=== PATIENT | male | born 1930 | race Caucasian/White ===

== ENCOUNTER 2017-03-09 06:38 | Inpatient (IN) ==
[2017-03-09] MEDS ORDERED: 0.9 % SODIUM CHLORIDE 1,000 ML IV ONE ×3 (07:08→15:58)
--- NOTE | 2017-03-09 07:29 | Emergency Department Note ---
General Adult HPI - General Chief complaint: Nausea/Vomiting/Diarrhea Stated complaint: Nausea, Vomiting, fever, chills, shaking. Time Seen by Provider: 03/09/17 07:22 Source: patient Mode of arrival: wheelchair Limitations: no limitations - History of Present Illness HPI Narrative: 86-year-old male states that he has been having some increased urinary frequency some slight dysuria during the night. His states he is running a temperature but she was unable to take the temperature. She did give Tylenol has been complaining of fever and chills urinary signs and symptoms. Blood pressure on arrival was 84 systolically and patient was given IV fluids and laboratory tests drawn. She denies cough no sputum production patient did have a pacemaker insertion 3 weeks ago. No pain or redness to that area. There is some slight nausea there is been no vomiting BUT DID HAVE DRY HEAVES. no abdominal pain. his states he had a syncopy episode while vomitting GI his appetite has been decreased there is been no diarrhea constipation problems no hematemesis no melena. Denies any CVA tenderness - Related Data Home Medications Medication Instructions Recorded Confirmed calcium carbonate 600 mg calcium 600 mg PO QDAY tab 12/16/14 03/09/17 (1,500 mg) tablet cholecalciferol (vitamin D3) 1,000 1,000 unit PO QDAY cap 12/16/14 03/09/17 unit capsule fluoxetine 40 mg capsule 80 mg PO QAM cap 12/16/14 03/09/17 multivitamin tablet 1 tab PO QDAY tab 12/16/14 03/09/17 pravastatin 10 mg tablet 10 mg PO QHS tab 12/16/14 03/09/17 trazodone 50 mg tablet 50 mg PO QHS tab 12/16/14 03/09/17 aspirin 325 mg tablet 325 mg PO QDAY 06/19/15 03/09/17 latanoprost 0.005 % eye drops 1 drp OPHTHALMIC QHS ml 01/25/16 03/09/17 testosterone cypionate 200 mg/mL 100 mg IM Q4W ml 11/29/16 03/09/17 intramuscular oil Donepezil [Aricept] 10 mg PO HS 12/03/16 03/09/17 sennosides 8.6 mg tablet 8.6 mg PO QDAY 01/28/17 03/09/17 Previous Rx's Medication Instructions Recorded clobetasol 0.05 % scalp solution 1 applic TOPICAL BID PRN #50 ml 08/15/15 levothyroxine 50 mcg tablet 50 mcg PO QDAY #90 tab 09/02/16 midodrine 5 mg tablet 5 mg PO TID #1 tab 11/29/16 omeprazole 20 mg capsule,delayed 20 mg PO QDAY #30 cap 12/10/16 release finasteride 5 mg tablet 5 mg PO QDAY #30 tab 12/11/16 Allergies Allergy/AdvReac Type Severity Reaction Status Date / Time Sulfa (Sulfonamide Allergy Intermediate Rash Verified 01/17/17 12:53 Antibiotics) [SULFA (SULFONAMIDE ANTIBIOTICS)] Review of Systems Constitutional: Reports: fever, chills Eyes: Denies: eye pain ENT ED: Denies: ear pain, throat pain Cardiovascular: Denies: chest pain, palpitations Respiratory: Denies: cough Gastrointestinal: Denies: abdominal pain, nausea Genitourinary: Reports: as per HPI, urgency, dysuria. Denies: hematuria, discharge, testicular pain Musculoskeletal: Denies: back pain Integumentary: Denies: rash Neurological: Denies: headache Psychiatric: Denies: anxiety Endocrine: Denies: fatigue Hematological/Lymphatic: Denies: easy bleeding Allergic/Immunologic: Denies: facial swelling Past Medical History - Past Medical History Medical history: Reports: other (Anemia, gastritis, renal vascule, dementia, memory loss, pancreatitis, stage 3 CKD, paroxysmal atrial fibrillation, psoriasis) Surgical history ED: Reports: pacemaker/AICD, other Family history: Reports: other (Cholecystectomy spinal surgery cataracts,) - Social History smoking status: Former smoker Alcohol use: Reports: Rarely Drug use: Reports: none Physical Exam - General Limitations: no limitations General appearance: alert - Head Head exam: atraumatic, normocephalic - Eye Eye exam: Present: normal appearance, PERRL - ENT ENT exam: normal exam, normal oropharynx, mucous membranes moist - Neck Neck exam: Present: normal inspection, full ROM. Absent: trachea midline - Chest Chest inspection: Present: normal inspection, symmetric chest wall rise. Absent : tenderness - Respiratory Respiratory exam: Present: normal lung sounds bilaterally. Absent: respiratory distress, wheezes, stridor - Cardiovascular Cardiovascular exam: Present: regular rate, normal rhythm. Absent: bradycardia , tachycardia - Abdominal Exam Abdominal exam: Present: soft. Absent: distention, tenderness, guarding, rebound - exam: Present: normal inspection. Absent: testicular tenderness - Extremities Exam Extremities exam: Present: normal inspection, full ROM. Absent: tenderness - Back Exam Back exam: Present: normal inspection, full ROM. Absent: tenderness - Neurological Exam Neurological exam: Present: alert, oriented X3, CN II-XII intact - Psychiatric Psychiatric exam: Present: normal affect, normal mood. Absent: depressed - Skin Skin exam: Present: warm, dry, intact Course Vital Signs Temperature 98.3 F 03/09/17 06:39 Pulse Rate 65 03/09/17 06:39 Respiratory Rate 18 03/09/17 06:39 Blood Pressure 87/47 03/09/17 06:39 Pulse Oximetry (%) 91 03/09/17 06:39 Temperature 98.3 F 03/09/17 06:39 Pulse Rate 59 L 03/09/17 08:31 Respiratory Rate 19 03/09/17 08:31 Blood Pressure 100/46 03/09/17 08:31 Pulse Oximetry (%) 94 03/09/17 08:31 Medical Decision Making - MDM Narrative Medical decision making narrative: chest xray show right lower llobe infiltrate, blood cultures drawn and started on rocephin and zithromax. lactic acid 2.0 and wbc 11,200 hypotensive intially, had syncopy episode. Dr Blanco consulted - Lab Data Result diagrams: 03/09/17 07:15 03/09/17 07:15 Lab Results 03/09/17 03/09/17 03/09/17 Range/Units 07:15 07:15 07:15 WBC 11.2 H (4.5-11.0) K/mcL RBC 4.51 (4.50-5.90) M/mcL Hgb 13.3 L (13.5-16.5) g/dL Hct 39.0 L (41.0-55.0) % MCV 86.4 (80.0-100.0) fL MCH 29.4 (26.0-34.0) pg MCHC 34.0 (31.0-36.0) g/dL RDW 14.2 (11.5-14.5) % Plt Count 219 (140-440) K/mcL MPV 8.5 (7.4-10.4) fL Gran % 91.9 H (38.0-78.0) % Lymph % (Auto) 4.6 L (15.5-49.0) % [place] % (Auto) 2.7 (1.0-12.0) % Eos % (Auto) 0.7 (0.0-7.0) % Baso % (Auto) 0.1 (0.0-2.0) % Gran # 10.3 H (1.8-8.0) K/mcL Lymph # (Auto) 0.5 L (1.5-4.8) K/mcL [place] # (Auto) 0.3 (0.1-0.9) K/mcL Eos # (Auto) 0.1 (0.0-0.7) K/mcL Baso # (Auto) 0 (0.0-0.3) K/mcL Total Counted 100 Seg Neutrophils % 84 H (38-78) % Band Neutrophils % 6 (0-10) % Lymphocytes % 9 L (15-49) % Monocytes % (Manual) 1 (1-12) % Platelet Estimate Normal (NORMAL) RBC Morphology Normal (NORMAL) VBG Lactic Acid 2.0 (0.5-2.2) mmol/L Sodium 139 (133-145) mmol/L Potassium 3.9 (3.3-5.1) mmol/L Chloride 99 (96-108) mmol/L Carbon Dioxide 26 (22-30) mmol/L Anion Gap 14.0 (8-16) BUN 20 (8-23) mg/dl Creatinine 1.4 H (0.7-1.2) mg/dl GFR Calculation 45 Glucose 128 H (70-105) mg/dL Calcium 9.3 (8.6-10.4) mg/dl Total Bilirubin 0.4 (0.0-1.0) mg/dL AST 16 (0-37) U/l ALT 17 (0-40) U/l Alkaline Phosphatase 65 (39-117) U/L Total Protein 7.1 (5.9-8.4) gm/dL Albumin 4.3 (3.2-5.2) gm/dL Globulin 2.8 (2.2-3.7) gm/dL Albumin/Globulin Ratio 1.5 (1.0-2.3) Disposition Pt seen by [facility] only: No Clinical Impression: Right lower lobe pneumonia Disposition: Xfer As Inpt ([facility]) Referrals: Raymond Ro MD [Primary Care Provider] -
--- NOTE | 2017-03-09 07:43 | XRay Report ---
INDICATION: Fever TECHNIQUE: AP upright portable chest x-ray COMPARISON: Previous examinations dated 02/07/2017, 02/29/2016 FINDINGS:No change in left transvenous pacemaker leads Patchy right lung infiltrates consistent with pneumonia. Left lung is negative. Heart size and vascularity are normal. Follow-up radiographs recommended. IMPRESSION: Right lung infiltrates consistent with pneumonia Interpreted and Authenticated by: Wali Cary 03/09/17
[2017-03-09] MEDS ORDERED: AZITHROMYCIN 500 MG in DEXTROSE 5% IN WATER 250 ML IV ONE (07:48)
[2017-03-09] MEDS ORDERED: cefTRIAXone 1 GM VIAL IM SCH (08:00)
[2017-03-09 08:16] LABS: Basophils # (Auto) 0 K/mcL (0.0-0.3); Basophils % (Auto) 0.1 % (0.0-2.0); Eosinophils # (Auto) 0.1 K/mcL (0.0-0.7); Eosinophils % (Auto) 0.7 % (0.0-7.0); Granulocytes % (Auto) 91.9 % (38.0-78.0); Lymphocytes # (Auto) 0.5 K/mcL (1.5-4.8); Lymphocytes % (Auto) 4.6 % (15.5-49.0); Mean Cell Volume 86.4 fL (80.0-100.0); Mean Corpuscular Hemoglobin 29.4 pg (26.0-34.0); Monocytes # (Auto) 0.3 K/mcL (0.1-0.9); Monocytes % (Auto) 2.7 % (1.0-12.0); Platelet Count 219 K/mcL (140-440); RBC 4.51 M/mcL (4.50-5.90); Red Cell Distribution Width 14.2 % (11.5-14.5)
[2017-03-09 08:30] LABS: ALT/SGPT 17 U/l (0-40); Albumin 4.3 gm/dL (3.2-5.2); Albumin/Globulin Ratio 1.5 (1.0-2.3); Alkaline Phosphatase 65 U/L (39-117); Blood Urea Nitrogen 20 mg/dl (8-23)
[2017-03-09] MEDS ORDERED: cefTRIAXone 1 GM in DEXTROSE 5% IN WATER 50 ML IV ONE (08:46)
[2017-03-09 08:52] LABS: Band Neutrophils % 6 % (0-10); Lymphocytes % 9 % (15-49); Monocytes % (Manual) 1 % (1-12); Platelet Estimate NORMAL (NORMAL); RBC Morphology NORMAL (NORMAL); Segmented Neutrophils % 84 % (38-78)
[2017-03-09] MEDS: 0.9 % SODIUM CHLORIDE 1,000 ML IV SCH ×5 (10:48→23:04)
[2017-03-09] MEDS ORDERED: ONDANSETRON 4 MG/2 ML VIAL IV PRN (11:43)
[2017-03-09] MEDS ORDERED: NALOXONE HCL 0.4 MG/ML VIAL IV PRN (11:43)
[2017-03-09] MEDS ORDERED: MAGNESIUM HYDROXIDE 30 ML ORAL.SUSP PO PRN (11:43)
[2017-03-09] MEDS ORDERED: oxyCODONE/APAP 5/325MG TABLET PO PRN (11:43)
[2017-03-09 12:17] LABS: Appearance,Urine CLEAR; Bacteria,Urine 0 /hpf (0); Bilirubin,Urine NEG (NEG); Color,Urine YELLOW; Glucose,Urine (UA) NEGATIVE (NEG); Leukocyte Esterase,Urine NEG /uL (NEG); Mucus,Urine FEW /hpf (0); Nitrate,Urine NEG (NEG); Protein,Urine NEG (NEG); Specific Gravity,Urine 1.014 (1.000-1.035); Urine Blood NEG mg/dL (<0.03); Urine RBC 0 /hpf (0-1); Urine Squamous Epithelial Cell < 1 /hpf (0-4); Urine WBC 1 /hpf (0-4); Urobilinogen,Urine NEG (NEG)
--- NOTE | 2017-03-09 12:48 | Internal Med History&Physical ---
Medical - H&P: HPI Patient information: Note initiated : 03/09/17 at 12:39 pm Service Date, if different from initiated Date: [] Patient: Gustavo Fuentes 86 y/o M admitted on 03/09/17 for Nausea, Vomiting, fever , chills, shaking.. Chief Complaint: [] History of present illness: Mr. Fuentes is a 86 year old Male with multiple medical issues, [place], presented to the ER today with complaints of not feeling well x 1 day. The patient notes he has had some increased frequency of urination x 1 day, he wokeup this AM trying to go the bathroom and his noticed him having shakes, he appeared sick and also had some nausea and vomiting, he vomited x 3-4 times with some brown stuff, no regulo blood. The patient apparenty passed out while vomiting. The patients noted this is the way he was sick in the past when he had his PNA and therefore got him to the hospital for further evaluation. The patient denies any burning or foul smelling urine, the patient denies any cough, chest pain or , palpitations The patient feels he passed out for a few minutes. However, there is no record of any bowel or bladder incontinence or any abnormal jerky movements. in the emergency room, the patient had borderline low blood pressure on presentation, he was afebrile, chest x-ray showed right lung pneumonia, blood work showed elevated white blood cell count at 11.2, hemoglobin of 13.3, platelets of 219. Patient had a sodium of 139, potassium of 3.9, creatinine of 1.4 which is at patient's baseline. The patient had a lactic acid of 2.0,and a negative urine analysis. Given that the patient had low blood pressure and a pneumonia. Patient was admitted to the hospital for further management. All systems: reviewed and no additional remarkable complaints except as stated ( as per HPI) Medical - H&P: [facility] Medical history: Medical History (Last Updated 03/09/17 @ 08:36 by Moises Plascencia MD) Hypogonadism in male (Chronic) Memory loss (Chronic) Chronic kidney disease, stage III (moderate) (Chronic) Pancreatitis (Chronic) Muscle spasm (Resolved) Paroxysmal atrial fibrillation (Chronic) Pancreatic mass (Chronic) Pancreatitis (Chronic) Orthostasis (Chronic) Constipation (Chronic) Enlarged prostate (Chronic) Scalp psoriasis (Chronic) Actinic keratosis (Chronic) Constipation (Chronic) Black stools (Chronic) Personal history of tobacco use (Resolved) Bilateral renal cysts (Chronic) Osteoporosis (Chronic) Osteoarthritis (Chronic) Macular degeneration (Chronic) Insomnia (Chronic) Hypothyroidism (acquired) (Chronic 08/17/14) Hyperlipidemia (Chronic) Glaucoma (Chronic) Depressive disorder (Chronic) Hypersomnia (Chronic) Chronic kidney disease, stage III (moderate) (Chronic 08/17/14) CAD (coronary artery disease) (Chronic) Anxiety disorder (Chronic) Surgical history: Past Surgical History (Last Updated 02/15/17 @ 21:21 by Raymond Ro MD) History of eye surgery (Resolved) History of ERCP (Resolved) History of colonoscopy (Resolved) History of cholecystectomy (Resolved) History of spinal surgery (Resolved) History of cataract surgery (Resolved) H/O heart artery stent (Resolved) Abnormal findings on esophagogastroduodenoscopy (EGD) (Chronic) History of pacemaker (Chronic 02/06/17) Pertinent family history: Family History (Last Reviewed 12/11/16 @ 09:26 by Viky Silvestre MD) Mother Cerebrovascular accident Father Myocardial Infarction Medical - H&P: Meds Home Medications Medication Instructions Recorded Confirmed Type calcium carbonate 600 mg calcium 600 mg PO QDAY tab 12/16/14 03/09/17 History (1,500 mg) tablet cholecalciferol (vitamin D3) 1,000 1,000 unit PO QDAY cap 12/16/14 03/09/17 History unit capsule fluoxetine 40 mg capsule 80 mg PO QAM cap 12/16/14 03/09/17 History multivitamin tablet 1 tab PO QDAY tab 12/16/14 03/09/17 History pravastatin 10 mg tablet 10 mg PO QHS tab 12/16/14 03/09/17 History trazodone 50 mg tablet 100 mg PO QHS tab 12/16/14 03/09/17 History aspirin 325 mg tablet 325 mg PO QDAY 06/19/15 03/09/17 History clobetasol 0.05 % scalp solution 1 applic TOPICAL BID PRN #50 ml 08/15/15 Rx latanoprost 0.005 % eye drops 1 drp OPHTHALMIC QHS ml 01/25/16 03/09/17 History levothyroxine 50 mcg tablet 50 mcg PO QDAY #90 tab 09/02/16 03/09/17 Rx omeprazole 20 mg capsule,delayed 20 mg PO QDAY #30 cap 12/10/16 03/09/17 Rx release finasteride 5 mg tablet 5 mg PO QDAY #30 tab 12/11/16 03/09/17 Rx sennosides 8.6 mg tablet 8.6 mg PO QDAY 01/28/17 03/09/17 History RX: Midodrine HCl 10 mg PO TID 03/09/17 03/09/17 History Allergies Allergy/AdvReac Type Severity Reaction Status Date / Time Sulfa (Sulfonamide Allergy Intermediate Rash Verified 01/17/17 12:53 Antibiotics) [SULFA (SULFONAMIDE ANTIBIOTICS)] Medical - H&P: Exam - Constitutional Vitals: Temp Pulse Resp BP Pulse Ox 100.1 F H 61 16 99/53 97 03/09/17 11:43 03/09/17 11:43 03/09/17 11:43 03/09/17 11:43 03/09/17 11:43 Exam: GENERAL: The patient is a well-developed, well-nourished in no apparent distress. Is alert and oriented x3. VITAL SIGNS: Reviewed and as noted elsewhere. HEENT: Head is normocephalic and atraumatic. Extraocular muscles are intact. Pupils are equal, round, and reactive to light. Nares appeared normal. Mouth appears any without lesions. Mucous membranes are dry. NECK: Normal to inspection, Supple, No lymphadenopathy or thyromegaly. LUNGS: Air entry equal on both sides, no wheezing, crackles or rhonchi noted. No accessory muscles of respiration HEART: Regular rate and rhythm normal, S1 and S2 heard, no Gallop, S3 or Rub Noted, No Gross murmur heard. ABDOMEN: Soft, nontender, and nondistended. Positive bowel sounds. No hepatosplenomegaly was noted. EXTREMITIES: No cyanosis, clubbing, rash, lesions or edema. NEUROLOGIC: Cranial nerves II through XII are grossly intact. Motor and Sensory System Grossly Intact PSYCHIATRIC: Normal affect, Normal Mood. Appropriate Behavior. SKIN: No ulceration or wounds noted, No jaundice, No rash noted. Medical - H&P: Reslt - Labs CBC & Chem 7: 03/09/17 07:15 03/09/17 07:15 Medical - H&P: A/P - Narrative A/P Narrative: A/P Community Acquired Pneumonia: IV rocephin and zithromax for now, monitor Syncope: Monitor on tele, recent pacemaker placement, get ekg, get trop levels, likely vasovagal given association with vomiting. Nausea and vomiting: Treat symptomatically Sepsis: Due to pna, ua is neg, IV fluids and treat u nderlying etiology CKD: Creat is 1.4, follows with nephrology, monitor Hypotension, chr (on midodrine 10mg TID) : patient seems to have chr low bp, and is on midodrine, resume same, will monitor for end organ perfusion issues. DM: Hold metformin, SSI insulin for now HLD: Continue statin therapy s/p Pacemaker (placed 3 weeks ago): Montior on tele DVT hep sq Diet cardiac Full code Medical - H&P: Qual - VTE Deep Vein Thrombosis/Pulmonary Embolism Present on Admission: No Social History - Social History household members: spouse housing: assisted living facility lives independently: Yes marital status: occupational status: retired - Tobacco smoking status: Former smoker - Alcohol alcohol intake frequency: holiday/special occasion only
[2017-03-09] MEDS: ACETAMINOPHEN 325 MG TABLET PO PRN (13:12)
[2017-03-09] MEDS: IPRATROPIUM/ALBUTEROL 3 ML AMPUL.NEB NEB SCH ×4 (13:40→22:50)
[2017-03-09] MEDS: MIDODRINE 5 MG TABLET PO SCH (15:46)
[2017-03-09] MEDS ORDERED: 0.9 % SODIUM CHLORIDE 500 ML IV ONE (19:02)
[2017-03-09] MEDS: traZODone HCL 50 MG TABLET PO SCH (20:43)
[2017-03-09] MEDS: SIMVASTATIN 10 MG TABLET PO SCH (20:43)
[2017-03-09] MEDS: HEPARIN 5,000 UNIT/ML VIAL SQ SCH (20:43)
[2017-03-09] MEDS: LATANOPROST OPHTH DROPS 2.5ML BOTTLE OU SCH (20:44)
[2017-03-09] MEDS ORDERED: FAMOTIDINE/PF 20 MG/2 ML VIAL IV SCH (21:00)
[2017-03-10] MEDS: IPRATROPIUM/ALBUTEROL 3 ML AMPUL.NEB NEB SCH ×6 (02:26→23:15)
[2017-03-10 06:56] LABS: Basophils # (Auto) 0 K/mcL (0.0-0.3); Basophils % (Auto) 0.1 % (0.0-2.0); Eosinophils # (Auto) 0.1 K/mcL (0.0-0.7); Eosinophils % (Auto) 0.8 % (0.0-7.0); Granulocytes % (Auto) 88.8 % (38.0-78.0); Lymphocytes # (Auto) 0.8 K/mcL (1.5-4.8); Lymphocytes % (Auto) 6.5 % (15.5-49.0); Mean Cell Volume 87.4 fL (80.0-100.0); Mean Corpuscular Hemoglobin 29.7 pg (26.0-34.0); Monocytes # (Auto) 0.5 K/mcL (0.1-0.9); Monocytes % (Auto) 3.8 % (1.0-12.0); Platelet Count 154 K/mcL (140-440); RBC 3.36 M/mcL (4.50-5.90); Red Cell Distribution Width 14.6 % (11.5-14.5)
[2017-03-10 07:11] LABS: ALT/SGPT 13 U/l (0-40); Albumin 3.5 gm/dL (3.2-5.2); Albumin/Globulin Ratio 1.5 (1.0-2.3); Alkaline Phosphatase 58 U/L (39-117); Bilirubin,Direct < 0.2 mg/dL (0.0-0.3); Blood Urea Nitrogen 17 mg/dl (8-23); Gamma Glutamyl Transpeptidase 12 U/L (8-61); Magnesium 1.9 mg/dL (1.6-2.5); Uric Acid 4.8 mg/dL (2.5-8.0)
[2017-03-10] MEDS: OMEPRAZOLE 20 MG CAPSULE PO SCH (07:41)
[2017-03-10] MEDS: LEVOTHYROXINE 50 MCG TABLET PO SCH (07:41)
[2017-03-10] MEDS: MULTIVIT,THER IRON,CA,FA & MIN 1 TABLET PO SCH (08:48)
[2017-03-10] MEDS: FINASTERIDE 5 MG TABLET PO SCH (08:48)
[2017-03-10] MEDS: ASPIRIN 325 MG ENTERIC COATED TABLET PO SCH (08:49)
[2017-03-10] MEDS: CALCIUM CARBONATE 500 MG TAB.CHEW CHEWED SCH (08:49)
[2017-03-10] MEDS: HEPARIN 5,000 UNIT/ML VIAL SQ SCH ×2 (08:49→20:36)
[2017-03-10] MEDS: SENNOSIDES 1 TABLET PO SCH (08:49)
[2017-03-10] MEDS: MIDODRINE 5 MG TABLET PO SCH ×3 (08:50→17:23)
[2017-03-10] MEDS: cefTRIAXone 1 GM in DEXTROSE 5% IN WATER 50 ML IV SCH (08:51)
[2017-03-10] MEDS: 0.9 % SODIUM CHLORIDE 1,000 ML IV SCH (09:06)
[2017-03-10] MEDS: AZITHROMYCIN 250 MG in DEXTROSE 5% IN WATER 250 ML IV SCH (10:30)
[2017-03-10] MEDS: ACETAMINOPHEN 325 MG TABLET PO PRN (12:01)
[2017-03-10] MEDS: risperiDONE 0.25 MG TABLET PO SCH ×2 (12:20→19:27)
[2017-03-10] MEDS ORDERED: LORazepam 2 MG/ML VIAL IV ONE (13:00)
[2017-03-10] MEDS ORDERED: HALOPERIDOL LACTATE 5 MG/ML VIAL IV ONE ×2 (13:15→14:37)
[2017-03-10] MEDS ORDERED: LORazepam 2 MG/ML VIAL ONE (13:19)
[2017-03-10] MEDS ORDERED: HALOPERIDOL LACTATE 5 MG/ML VIAL ONE (13:35)
[2017-03-10] MEDS: HALOPERIDOL LACTATE 5 MG/ML VIAL ONE ×2 (14:40→14:44)
[2017-03-10] MEDS ORDERED: LORazepam 2 MG/ML VIAL IV PRN (19:11)
--- NOTE | 2017-03-10 20:19 | Internal Med Progress Note ---
Medical - PN: Subj Patient information: Note initiated : 03/10/17 at 8:17 pm Service Date, if different from initiated Date: [] Patient: Gustavo Fuentes 86 y/o M admitted on 03/09/17 for Nausea, Vomiting, Fever , Chills, Shaking/Pneumonia. Chief Complaint: [] Interval history: Mr. Fuentes is a 86 year old Male with multiple medical issues, [place], presented to the ER today with complaints of not feeling well x 1 day. The patient notes he has had some increased frequency of urination x 1 day, he wokeup this AM trying to go the bathroom and his noticed him having shakes, he appeared sick and also had some nausea and vomiting, he vomited x 3-4 times with some brown stuff, no regulo blood. The patient apparenty passed out while vomiting. The patients noted this is the way he was sick in the past when he had his PNA and therefore got him to the hospital for further evaluation. The patient denies any burning or foul smelling urine, the patient denies any cough, chest pain or , palpitations The patient feels he passed out for a few minutes. However, there is no record of any bowel or bladder incontinence or any abnormal jerky movements. in the emergency room, the patient had borderline low blood pressure on presentation, he was afebrile, chest x-ray showed right lung pneumonia, blood work showed elevated white blood cell count at 11.2, hemoglobin of 13.3, platelets of 219. Patient had a sodium of 139, potassium of 3.9, creatinine of 1.4 which is at patient's baseline. The patient had a lactic acid of 2.0,and a negative urine analysis. Given that the patient had low blood pressure and a pneumonia. Patient was admitted to the hospital for further management. 03/10: pt seen examined magdalena well this AM but by afternoon was trying to leave the room and go outside the hospital, has h/o dementia, ativan and haldol given. to keep him in his room. Pt denies any acute complaints. Pertinent ROS: Denies headache, dizziness Denies chest pain, palpitations Denies cough or shortness of breath Denies abdominal pain, nausea or vomiting. - Constitutional Vitals: Vital Signs Temp Pulse Resp BP Pulse Ox 100.1 F H 80 18 109/54 97 03/10/17 16:00 03/10/17 19:36 03/10/17 19:36 03/10/17 16:00 03/10/17 19:36 Period Temp Pulse Resp BP Sys/Patel Pulse Ox Last 24 Hr 98.7 F-100.2 F 60-80 12-20 99-109/47-58 92-99 Intake and Output 03/10/17 03/10/17 03/10/17 05:59 13:59 21:59 Intake Total 1660 / 1660 2880 / 2880 Output Total 600 / 600 550 / 550 275 / 275 Balance 1060 / 1060 2330 / 2330 -275 / -275 Intake & Output: Intake & Output 03/10/17 03/10/17 03/10/17 05:59 13:59 21:59 Intake Total 1660 / 1660 2880 / 2880 Output Total 600 / 600 550 / 550 275 / 275 Balance 1060 / 1060 2330 / 2330 -275 / -275 Intake: IV 940 / 940 1300 / 1300 Sodium Chloride 0.9% 1, 940 / 940 1000 / 1000 000 ml @ 100 mls/hr IV . Q10H [facility] Rx#:[id number] Zithromax 250 mg In 250 / 250 Dextrose 5% in Water 250 ml @ 250 mls/hr IV DAILY@ 1000 [facility] Rx#:[id number] Rocephin 1 gm In Dextrose 50 / 50 5% in Water 50 ml @ 100 mls/hr IV DAILY [facility] Rx#: [id number] Oral 720 / 720 1580 / 1580 Output: Urine Catheter Amount 600 / 600 550 / 550 275 / 275 Other: Meal Breakfast Percent of Meal Consumed 50% Feeding Ability Independent # Bowel Movements 0 Exam: Constitutional; Afebrile, cooperative, alert, not in distress. Eyes- No icterus, , No periorbital swelling Ears- Ext ear normal, hearing normal to conversation. Neck- Midline trachea, supple Respiratory system: Air Entry equal on both sides, No crackles or wheezing, no rhonchi. CVS- Rate rhythm regular, S1,S2 heard, no gallop, no rub. Abdomen- Soft nontender abdomen, no organomegaly, no tenderness, no guarding or rigidity, [employer]- AOOx2, moving all extremities, no gross focal deficit noted. Medical - PN: Obj Da - Labs CBC & Chem 7: 03/10/17 04:06 03/10/17 04:06 Labs: Abnormal Lab Results 03/10/17 03/10/17 04:06 04:06 WBC 12.3 H RBC 3.36 L Hgb 10.0 L Hct 29.3 L RDW 14.6 H Gran % 88.8 H Lymph % (Auto) 6.5 L Gran # 10.9 H Lymph # (Auto) 0.8 L Calcium 8.1 L Phosphorus 2.6 L Total Protein 5.8 L Meds: Medications Acetaminophen (Tylenol) 650 mg PO Q6HP PRN PRN Reason: PAIN/FEVER > 101 Last Admin: 03/10/17 12:01 Dose: 650 mg Albuterol/Ipratropium (Duoneb) 3 ml NEB Q4HRT [facility] Last Admin: 03/10/17 19:34 Dose: 3 ml Aspirin (Ecotrin) 325 mg PO DAILY [facility] Last Admin: 03/10/17 08:49 Dose: 325 mg Calcium Carbonate/Glycine (Tums) 500 mg CHEWED DAILY [facility] Last Admin: 03/10/17 08:49 Dose: 500 mg Finasteride (Proscar) 5 mg PO QDAY [facility] Last Admin: 03/10/17 08:48 Dose: 5 mg Fluoxetine HCl (Prozac) 80 mg PO HS [facility] Heparin Sodium (Porcine) (Heparin) 5,000 unit SQ Q12 [facility] Last Admin: 03/10/17 08:49 Dose: 5,000 unit Azithromycin 250 mg/ Dextrose 250 mls @ 250 mls/hr IV DAILY@1000 [facility] Stop: 03/12/17 10:59 Last Infusion: 03/10/17 11:30 Dose: Infused Ceftriaxone Sodium 1 gm/ (Dextrose) 50 mls @ 100 mls/hr IV DAILY [facility] Stop: 03/16/17 09:29 Last Infusion: 03/10/17 09:25 Dose: Infused Iron Carb/Multivit/Office Mover/Folic Acid (Multivitamin W/Minerals) 1 tab PO DAILY [facility] Last Admin: 03/10/17 08:48 Dose: 1 tab Latanoprost (Xalatan Ophth Drops) 1 gtt OU QHS [facility] Last Admin: 03/09/17 20:44 Dose: Not Given Levothyroxine Sodium (Synthroid) 50 mcg PO ACB [facility] Last Admin: 03/10/17 07:41 Dose: 50 mcg Lorazepam (Ativan) 0 mg IV Q4HP PRN PRN Reason: ANXIETY/SEDATION Last Admin: 03/10/17 19:28 Dose: 1 mg Magnesium Hydroxide (Milk Of Magnesia) 30 ml PO DAILYP PRN PRN Reason: Constipation Midodrine (Midodrine Hcl) 10 mg PO TID@0800,1200,1700 [facility] Last Admin: 03/10/17 17:23 Dose: 10 mg Naloxone HCl (Narcan) 0.1 mg IV Q2MIN PRN PRN Reason: Opiate Reversal Omeprazole (Prilosec) 20 mg PO ACB [facility] Last Admin: 03/10/17 07:41 Dose: 20 mg Ondansetron HCl (Zofran) 4 mg IV Q4HP PRN PRN Reason: Nausea And Vomiting Oxycodone/Acetaminophen (Percocet 5-325 Mg) 1 tab PO Q4HP PRN PRN Reason: Pain Risperidone (Risperdal) 0.5 mg PO BID [facility] Last Admin: 03/10/17 19:27 Dose: 0.5 mg Senna (Senokot) 1 tab PO QDAY [facility] Last Admin: 03/10/17 08:49 Dose: 1 tab Simvastatin (Zocor) 5 mg PO HS [facility] Last Admin: 03/09/17 20:43 Dose: 5 mg Trazodone HCl (Desyrel) 100 mg PO QHS [facility] Last Admin: 03/09/17 20:43 Dose: 100 mg Medical - PN: A/P - Time Spent With Patient Total time spent is greater than 50% in coordination of care (as documented) at patient's floor/unit and/or counseling patient: - Narrative A/P Narrative: A/P Community Acquired Pneumonia: IV rocephin and zithromax for now, monitor clinically stable AMS/ due to dementia, iv haldol and ativa x 1, soft restraints to keep pt in room and prevent damage to self and remove IV access. Syncope: Monitor on tele, vasovagal by history Nausea and vomiting: Treat symptomatically, now resolved Sepsis: Due to pna, ua is neg, IV fluids and treat underlying etiology, resolved now. CKD: Creat is 1.2, follows with nephrology as outpatient , monitor Hypotension, chr (on midodrine 10mg TID) : patient seems to have chr low bp, and is on midodrine, resume same, will monitor for end organ perfusion issues. DM: Hold metformin, SSI insulin for now HLD: Continue statin therapy s/p Pacemaker (placed 3 weeks ago): Monitor on tele DVT hep sq Diet cardiac Full code Medical - PN: Qual - VTE Deep Vein Thrombosis/Pulmonary Embolism Present on Admission: No
[2017-03-10] MEDS: FLUoxetine HCL 20 MG CAPSULE PO SCH (20:35)
[2017-03-10] MEDS: traZODone HCL 50 MG TABLET PO SCH (20:36)
[2017-03-10] MEDS: SIMVASTATIN 10 MG TABLET PO SCH (20:36)
[2017-03-10] MEDS: LATANOPROST OPHTH DROPS 2.5ML BOTTLE OU SCH (22:54)
[2017-03-11] MEDS ORDERED: ACETAMINOPHEN 1,000 MG/100 ML BOTTLE IV ONE (02:48)
[2017-03-11] MEDS: IPRATROPIUM/ALBUTEROL 3 ML AMPUL.NEB NEB SCH ×6 (03:05→22:47)
[2017-03-11 04:24] LABS: Basophils # (Auto) 0 K/mcL (0.0-0.3); Basophils % (Auto) 0.1 % (0.0-2.0); Eosinophils # (Auto) 0 K/mcL (0.0-0.7); Eosinophils % (Auto) 0.2 % (0.0-7.0); Granulocytes % (Auto) 90.8 % (38.0-78.0); Lymphocytes # (Auto) 0.6 K/mcL (1.5-4.8); Mean Cell Volume 87.1 fL (80.0-100.0); Mean Corpuscular Hemoglobin 28.8 pg (26.0-34.0); Monocytes # (Auto) 0.5 K/mcL (0.1-0.9); Monocytes % (Auto) 3.9 % (1.0-12.0); Platelet Count 160 K/mcL (140-440); RBC 3.65 M/mcL (4.50-5.90); Red Cell Distribution Width 14.7 % (11.5-14.5)
[2017-03-11 04:35] LABS: ALT/SGPT 12 U/l (0-40); Albumin 3.3 gm/dL (3.2-5.2); Albumin/Globulin Ratio 1.2 (1.0-2.3); Alkaline Phosphatase 57 U/L (39-117); Bilirubin,Direct < 0.2 mg/dL (0.0-0.3); Blood Urea Nitrogen 15 mg/dl (8-23); Gamma Glutamyl Transpeptidase 13 U/L (8-61); Magnesium 1.7 mg/dL (1.6-2.5); Uric Acid 4.5 mg/dL (2.5-8.0)
[2017-03-11] MEDS ORDERED: DILTIAZEM 125 MG/25 ML VIAL IV ONE (04:49)
[2017-03-11] MEDS: DILTIAZEM 125 MG in 0.9 % SODIUM CHLORIDE 100 ML IV SCH ×4 (05:07→23:55)
[2017-03-11] MEDS: OMEPRAZOLE 20 MG CAPSULE PO SCH (08:15)
[2017-03-11] MEDS: MIDODRINE 5 MG TABLET PO SCH ×3 (08:15→18:16)
[2017-03-11] MEDS: LEVOTHYROXINE 50 MCG TABLET PO SCH (08:15)
--- NOTE | 2017-03-11 09:50 | XRay Report ---
INDICATION: Aspiration TECHNIQUE: AP portable chest x-ray COMPARISON: Previous chest x-rays dated 03/09/2017, 02/07/2017, 02/29/2016 FINDINGS:No change in left transvenous pacemaker leads. Extensive right-sided infiltrates are worse than on 03/09/2017 and used since 02/07/2017. Appearance is consistent with pneumonia. There are left-sided infiltrates which are predominantly at the left lung base. These are new. IMPRESSION: 1. Increasing bilateral pulmonary parenchymal infiltrates, right worse in left 2. Findings are significantly worse than on 03/09/2017 and a since 02/07/2017 Interpreted and Authenticated by: Wali Cary 03/11/17
[2017-03-11] MEDS: cefTRIAXone 1 GM in DEXTROSE 5% IN WATER 50 ML IV SCH (10:13)
[2017-03-11] MEDS: ASPIRIN 325 MG ENTERIC COATED TABLET PO SCH (10:14)
[2017-03-11] MEDS: CALCIUM CARBONATE 500 MG TAB.CHEW CHEWED SCH (10:14)
[2017-03-11] MEDS: HEPARIN 5,000 UNIT/ML VIAL SQ SCH ×2 (10:14→21:00)
[2017-03-11] MEDS: MULTIVIT,THER IRON,CA,FA & MIN 1 TABLET PO SCH (10:14)
[2017-03-11] MEDS: FINASTERIDE 5 MG TABLET PO SCH (10:22)
[2017-03-11] MEDS: risperiDONE 0.25 MG TABLET PO SCH ×2 (10:22→20:45)
[2017-03-11] MEDS: SENNOSIDES 1 TABLET PO SCH (10:22)
[2017-03-11] MEDS: AZITHROMYCIN 250 MG in DEXTROSE 5% IN WATER 250 ML IV SCH (10:47)
[2017-03-11] MEDS ORDERED: FUROSEMIDE 40 MG/4 ML VIAL IV ONE (11:29)
--- NOTE | 2017-03-11 11:34 | Internal Med Progress Note ---
Medical - PN: Subj Patient information: Note initiated : 03/11/17 at 11:32 am Service Date, if different from initiated Date: [] Patient: Gustavo Fuentes 86 y/o M admitted on 03/09/17 for Nausea, Vomiting, Fever , Chills, Shaking/Pneumonia. Chief Complaint: [] Interval history: Mr. Fuentes is a 86 year old Male with multiple medical issues, [place], presented to the ER today with complaints of not feeling well x 1 day. The patient notes he has had some increased frequency of urination x 1 day, he wokeup this AM trying to go the bathroom and his noticed him having shakes, he appeared sick and also had some nausea and vomiting, he vomited x 3-4 times with some brown stuff, no regulo blood. The patient apparenty passed out while vomiting. The patients noted this is the way he was sick in the past when he had his PNA and therefore got him to the hospital for further evaluation. The patient denies any burning or foul smelling urine, the patient denies any cough, chest pain or , palpitations The patient feels he passed out for a few minutes. However, there is no record of any bowel or bladder incontinence or any abnormal jerky movements. in the emergency room, the patient had borderline low blood pressure on presentation, he was afebrile, chest x-ray showed right lung pneumonia, blood work showed elevated white blood cell count at 11.2, hemoglobin of 13.3, platelets of 219. Patient had a sodium of 139, potassium of 3.9, creatinine of 1.4 which is at patient's baseline. The patient had a lactic acid of 2.0,and a negative urine analysis. Given that the patient had low blood pressure and a pneumonia. Patient was admitted to the hospital for further management. 03/10: pt seen examined magdalena well this AM but by afternoon was trying to leave the room and go outside the hospital, has h/o dementia, ativan and haldol given. to keep him in his room. Pt denies any acute complaints. 03/11- remarkable deterioration overnight. worsening respiratory status along with new onset A. fib with RVR started on diltiazem drip. Bilateral worsening infiltrates on chest imaging. Patient made nothing by mouth-actively aspirating. ST eval. Extend antibiotic coverage o include anaerobes in light of aspiration. Continue ICU care. High risk mortality. patient very confused nd delirious. at bedside. melony count at 12.1. - Constitutional Vitals: Vital Signs Temp Pulse Resp BP Pulse Ox 98.8 F 95 H 24 H 95/60 95 03/11/17 08:00 03/11/17 11:07 03/11/17 11:07 03/11/17 10:01 03/11/17 08:05 Period Temp Pulse Resp BP Sys/Patel Pulse Ox Last 24 Hr 98.1 F-101.8 F 67-115 16-24 93-148/47-124 90-97 Intake and Output 03/10/17 03/11/17 03/11/17 21:59 05:59 13:59 Intake Total 100 / 100 Output Total 1035 / 1035 975 / 975 Balance -1035 / -1035 -875 / -875 Weight 175 lb 9.6 oz 175 lb 9.6 oz Patient Weight 03/12/17 05:59 Weight 175 lb 9.6 oz Intake & Output: Intake & Output 03/10/17 03/11/17 03/11/17 21:59 05:59 13:59 Intake Total 100 / 100 Output Total 1035 / 1035 975 / 975 Balance -1035 / -1035 -875 / -875 Weight 175 lb 9.6 oz 175 lb 9.6 oz Intake: IV 100 / 100 Cardizem 125 mg In Sodium Chloride 0.9% 100 ml @ 5 MG/HR 5 mls/hr IV Q12H [facility] Rx#:[id number] Output: Urine Catheter Amount 1035 / 1035 975 / 975 Other: # Bowel Movements 0 General appearance: moderate distress (SOB) Exam: onfused and delirious labored breathing Short of breath on 4 L oxygen Mild pallor Medical - PN: Obj Da - Labs CBC & Chem 7: 03/11/17 03:12 03/11/17 03:12 Labs: Abnormal Lab Results 03/11/17 03/11/17 03/10/17 03:12 03:12 04:06 WBC 12.1 H RBC 3.65 L Hgb 10.5 L Hct 31.8 L RDW 14.7 H Gran % 90.8 H Lymph % (Auto) 5.0 L Gran # 11.0 H Lymph # (Auto) 0.6 L Carbon Dioxide 20 L Glucose 125 H Calcium 8.4 L 8.1 L Phosphorus 2.2 L 2.6 L Total Protein 5.8 L 03/10/17 04:06 WBC 12.3 H RBC 3.36 L Hgb 10.0 L Hct 29.3 L RDW 14.6 H Gran % 88.8 H Lymph % (Auto) 6.5 L Gran # 10.9 H Lymph # (Auto) 0.8 L Carbon Dioxide Glucose Calcium Phosphorus Total Protein Meds: Medications Acetaminophen (Tylenol) 650 mg PO Q6HP PRN PRN Reason: PAIN/FEVER > 101 Last Admin: 03/10/17 12:01 Dose: 650 mg Albuterol/Ipratropium (Duoneb) 3 ml NEB Q4HRT [facility] Last Admin: 03/11/17 11:05 Dose: 3 ml Aspirin (Ecotrin) 325 mg PO DAILY [facility] Last Admin: 03/11/17 10:14 Dose: 325 mg Calcium Carbonate/Glycine (Tums) 500 mg CHEWED DAILY [facility] Last Admin: 03/11/17 10:14 Dose: 500 mg Finasteride (Proscar) 5 mg PO QDAY [facility] Last Admin: 03/11/17 10:22 Dose: 5 mg Fluoxetine HCl (Prozac) 80 mg PO HS [facility] Last Admin: 03/10/17 20:35 Dose: 80 mg Furosemide (Lasix) 40 mg IV ONCE ONE Stop: 03/11/17 11:30 Furosemide (Lasix) 40 mg IV Q12 [facility] Heparin Sodium (Porcine) (Heparin) 5,000 unit SQ Q12 [facility] Last Admin: 03/11/17 10:14 Dose: 5,000 unit Azithromycin 250 mg/ Dextrose 250 mls @ 250 mls/hr IV DAILY@1000 [facility] Stop: 03/12/17 10:59 Last Admin: 03/11/17 10:47 Dose: 250 mls/hr Ceftriaxone Sodium 1 gm/ (Dextrose) 50 mls @ 100 mls/hr IV DAILY [facility] Stop: 03/16/17 09:29 Last Admin: 03/11/17 10:13 Dose: 100 mls/hr Diltiazem HCl 125 mg/ Sodium (Chloride) 125 mls @ 5 mls/hr IV Q12H [facility]; 5 MG/HR PRN Reason: Protocol Last Admin: 03/11/17 08:16 Dose: 5 mg/hr, 5 mls/hr Iron Carb/Multivit/Instrument Shop Supervisor/Folic Acid (Multivitamin W/Minerals) 1 tab PO DAILY [facility] Last Admin: 03/11/17 10:14 Dose: 1 tab Latanoprost (Xalatan Ophth Drops) 1 gtt OU QHS [facility] Last Admin: 03/10/17 22:54 Dose: Not Given Levothyroxine Sodium (Synthroid) 50 mcg PO ACB [facility] Last Admin: 03/11/17 08:15 Dose: 50 mcg Lorazepam (Ativan) 0 mg IV Q4HP PRN PRN Reason: ANXIETY/SEDATION Last Admin: 03/10/17 19:28 Dose: 1 mg Magnesium Hydroxide (Milk Of Magnesia) 30 ml PO DAILYP PRN PRN Reason: Constipation Midodrine (Midodrine Hcl) 10 mg PO TID@0800,1200,1700 [facility] Last Admin: 03/11/17 08:15 Dose: 10 mg Naloxone HCl (Narcan) 0.1 mg IV Q2MIN PRN PRN Reason: Opiate Reversal Omeprazole (Prilosec) 20 mg PO ACB [facility] Last Admin: 03/11/17 08:15 Dose: 20 mg Ondansetron HCl (Zofran) 4 mg IV Q4HP PRN PRN Reason: Nausea And Vomiting Oxycodone/Acetaminophen (Percocet 5-325 Mg) 1 tab PO Q4HP PRN PRN Reason: Pain Risperidone (Risperdal) 0.5 mg PO BID [facility] Last Admin: 03/11/17 10:22 Dose: 0.5 mg Senna (Senokot) 1 tab PO QDAY [facility] Last Admin: 03/11/17 10:22 Dose: 1 tab Simvastatin (Zocor) 5 mg PO HS [facility] Last Admin: 03/10/17 20:36 Dose: 5 mg Trazodone HCl (Desyrel) 100 mg PO QHS [facility] Last Admin: 03/10/17 20:36 Dose: 100 mg Medical - PN: A/P - Time Spent With Patient Total time spent is greater than 50% in coordination of care (as documented) at patient's floor/unit and/or counseling patient: Greater than 35 minutes (critical care time) - Narrative A/P Narrative: A/P * hypoxic respiratory failure secondary to worsening aspiration pneumonia- continue supplemental oxygen. extend antibiotic coverage and Zosyn to include anaerobes. intubate if further risk of airway compromise * atrial fibrillation with RVR on diltiazem drip * worsening aspiration pneumonia- NPO and ST eval. Continue anaerobic coverage * Acute decompensated heart failure secondary to above-on diuresis * Acute change in mental status secondary to combination of above. On antipsychotics. Continue frequent reorientation bright lights * Syncope: Monitor on tele, vasovagal by history * CKD: Creat is 1.2- 1.1 * Hypotension, chr (on midodrine 10mg TID) : * DM: Hold metformin, SSI insulin for now * HLD: Continue statin therapy * s/p Pacemaker (placed 3 weeks ago): Monitor on tele * DVT hep sq * Full code plan * ICU care * ABG and serial chest imaging * xtend antibiotic coverage * Intubate if needed * diltiazem drip for rate control * Initiate diuresis * patient critically ill with [place] score over 16 ignifying high risk mortality. Medical - PN: Qual - VTE Deep Vein Thrombosis/Pulmonary Embolism Present on Admission: No
[2017-03-11] MEDS: PIPERACILLIN SODIUM/TAZOBACTAM 3.375 GM in DEXTROSE 5% IN WATER 50 ML IV SCH ×3 (12:01→23:33)
[2017-03-11] MEDS ORDERED: guaiFENesin/DEXTROMETHORPHAN ORAL SOL PO PRN (15:08)
[2017-03-11] MEDS: ACETAMINOPHEN 325 MG TABLET PO PRN (16:44)
[2017-03-11] MEDS: traZODone HCL 50 MG TABLET PO SCH (20:44)
[2017-03-11] MEDS: FLUoxetine HCL 20 MG CAPSULE PO SCH (20:45)
[2017-03-11] MEDS: SIMVASTATIN 10 MG TABLET PO SCH (20:45)
[2017-03-11] MEDS: LATANOPROST OPHTH DROPS 2.5ML BOTTLE OU SCH (21:00)
[2017-03-11] MEDS: FUROSEMIDE 40 MG/4 ML VIAL IV SCH (21:00)
[2017-03-11] MEDS: 0.9 % SODIUM CHLORIDE 250 ML IV SCH (21:39)
[2017-03-12] MEDS ORDERED: ACETAMINOPHEN 1,000 MG/100 ML BOTTLE IV PRN (00:05)
--- NOTE | 2017-03-12 00:36 | Internal Med Progress Note ---
Medical - PN: Subj Patient information: Note initiated : 03/12/17 at 12:33 am Service Date, if different from initiated Date: [] Patient: Gustavo Fuentes 86 y/o M admitted on 03/09/17 for Nausea, Vomiting, Fever , Chills, Shaking/Pneumonia. Chief Complaint: [] Interval history: Mr. Fuentes is a 86 year old Male with multiple medical issues, [place], presented to the ER today with complaints of not feeling well x 1 day. The patient notes he has had some increased frequency of urination x 1 day, he wokeup this AM trying to go the bathroom and his noticed him having shakes, he appeared sick and also had some nausea and vomiting, he vomited x 3-4 times with some brown stuff, no regulo blood. The patient apparenty passed out while vomiting. The patients noted this is the way he was sick in the past when he had his PNA and therefore got him to the hospital for further evaluation. The patient denies any burning or foul smelling urine, the patient denies any cough, chest pain or , palpitations The patient feels he passed out for a few minutes. However, there is no record of any bowel or bladder incontinence or any abnormal jerky movements. in the emergency room, the patient had borderline low blood pressure on presentation, he was afebrile, chest x-ray showed right lung pneumonia, blood work showed elevated white blood cell count at 11.2, hemoglobin of 13.3, platelets of 219. Patient had a sodium of 139, potassium of 3.9, creatinine of 1.4 which is at patient's baseline. The patient had a lactic acid of 2.0,and a negative urine analysis. Given that the patient had low blood pressure and a pneumonia. Patient was admitted to the hospital for further management. 03/10: pt seen examined magdalena well this AM but by afternoon was trying to leave the room and go outside the hospital, has h/o dementia, ativan and haldol given. to keep him in his room. Pt denies any acute complaints. 03/11- remarkable deterioration overnight. worsening respiratory status along with new onset A. fib with RVR started on diltiazem drip. Bilateral worsening infiltrates on chest imaging. Patient made nothing by mouth-actively aspirating. ST eval. Extend antibiotic coverage o include anaerobes in light of aspiration. Continue ICU care. High risk mortality. patient very confused nd delirious. at bedside. melony count at 12.1. 03/12- Pt hypoxic and on 10 L oxymask. Confused. High risk airway compromise in light of mental status change and ongoing aspiration, increased work of breathing, RR at 36-40. ABG 7.53/27/60. Case discussed with patient's and son. Family would like to Initiate aggressive measures including mechanical ventilation. patient intubated and started on mechanical ventilation. Net 2000 cc negative fluid status on lasix. Start @ AC 14 TV 450 pEEP 8. Fent/propofol for sedation. ontinue antibiotic coverage febrile at 102F - Constitutional Vitals: Vital Signs Temp Pulse Resp BP Pulse Ox 98.2 F 103 H 34 H 96/59 89 L 03/12/17 00:00 03/12/17 00:00 03/12/17 00:00 03/12/17 00:00 03/12/17 00:00 Period Temp Pulse Resp BP Sys/Patel Pulse Ox Last 24 Hr 98.1 F-101.8 F 85-115 18-34 85-141/51-120 82-95 Intake and Output 03/11/17 03/11/17 03/12/17 13:59 21:59 05:59 Intake Total 75 / 75 140 / 140 26 / 26 Output Total 1600 / 1600 1725 / 1725 Balance 75 / 75 -1460 / -1460 -1699 / -1699 Weight 175 lb 9.6 oz 176 lb 14.4 oz Patient Weight 03/12/17 05:59 Weight 176 lb 14.4 oz Intake & Output: Intake & Output 03/11/17 03/11/17 03/12/17 13:59 21:59 05:59 Intake Total 75 / 75 140 / 140 26 / 26 Output Total 1600 / 1600 1725 / 1725 Balance 75 / 75 -1460 / -1460 -1699 / -1699 Weight 175 lb 9.6 oz 176 lb 14.4 oz Intake: IV 75 / 75 140 / 140 26 / 26 Cardizem 125 mg In Sodium 25 / 25 90 / 90 26 / 26 Chloride 0.9% 100 ml @ 5 MG/HR 5 mls/hr IV Q12H [facility] Rx#:[id number] Zosyn 3.375 gm In 50 / 50 50 / 50 Dextrose 5% in Water 50 ml @ 100 mls/hr IV Q6H [facility] Rx#:[id number] Output: Urine Catheter Amount 1600 / 1600 1725 / 1725 Other: # Bowel Movements 1 General appearance: moderate distress (respiratory) Exam: confused and delerious SOB AFIb with RVR Foleys draining clear urine Medical - PN: Obj Da - Labs CBC & Chem 7: 03/12/17 04:53 03/12/17 04:53 Labs: Abnormal Lab Results 03/11/17 03/11/17 03/10/17 03:12 03:12 04:06 WBC 12.1 H RBC 3.65 L Hgb 10.5 L Hct 31.8 L RDW 14.7 H Gran % 90.8 H Lymph % (Auto) 5.0 L Gran # 11.0 H Lymph # (Auto) 0.6 L Carbon Dioxide 20 L Glucose 125 H Calcium 8.4 L 8.1 L Phosphorus 2.2 L 2.6 L Total Protein 5.8 L 03/10/17 04:06 WBC 12.3 H RBC 3.36 L Hgb 10.0 L Hct 29.3 L RDW 14.6 H Gran % 88.8 H Lymph % (Auto) 6.5 L Gran # 10.9 H Lymph # (Auto) 0.8 L Carbon Dioxide Glucose Calcium Phosphorus Total Protein Meds: Medications Acetaminophen (Tylenol) 650 mg PO Q6HP PRN PRN Reason: PAIN/FEVER > 101 Last Admin: 03/11/17 16:44 Dose: 650 mg Albuterol/Ipratropium (Duoneb) 3 ml NEB Q4HRT [facility] Last Admin: 03/11/17 22:47 Dose: 3 ml Aspirin (Ecotrin) 325 mg PO DAILY [facility] Last Admin: 03/11/17 10:14 Dose: 325 mg Calcium Carbonate/Glycine (Tums) 500 mg CHEWED DAILY [facility] Last Admin: 03/11/17 10:14 Dose: 500 mg Finasteride (Proscar) 5 mg PO QDAY [facility] Last Admin: 03/11/17 10:22 Dose: 5 mg Fluoxetine HCl (Prozac) 80 mg PO HS [facility] Last Admin: 03/11/17 20:45 Dose: 80 mg Furosemide (Lasix) 40 mg IV Q12 [facility] Last Admin: 03/11/17 21:00 Dose: 40 mg Guaifenesin (Robitussin Dm) 5 ml PO Q4HP PRN PRN Reason: Cough Last Admin: 03/11/17 17:16 Dose: 5 ml Heparin Sodium (Porcine) (Heparin) 5,000 unit SQ Q12 [facility] Last Admin: 03/11/17 21:00 Dose: 5,000 unit Diltiazem HCl 125 mg/ Sodium (Chloride) 125 mls @ 5 mls/hr IV Q12H [facility]; 5 MG/HR PRN Reason: Protocol Last Admin: 03/11/17 23:55 Dose: 10 mg/hr, 10 mls/hr Piperacillin Sod/Tazobactam (Sod 3.375 gm/ Dextrose) 50 mls @ 100 mls/hr IV Q6H [facility] Last Admin: 03/11/17 23:33 Dose: 100 mls/hr Sodium Chloride (Sodium Chloride 0.9%) 250 mls @ 20 mls/hr IV .[id number] [facility] Last Admin: 03/11/17 21:39 Dose: 20 mls/hr Iron Carb/Multivit/Kinney/Folic Acid (Multivitamin W/Minerals) 1 tab PO DAILY [facility] Last Admin: 03/11/17 10:14 Dose: 1 tab Latanoprost (Xalatan Ophth Drops) 1 gtt OU QHS [facility] Last Admin: 03/11/17 21:00 Dose: Not Given Levothyroxine Sodium (Synthroid) 50 mcg PO ACB [facility] Last Admin: 03/11/17 08:15 Dose: 50 mcg Lorazepam (Ativan) 0 mg IV Q4HP PRN PRN Reason: ANXIETY/SEDATION Last Admin: 03/10/17 19:28 Dose: 1 mg Magnesium Hydroxide (Milk Of Magnesia) 30 ml PO DAILYP PRN PRN Reason: Constipation Midodrine (Midodrine Hcl) 10 mg PO TID@0800,1200,1700 [facility] Last Admin: 03/11/17 18:16 Dose: 10 mg Naloxone HCl (Narcan) 0.1 mg IV Q2MIN PRN PRN Reason: Opiate Reversal Omeprazole (Prilosec) 20 mg PO ACB [facility] Last Admin: 03/11/17 08:15 Dose: 20 mg Ondansetron HCl (Zofran) 4 mg IV Q4HP PRN PRN Reason: Nausea And Vomiting Oxycodone/Acetaminophen (Percocet 5-325 Mg) 1 tab PO Q4HP PRN PRN Reason: Pain Risperidone (Risperdal) 0.5 mg PO BID [facility] Last Admin: 03/11/17 20:45 Dose: 0.5 mg Senna (Senokot) 1 tab PO QDAY [facility] Last Admin: 03/11/17 10:22 Dose: 1 tab Simvastatin (Zocor) 5 mg PO HS [facility] Last Admin: 03/11/17 20:45 Dose: 5 mg Trazodone HCl (Desyrel) 100 mg PO QHS [facility] Last Admin: 03/11/17 20:44 Dose: 100 mg Medical - PN: A/P - Time Spent With Patient Total time spent is greater than 50% in coordination of care (as documented) at patient's floor/unit and/or counseling patient: Greater than 35 minutes (critical care time over 85 minutes) - Narrative A/P Narrative: A/P * Hypoxic respiratory failure secondary to worsening aspiration pneumonia- Initiate mechanical ventilation. ICU sedation on Propofol and fentnyl. * Septic shock- initiate Vasopressors. Continue management per guidelines * Atrial fibrillation with RVR - tart amiodarone load in light of hypotension * Worsening aspiration pneumonia-Continue anaerobic coverage * Acute decompensated heart failure secondary to above-On diuretics * Acute change in mental status secondary to combination of above. * CKD: Creat is 1.2- 1.1 * DM: Hold metformin, SSI insulin for now * HLD: Continue statin therapy * s/p Pacemaker (placed 3 weeks ago): Monitor on tele * DVT hep sq * Full code plan * ICU care * mechanical ventilation * ICU sedation * ABG and serial chest imaging * Antibiotic coverage * diltiazem drip for rate control * patient critically ill with [place] score over 20. Family aware of high mortality risk. Medical - PN: Qual - VTE Deep Vein Thrombosis/Pulmonary Embolism Present on Admission: No
[2017-03-12] MEDS ORDERED: PROPOFOL 1,000 MG in PREMIX 1 BAG IV SCH (00:45)
[2017-03-12] MEDS ORDERED: HEPARIN/NS 500 ML IV SCH ×2 (00:45→12:27)
[2017-03-12] MEDS ORDERED: PROPOFOL 100 ML IV SCH (00:45)
[2017-03-12] MEDS ORDERED: NOREPINEPHRINE BITARTRATE 16 MG in 0.9 % SODIUM CHLORIDE 234 ML IV SCH (01:00)
[2017-03-12] MEDS ORDERED: NOREPINEPHRINE BITARTRATE 4 MG/4 ML AMPUL IV ONE (01:06)
--- NOTE | 2017-03-12 01:15 | Procedure Note ---
Procedures - Central Line Placement Right IJ Consent obtained: verbal consent Time out performed: Yes Patient placed on monitor/pulse ox: Yes MD prep: mask, sterile gown, sterile gloves, cap Central line prep: 2% Chlorhexidine scrub Ultrasound used for placement: Yes Central line lumen inserted: quad, 16 cm Post procedure: sutured in place, good blood return, all ports aspirated, flushed, capped, sterile dressing applied Post procedure x-ray: tip of catheter in good position, no pneumothorax seen Patient tolerated procedure: well Complications: none
[2017-03-12] MEDS ORDERED: fentaNYL 100 MCG/2 ML VIAL IV ONE (01:19)
[2017-03-12] MEDS: fentaNYL 2,500 MCG in 0.9 % SODIUM CHLORIDE 200 ML IV SCH ×2 (02:15→09:25)
[2017-03-12] MEDS: IPRATROPIUM/ALBUTEROL 3 ML AMPUL.NEB NEB SCH ×6 (03:00→23:15)
--- NOTE | 2017-03-12 06:04 | XRay Report ---
CLINICAL INFORMATION: Abdominal pain. Esophagogastric tube placement TECHNIQUE: AP supine abdomen COMPARISON: Previous abdomen dated 12/03/2016. Previous CT scans dated 03/04/2017 09/16/2016 FINDINGS: Esophagogastric tube with its tip in the left upper quadrant consistent with gastric fundus . Large amount of fecal material throughout the colon consistent with constipation no evidence for mechanical small bowel obstruction. No pneumatosis. No biliary or portal venous gas. Examination was initially interpreted by [facility] IMPRESSION: Esophagogastric tube with its tip in the stomach Interpreted and Authenticated by: Wali Cary 03/12/17
[2017-03-12] MEDS: PIPERACILLIN SODIUM/TAZOBACTAM 3.375 GM in DEXTROSE 5% IN WATER 50 ML IV SCH ×3 (06:05→17:34)
--- NOTE | 2017-03-12 06:07 | XRay Report ---
INDICATION: Central line placement TECHNIQUE: AP portable supine chest x-ray COMPARISON: Chest x-rays dated 03/12/2017, 03/11/2017, 03/09/2017, 02/07/2017 FINDINGS:Endotracheal tube tip 2.5 cm above the cathy. Right-sided central venous catheter with its tip in the superior vena cava. No pneumothorax identified on this supine radiograph. Diffuse right lung infiltrates remain most consistent with pneumonia. Mild left basilar infiltrates may be improved. IMPRESSION: 1. Right central venous catheter with its tip in superior vena cava 2. Endotracheal tube tip in proper position 3. Diffuse right-sided infiltrates remain most consistent with pneumonia Interpreted and Authenticated by: Wali Cary 03/12/17
[2017-03-12] MEDS: 0.9 % SODIUM CHLORIDE 10 ML SYRINGE IV SCH ×6 (06:08→21:57)
--- NOTE | 2017-03-12 06:09 | XRay Report ---
INDICATION: Intubation TECHNIQUE: AP supine portable chest x-ray COMPARISON: Chest x-rays dated 03/11/2017 and 03/09/2017 FINDINGS:Endotracheal tube with its tip at the thoracic inlet. Tube is an anatomically appropriate position. Bilateral parenchymal infiltrates, right worse than left. These are unchanged. IMPRESSION: Endotracheal tube in good position as above Interpreted and Authenticated by: Wali Cary 03/12/17
[2017-03-12] MEDS ORDERED: 0.9 % SODIUM CHLORIDE 250 ML IV SCH ×4 (07:00→12:27)
[2017-03-12 07:32] LABS: Basophils # (Auto) 0 K/mcL (0.0-0.3); Basophils % (Auto) 0.1 % (0.0-2.0); Eosinophils # (Auto) 0.1 K/mcL (0.0-0.7); Eosinophils % (Auto) 0.4 % (0.0-7.0); Lymphocytes # (Auto) 0.6 K/mcL (1.5-4.8); Lymphocytes % (Auto) 3.7 % (15.5-49.0); Mean Cell Volume 87.3 fL (80.0-100.0); Mean Corpuscular HGB Conc 33.7 g/dL (31.0-36.0); Mean Corpuscular Hemoglobin 29.4 pg (26.0-34.0); Monocytes # (Auto) 0.8 K/mcL (0.1-0.9); Monocytes % (Auto) 4.8 % (1.0-12.0); Platelet Count 175 K/mcL (140-440); RBC 3.43 M/mcL (4.50-5.90); Red Cell Distribution Width 14.7 % (11.5-14.5)
[2017-03-12 08:04] LABS: ALT/SGPT 11 U/l (0-40); Albumin/Globulin Ratio 1.1 (1.0-2.3); Alkaline Phosphatase 75 U/L (39-117); Bilirubin,Direct 0.2 mg/dL (0.0-0.3); Blood Urea Nitrogen 18 mg/dl (8-23); Gamma Glutamyl Transpeptidase 14 U/L (8-61); Magnesium 1.8 mg/dL (1.6-2.5); Uric Acid 5.1 mg/dL (2.5-8.0)
[2017-03-12] MEDS ORDERED: CHLORHEXIDINE GLUCONATE 1 ML ORAL.SOL SWABMOUTH SCH (09:00)
[2017-03-12] MEDS: HEPARIN 5,000 UNIT/ML VIAL SQ SCH ×2 (09:15→21:58)
[2017-03-12] MEDS: FUROSEMIDE 40 MG/4 ML VIAL IV SCH ×2 (09:24→09:37)
[2017-03-12] MEDS ORDERED: FUROSEMIDE 20 MG/2 ML VIAL IV SCH (09:30)
[2017-03-12] MEDS: SENNOSIDES 1 TABLET PO SCH (10:06)
[2017-03-12] MEDS: ASPIRIN 325 MG ENTERIC COATED TABLET PO SCH (10:06)
[2017-03-12] MEDS: MULTIVIT,THER IRON,CA,FA & MIN 1 TABLET PO SCH (10:06)
[2017-03-12] MEDS: FINASTERIDE 5 MG TABLET PO SCH (10:06)
[2017-03-12] MEDS: CALCIUM CARBONATE 500 MG TAB.CHEW CHEWED SCH (10:06)
[2017-03-12] MEDS: risperiDONE 0.25 MG TABLET PO SCH ×2 (10:06→20:16)
[2017-03-12] MEDS: MIDODRINE 5 MG TABLET PO SCH ×3 (10:06→20:34)
[2017-03-12] MEDS: LEVOTHYROXINE 50 MCG TABLET PO SCH (10:07)
[2017-03-12] MEDS: OMEPRAZOLE 20 MG CAPSULE PO SCH (10:07)
[2017-03-12] MEDS ORDERED: oxyCODONE/APAP 5/325MG TABLET PO PRN (12:27)
[2017-03-12] MEDS ORDERED: guaiFENesin/DEXTROMETHORPHAN ORAL SOL PO PRN (12:27)
[2017-03-12] MEDS ORDERED: ONDANSETRON 4 MG/2 ML VIAL IV PRN (12:27)
[2017-03-12] MEDS ORDERED: NALOXONE HCL 0.4 MG/ML VIAL IV PRN (12:27)
[2017-03-12] MEDS: 0.9 % SODIUM CHLORIDE 250 ML IV SCH ×3 (12:57→20:09)
[2017-03-12] MEDS ORDERED: DIGOXIN 500 MCG/2 ML AMPUL IV ONE (14:41)
[2017-03-12] MEDS: ACETAMINOPHEN 1,000 MG/100 ML BOTTLE IV PRN (14:47)
[2017-03-12] MEDS: PROPOFOL 1,000 MG in PREMIX 1 BAG IV SCH (16:20)
[2017-03-12] MEDS: traZODone HCL 50 MG TABLET PO SCH (20:15)
[2017-03-12] MEDS: FLUoxetine HCL 20 MG CAPSULE PO SCH (20:16)
[2017-03-12] MEDS: SIMVASTATIN 10 MG TABLET PO SCH (20:19)
[2017-03-12] MEDS: LATANOPROST OPHTH DROPS 2.5ML BOTTLE OU SCH (20:21)
[2017-03-12] MEDS: CHLORHEXIDINE GLUCONATE 1 ML ORAL.SOL SWABMOUTH SCH (21:59)
[2017-03-13] MEDS: PIPERACILLIN SODIUM/TAZOBACTAM 3.375 GM in DEXTROSE 5% IN WATER 50 ML IV SCH ×5 (01:18→23:54)
[2017-03-13] MEDS ORDERED: ACETAMINOPHEN 1,000 MG/100 ML BOTTLE IV PRN (02:05)
[2017-03-13] MEDS: ACETAMINOPHEN 1,000 MG/100 ML BOTTLE IV PRN ×3 (02:36→13:41)
[2017-03-13] MEDS: 0.9 % SODIUM CHLORIDE 250 ML IV SCH ×5 (04:10→22:22)
[2017-03-13] MEDS: IPRATROPIUM/ALBUTEROL 3 ML AMPUL.NEB NEB SCH ×6 (04:12→22:55)
[2017-03-13 06:29] LABS: Basophils # (Auto) 0 K/mcL (0.0-0.3); Basophils % (Auto) 0.1 % (0.0-2.0); Eosinophils # (Auto) 0.2 K/mcL (0.0-0.7); Eosinophils % (Auto) 1.7 % (0.0-7.0); Granulocytes % (Auto) 84.1 % (38.0-78.0); Lymphocytes # (Auto) 0.9 K/mcL (1.5-4.8); Lymphocytes % (Auto) 7.9 % (15.5-49.0); Mean Cell Volume 87.2 fL (80.0-100.0); Mean Corpuscular HGB Conc 33.7 g/dL (31.0-36.0); Mean Corpuscular Hemoglobin 29.4 pg (26.0-34.0); Monocytes # (Auto) 0.7 K/mcL (0.1-0.9); Monocytes % (Auto) 6.2 % (1.0-12.0); Platelet Count 213 K/mcL (140-440); RBC 3.75 M/mcL (4.50-5.90)
[2017-03-13 06:48] LABS: ALT/SGPT 10 U/l (0-40); Albumin 3.1 gm/dL (3.2-5.2); Albumin/Globulin Ratio 1.1 (1.0-2.3); Alkaline Phosphatase 81 U/L (39-117); Bilirubin,Direct < 0.2 mg/dL (0.0-0.3); Blood Urea Nitrogen 20 mg/dl (8-23); Gamma Glutamyl Transpeptidase 15 U/L (8-61); Uric Acid 4.7 mg/dL (2.5-8.0)
[2017-03-13] MEDS: 0.9 % SODIUM CHLORIDE 10 ML SYRINGE IV SCH ×5 (07:26→21:54)
--- NOTE | 2017-03-13 07:31 | XRay Report ---
INDICATION: Respiratory failure TECHNIQUE: AP chest x-ray,portable semiupright COMPARISON: Multiple previous examinations including studies dated 03/12/2017, 03/09/2017, 02/07/2017 FINDINGS:No change in position of endotracheal tube, esophagogastric tube, right central venous catheter, left transvenous pacemaker leads. Bilateral parenchymal infiltrates are improved as compared with 03/12/2017. Mild residual right-sided infiltrates remain and continued follow-up recommended. There is cardiomegaly, essentially unchanged IMPRESSION: Improved infiltrates. Interpreted and Authenticated by: Wali Cary 03/13/17
[2017-03-13] MEDS ORDERED: ASPIRIN 325 MG ENTERIC COATED TABLET PO SCH (09:00)
[2017-03-13] MEDS ORDERED: FUROSEMIDE 20 MG/2 ML VIAL IV SCH (09:00)
[2017-03-13] MEDS: CHLORHEXIDINE GLUCONATE 1 ML ORAL.SOL SWABMOUTH SCH ×2 (09:21→20:53)
[2017-03-13] MEDS: FUROSEMIDE 20 MG/2 ML VIAL IV SCH (09:27)
[2017-03-13] MEDS: fentaNYL 2,500 MCG in 0.9 % SODIUM CHLORIDE 200 ML IV SCH (09:27)
[2017-03-13] MEDS: NOREPINEPHRINE BITARTRATE 16 MG in 0.9 % SODIUM CHLORIDE 234 ML IV SCH (09:27)
[2017-03-13] MEDS: HEPARIN 5,000 UNIT/ML VIAL SQ SCH ×2 (09:28→20:51)
[2017-03-13] MEDS: PANTOPRAZOLE 40 MG VIAL IV SCH ×2 (09:52→17:29)
[2017-03-13] MEDS: OMEPRAZOLE 20 MG CAPSULE PO SCH (10:30)
[2017-03-13] MEDS: MIDODRINE 5 MG TABLET PO SCH ×3 (10:30→17:16)
[2017-03-13] MEDS: LEVOTHYROXINE 50 MCG TABLET PO SCH (10:30)
[2017-03-13] MEDS: MAGNESIUM HYDROXIDE 30 ML ORAL.SUSP PO PRN (10:53)
[2017-03-13] MEDS: ASPIRIN 81 MG TAB.CHEW CHEWED SCH (10:54)
[2017-03-13] MEDS: LORazepam 2 MG/ML VIAL IV PRN (10:54)
--- NOTE | 2017-03-13 10:54 | Internal Med Progress Note ---
Medical - PN: Subj Patient information: Note initiated : 03/13/17 at 10:51 am Service Date, if different from initiated Date: [] Patient: Gustavo Fuentes 86 y/o M admitted on 03/09/17 for Nausea, Vomiting, Fever , Chills, Shaking/Pneumonia. Chief Complaint: [] Interval history: Mr. Fuentes is a 86 year old Male with multiple medical issues, living [place], presented to the ER today with complaints of not feeling well x 1 day. The patient notes he has had some increased frequency of urination x 1 day, he wokeup this AM trying to go the bathroom and his noticed him having shakes, he appeared sick and also had some nausea and vomiting, he vomited x 3-4 times with some brown stuff, no regulo blood. The patient apparenty passed out while vomiting. The patients noted this is the way he was sick in the past when he had his PNA and therefore got him to the hospital for further evaluation. The patient denies any burning or foul smelling urine, the patient denies any cough, chest pain or , palpitations The patient feels he passed out for a few minutes. However, there is no record of any bowel or bladder incontinence or any abnormal jerky movements. in the emergency room, the patient had borderline low blood pressure on presentation, he was afebrile, chest x-ray showed right lung pneumonia, blood work showed elevated white blood cell count at 11.2, hemoglobin of 13.3, platelets of 219. Patient had a sodium of 139, potassium of 3.9, creatinine of 1.4 which is at patient's baseline. The patient had a lactic acid of 2.0,and a negative urine analysis. Given that the patient had low blood pressure and a pneumonia. Patient was admitted to the hospital for further management. 03/10: pt seen examined magdalena well this AM but by afternoon was trying to leave the room and go outside the hospital, has h/o dementia, ativan and haldol given. to keep him in his room. Pt denies any acute complaints. 03/11- remarkable deterioration overnight. worsening respiratory status along with new onset A. fib with RVR started on diltiazem drip. Bilateral worsening infiltrates on chest imaging. Patient made nothing by mouth-actively aspirating. ST eval. Extend antibiotic coverage o include anaerobes in light of aspiration. Continue ICU care. High risk mortality. patient very confused nd delirious. at bedside. melony count at 12.1. 03/12- Pt hypoxic and on 10 L oxymask. Confused. High risk airway compromise in light of mental status change and ongoing aspiration, increased work of breathing, RR at 36-40. ABG 7.53/27/60. Case discussed with patient's and son. Family would like to Initiate aggressive measures including mechanical ventilation. patient intubated and started on mechanical ventilation. Net 2000 cc negative fluid status on lasix. Start @ AC 14 TV 450 pEEP 8. Fent/propofol for sedation. ontinue antibiotic coverage febrile at 102F 03/13-patient on mechanical ventilation. Light ICU sedation on fentanyl drip. White count down from 15.6-11.1. creatinine 1.1. Fluid status even. On 35% FiO2 PEEP 5, 450 tidal volume, ABG 7.45/35/88 on 35% FiO2. interval chest imaging improved infiltrates. trial fibrillation rate control status post digoxin 500 IV load. at bedside. on Levophed to keep map at goal. Discussed treatment plan. Possible extubation in 24 hours if clinically improved. Patient responding to verbal commands. continue bedside physical therapy - Constitutional Vitals: Vital Signs Temp Pulse Resp BP Pulse Ox 98.8 F 80 16 97/63 93 03/13/17 08:01 03/13/17 08:01 03/13/17 09:00 03/13/17 08:01 03/13/17 09:00 Period Temp Pulse Resp BP Sys/Patel Pulse Ox Last 24 Hr 98.5 F-101.9 F 74-137 7-27 88-171/58-134 93-100 Intake and Output 03/12/17 03/13/17 03/13/17 21:59 05:59 13:59 Intake Total 157 / 157 310 / 310 369 / 369 Output Total 535 / 535 320 / 320 125 / 125 Balance -378 / -378 -10 / -10 244 / 244 Weight 170 lb 8 oz Intake & Output: Intake & Output 03/12/17 03/13/17 03/13/17 21:59 05:59 13:59 Intake Total 157 / 157 310 / 310 369 / 369 Output Total 535 / 535 320 / 320 125 / 125 Balance -378 / -378 -10 / -10 244 / 244 Weight 170 lb 8 oz Intake: IV 157 / 157 310 / 310 369 / 369 Sodium Chloride 0.9% 250 160 / 160 319 / 319 ml @ 20 mls/hr IV . [id number] [facility] Rx#:[id number] Zosyn 3.375 gm In 50 / 50 50 / 50 50 / 50 Dextrose 5% in Water 50 ml @ 100 mls/hr IV Q6H [facility] Rx#:[id number] fentaNYL 2,500 MCG In 4 / 4 Sodium Chloride 0.9% 200 ml @ 25 MCG/HR 2.5 mls/hr IV Q24H [facility] Rx#: [id number] Output: Gastric Drainage 225 / 225 35 / 35 NG/OG 225 / 225 35 / 35 Urine Catheter Amount 310 / 310 285 / 285 125 / 125 Medical - PN: Obj Da - Labs CBC & Chem 7: 03/13/17 04:00 03/13/17 04:00 Labs: Abnormal Lab Results 03/13/17 03/13/17 03/12/17 04:00 04:00 04:53 WBC 11.1 H RBC 3.75 L Hgb 11.0 L Hct 32.7 L RDW 15.0 H Gran % 84.1 H Lymph % (Auto) 7.9 L Gran # 9.3 H Lymph # (Auto) 0.9 L Carbon Dioxide Creatinine 1.4 H Glucose 148 H Calcium 8.5 L 8.5 L Phosphorus Total Protein 5.7 L Albumin 3.1 L 3.0 L 03/12/17 03/11/17 03/11/17 04:53 03:12 03:12 WBC 15.6 H 12.1 H RBC 3.43 L 3.65 L Hgb 10.1 L 10.5 L Hct 29.9 L 31.8 L RDW 14.7 H 14.7 H Gran % 91.0 H 90.8 H Lymph % (Auto) 3.7 L 5.0 L Gran # 14.2 H 11.0 H Lymph # (Auto) 0.6 L 0.6 L Carbon Dioxide 20 L Creatinine Glucose 125 H Calcium 8.4 L Phosphorus 2.2 L Total Protein Albumin Meds: Medications Acetaminophen (Tylenol) 650 mg PO Q6HP PRN PRN Reason: PAIN/FEVER > 101 Albuterol/Ipratropium (Duoneb) 3 ml NEB Q4HRT [facility] Last Admin: 03/13/17 07:21 Dose: 3 ml Aspirin (Aspirin) 324 mg CHEWED DAILY [facility] Calcium Carbonate/Glycine (Tums) 500 mg CHEWED DAILY [facility] Chlorhexidine Gluconate (Peridex) 15 ml SWABMOUTH BID [facility] Last Admin: 03/13/17 09:21 Dose: 15 ml Finasteride (Proscar) 5 mg PO QDAY [facility] Fluoxetine HCl (Prozac) 80 mg PO HS [facility] Last Admin: 03/12/17 20:16 Dose: Not Given Furosemide (Lasix) 20 mg IV DAILY [facility] Last Admin: 03/13/17 09:27 Dose: 20 mg Guaifenesin (Robitussin Dm) 5 ml PO Q4HP PRN PRN Reason: Cough Heparin Sodium (Porcine) (Heparin) 5,000 unit SQ Q12 [facility] Last Admin: 03/13/17 09:28 Dose: 5,000 unit Fentanyl 2,500 mcg/ Sodium (Chloride) 250 mls @ 2.5 mls/hr IV Q24H [facility]; 25 MCG/ HR PRN Reason: Protocol Last Admin: 03/13/17 09:27 Dose: 20 mcg/hr, 2 mls/hr Heparin Sodium/Sodium Chloride (Heparin/Ns) 500 mls @ 0 mls/hr IV .Q0M [facility]; KVO PRN Reason: Protocol Norepinephrine Bitartrate 16 (mg/ Sodium Chloride) 250 mls @ 9.37 mls/hr IV Q24H [facility]; 10 MCG/MIN PRN Reason: Protocol Last Admin: 03/13/17 09:27 Dose: 6 mcg/min, 5.62 mls/hr Acetaminophen (Ofirmev) 1,000 mg in 100 mls @ 200 mls/hr IV Q6HP PRN PRN Reason: PAIN/FEVER > 101 Last Infusion: 03/13/17 03:15 Dose: Infused Piperacillin Sod/Tazobactam (Sod 3.375 gm/ Dextrose) 50 mls @ 100 mls/hr IV Q6H [facility] Last Infusion: 03/13/17 06:30 Dose: Infused Propofol 1,000 mg/ Premix 100 mls @ 2.4 mls/hr IV .Q24H [facility]; 5 MCG/KG/MIN PRN Reason: Protocol Last Admin: 03/12/17 16:20 Dose: Not Given Sodium Chloride (Sodium Chloride 0.9%) 250 mls @ 20 mls/hr IV .[id number] [facility] Last Admin: 03/13/17 09:28 Dose: 13 mls/hr Sodium Chloride (Sodium Chloride 0.9%) 250 mls @ 20 mls/hr IV .[id number] [facility] Last Admin: 03/13/17 09:29 Dose: 20 mls/hr Iron Carb/Multivit/Esmond/Folic Acid (Multivitamin W/Minerals) 1 tab PO DAILY [facility] Latanoprost (Xalatan Ophth Drops) 1 gtt OU QHS [facility] Last Admin: 03/12/17 20:21 Dose: Not Given Levothyroxine Sodium (Synthroid) 50 mcg PO ACB [facility] Lorazepam (Ativan) 0 mg IV Q4HP PRN PRN Reason: ANXIETY/SEDATION Magnesium Hydroxide (Milk Of Magnesia) 30 ml PO DAILYP PRN PRN Reason: Constipation Midodrine (Midodrine Hcl) 10 mg PO TID@0800,1200,1700 [facility] Last Admin: 03/12/17 17:22 Dose: Not Given Naloxone HCl (Narcan) 0.1 mg IV Q2MIN PRN PRN Reason: Opiate Reversal Omeprazole (Prilosec) 20 mg PO ACB [facility] Ondansetron HCl (Zofran) 4 mg IV Q4HP PRN PRN Reason: Nausea And Vomiting Oxycodone/Acetaminophen (Percocet 5-325 Mg) 1 tab PO Q4HP PRN PRN Reason: Pain Pantoprazole Sodium (Protonix) 40 mg IV BIDAC [facility] Last Admin: 03/13/17 09:52 Dose: 40 mg Risperidone (Risperdal) 0.5 mg PO BID [facility] Last Admin: 03/12/17 20:16 Dose: Not Given Senna (Senokot) 1 tab PO QDAY [facility] Simvastatin (Zocor) 5 mg PO HS [facility] Last Admin: 03/12/17 20:19 Dose: Not Given Sodium Chloride (Saline Flush) 10 ml IV Q8 [facility] Last Admin: 03/13/17 07:27 Dose: 10 ml Trazodone HCl (Desyrel) 100 mg PO QHS [facility] Last Admin: 03/12/17 20:15 Dose: Not Given Medical - PN: A/P - Time Spent With Patient Total time spent is greater than 50% in coordination of care (as documented) at patient's floor/unit and/or counseling patient: Greater than 35 minutes (critical care time) - Narrative A/P Narrative: A/P * Hypoxic respiratory failure secondary to worsening aspiration pneumonia- continue mechanical [facility] f[facility]. sedation holiday a.m. * Septic shock-continue Levophed to maintain map at goal. Good urine output reflecting dequate end organ perfusion. Continue management per guidelines * Atrial fibrillation with RVR -now rate controlled. Status post 500 g digoxin load. * Aspiration pneumonia- improving chest infiltrates on serial imaging. Continue antibiotic coverage * Acute decompensated heart failure secondary to above-Responded well to diuretics * Enteral nutrition-tart tube feeds * CKD: Creat is 1.2- 1.1 * DM: Held metformin, SSI insulin for now * HLD: oral meds on hold * s/p Pacemaker (placed 3 weeks ago): Monitored on tele * DVT hep sq * Full code plan * Continue ICU care * mechanical ventilation with sedation holiday in a.m. * Attempt extubation in a.m. if parameters favorable and off pressors * ABG and serial chest imaging * initiate enteral nutrition * Continue Antibiotic coverage * patient critically ill with [place] score between 16 and 20 over last 48 hours Medical - PN: Qual - VTE Deep Vein Thrombosis/Pulmonary Embolism Present on Admission: No
[2017-03-13] MEDS: CALCIUM CARBONATE 500 MG TAB.CHEW CHEWED SCH (10:55)
[2017-03-13] MEDS: MULTIVIT,THER IRON,CA,FA & MIN 1 TABLET PO SCH (10:56)
[2017-03-13] MEDS: PROPOFOL 1,000 MG in PREMIX 1 BAG IV SCH (12:05)
[2017-03-13] MEDS: risperiDONE 0.25 MG TABLET PO SCH ×2 (12:08→21:28)
[2017-03-13] MEDS: FINASTERIDE 5 MG TABLET PO SCH (12:22)
[2017-03-13] MEDS: SENNOSIDES 1 TABLET PO SCH (12:22)
[2017-03-13] MEDS: FLUCONAZOLE 200 MG/100 ML BAG IV SCH (18:19)
[2017-03-13] MEDS: traZODone HCL 50 MG TABLET PO SCH (20:40)
[2017-03-13] MEDS: FLUoxetine HCL 20 MG CAPSULE PO SCH (20:50)
[2017-03-13] MEDS: LATANOPROST OPHTH DROPS 2.5ML BOTTLE OU SCH (20:51)
[2017-03-13] MEDS ORDERED: CHLORHEXIDINE GLUCONATE 1 ML ORAL.SOL SWABMOUTH SCH (21:00)
[2017-03-13] MEDS: SIMVASTATIN 10 MG TABLET PO SCH (21:01)
[2017-03-14] MEDS: IPRATROPIUM/ALBUTEROL 3 ML AMPUL.NEB NEB SCH ×6 (03:03→23:44)
[2017-03-14] MEDS: 0.9 % SODIUM CHLORIDE 10 ML SYRINGE IV SCH ×3 (05:27→22:00)
[2017-03-14] MEDS: PIPERACILLIN SODIUM/TAZOBACTAM 3.375 GM in DEXTROSE 5% IN WATER 50 ML IV SCH ×3 (05:27→17:12)
[2017-03-14 05:30] LABS: Basophils # (Auto) 0 K/mcL (0.0-0.3); Basophils % (Auto) 0.2 % (0.0-2.0); Eosinophils # (Auto) 0.4 K/mcL (0.0-0.7); Eosinophils % (Auto) 5.4 % (0.0-7.0); Lymphocytes # (Auto) 0.9 K/mcL (1.5-4.8); Lymphocytes % (Auto) 11.2 % (15.5-49.0); Mean Cell Volume 86.7 fL (80.0-100.0); Mean Corpuscular HGB Conc 33.8 g/dL (31.0-36.0); Mean Corpuscular Hemoglobin 29.3 pg (26.0-34.0); Monocytes # (Auto) 0.6 K/mcL (0.1-0.9); Monocytes % (Auto) 7.2 % (1.0-12.0); Platelet Count 212 K/mcL (140-440); RBC 3.49 M/mcL (4.50-5.90)
[2017-03-14 06:00] LABS: ALT/SGPT 11 U/l (0-40); Albumin 2.7 gm/dL (3.2-5.2); Albumin/Globulin Ratio 0.9 (1.0-2.3); Alkaline Phosphatase 78 U/L (39-117); Bilirubin,Direct < 0.2 mg/dL (0.0-0.3); Blood Urea Nitrogen 27 mg/dl (8-23); Gamma Glutamyl Transpeptidase 22 U/L (8-61); Magnesium 2.1 mg/dL (1.6-2.5); Uric Acid 5.1 mg/dL (2.5-8.0)
--- NOTE | 2017-03-14 07:23 | XRay Report ---
INDICATION: Ventilator management. Pneumonia. TECHNIQUE: AP chest x-ray,portable semiupright COMPARISON: 03/13/2017, 03/12/2017, 03/11/2017 FINDINGS: No change in endotracheal tube, esophagogastric tube, right central venous catheter positions There are bilateral pulmonary parenchymal infiltrates, right worse than left. Right-sided infiltrates appear worse than on previous examination. Continued follow-up recommended. Persistent cardiomegaly. IMPRESSION: Increasing infiltrates, right worse than left Interpreted and Authenticated by: Wali Cary 03/14/17
[2017-03-14] MEDS: OMEPRAZOLE 20 MG CAPSULE PO SCH (07:46)
[2017-03-14] MEDS ORDERED: ALTEPLASE 2 MG VIAL IV ONE (08:39)
[2017-03-14] MEDS: FUROSEMIDE 20 MG/2 ML VIAL IV SCH (08:40)
[2017-03-14] MEDS: PANTOPRAZOLE 40 MG VIAL IV SCH ×2 (08:40→17:09)
[2017-03-14] MEDS: ASPIRIN 81 MG TAB.CHEW CHEWED SCH (08:41)
[2017-03-14] MEDS: MIDODRINE 5 MG TABLET PO SCH ×3 (08:41→17:10)
[2017-03-14] MEDS: LEVOTHYROXINE 50 MCG TABLET PO SCH (08:41)
[2017-03-14] MEDS: FLUCONAZOLE 200 MG/100 ML BAG IV SCH (08:42)
[2017-03-14] MEDS: MULTIVIT,THER IRON,CA,FA & MIN 1 TABLET PO SCH (08:43)
[2017-03-14] MEDS: FINASTERIDE 5 MG TABLET PO SCH (08:43)
[2017-03-14] MEDS: SENNOSIDES 1 TABLET PO SCH (08:43)
[2017-03-14] MEDS: CALCIUM CARBONATE 500 MG TAB.CHEW CHEWED SCH (08:43)
[2017-03-14] MEDS: CHLORHEXIDINE GLUCONATE 1 ML ORAL.SOL SWABMOUTH SCH (08:43)
[2017-03-14] MEDS: risperiDONE 0.25 MG TABLET PO SCH ×2 (08:43→21:12)
[2017-03-14] MEDS: NOREPINEPHRINE BITARTRATE 16 MG in 0.9 % SODIUM CHLORIDE 234 ML IV SCH (08:45)
[2017-03-14] MEDS: HEPARIN 5,000 UNIT/ML VIAL SQ SCH ×2 (08:47→21:12)
[2017-03-14] MEDS: ACETAMINOPHEN 1,000 MG/100 ML BOTTLE IV PRN ×2 (08:52→09:08)
--- NOTE | 2017-03-14 09:54 | Internal Med Progress Note ---
Medical - PN: Subj Patient information: Note initiated : 03/14/17 at 9:51 am Service Date, if different from initiated Date: [] Patient: Gustavo Fuentes 86 y/o M admitted on 03/09/17 for Nausea, Vomiting, Fever , Chills, Shaking/Pneumonia. Chief Complaint: [] Interval history: Mr. Fuentes is a 86 year old Male with multiple medical issues, living [place], presented to the ER today with complaints of not feeling well x 1 day. The patient notes he has had some increased frequency of urination x 1 day, he wokeup this AM trying to go the bathroom and his noticed him having shakes, he appeared sick and also had some nausea and vomiting, he vomited x 3-4 times with some brown stuff, no regulo blood. The patient apparenty passed out while vomiting. The patients noted this is the way he was sick in the past when he had his PNA and therefore got him to the hospital for further evaluation. The patient denies any burning or foul smelling urine, the patient denies any cough, chest pain or , palpitations The patient feels he passed out for a few minutes. However, there is no record of any bowel or bladder incontinence or any abnormal jerky movements. in the emergency room, the patient had borderline low blood pressure on presentation, he was afebrile, chest x-ray showed right lung pneumonia, blood work showed elevated white blood cell count at 11.2, hemoglobin of 13.3, platelets of 219. Patient had a sodium of 139, potassium of 3.9, creatinine of 1.4 which is at patient's baseline. The patient had a lactic acid of 2.0,and a negative urine analysis. Given that the patient had low blood pressure and a pneumonia. Patient was admitted to the hospital for further management. 03/10: pt seen examined magdalena well this AM but by afternoon was trying to leave the room and go outside the hospital, has h/o dementia, ativan and haldol given. to keep him in his room. Pt denies any acute complaints. 03/11- remarkable deterioration overnight. worsening respiratory status along with new onset A. fib with RVR started on diltiazem drip. Bilateral worsening infiltrates on chest imaging. Patient made nothing by mouth-actively aspirating. ST eval. Extend antibiotic coverage o include anaerobes in light of aspiration. Continue ICU care. High risk mortality. patient very confused nd delirious. at bedside. melony count at 12.1. 03/12- Pt hypoxic and on 10 L oxymask. Confused. High risk airway compromise in light of mental status change and ongoing aspiration, increased work of breathing, RR at 36-40. ABG 7.53/27/60. Case discussed with patient's and son. Family would like to Initiate aggressive measures including mechanical ventilation. patient intubated and started on mechanical ventilation. Net 2000 cc negative fluid status on lasix. Start @ AC 14 TV 450 pEEP 8. Fent/propofol for sedation. ontinue antibiotic coverage febrile at 102F 03/13-patient on mechanical ventilation. Light ICU sedation on fentanyl drip. White count down from 15.6-11.1. creatinine 1.1. Fluid status even. On 35% FiO2 PEEP 5, 450 tidal volume, ABG 7.45/35/88 on 35% FiO2. interval chest imaging improved infiltrates. trial fibrillation rate control status post digoxin 500 IV load. at bedside. on Levophed to keep map at goal. Discussed treatment plan. Possible extubation in 24 hours if clinically improved. Patient responding to verbal commands. continue bedside physical therapy 03/14-atient did well overnight. n sedation holiday since morning. Responsive andfollowing commands.. Stable hemodynamics. Offvasopressors. Foleys draining clear urine. No fever chills. On PEEP 55 with 35%. ABG 7.47/39/63. patient subsequently extubated to high flow oxygen. Tolerated well. OG/ube feeds discontinued. Keep nothing by mouth until 24 hours. complains of constipation. Attempt enemas today. no signs of respiratory distress post extubation. Patient with be monitoredin ICU 24 hours postextubation. melony count 8.2. creatinine 1.1. interval imaging shows right sided infiltrate worsening since previous day. Continue aggressive diuresis/antibiotic coverage. atient converted to sinus this morning - Constitutional Vitals: Vital Signs Temp Pulse Resp BP Pulse Ox 101 F H 71 21 120/60 95 03/14/17 09:08 03/14/17 07:41 03/14/17 07:41 03/14/17 07:00 03/14/17 08:30 Period Temp Pulse Resp BP Sys/Patel Pulse Ox Last 24 Hr 98.8 F-101.0 F 58-101 0-23 64-135/46-76 91-100 Intake and Output 03/13/17 03/14/17 03/14/17 21:59 05:59 13:59 Intake Total 820 / 820 446 / 446 164 / 164 Output Total 350 / 350 655 / 655 40 / 40 Balance 470 / 470 -209 / -209 124 / 124 Weight 170 lb 6.677 oz Intake & Output: Intake & Output 03/13/17 03/14/17 03/14/17 21:59 05:59 13:59 Intake Total 820 / 820 446 / 446 164 / 164 Output Total 350 / 350 655 / 655 40 / 40 Balance 470 / 470 -209 / -209 124 / 124 Weight 170 lb 6.677 oz Intake: IV 760 / 760 148 / 148 164 / 164 Sodium Chloride 0.9% 250 411 / 411 106 / 106 ml @ 20 mls/hr IV . [id number] [facility] Rx#:[id number] Levophed 16 mg In Sodium 61 / 61 31 / 31 Chloride 0.9% 234 ml @ 10 MCG/MIN 9.37 mls/hr IV Q24H [facility] Rx#:[id number] Zosyn 3.375 gm In 50 / 50 50 / 50 50 / 50 Dextrose 5% in Water 50 ml @ 100 mls/hr IV Q6H [facility] Rx#:[id number] Diprivan 1,000 mg In 42 / 42 4 / 4 Premix 1 Bag @ 5 MCG/KG/ MIN 2.4 mls/hr IV .Q24H [facility] Rx#:[id number] fentaNYL 2,500 MCG In 25 / 25 4 / 4 Sodium Chloride 0.9% 200 ml @ 25 MCG/HR 2.5 mls/hr IV Q24H [facility] Rx#: [id number] Tube Feeding 238 / 238 GI Tube Flush 60 / 60 60 / 60 Output: Urine Catheter Amount 350 / 350 655 / 655 40 / 40 General appearance: no acute distress Exam: on 10 L oxygen nonlabored breathing foleys draining clear urine responding to commands no agitation and anxiety Converted to sinus Medical - PN: Obj Da - Labs CBC & Chem 7: 03/14/17 03:48 03/14/17 03:48 Labs: Abnormal Lab Results 03/14/17 03/14/17 03/13/17 03:48 03:48 04:00 WBC RBC 3.49 L Hgb 10.3 L Hct 30.3 L RDW 15.0 H Gran % Lymph % (Auto) 11.2 L Gran # Lymph # (Auto) 0.9 L BUN 27 H Creatinine Glucose Calcium 8.5 L 8.5 L Total Protein 5.8 L Albumin 2.7 L 3.1 L Albumin/Globulin Ratio 0.9 L 03/13/17 03/12/17 03/12/17 04:00 04:53 04:53 WBC 11.1 H 15.6 H RBC 3.75 L 3.43 L Hgb 11.0 L 10.1 L Hct 32.7 L 29.9 L RDW 15.0 H 14.7 H Gran % 84.1 H 91.0 H Lymph % (Auto) 7.9 L 3.7 L Gran # 9.3 H 14.2 H Lymph # (Auto) 0.9 L 0.6 L BUN Creatinine 1.4 H Glucose 148 H Calcium 8.5 L Total Protein 5.7 L Albumin 3.0 L Albumin/Globulin Ratio Meds: Medications Acetaminophen (Tylenol) 650 mg PO Q6HP PRN PRN Reason: PAIN/FEVER > 101 Albuterol/Ipratropium (Duoneb) 3 ml NEB Q4HRT [facility] Last Admin: 03/14/17 07:39 Dose: 3 ml Aspirin (Aspirin) 324 mg CHEWED DAILY [facility] Last Admin: 03/14/17 08:41 Dose: Not Given Calcium Carbonate/Glycine (Tums) 500 mg CHEWED DAILY [facility] Last Admin: 03/14/17 08:43 Dose: Not Given Chlorhexidine Gluconate (Peridex) 15 ml SWABMOUTH BID [facility] Last Admin: 03/14/17 08:43 Dose: Not Given Finasteride (Proscar) 5 mg PO QDAY [facility] Last Admin: 03/14/17 08:43 Dose: Not Given Fluoxetine HCl (Prozac) 80 mg PO HS [facility] Last Admin: 03/13/17 20:50 Dose: 80 mg Furosemide (Lasix) 20 mg IV DAILY [facility] Last Admin: 03/14/17 08:40 Dose: 20 mg Guaifenesin (Robitussin Dm) 5 ml PO Q4HP PRN PRN Reason: Cough Heparin Sodium (Porcine) (Heparin) 5,000 unit SQ Q12 [facility] Last Admin: 03/14/17 08:47 Dose: 5,000 unit Fentanyl 2,500 mcg/ Sodium (Chloride) 250 mls @ 2.5 mls/hr IV Q24H [facility]; 25 MCG/ HR PRN Reason: Protocol Last Titration: 03/14/17 08:30 Dose: 0 mcg/hr, 0 mls/hr Heparin Sodium/Sodium Chloride (Heparin/Ns) 500 mls @ 0 mls/hr IV .Q0M [facility]; KVO PRN Reason: Protocol Norepinephrine Bitartrate 16 (mg/ Sodium Chloride) 250 mls @ 9.37 mls/hr IV Q24H [facility]; 10 MCG/MIN PRN Reason: Protocol Last Admin: 03/14/17 08:45 Dose: Not Given Acetaminophen (Ofirmev) 1,000 mg in 100 mls @ 200 mls/hr IV Q6HP PRN PRN Reason: PAIN/FEVER > 101 Last Admin: 03/14/17 09:08 Dose: 200 mls/hr Piperacillin Sod/Tazobactam (Sod 3.375 gm/ Dextrose) 50 mls @ 100 mls/hr IV Q6H [facility] Last Infusion: 03/14/17 06:00 Dose: Infused Propofol 1,000 mg/ Premix 100 mls @ 2.4 mls/hr IV .Q24H [facility]; 5 MCG/KG/MIN PRN Reason: Protocol Last Titration: 03/14/17 06:23 Dose: 0 mcg/kg/min, 0 mls/hr Sodium Chloride (Sodium Chloride 0.9%) 250 mls @ 20 mls/hr IV .[id number] [facility] Last Infusion: 03/14/17 06:00 Dose: 0 mls/hr Sodium Chloride (Sodium Chloride 0.9%) 250 mls @ 20 mls/hr IV .[id number] [facility] Last Admin: 03/13/17 22:22 Dose: 20 mls/hr Fluconazole (Diflucan) 200 mg in 100 mls @ 100 mls/hr IV Q24H [facility] Last Admin: 03/14/17 08:42 Dose: 100 mls/hr Iron Carb/Multivit/Twodot/Folic Acid (Multivitamin W/Minerals) 1 tab PO DAILY [facility] Last Admin: 03/14/17 08:43 Dose: Not Given Latanoprost (Xalatan Ophth Drops) 1 gtt OU QHS [facility] Last Admin: 03/13/17 20:51 Dose: 1 gtt Levothyroxine Sodium (Synthroid) 50 mcg PO ACB [facility] Last Admin: 03/14/17 08:41 Dose: Not Given Lorazepam (Ativan) 0 mg IV Q4HP PRN PRN Reason: ANXIETY/SEDATION Last Admin: 03/13/17 10:54 Dose: 1 mg Magnesium Hydroxide (Milk Of Magnesia) 30 ml PO DAILYP PRN PRN Reason: Constipation Last Admin: 03/13/17 10:53 Dose: 30 ml Midodrine (Midodrine Hcl) 10 mg PO TID@0800,1200,1700 [facility] Last Admin: 03/14/17 08:41 Dose: Not Given Naloxone HCl (Narcan) 0.1 mg IV Q2MIN PRN PRN Reason: Opiate Reversal Omeprazole (Prilosec) 20 mg PO ACB [facility] Last Admin: 03/14/17 07:46 Dose: Not Given Ondansetron HCl (Zofran) 4 mg IV Q4HP PRN PRN Reason: Nausea And Vomiting Oxycodone/Acetaminophen (Percocet 5-325 Mg) 1 tab PO Q4HP PRN PRN Reason: Pain Pantoprazole Sodium (Protonix) 40 mg IV BIDAC [facility] Last Admin: 03/14/17 08:40 Dose: 40 mg Risperidone (Risperdal) 0.5 mg PO BID [facility] Last Admin: 03/14/17 08:43 Dose: Not Given Senna (Senokot) 1 tab PO QDAY [facility] Last Admin: 03/14/17 08:43 Dose: Not Given Simvastatin (Zocor) 5 mg PO HS [facility] Last Admin: 03/13/17 21:01 Dose: 5 mg Sodium Chloride (Saline Flush) 10 ml IV Q8 [facility] Last Admin: 03/14/17 05:27 Dose: 10 ml Trazodone HCl (Desyrel) 100 mg PO QHS [facility] Last Admin: 03/13/17 20:40 Dose: Not Given Medical - PN: A/P - Time Spent With Patient Total time spent is greater than 50% in coordination of care (as documented) at patient's floor/unit and/or counseling patient: Greater than 35 minutes (ritical care time) - Narrative A/P Narrative: A/P * Hypoxic respiratory failure secondary to worsening aspiration pneumonia- managed on mechanical ventilation. Extubated 9/15 a.m. monitor in ICU for 12 hours * Septic shock-off Levophed. Clinically improved. White count of 10.5. Continue antibiotic coverage * Aspiration pneumonia-Continue antibiotic coverage. keep nothing by mouth for 24 hours followed by diet per ST recommendations. * Atrial fibrillation with RVR -converted to sinus this morning. 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
[2017-03-14] MEDS: fentaNYL 2,500 MCG in 0.9 % SODIUM CHLORIDE 200 ML IV SCH (11:18)
[2017-03-14] MEDS ORDERED: BISACODYL 10 MG SUPP.RECT PR ONE (11:34)
[2017-03-14] MEDS: PROPOFOL 1,000 MG in PREMIX 1 BAG IV SCH (12:33)
[2017-03-14] MEDS: 0.9 % SODIUM CHLORIDE 250 ML IV SCH ×2 (12:33)
[2017-03-14] MEDS ORDERED: NON FORMULARY MEDICATION 1 DOSE MISCELL OU PRN (15:00)
[2017-03-14] MEDS ORDERED: CLOBETASOL PROP OINT 0.05% TUBE 15GM TOPICAL SCH (15:00)
[2017-03-14] MEDS ORDERED: NOREPINEPHRINE BITARTRATE 16 MG in 0.9 % SODIUM CHLORIDE 234 ML IV PRN (16:30)
[2017-03-14] MEDS: POTASSIUM CHLORIDE 20 MEQ in 0.45 % SODIUM CHLORIDE 1,000 ML IV SCH (16:57)
[2017-03-14] MEDS ORDERED: VANCOMYCIN PER PHARMACY IV ONE (17:05)
[2017-03-14] MEDS: ACETAMINOPHEN 325 MG TABLET PO PRN (17:10)
[2017-03-14] MEDS: VANCOMYCIN 1,000 MG in 0.9 % SODIUM CHLORIDE 250 ML IV SCH (20:22)
[2017-03-14] MEDS ORDERED: VANCOMYCIN 500 MG VIAL ONE (20:57)
[2017-03-14] MEDS: traZODone HCL 50 MG TABLET PO SCH (21:11)
[2017-03-14] MEDS: LATANOPROST OPHTH DROPS 2.5ML BOTTLE OU SCH (21:12)
[2017-03-14] MEDS: FLUoxetine HCL 20 MG CAPSULE PO SCH (21:12)
[2017-03-14] MEDS: SIMVASTATIN 10 MG TABLET PO SCH (21:12)
[2017-03-14] MEDS: CLOBETASOL PROP 0.05% TOPICAL SCH (21:13)
[2017-03-14] MEDS: LORazepam 2 MG/ML VIAL IV PRN (23:27)
[2017-03-15] MEDS: 0.9 % SODIUM CHLORIDE 250 ML IV SCH ×4 (00:09→10:34)
[2017-03-15] MEDS: PIPERACILLIN SODIUM/TAZOBACTAM 3.375 GM in DEXTROSE 5% IN WATER 50 ML IV SCH ×5 (00:09→23:32)
[2017-03-15] MEDS: IPRATROPIUM/ALBUTEROL 3 ML AMPUL.NEB NEB SCH ×6 (02:26→23:06)
[2017-03-15] MEDS: 0.9 % SODIUM CHLORIDE 10 ML SYRINGE IV SCH ×3 (05:54→22:17)
[2017-03-15 06:15] LABS: Mean Cell Volume 86.8 fL (80.0-100.0); Mean Corpuscular Hemoglobin 29.5 pg (26.0-34.0); Platelet Count 199 K/mcL (140-440); RBC 3.24 M/mcL (4.50-5.90); Red Cell Distribution Width 14.7 % (11.5-14.5)
[2017-03-15 06:32] LABS: ALT/SGPT 12 U/l (0-40); Albumin 2.9 gm/dL (3.2-5.2); Albumin/Globulin Ratio 1.1 (1.0-2.3); Alkaline Phosphatase 90 U/L (39-117); Blood Urea Nitrogen 23 mg/dl (8-23)
[2017-03-15] MEDS: OMEPRAZOLE 20 MG CAPSULE PO SCH (07:29)
[2017-03-15] MEDS: fentaNYL 2,500 MCG in 0.9 % SODIUM CHLORIDE 200 ML IV SCH (07:30)
[2017-03-15] MEDS ORDERED: VANCOMYCIN PER PHARMACY IV SCH (07:30)
[2017-03-15] MEDS: CLOBETASOL PROP 0.05% TOPICAL SCH ×2 (07:43→20:50)
[2017-03-15] MEDS: FINASTERIDE 5 MG TABLET PO SCH (07:44)
[2017-03-15] MEDS: LEVOTHYROXINE 50 MCG TABLET PO SCH (07:44)
[2017-03-15] MEDS: SENNOSIDES 1 TABLET PO SCH (07:44)
[2017-03-15] MEDS: risperiDONE 0.25 MG TABLET PO SCH ×2 (07:44→20:27)
[2017-03-15] MEDS: MIDODRINE 5 MG TABLET PO SCH ×3 (07:45→17:25)
[2017-03-15] MEDS: ASPIRIN 81 MG TAB.CHEW CHEWED SCH (07:48)
[2017-03-15] MEDS: ACETAMINOPHEN 325 MG TABLET PO PRN (07:51)
[2017-03-15] MEDS: MULTIVIT,THER IRON,CA,FA & MIN 1 TABLET PO SCH (07:51)
[2017-03-15] MEDS: CALCIUM CARBONATE 500 MG TAB.CHEW CHEWED SCH (07:51)
[2017-03-15] MEDS: FUROSEMIDE 20 MG/2 ML VIAL IV SCH (07:52)
[2017-03-15] MEDS: PANTOPRAZOLE 40 MG VIAL IV SCH ×2 (07:53→17:26)
[2017-03-15] MEDS: HEPARIN 5,000 UNIT/ML VIAL SQ SCH ×2 (07:53→20:28)
[2017-03-15 07:55] LABS: Eosinophils % (Manual) 5 % (0-7); Lymphocytes % 10 % (15-49); Monocytes % (Manual) 7 % (1-12); Platelet Estimate NORMAL (NORMAL); RBC Morphology NORMAL (NORMAL); Segmented Neutrophils % 78 % (38-78)
[2017-03-15] MEDS: FLUCONAZOLE 200 MG/100 ML BAG IV SCH (08:20)
--- NOTE | 2017-03-15 09:01 | XRay Report ---
INDICATION: Vomiting, fever, chills. Pneumonia follow-up TECHNIQUE: AP chest x-ray,portable semiupright COMPARISON: 03/14/2017, 03/13/2017, 03/12/2017 FINDINGS:Interval removal of endotracheal tube. No change in right central venous catheter position. Bilateral pulmonary parenchymal infiltrates remain present. Continued follow-up recommended. IMPRESSION: 1. Status post extubation 2. Bilateral parenchymal infiltrates consistent with pneumonia Interpreted and Authenticated by: Wali Cary 03/15/17
[2017-03-15] MEDS ORDERED: ALTEPLASE 2 MG VIAL IV ONE (11:28)
--- NOTE | 2017-03-15 11:56 | Internal Med Progress Note ---
Medical - PN: Subj Patient information: Note initiated : 03/15/17 at 11:56 am Service Date, if different from initiated Date: [] Patient: Gustavo Fuentes a 86 y/o M admitted on 03/09/17 for Nausea, Vomiting, Fever , Chills, Shaking/Pneumonia. Chief Complaint: [] Interval history: March 09, 2017: History of present illness: Mr. Fuentes is a 86 year old Male with multiple medical issues, living in [place], presented to the ER today with complaints of not feeling well x 1 day. The patient notes he has had some increased frequency of urination x 1 day, he wokeup this AM trying to go the bathroom and his noticed him having shakes, he appeared sick and also had some nausea and vomiting, he vomited x 3-4 times with some brown stuff , no regulo blood. The patient apparenty passed out while vomiting. The patients noted this is the way he was sick in the past when he had his PNA and therefore got him to the hospital for further evaluation. The patient denies any burning or foul smelling urine, the patient denies any cough, chest pain or , palpitations The patient feels he passed out for a few minutes. However, there is no record of any bowel or bladder incontinence or any abnormal jerky movements. in the emergency room, the patient had borderline low blood pressure on presentation, he was afebrile, chest x-ray showed right lung pneumonia, blood work showed elevated white blood cell count at 11.2, hemoglobin of 13.3, platelets of 219. Patient had a sodium of 139, potassium of 3.9, creatinine of 1.4 which is at patient's baseline. The patient had a lactic acid of 2.0,and a negative urine analysis. Given that the patient had low blood pressure and a pneumonia. Patient was admitted to the hospital for further management. 03/10: pt seen examined diong well this AM but by afternoon was trying to leave the room and go outside the hospital, has h/o dementia, ativan and haldol given. to keep him in his room. Pt denies any acute complaints. 03/11- remarkable deterioration overnight. worsening respiratory status along with new onset A. fib with RVR started on diltiazem drip. Bilateral worsening infiltrates on chest imaging. Patient made nothing by mouth-actively aspirating. ST eval. Extend antibiotic coverage o include anaerobes in light of aspiration. Continue ICU care. High risk mortality. patient very confused nd delirious. at bedside. melony count at 12.1. 03/12- Pt hypoxic and on 10 L oxymask. Confused. High risk airway compromise in light of mental status change and ongoing aspiration, increased work of breathing, RR at 36-40. ABG 7.53/27/60. Case discussed with patient's and son. Family would like to Initiate aggressive measures including mechanical ventilation. patient intubated and started on mechanical ventilation. Net 2000 cc negative fluid status on lasix. Start @ AC 14 TV 450 pEEP 8. Fent/propofol for sedation. ontinue antibiotic coverage febrile at 102F 03/13-patient on mechanical ventilation. Light ICU sedation on fentanyl drip. White count down from 15.6-11.1. creatinine 1.1. Fluid status even. On 35% FiO2 PEEP 5, 450 tidal volume, ABG 7.45/35/88 on 35% FiO2. interval chest imaging improved infiltrates. trial fibrillation rate control status post digoxin 500 IV load. at bedside. on Levophed to keep map at goal. Discussed treatment plan. Possible extubation in 24 hours if clinically improved. Patient responding to verbal commands. continue bedside physical therapy 03/14-patient did well overnight. n sedation holiday since morning. Responsive andfollowing commands.. Stable hemodynamics. Offvasopressors. Foleys draining clear urine. No fever chills. On PEEP 55 with 35%. ABG 7.47/39/63. patient subsequently extubated to high flow oxygen. Tolerated well. OG/ube feeds discontinued. Keep nothing by mouth until 24 hours. complains of constipation. Attempt enemas today. no signs of respiratory distress post extubation. Patient with be monitoredin ICU 24 hours postextubation. melony count 8.2. creatinine 1.1. interval imaging shows right sided infiltrate worsening since previous day. Continue aggressive diuresis/antibiotic coverage. atient converted to sinus this morning March 15: -Respiratory failure due to aspiration pneumonia. This patient was extubated yesterday, and has been maintaining oxygenation on high flow O2 since then. He reports some ongoing shortness of breath today, better than yesterday, but his history appears unreliable. He is still quite groggy from Ativan he received during the night. -The patient does have underlying dementia, that was diagnosed recently. His notes he has been quite forgetful at home, and sometimes forgets people's names. Patient did become agitated last night, and kept insisting on "going upstairs to bed". He was given 1 mg of Ativan, and slept well after that, but remains fairly sleepy this morning. -Patient had a speech evaluation yesterday, which shows that he aspirates just about everything. The therapist said the only thing he was even moderately safe to swallow was pudding consistency solids, and no liquids at all. The patient denies fever chills, significant pain. He reports occasionally productive cough. He denies abdominal pain. Aviles catheter remains in place. His nurse notes he did have bowel movements after laxatives during the last couple of days. Urine does seem more cloudy today. - Constitutional Vitals: Vital Signs Temp Pulse Resp BP Pulse Ox 98.2 F 60 16 100/59 97 03/15/17 08:01 03/15/17 11:32 03/15/17 11:32 03/15/17 09:01 03/15/17 09:01 Period Temp Pulse Resp BP Sys/Patel Pulse Ox Last 24 Hr 98.2 F-102.2 F 60-88 13-22 76-119/42-63 79-98 Intake and Output 03/14/17 03/15/17 03/15/17 21:59 05:59 13:59 Intake Total 330 / 330 100 / 100 Output Total 520 / 520 425 / 425 174 / 174 Balance -190 / -190 -325 / -325 -174 / -174 Weight 169 lb Intake & Output: Intake & Output 03/14/17 03/15/17 03/15/17 21:59 05:59 13:59 Intake Total 330 / 330 100 / 100 Output Total 520 / 520 425 / 425 174 / 174 Balance -190 / -190 -325 / -325 -174 / -174 Weight 169 lb Intake: IV 300 / 300 100 / 100 Zosyn 3.375 gm In 50 / 50 100 / 100 Dextrose 5% in Water 50 ml @ 100 mls/hr IV Q6H [facility] Rx#:[id number] Vancomycin 1,000 mg In 250 / 250 Sodium Chloride 0.9% 250 ml @ 250 mls/hr IV Q24H [facility] Rx#:[id number] Oral 30 30 Output: Urine Catheter Amount 520 / 520 425 / 425 174 / 174 Other: # Bowel Movements 0 On exam, he is awake, but quite sleepy. His is in the room with him, and says he has been sleeping on and off this morning. She says they would be willing to pursue a feeding tube to avoid recurrent aspiration, if that would "make him better. She still wants him to be a full code, but says he would not want long-term life support. Neck is supple without obvious JVD. Cardiac exam shows regular rate and rhythm. Lung exam: He is not fully cooperative, but appears to have diffuse crackles and wheezes, with muffled breath sounds at the right base. Abdomen is soft and nontender. Lower extremities show trace edema, particularly where the teds hose are bunched up. Neurologic: Is grossly nonfocal, but he is quite forgetful. Medical - PN: Obj Da - Labs CBC & Chem 7: 03/16/17 04:00 03/16/17 04:00 Labs: Abnormal Lab Results 03/15/17 03/15/17 03/14/17 03:55 03:55 03:48 WBC RBC 3.24 L Hgb 9.6 L Hct 28.1 L RDW 14.7 H Gran % Lymph % (Auto) Gran # Lymph # (Auto) Lymphocytes % 10 L BUN 27 H Calcium 8.3 L 8.5 L Total Protein 5.6 L 5.8 L Albumin 2.9 L 2.7 L Albumin/Globulin Ratio 0.9 L 03/14/17 03/13/17 03/13/17 03:48 04:00 04:00 WBC 11.1 H RBC 3.49 L 3.75 L Hgb 10.3 L 11.0 L Hct 30.3 L 32.7 L RDW 15.0 H 15.0 H Gran % 84.1 H Lymph % (Auto) 11.2 L 7.9 L Gran # 9.3 H Lymph # (Auto) 0.9 L 0.9 L Lymphocytes % BUN Calcium 8.5 L Total Protein Albumin 3.1 L Albumin/Globulin Ratio March 15: Urinalysis shows pH of 5, negative leukocyte esterase, negative nitrites. Chest x-ray: Continued bilateral pulmonary parenchymal infiltrates, status post extubation. March 14: ABG: On vent at 35%, PEEP of 5: PH 7.47, PCO2 39, PO2 63, bicarb 28, O2 saturation 95% next March 13: Blood cultures: Negative so far March 12: Abdominal x-ray: Large amount of fecal material throughout the colon consistent with constipation, but no signs of bowel obstruction. Sputum culture: Shabnam albicans. March 11: Blood cultures negative so far Meds: Medications Acetaminophen (Tylenol) 650 mg PO Q6HP PRN PRN Reason: PAIN/FEVER > 101 Last Admin: 03/15/17 07:51 Dose: 650 mg Albuterol/Ipratropium (Duoneb) 3 ml NEB Q4HRT [facility] Last Admin: 03/15/17 11:32 Dose: 3 ml Aspirin (Aspirin) 324 mg CHEWED DAILY [facility] Last Admin: 03/15/17 07:48 Dose: 324 mg Calcium Carbonate/Glycine (Tums) 500 mg CHEWED DAILY [facility] Last Admin: 03/15/17 07:51 Dose: 500 mg Finasteride (Proscar) 5 mg PO QDAY [facility] Last Admin: 03/15/17 07:44 Dose: 5 mg Fluoxetine HCl (Prozac) 80 mg PO HS [facility] Last Admin: 03/14/17 21:12 Dose: 80 mg Furosemide (Lasix) 20 mg IV DAILY [facility] Last Admin: 03/15/17 07:52 Dose: 20 mg Guaifenesin (Robitussin Dm) 5 ml PO Q4HP PRN PRN Reason: Cough Last Admin: 03/15/17 07:43 Dose: 5 ml Heparin Sodium (Porcine) (Heparin) 5,000 unit SQ Q12 [facility] Last Admin: 03/15/17 07:53 Dose: 5,000 unit Fentanyl 2,500 mcg/ Sodium (Chloride) 250 mls @ 2.5 mls/hr IV Q24H [facility]; 25 MCG/ HR PRN Reason: Protocol Last Admin: 03/15/17 07:30 Dose: Not Given Heparin Sodium/Sodium Chloride (Heparin/Ns) 500 mls @ 0 mls/hr IV .Q0M [facility]; KVO PRN Reason: Protocol Acetaminophen (Ofirmev) 1,000 mg in 100 mls @ 200 mls/hr IV Q6HP PRN PRN Reason: PAIN/FEVER > 101 Last Infusion: 03/14/17 09:40 Dose: Infused Piperacillin Sod/Tazobactam (Sod 3.375 gm/ Dextrose) 50 mls @ 100 mls/hr IV Q6H [facility] Last Infusion: 03/15/17 05:55 Dose: Infused Propofol 1,000 mg/ Premix 100 mls @ 2.4 mls/hr IV .Q24H [facility]; 5 MCG/KG/MIN PRN Reason: Protocol Last Admin: 03/14/17 12:33 Dose: Not Given Sodium Chloride (Sodium Chloride 0.9%) 250 mls @ 20 mls/hr IV .[id number] [facility] Last Admin: 03/15/17 10:34 Dose: Not Given Sodium Chloride (Sodium Chloride 0.9%) 250 mls @ 20 mls/hr IV .[id number] [facility] Last Admin: 03/15/17 10:34 Dose: Not Given Fluconazole (Diflucan) 200 mg in 100 mls @ 100 mls/hr IV Q24H [facility] Last Admin: 03/15/17 08:20 Dose: 100 mls/hr Norepinephrine Bitartrate 16 (mg/ Sodium Chloride) 250 mls @ 9.37 mls/hr IV Q24HP PRN; Protocol; 10 MCG/MIN PRN Reason: Hypotension Potassium Chloride 20 meq/ (Sodium Chloride) 1,010 mls @ 50 mls/hr IV .[id number] [facility] Last Admin: 03/14/17 16:57 Dose: 50 mls/hr Vancomycin HCl 1,000 mg/ (Sodium Chloride) 250 mls @ 250 mls/hr IV Q24H [facility] Last Infusion: 03/14/17 21:25 Dose: Infused Iron Carb/Multivit/Isabela/Folic Acid (Multivitamin W/Minerals) 1 tab PO DAILY [facility] Last Admin: 03/15/17 07:51 Dose: 1 tab Latanoprost (Xalatan Ophth Drops) 1 gtt OU QHS [facility] Last Admin: 03/14/17 21:12 Dose: 1 gtt Levothyroxine Sodium (Synthroid) 50 mcg PO ACB [facility] Last Admin: 03/15/17 07:44 Dose: 50 mcg Lorazepam (Ativan) 0 mg IV Q4HP PRN PRN Reason: ANXIETY/SEDATION Last Admin: 03/14/17 23:27 Dose: 1 mg Magnesium Hydroxide (Milk Of Magnesia) 30 ml PO DAILYP PRN PRN Reason: Constipation Last Admin: 03/13/17 10:53 Dose: 30 ml Midodrine (Midodrine Hcl) 10 mg PO TID@0800,1200,1700 [facility] Last Admin: 03/15/17 07:45 Dose: 10 mg Naloxone HCl (Narcan) 0.1 mg IV Q2MIN PRN PRN Reason: Opiate Reversal Omeprazole (Prilosec) 20 mg PO ACB [facility] Last Admin: 03/15/17 07:29 Dose: Not Given Ondansetron HCl (Zofran) 4 mg IV Q4HP PRN PRN Reason: Nausea And Vomiting Oxycodone/Acetaminophen (Percocet 5-325 Mg) 1 tab PO Q4HP PRN PRN Reason: Pain Pantoprazole Sodium (Protonix) 40 mg IV BIDAC [facility] Last Admin: 03/15/17 07:53 Dose: 40 mg Clobetasol Prop 0.05 (% Topical Solution) 1 dose TOPICAL BID [facility] Last Admin: 03/15/17 07:43 Dose: 1 dose Systane Ultra 1 - 2 dose OU PRN PRN PRN Reason: Dry Eyes Risperidone (Risperdal) 0.5 mg PO BID [facility] Last Admin: 03/15/17 07:44 Dose: 0.5 mg Senna (Senokot) 1 tab PO QDAY [facility] Last Admin: 03/15/17 07:44 Dose: 1 tab Simvastatin (Zocor) 5 mg PO HS [facility] Last Admin: 03/14/17 21:12 Dose: 5 mg Sodium Chloride (Saline Flush) 10 ml IV Q8 [facility] Last Admin: 03/15/17 05:54 Dose: 10 ml Trazodone HCl (Desyrel) 100 mg PO QHS [facility] Last Admin: 03/14/17 21:11 Dose: 100 mg Vancomycin HCl (Vancomycin Per Pharmacy) 1 order IV UD [facility] Medical - PN: A/P - Time Spent With Patient Total time spent is greater than 50% in coordination of care (as documented) at patient's floor/unit and/or counseling patient: Greater than 35 minutes - Narrative A/P Narrative: A/P #1. Pulmonary. * -Hypoxic respiratory failure secondary to worsening aspiration pneumonia- managed on mechanical ventilation. Extubated 03/14 a.m. * The patient is maintaining oxygen saturation so far, but continues to sound quite congested, and has a productive cough. * Speech therapy evaluation suggest he continually aspirates. I have contacted Dr. León of surgery to see about pursuing a PEG tube, as the is agreeable to this. * -For now the patient is n.p.o., except for needed oral medications crushed in pudding. * IV fluids to maintain hydration for now. * #2. * Septic shock-off Levophed. Clinically improved. White count of 10.5. Continue antibiotic coverage. * #3. Cardiac. * -Atrial fibrillation with RVR -converted to sinus . 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 Patient now appears to be in sinus rhythm. * . * -Acute decompensated heart failure secondary to above-clinically resolved with diuresis. * #4. Renal. * CKD: Creat is 1.2- 1.1 * #5. Endocrine. * DM: * Held metformin, SSI insulin for now. Currently controlled. * #6. HLD: oral meds on hold. * #7.DVT-- hep sq * #8. CODE STATUS: Full code * I reviewed this again today with his , and she still says he would like everything done if he might survive, but would not want long-term life support. * Approximately 40 minutes was spent today, reviewing test results, interviewing and examining the patient, reviewing plan of care with his as well as staff, and writing orders. Medical - PN: Qual - VTE Deep Vein Thrombosis/Pulmonary Embolism Present on Admission: No
[2017-03-15] MEDS: PROPOFOL 1,000 MG in PREMIX 1 BAG IV SCH (12:14)
[2017-03-15 12:17] LABS: Appearance,Urine CLEAR; Bacteria,Urine 0 /hpf (0); Bilirubin,Urine NEG (NEG); Color,Urine STRAW; Glucose,Urine (UA) NEGATIVE (NEG); Leukocyte Esterase,Urine NEG /uL (NEG); Mucus,Urine FEW /hpf (0); Nitrate,Urine NEG (NEG); Protein,Urine NEG (NEG); Specific Gravity,Urine 1.004 (1.000-1.035); Urine Blood 0.2 mg/dL (<0.03); Urine Hyaline Cast 1 /lpf (0-2); Urine RBC 2 /hpf (0-1); Urine Squamous Epithelial Cell 0 /hpf (0-4); Urine WBC < 1 /hpf (0-4); Urobilinogen,Urine NEG (NEG)
[2017-03-15] MEDS: POTASSIUM CHLORIDE 20 MEQ in 0.45 % SODIUM CHLORIDE 1,000 ML IV SCH (13:50)
[2017-03-15] MEDS: VANCOMYCIN 1,000 MG in 0.9 % SODIUM CHLORIDE 250 ML IV SCH (15:07)
--- NOTE | 2017-03-15 16:30 | General Surgery Consult Note ---
History of Present Illness Patient information: Note initiated : 03/15/17 at 4:29 pm Service Date, if different from initiated Date: [] Patient: Gustavo Fuentes 86 y/o M admitted on 03/09/17 for Nausea, Vomiting, Fever , Chills, Shaking/Pneumonia. Chief Complaint: [] Reason for consult: other (Recurrent pulmonary aspiration) History of present illness: 86-year-old male who was admitted on 09 March 2017 for evaluation after having episodic nausea and vomiting with syncope at the local assisted-living facility. On evaluation in the emergency room he was noted to have right-sided pneumonia. He was admitted and treated. He had progressive deterioration and required assisted ventilation. He was taken off ventilation yesterday and is maintaining good oxygenation at this time. His pneumonia is clearing up. He had evaluation by speech therapy who feels that he is at risk for aspiration for thin liquids but can take in thick liquids. His has noticed that he has difficulty with water coffee and sodas at home. He is being seen for evaluation for possible PEG tube placement for hydration as well as for nutrition since she has had some weight loss. Evaluation of his record reveals that he has had gastric ulcer and he had an esophageal stricture that was dilated by Dr. Hidalgo a few months ago. He does not give any symptoms of dysphagia. Review of Systems - Constitutional fatigue, frequent falls, malaise, weight loss - EENT Nose, mouth and throat: abnormal hearing, dizziness - Cardiovascular syncope, no chest pain with activity, no dyspnea on exertion, no palpatations, no rapid heart rate - Respiratory cough, dyspnea on exertion, chest congestion - Gastrointestinal constipation, nausea, vomiting - Genitourinary urinary frequency, urinary hesitancy, urinary incontinence - Musculoskeletal abnormal gait, arthralgias - Integumentary no changing lesions, no new lesions, no pruritus, no rash - Neurological abnormal hearing, confusion, memory loss, tremor(s) - Psychiatric abnormal sleep pattern, change in appetite, memory loss - Endocrine fatigue, no excessive sweating, no heat intolerance, no palpitations - Hematologic/Lymphatic no easy bleeding, no easy bruising, no lymphadenopathy - Allergic/Immunologic no tongue swelling, no throat swelling, no uticaria, no wheezing, no lip swelling Past History Past medical history: Multiple cystic neoplasms of the pancreas, chronic, 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 Coronary artery disease status post stent 2 Chronic kidney disease 3 Depression and anxiety Chronic constipation BPH with prostatism Memory loss with dementia Past surgical history: Cholecystectomy Spinal surgery Past family history: Stroke Coronary artery disease Past social history: Lives in assisted living facility Occasional alcohol Denies tobacco use Medications and Allergies Home Medications Medication Instructions Recorded Confirmed Type calcium carbonate 600 mg calcium 600 mg PO QDAY tab 12/16/14 03/09/17 History (1,500 mg) tablet cholecalciferol (vitamin D3) 1,000 1,000 unit PO QDAY cap 12/16/14 03/09/17 History unit capsule fluoxetine 40 mg capsule 80 mg PO QAM cap 12/16/14 03/09/17 History multivitamin tablet 1 tab PO QDAY tab 12/16/14 03/09/17 History pravastatin 10 mg tablet 10 mg PO QHS tab 12/16/14 03/09/17 History trazodone 50 mg tablet 100 mg PO QHS tab 12/16/14 03/09/17 History aspirin 325 mg tablet 325 mg PO QDAY 06/19/15 03/09/17 History clobetasol 0.05 % scalp solution 1 applic TOPICAL BID PRN #50 ml 08/15/15 Rx latanoprost 0.005 % eye drops 1 drp OPHTHALMIC QHS ml 01/25/16 03/09/17 History levothyroxine 50 mcg tablet 50 mcg PO QDAY #90 tab 09/02/16 03/09/17 Rx omeprazole 20 mg capsule,delayed 20 mg PO QDAY #30 cap 12/10/16 03/09/17 Rx release finasteride 5 mg tablet 5 mg PO QDAY #30 tab 12/11/16 03/09/17 Rx sennosides 8.6 mg tablet 8.6 mg PO QDAY 01/28/17 03/09/17 History Midodrine HCl 10 mg PO TID 03/09/17 03/09/17 History Allergies Allergy/AdvReac Type Severity Reaction Status Date / Time Sulfa (Sulfonamide Allergy Intermediate Rash Verified 01/17/17 12:53 Antibiotics) [SULFA (SULFONAMIDE ANTIBIOTICS)] Exam Temp Pulse Resp BP Pulse Ox 98.3 F 77 18 90/57 96 03/15/17 12:00 03/15/17 15:32 03/15/17 15:32 03/15/17 13:01 03/15/17 12:01 - General physical appearance well developed, well nourished, no distress, cachectic, chronically ill - Eyes PERRL, normal ocular movement - ENT normal pinna, normal nares, normal mucosa, no congestion, decreased hearing, dentures - Head Head exam IM: Present: atraumatic, normocephalic - Neck no masses, no bruits, trachea midline, no lymphadectomy, no venous distension - Cardiovascular Cardiovascular exam IM: Present: irregular rhythm, +S1, +S2. Absent: JVD, systolic murmur - Respiratory normal expansion, normal respiratory effort, other (Good movement but with coarse tubular breath sounds bilaterally no wheezes) - Abdomen Abdomen: Present: soft (Mild distention but no mass noted), non tender, bowel sounds, distended Hernia: Present: none - Genitourinary Present: normal penis with no external lesions - Integumentary Present: no rash, no growths, no abnormal pigmentation - Neurologic Present: normal coordination, normal sensation, confused, memory loss - Musculoskeletal Present: normal gait, normal posture - Psychiatric Present: oriented to time, oriented to person, oriented to place, speech is normal Results - Labs 03/15/17 03:55 03/15/17 03:55 Abnormal lab results 03/15/17 03/15/17 03/15/17 Range/Units 03:55 03:55 11:25 RBC 3.24 L (4.50-5.90) M/mcL Hgb 9.6 L (13.5-16.5) g/dL Hct 28.1 L (41.0-55.0) % RDW 14.7 H (11.5-14.5) % Lymphocytes % 10 L (15-49) % Calcium 8.3 L (8.6-10.4) mg/dl Total Protein 5.6 L (5.9-8.4) gm/dL Albumin 2.9 L (3.2-5.2) gm/dL Urine Occult Blood 0.2 A (<0.03) mg/dL Urine RBC 2 H (0-1) /hpf Diabetes panel 03/15/17 Range/Units 03:55 Sodium 138 (133-145) mmol/L Potassium 3.4 (3.3-5.1) mmol/L Chloride 101 (96-108) mmol/L Carbon Dioxide 26 (22-30) mmol/L BUN 23 (8-23) mg/dl Creatinine 1.0 (0.7-1.2) mg/dl Glucose 88 (70-105) mg/dL Calcium 8.3 L (8.6-10.4) mg/dl AST 15 (0-37) U/l ALT 12 (0-40) U/l Alkaline Phosphatase 90 (39-117) U/L Total Protein 5.6 L (5.9-8.4) gm/dL Albumin 2.9 L (3.2-5.2) gm/dL Calcium panel 03/15/17 Range/Units 03:55 Calcium 8.3 L (8.6-10.4) mg/dl Albumin 2.9 L (3.2-5.2) gm/dL Pituitary panel 03/15/17 Range/Units 03:55 Sodium 138 (133-145) mmol/L Potassium 3.4 (3.3-5.1) mmol/L Chloride 101 (96-108) mmol/L Carbon Dioxide 26 (22-30) mmol/L BUN 23 (8-23) mg/dl Creatinine 1.0 (0.7-1.2) mg/dl Glucose 88 (70-105) mg/dL Calcium 8.3 L (8.6-10.4) mg/dl Adrenal panel 03/15/17 Range/Units 03:55 Sodium 138 (133-145) mmol/L Potassium 3.4 (3.3-5.1) mmol/L Chloride 101 (96-108) mmol/L Carbon Dioxide 26 (22-30) mmol/L BUN 23 (8-23) mg/dl Creatinine 1.0 (0.7-1.2) mg/dl Glucose 88 (70-105) mg/dL Calcium 8.3 L (8.6-10.4) mg/dl Total Bilirubin 0.5 (0.0-1.0) mg/dL AST 15 (0-37) U/l ALT 12 (0-40) U/l Alkaline Phosphatase 90 (39-117) U/L Total Protein 5.6 L (5.9-8.4) gm/dL Albumin 2.9 L (3.2-5.2) gm/dL All other labs normal. Assessment and Plan (1) Pulmonary aspiration of gastric contents Patient and his are counseled for endoscopy with PEG tube placement. This will be done Friday morning. 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 Elan العلي MD was his doctor.
[2017-03-15] MEDS: LORazepam 2 MG/ML VIAL IV PRN (17:25)
[2017-03-15] MEDS: FLUoxetine HCL 20 MG CAPSULE PO SCH (20:27)
[2017-03-15] MEDS: traZODone HCL 50 MG TABLET PO SCH (20:28)
[2017-03-15] MEDS: SIMVASTATIN 10 MG TABLET PO SCH (20:28)
[2017-03-15] MEDS: LATANOPROST OPHTH DROPS 2.5ML BOTTLE OU SCH (20:50)
[2017-03-15] MEDS: ACETAMINOPHEN 1,000 MG/100 ML BOTTLE IV PRN (23:48)
[2017-03-16] MEDS: 0.9 % SODIUM CHLORIDE 250 ML IV SCH ×4 (00:01→12:49)
[2017-03-16] MEDS: IPRATROPIUM/ALBUTEROL 3 ML AMPUL.NEB NEB SCH ×6 (02:14→23:02)
[2017-03-16 05:37] LABS: Basophils # (Auto) 0 K/mcL (0.0-0.3); Basophils % (Auto) 0.3 % (0.0-2.0); Eosinophils # (Auto) 0.4 K/mcL (0.0-0.7); Eosinophils % (Auto) 7.1 % (0.0-7.0); Granulocytes % (Auto) 73.1 % (38.0-78.0); Lymphocytes # (Auto) 0.7 K/mcL (1.5-4.8); Mean Cell Volume 86.1 fL (80.0-100.0); Mean Corpuscular HGB Conc 34.7 g/dL (31.0-36.0); Mean Corpuscular Hemoglobin 29.9 pg (26.0-34.0); Monocytes # (Auto) 0.5 K/mcL (0.1-0.9); Monocytes % (Auto) 7.5 % (1.0-12.0); Platelet Count 238 K/mcL (140-440); RBC 3.19 M/mcL (4.50-5.90); Red Cell Distribution Width 14.3 % (11.5-14.5)
[2017-03-16] MEDS: 0.9 % SODIUM CHLORIDE 10 ML SYRINGE IV SCH ×3 (05:43→21:23)
[2017-03-16] MEDS: PIPERACILLIN SODIUM/TAZOBACTAM 3.375 GM in DEXTROSE 5% IN WATER 50 ML IV SCH ×4 (05:43→23:52)
[2017-03-16 06:07] LABS: ALT/SGPT 13 U/l (0-40); Albumin 2.6 gm/dL (3.2-5.2); Albumin/Globulin Ratio 0.8 (1.0-2.3); Alkaline Phosphatase 84 U/L (39-117); Bilirubin,Direct < 0.2 mg/dL (0.0-0.3); Blood Urea Nitrogen 19 mg/dl (8-23); Gamma Glutamyl Transpeptidase 42 U/L (8-61); Uric Acid 4.7 mg/dL (2.5-8.0)
[2017-03-16] MEDS: OMEPRAZOLE 20 MG CAPSULE PO SCH (07:17)
[2017-03-16] MEDS: MIDODRINE 5 MG TABLET PO SCH ×3 (07:23→17:10)
[2017-03-16] MEDS: ACETAMINOPHEN 325 MG TABLET PO PRN (07:23)
[2017-03-16] MEDS: PANTOPRAZOLE 40 MG VIAL IV SCH ×2 (07:23→17:10)
[2017-03-16] MEDS: LEVOTHYROXINE 50 MCG TABLET PO SCH (07:23)
[2017-03-16] MEDS: FLUCONAZOLE 200 MG/100 ML BAG IV SCH (08:26)
--- NOTE | 2017-03-16 08:47 | XRay Report ---
INDICATION: Pneumonia TECHNIQUE: AP chest x-ray,portable upright COMPARISON: 03/15/2017, 03/14/2017, 03/13/2017, 03/12/2017 FINDINGS:No change in right central venous catheter position. Cardiomegaly is unchanged. No pulmonary edema. Pulmonary parenchymal infiltrates are improved. No new abnormalities. IMPRESSION: Improved chest x-ray with decreased pulmonary parenchymal infiltrates Interpreted and Authenticated by: Wali Cary 03/16/17
[2017-03-16] MEDS: SENNOSIDES 1 TABLET PO SCH (08:52)
[2017-03-16] MEDS: FINASTERIDE 5 MG TABLET PO SCH (08:52)
[2017-03-16] MEDS: FUROSEMIDE 20 MG/2 ML VIAL IV SCH (08:52)
[2017-03-16] MEDS: risperiDONE 0.25 MG TABLET PO SCH ×2 (08:52→21:20)
[2017-03-16] MEDS: CLOBETASOL PROP 0.05% TOPICAL SCH ×2 (08:52→21:21)
[2017-03-16] MEDS: CALCIUM CARBONATE 500 MG TAB.CHEW CHEWED SCH (08:53)
[2017-03-16] MEDS: ASPIRIN 81 MG TAB.CHEW CHEWED SCH (08:53)
[2017-03-16] MEDS: HEPARIN 5,000 UNIT/ML VIAL SQ SCH ×2 (08:53→21:19)
[2017-03-16] MEDS: MULTIVIT,THER IRON,CA,FA & MIN 1 TABLET PO SCH (08:53)
[2017-03-16] MEDS: VANCOMYCIN 1,000 MG in 0.9 % SODIUM CHLORIDE 250 ML IV SCH (09:16)
[2017-03-16] MEDS: MAGNESIUM HYDROXIDE 30 ML ORAL.SUSP PO PRN (09:16)
[2017-03-16] MEDS: POTASSIUM CHLORIDE 20 MEQ in 0.45 % SODIUM CHLORIDE 1,000 ML IV SCH (09:17)
--- NOTE | 2017-03-16 11:52 | Internal Med Progress Note ---
Medical - PN: Subj Patient information: Note initiated : 03/16/17 at 11:52 am Patient: Gustavo Fuentes 86 y/o M admitted on 03/09/17 for Nausea, Vomiting, Fever , Chills, Shaking/Pneumonia. Interval history: March 09, 2017: History of present illness: Mr. Fuentes is a 86 year old Male with multiple medical issues, living in [place], presented to the ER today with complaints of not feeling well x 1 day. The patient notes he has had some increased frequency of urination x 1 day, he wokeup this AM trying to go the bathroom and his noticed him having shakes, he appeared sick and also had some nausea and vomiting, he vomited x 3-4 times with some brown stuff , no regulo blood. The patient apparenty passed out while vomiting. The patients noted this is the way he was sick in the past when he had his PNA and therefore got him to the hospital for further evaluation. The patient denies any burning or foul smelling urine, the patient denies any cough, chest pain or , palpitations The patient feels he passed out for a few minutes. However, there is no record of any bowel or bladder incontinence or any abnormal jerky movements. in the emergency room, the patient had borderline low blood pressure on presentation, he was afebrile, chest x-ray showed right lung pneumonia, blood work showed elevated white blood cell count at 11.2, hemoglobin of 13.3, platelets of 219. Patient had a sodium of 139, potassium of 3.9, creatinine of 1.4 which is at patient's baseline. The patient had a lactic acid of 2.0,and a negative urine analysis. Given that the patient had low blood pressure and a pneumonia. Patient was admitted to the hospital for further management. 03/10: pt seen examined magdalena well this AM but by afternoon was trying to leave the room and go outside the hospital, has h/o dementia, ativan and haldol given. to keep him in his room. Pt denies any acute complaints. 03/11- remarkable deterioration overnight. worsening respiratory status along with new onset A. fib with RVR started on diltiazem drip. Bilateral worsening infiltrates on chest imaging. Patient made nothing by mouth-actively aspirating. ST eval. Extend antibiotic coverage o include anaerobes in light of aspiration. Continue ICU care. High risk mortality. patient very confused nd delirious. at bedside. melony count at 12.1. 03/12- Pt hypoxic and on 10 L oxymask. Confused. High risk airway compromise in light of mental status change and ongoing aspiration, increased work of breathing, RR at 36-40. ABG 7.53/27/60. Case discussed with patient's and son. Family would like to Initiate aggressive measures including mechanical ventilation. patient intubated and started on mechanical ventilation. Net 2000 cc negative fluid status on lasix. Start @ AC 14 TV 450 pEEP 8. Fent/propofol for sedation. ontinue antibiotic coverage febrile at 102F 03/13-patient on mechanical ventilation. Light ICU sedation on fentanyl drip. White count down from 15.6-11.1. creatinine 1.1. Fluid status even. On 35% FiO2 PEEP 5, 450 tidal volume, ABG 7.45/35/88 on 35% FiO2. interval chest imaging improved infiltrates. trial fibrillation rate control status post digoxin 500 IV load. at bedside. on Levophed to keep map at goal. Discussed treatment plan. Possible extubation in 24 hours if clinically improved. Patient responding to verbal commands. continue bedside physical therapy 03/14-patient did well overnight. n sedation holiday since morning. Responsive andfollowing commands.. Stable hemodynamics. Offvasopressors. Foleys draining clear urine. No fever chills. On PEEP 55 with 35%. ABG 7.47/39/63. patient subsequently extubated to high flow oxygen. Tolerated well. OG/ube feeds discontinued. Keep nothing by mouth until 24 hours. complains of constipation. Attempt enemas today. no signs of respiratory distress post extubation. Patient with be monitoredin ICU 24 hours postextubation. melony count 8.2. creatinine 1.1. interval imaging shows right sided infiltrate worsening since previous day. Continue aggressive diuresis/antibiotic coverage. atient converted to sinus this morning March 15: -Respiratory failure due to aspiration pneumonia. This patient was extubated yesterday, and has been maintaining oxygenation on high flow O2 since then. He reports some ongoing shortness of breath today, better than yesterday, but his history appears unreliable. He is still quite groggy from Ativan he received during the night. -The patient does have underlying dementia, that was diagnosed recently. His notes he has been quite forgetful at home, and sometimes forgets people's names. Patient did become agitated last night, and kept insisting on "going upstairs to bed". He was given 1 mg of Ativan, and slept well after that, but remains fairly sleepy this morning. -Patient had a speech evaluation yesterday, which shows that he aspirates just about everything. The therapist said the only thing he was even moderately safe to swallow was pudding consistency solids, and no liquids at all. The patient denies fever chills, significant pain. He reports occasionally productive cough. He denies abdominal pain. Aviles catheter remains in place. His nurse notes he did have bowel movements after laxatives during the last couple of days. Urine does seem more cloudy today. March 16: Overnight the patient did relatively well. He did not require any Ativan last night for agitation. Physical therapy was able to get him up to a chair today, with only moderate assist. The patient states he is feeling better today. He denies fever or chills, chest pain or shortness of breath or significant cough. He denies any pain. He denies any GI or problems. He continues to receive some medications crushed in applesauce or pudding, but otherwise remains n.p.o. regarding severe aspiration. There is a tentative plan for Dr. León to place a PEG tube tomorrow morning, but today, his tells me that she and her son have discussed this further, and think they do not want to pursue tube feedings. We reviewed that the patient will need to have some kind of nourishment if he is to continue recovering from his pneumonia , but she states that in view of his moderate dementia, she does not want to prolong his life. She did tell me yesterday that prior to admission he was living with her in assisted living, and that up until just recently he was also still driving, and interacting with people socially and had a good quality of life. He was distressed about being diagnosed with dementia recently. - Constitutional Vitals: Vital Signs Temp Pulse Resp BP Pulse Ox 98.4 F 70 16 131/63 95 03/16/17 08:00 03/16/17 11:28 03/16/17 11:28 03/16/17 10:00 03/16/17 10:30 Period Temp Pulse Resp BP Sys/Patel Pulse Ox Last 24 Hr 98.3 F-101.7 F 45-88 16-20 90-147/46-89 89-100 Intake and Output 03/15/17 03/16/17 03/16/17 21:59 05:59 13:59 Intake Total 300 / 300 180 / 180 1373 / 1373 Output Total 1600 / 1600 440 / 440 960 / 960 Balance -1300 / -1300 -260 / -260 413 / 413 Weight 169 lb 3.2 oz Intake & Output: Intake & Output 03/15/17 03/16/17 03/16/17 21:59 05:59 13:59 Intake Total 300 / 300 180 / 180 1373 / 1373 Output Total 1600 / 1600 440 / 440 960 / 960 Balance -1300 / -1300 -260 / -260 413 / 413 Weight 169 lb 3.2 oz Intake: IV 300 / 300 150 / 150 1373 / 1373 Zosyn 3.375 gm In 50 / 50 50 / 50 50 / 50 Dextrose 5% in Water 50 ml @ 100 mls/hr IV Q6H [facility] Rx#:[id number] Potassium Chloride 20 Meq 973 / 973 In Sodium Chloride 0.45% 1,000 ml @ 50 mls/hr IV .[id number] [facility] Rx#: [id number] Vancomycin 1,000 mg In 250 / 250 250 / 250 Sodium Chloride 0.9% 250 ml @ 250 mls/hr IV Q24H [facility] Rx#:[id number] Oral 30 / 30 Output: Urine Catheter Amount 1600 / 1600 440 / 440 960 / 960 Other: # Bowel Movements 0 The patient is awake and alert. When I entered the room, he asked me how I am feeling today. He seems in good spirits. Temperature is 99.1. Heart rate is controlled in the 60-80 range. O2 saturation ranges from 89-98% on 2 L nasal cannula. Neck is supple without obvious JVD or lymphadenopathy. Cardiac exam shows regular rate and rhythm. Lungs: Continue to show scattered bilateral rhonchi, without significant wheezing. Abdomen is soft and nontender. Extremities show no edema. Neurologic exam: The patient continues to appear forgetful, but motor exam is grossly nonfocal. He is alert and oriented, calm and cooperative. He answers questions appropriately. Medical - PN: Obj Da - Labs CBC & Chem 7: 03/16/17 04:00 03/16/17 04:00 Labs: Abnormal Lab Results 03/16/17 03/16/17 03/15/17 04:00 04:00 11:25 RBC 3.19 L Hgb 9.5 L Hct 27.5 L RDW Lymph % (Auto) 12.0 L Eos % (Auto) 7.1 H Lymph # (Auto) 0.7 L Lymphocytes % BUN Calcium 8.5 L Total Protein 5.7 L Albumin 2.6 L Albumin/Globulin Ratio 0.8 L Urine Occult Blood 0.2 A Urine RBC 2 H 03/15/17 03/15/17 03/14/17 03:55 03:55 03:48 RBC 3.24 L Hgb 9.6 L Hct 28.1 L RDW 14.7 H Lymph % (Auto) Eos % (Auto) Lymph # (Auto) Lymphocytes % 10 L BUN 27 H Calcium 8.3 L 8.5 L Total Protein 5.6 L 5.8 L Albumin 2.9 L 2.7 L Albumin/Globulin Ratio 0.9 L Urine Occult Blood Urine RBC 03/14/17 03:48 RBC 3.49 L Hgb 10.3 L Hct 30.3 L RDW 15.0 H Lymph % (Auto) 11.2 L Eos % (Auto) Lymph # (Auto) 0.9 L Lymphocytes % BUN Calcium Total Protein Albumin Albumin/Globulin Ratio Urine Occult Blood Urine RBC March 16: Chest x-ray: Parenchymal infiltrates are improving. No other changes. March 15: Urinalysis shows pH of 5, negative leukocyte esterase, negative nitrites. Chest x-ray: Continued bilateral pulmonary parenchymal infiltrates, status post extubation. March 14: ABG: On vent at 35%, PEEP of 5: PH 7.47, PCO2 39, PO2 63, bicarb 28, O2 saturation 95% next March 13: Blood cultures: Negative so far March 12: Abdominal x-ray: Large amount of fecal material throughout the colon consistent with constipation, but no signs of bowel obstruction. Sputum culture: Shabnam albicans. March 11: Blood cultures negative so far Meds: Medications Acetaminophen (Tylenol) 650 mg PO Q6HP PRN PRN Reason: PAIN/FEVER > 101 Last Admin: 03/16/17 07:23 Dose: 650 mg Albuterol/Ipratropium (Duoneb) 3 ml NEB Q4HRT [facility] Last Admin: 03/16/17 11:28 Dose: 3 ml Aspirin (Aspirin) 324 mg CHEWED DAILY [facility] Last Admin: 03/16/17 08:53 Dose: 324 mg Calcium Carbonate/Glycine (Tums) 500 mg CHEWED DAILY [facility] Last Admin: 03/16/17 08:53 Dose: 500 mg Finasteride (Proscar) 5 mg PO QDAY [facility] Last Admin: 03/16/17 08:52 Dose: 5 mg Fluoxetine HCl (Prozac) 80 mg PO HS [facility] Last Admin: 03/15/17 20:27 Dose: 80 mg Furosemide (Lasix) 20 mg IV DAILY [facility] Last Admin: 03/16/17 08:52 Dose: 20 mg Guaifenesin (Robitussin Dm) 5 ml PO Q4HP PRN PRN Reason: Cough Last Admin: 03/15/17 07:43 Dose: 5 ml Heparin Sodium (Porcine) (Heparin) 5,000 unit SQ Q12 [facility] Last Admin: 03/16/17 08:53 Dose: 5,000 unit Heparin Sodium/Sodium Chloride (Heparin/Ns) 500 mls @ 0 mls/hr IV .Q0M [facility]; KVO PRN Reason: Protocol Acetaminophen (Ofirmev) 1,000 mg in 100 mls @ 200 mls/hr IV Q6HP PRN PRN Reason: PAIN/FEVER > 101 Last Infusion: 03/16/17 00:19 Dose: Infused Piperacillin Sod/Tazobactam (Sod 3.375 gm/ Dextrose) 50 mls @ 100 mls/hr IV Q6H [facility] Last Infusion: 03/16/17 06:30 Dose: Infused Sodium Chloride (Sodium Chloride 0.9%) 250 mls @ 20 mls/hr IV .[id number] [facility] Last Admin: 03/16/17 10:36 Dose: Not Given Fluconazole (Diflucan) 200 mg in 100 mls @ 100 mls/hr IV Q24H [facility] Last Infusion: 03/16/17 09:30 Dose: Infused Norepinephrine Bitartrate 16 (mg/ Sodium Chloride) 250 mls @ 9.37 mls/hr IV Q24HP PRN; Protocol; 10 MCG/MIN PRN Reason: Hypotension Potassium Chloride 20 meq/ (Sodium Chloride) 1,010 mls @ 50 mls/hr IV .[id number] [facility] Last Admin: 03/16/17 09:17 Dose: 50 mls/hr Vancomycin HCl 1,000 mg/ (Sodium Chloride) 250 mls @ 250 mls/hr IV Q24H [facility] Last Infusion: 03/16/17 11:03 Dose: Infused Iron Carb/Multivit/Strip Stamp Straightener/Folic Acid (Multivitamin W/Minerals) 1 tab PO DAILY [facility] Last Admin: 03/16/17 08:53 Dose: 1 tab Latanoprost (Xalatan Ophth Drops) 1 gtt OU QHS [facility] Last Admin: 03/15/17 20:50 Dose: 1 gtt Levothyroxine Sodium (Synthroid) 50 mcg PO ACB [facility] Last Admin: 03/16/17 07:23 Dose: 50 mcg Lorazepam (Ativan) 0 mg IV Q4HP PRN PRN Reason: ANXIETY/SEDATION Last Admin: 03/15/17 17:25 Dose: 0.5 mg Magnesium Hydroxide (Milk Of Magnesia) 30 ml PO DAILYP PRN PRN Reason: Constipation Last Admin: 03/16/17 09:16 Dose: 30 ml Midodrine (Midodrine Hcl) 10 mg PO TID@0800,1200,1700 [facility] Last Admin: 03/16/17 07:23 Dose: 10 mg Naloxone HCl (Narcan) 0.1 mg IV Q2MIN PRN PRN Reason: Opiate Reversal Omeprazole (Prilosec) 20 mg PO ACB [facility] Last Admin: 03/16/17 07:17 Dose: Not Given Ondansetron HCl (Zofran) 4 mg IV Q4HP PRN PRN Reason: Nausea And Vomiting Oxycodone/Acetaminophen (Percocet 5-325 Mg) 1 tab PO Q4HP PRN PRN Reason: Pain Pantoprazole Sodium (Protonix) 40 mg IV BIDAC [facility] Last Admin: 03/16/17 07:23 Dose: 40 mg Clobetasol Prop 0.05 (% Topical Solution) 1 dose TOPICAL BID [facility] Last Admin: 03/16/17 08:52 Dose: 1 dose Systane Ultra 1 - 2 dose OU PRN PRN PRN Reason: Dry Eyes Risperidone (Risperdal) 0.5 mg PO BID [facility] Last Admin: 03/16/17 08:52 Dose: 0.5 mg Senna (Senokot) 1 tab PO QDAY [facility] Last Admin: 03/16/17 08:52 Dose: 1 tab Simvastatin (Zocor) 5 mg PO HS [facility] Last Admin: 03/15/17 20:28 Dose: 5 mg Sodium Chloride (Saline Flush) 10 ml IV Q8 [facility] Last Admin: 03/16/17 05:43 Dose: 10 ml Trazodone HCl (Desyrel) 100 mg PO QHS [facility] Last Admin: 03/15/17 20:28 Dose: 100 mg Vancomycin HCl (Vancomycin Per Pharmacy) 1 order IV UD [facility] Medical - PN: A/P - Time Spent With Patient Total time spent is greater than 50% in coordination of care (as documented) at patient's floor/unit and/or counseling patient: Greater than 35 minutes - Narrative A/P Narrative: A/P #1. Pulmonary. * -Hypoxic respiratory failure secondary to worsening aspiration pneumonia- managed on mechanical ventilation. Extubated 03/14 a.m. * The patient is maintaining oxygen saturation so far, but continues to sound quite congested, and has a productive cough. * * Today, the patient's lungs do sound clearer, and clinically he definitely looks stronger. We are keeping him n.p.o. other than medications, regarding high aspiration risk. We hope to have speech therapy reevaluate him tomorrow. * The tentative plan was to have a PEG tube placed tomorrow, to avoid recurrent aspiration pneumonia, which could be fatal in this somewhat frail patient. However, now his is having second thoughts. Apparently there son is planning on coming in this evening, and we can discuss further. * -Continue vancomycin and Zosyn, for aspiration pneumonia. * IV fluids to maintain hydration for now. * #2. * Septic shock * -off Levophed. Clinically improved. Leukocytosis has resolved. * #3. Cardiac. * -Atrial fibrillation with RVR -converted to sinus . 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 Patient now appears to be in sinus rhythm. * . * -Acute decompensated heart failure secondary to above-clinically resolved with diuresis. * #4. Renal. * CKD: Creat is 1.2- 1.1, stable. * #5. Endocrine. * DM: * Held metformin, SSI insulin for now. Currently controlled. * #6. HLD: oral meds on hold. * #7.DVT-- hep sq * #8. CODE STATUS: Full code. -Today, the patient's seems to be having second thoughts about the plan going forward. She is asked me to cancel the PEG tube placement. I reviewed with her the patient's quality of life prior to admission, which sounds like was reasonably good. He lived with her in assisted living. He was driving up until just a month or so ago. He was able to get around and interact on a normal basis socially. I explained to her that if we do not get him nutrition somehow, he will slowly become more and more malnourished, and be more at risk for recurrent infection. Also, if we allow him to eat knowing that he is aspirating, he will develop recurrent pneumonia. Today, she seems to be of the opinion that he would rather let nature take its course, rather than suffer long-term dementia decline. Case management has touch base with her as well. The patient's son will be in this evening, and we will discuss further. I do have concerns about withdrawing care at this time, as it seems like he did have a reasonable quality of life prior to this acute illness. * Approximately 40 minutes has been spent so far today, reviewing test results, interviewing and examining the patient, reviewing plan of care with his as well as staff, and writing orders. Medical - PN: Qual - VTE Deep Vein Thrombosis/Pulmonary Embolism Present on Admission: No
[2017-03-16] MEDS ORDERED: oxyCODONE/APAP 5/325MG TABLET PO PRN (12:34)
[2017-03-16] MEDS ORDERED: ONDANSETRON 4 MG/2 ML VIAL IV PRN (12:34)
[2017-03-16] MEDS ORDERED: LORazepam 2 MG/ML VIAL IV PRN (12:34)
[2017-03-16] MEDS ORDERED: ACETAMINOPHEN 1,000 MG/100 ML BOTTLE IV PRN (12:34)
[2017-03-16] MEDS ORDERED: VANCOMYCIN PER PHARMACY IV SCH (12:34)
[2017-03-16] MEDS ORDERED: guaiFENesin/DEXTROMETHORPHAN ORAL SOL PO PRN (12:34)
[2017-03-16] MEDS ORDERED: ACETAMINOPHEN 325 MG TABLET PO PRN (12:34)
[2017-03-16] MEDS ORDERED: MAGNESIUM HYDROXIDE 30 ML ORAL.SUSP PO PRN (12:34)
[2017-03-16] MEDS ORDERED: HEPARIN/NS 500 ML IV SCH (12:34)
[2017-03-16] MEDS ORDERED: NALOXONE HCL 0.4 MG/ML VIAL IV PRN (12:34)
[2017-03-16] MEDS: FLUoxetine HCL 20 MG CAPSULE PO SCH (21:20)
[2017-03-16] MEDS: traZODone HCL 50 MG TABLET PO SCH (21:20)
[2017-03-16] MEDS: SIMVASTATIN 10 MG TABLET PO SCH (21:21)
[2017-03-16] MEDS: LATANOPROST OPHTH DROPS 2.5ML BOTTLE OU SCH (21:22)
[2017-03-17] MEDS: IPRATROPIUM/ALBUTEROL 3 ML AMPUL.NEB NEB SCH ×4 (02:56→21:12)
[2017-03-17] MEDS: 0.9 % SODIUM CHLORIDE 250 ML IV SCH ×2 (03:32→13:12)
[2017-03-17] MEDS: PIPERACILLIN SODIUM/TAZOBACTAM 3.375 GM in DEXTROSE 5% IN WATER 50 ML IV SCH ×4 (05:33→23:53)
[2017-03-17] MEDS: POTASSIUM CHLORIDE 20 MEQ in 0.45 % SODIUM CHLORIDE 1,000 ML IV SCH (05:33)
[2017-03-17 06:07] LABS: Basophils # (Auto) 0 K/mcL (0.0-0.3); Basophils % (Auto) 0.4 % (0.0-2.0); Eosinophils # (Auto) 0.4 K/mcL (0.0-0.7); Eosinophils % (Auto) 7.2 % (0.0-7.0); Granulocytes % (Auto) 68.4 % (38.0-78.0); Lymphocytes % (Auto) 15.9 % (15.5-49.0); Mean Cell Volume 85.9 fL (80.0-100.0); Mean Corpuscular HGB Conc 34.4 g/dL (31.0-36.0); Mean Corpuscular Hemoglobin 29.6 pg (26.0-34.0); Monocytes # (Auto) 0.5 K/mcL (0.1-0.9); Monocytes % (Auto) 8.1 % (1.0-12.0); Platelet Count 270 K/mcL (140-440); Red Cell Distribution Width 14.6 % (11.5-14.5)
[2017-03-17 06:41] LABS: ALT/SGPT 14 U/l (0-40); Albumin 2.8 gm/dL (3.2-5.2); Albumin/Globulin Ratio 0.9 (1.0-2.3); Alkaline Phosphatase 98 U/L (39-117); Bilirubin,Direct < 0.2 mg/dL (0.0-0.3); Blood Urea Nitrogen 19 mg/dl (8-23); Gamma Glutamyl Transpeptidase 51 U/L (8-61); Uric Acid 4.6 mg/dL (2.5-8.0)
[2017-03-17] MEDS: PANTOPRAZOLE 40 MG VIAL IV SCH ×2 (07:00→17:24)
[2017-03-17] MEDS: 0.9 % SODIUM CHLORIDE 10 ML SYRINGE IV SCH ×3 (07:00→21:54)
[2017-03-17] MEDS: LEVOTHYROXINE 50 MCG TABLET PO SCH (07:59)
[2017-03-17] MEDS: MIDODRINE 5 MG TABLET PO SCH ×3 (08:00→17:24)
[2017-03-17] MEDS ORDERED: VANCOMYCIN 1,000 MG in 0.9 % SODIUM CHLORIDE 250 ML IV SCH (09:00)
[2017-03-17] MEDS: FUROSEMIDE 20 MG/2 ML VIAL IV SCH (09:30)
[2017-03-17] MEDS: ASPIRIN 81 MG TAB.CHEW CHEWED SCH (09:30)
[2017-03-17] MEDS: HEPARIN 5,000 UNIT/ML VIAL SQ SCH ×2 (09:30→20:21)
[2017-03-17] MEDS: CLOBETASOL PROP 0.05% TOPICAL SCH ×2 (09:31→20:22)
[2017-03-17] MEDS: MULTIVIT,THER IRON,CA,FA & MIN 1 TABLET PO SCH (09:31)
[2017-03-17] MEDS: FINASTERIDE 5 MG TABLET PO SCH (09:32)
[2017-03-17] MEDS: risperiDONE 0.25 MG TABLET PO SCH ×2 (09:32→20:21)
[2017-03-17] MEDS: SENNOSIDES 1 TABLET PO SCH (09:32)
[2017-03-17] MEDS: CALCIUM CARBONATE 500 MG TAB.CHEW CHEWED SCH (09:33)
--- NOTE | 2017-03-17 10:29 | Internal Med Progress Note ---
Medical - PN: Subj Patient information: Note initiated : 03/17/17 at 10:29 am Service Date, if different from initiated Date: [] Patient: Gustavo Fuentes a 86 y/o M admitted on 03/09/17 for Nausea, Vomiting, Fever , Chills, Shaking/Pneumonia. Chief Complaint: [] Interval history: March 09, 2017: History of present illness: Mr. Fuentes is a 86 year old Male with multiple medical issues, living in [place], presented to the ER today with complaints of not feeling well x 1 day. The patient notes he has had some increased frequency of urination x 1 day, he wokeup this AM trying to go the bathroom and his noticed him having shakes, he appeared sick and also had some nausea and vomiting, he vomited x 3-4 times with some brown stuff , no regulo blood. The patient apparenty passed out while vomiting. The patients noted this is the way he was sick in the past when he had his PNA and therefore got him to the hospital for further evaluation. The patient denies any burning or foul smelling urine, the patient denies any cough, chest pain or , palpitations The patient feels he passed out for a few minutes. However, there is no record of any bowel or bladder incontinence or any abnormal jerky movements. in the emergency room, the patient had borderline low blood pressure on presentation, he was afebrile, chest x-ray showed right lung pneumonia, blood work showed elevated white blood cell count at 11.2, hemoglobin of 13.3, platelets of 219. Patient had a sodium of 139, potassium of 3.9, creatinine of 1.4 which is at patient's baseline. The patient had a lactic acid of 2.0,and a negative urine analysis. Given that the patient had low blood pressure and a pneumonia. Patient was admitted to the hospital for further management. 03/10: pt seen examined diong well this AM but by afternoon was trying to leave the room and go outside the hospital, has h/o dementia, ativan and haldol given. to keep him in his room. Pt denies any acute complaints. 03/11- remarkable deterioration overnight. worsening respiratory status along with new onset A. fib with RVR started on diltiazem drip. Bilateral worsening infiltrates on chest imaging. Patient made nothing by mouth-actively aspirating. ST eval. Extend antibiotic coverage o include anaerobes in light of aspiration. Continue ICU care. High risk mortality. patient very confused nd delirious. at bedside. melony count at 12.1. 03/12- Pt hypoxic and on 10 L oxymask. Confused. High risk airway compromise in light of mental status change and ongoing aspiration, increased work of breathing, RR at 36-40. ABG 7.53/27/60. Case discussed with patient's and son. Family would like to Initiate aggressive measures including mechanical ventilation. patient intubated and started on mechanical ventilation. Net 2000 cc negative fluid status on lasix. Start @ AC 14 TV 450 pEEP 8. Fent/propofol for sedation. ontinue antibiotic coverage febrile at 102F 03/13-patient on mechanical ventilation. Light ICU sedation on fentanyl drip. White count down from 15.6-11.1. creatinine 1.1. Fluid status even. On 35% FiO2 PEEP 5, 450 tidal volume, ABG 7.45/35/88 on 35% FiO2. interval chest imaging improved infiltrates. trial fibrillation rate control status post digoxin 500 IV load. at bedside. on Levophed to keep map at goal. Discussed treatment plan. Possible extubation in 24 hours if clinically improved. Patient responding to verbal commands. continue bedside physical therapy 03/14-patient did well overnight. n sedation holiday since morning. Responsive andfollowing commands.. Stable hemodynamics. Offvasopressors. Foleys draining clear urine. No fever chills. On PEEP 55 with 35%. ABG 7.47/39/63. patient subsequently extubated to high flow oxygen. Tolerated well. OG/ube feeds discontinued. Keep nothing by mouth until 24 hours. complains of constipation. Attempt enemas today. no signs of respiratory distress post extubation. Patient with be monitoredin ICU 24 hours postextubation. melony count 8.2. creatinine 1.1. interval imaging shows right sided infiltrate worsening since previous day. Continue aggressive diuresis/antibiotic coverage. atient converted to sinus this morning March 15: -Respiratory failure due to aspiration pneumonia. This patient was extubated yesterday, and has been maintaining oxygenation on high flow O2 since then. He reports some ongoing shortness of breath today, better than yesterday, but his history appears unreliable. He is still quite groggy from Ativan he received during the night. -The patient does have underlying dementia, that was diagnosed recently. His notes he has been quite forgetful at home, and sometimes forgets people's names. Patient did become agitated last night, and kept insisting on "going upstairs to bed". He was given 1 mg of Ativan, and slept well after that, but remains fairly sleepy this morning. -Patient had a speech evaluation yesterday, which shows that he aspirates just about everything. The therapist said the only thing he was even moderately safe to swallow was pudding consistency solids, and no liquids at all. The patient denies fever chills, significant pain. He reports occasionally productive cough. He denies abdominal pain. Aviles catheter remains in place. His nurse notes he did have bowel movements after laxatives during the last couple of days. Urine does seem more cloudy today. March 16: Overnight the patient did relatively well. He did not require any Ativan last night for agitation. Physical therapy was able to get him up to a chair today, with only moderate assist. The patient states he is feeling better today. He denies fever or chills, chest pain or shortness of breath or significant cough. He denies any pain. He denies any GI or problems. He continues to receive some medications crushed in applesauce or pudding, but otherwise remains n.p.o. regarding severe aspiration. There is a tentative plan for Dr. León to place a PEG tube tomorrow morning, but today, his tells me that she and her son have discussed this further, and think they do not want to pursue tube feedings. We reviewed that the patient will need to have some kind of nourishment if he is to continue recovering from his pneumonia , but she states that in view of his moderate dementia, she does not want to prolong his life. She did tell me yesterday that prior to admission he was living with her in assisted living, and that up until just recently he was also still driving, and interacting with people socially and had a good quality of life. He was distressed about being diagnosed with dementia recently. March 17: Today, the patient says he is feeling pretty well. He continues to cough intermittently, especially after trying anything such as pudding by mouth. He reportedly did have a little more success when working with the speech therapist today. Today he and his are quite adamant that he does not want a feeding tube of any kind. His says he just does not want to be kept alive to experience the worst parts of dementia. Later this evening I met with the patient as well as his and his son, and they are all in agreement that he should not have a feeding tube. They think that if he gets pneumonia again, they will probably not treated. The patient states he just does not want to put his family through that. Otherwise he denies fever chills, sore throat or cough, chest pain or palpitations. He has mild dyspnea at times. He denies abdominal pain, nausea or vomiting, diarrhea or constipation. - Constitutional Vitals: Vital Signs Temp Pulse Resp BP Pulse Ox 99.2 F H 74 20 117/65 94 03/17/17 04:00 03/17/17 10:00 03/17/17 07:10 03/17/17 08:01 03/17/17 10:00 Period Temp Pulse Resp BP Sys/Patel Pulse Ox Last 24 Hr 98.9 F-99.8 F 65-85 15-20 114-135/56-77 88-95 Intake and Output 03/16/17 03/17/17 03/17/17 21:59 05:59 13:59 Intake Total 50 / 50 50 / 50 50 / 50 Output Total 1150 / 1150 200 / 200 Balance -1100 / -1100 -150 / -150 50 / 50 Weight 168 lb Intake & Output: Intake & Output 03/16/17 03/17/17 03/17/17 21:59 05:59 13:59 Intake Total 50 / 50 50 / 50 50 / 50 Output Total 1150 / 1150 200 / 200 Balance -1100 / -1100 -150 / -150 50 / 50 Weight 168 lb Intake: IV 50 / 50 50 / 50 50 / 50 Zosyn 3.375 gm In 50 / 50 50 / 50 50 / 50 Dextrose 5% in Water 50 ml @ 100 mls/hr IV Q6H [facility] Rx#:[id number] Output: Urine Catheter Amount 1150 / 1150 200 / 200 Other: Meal container of ice cream Percent of Meal Consumed 100% Feeding Ability Needs Supervision The patient is awake and alert. Neck is supple without obvious JVD or lymphadenopathy. Cardiac exam shows regular rate and rhythm. Lungs: Continue to show scattered bilateral rhonchi, without significant wheezing. Abdomen is soft and nontender. Extremities show no edema. Neurologic exam: The patient continues to appear forgetful, but motor exam is grossly nonfocal. He is alert and oriented, calm and cooperative. He answers questions appropriately. Medical - PN: Obj Da - Labs CBC & Chem 7: 03/17/17 04:01 03/17/17 04:00 Labs: Abnormal Lab Results 03/17/17 03/17/17 03/17/17 09:15 04:01 04:00 RBC 3.20 L Hgb 9.5 L Hct 27.5 L RDW 14.6 H Lymph % (Auto) Eos % (Auto) 7.2 H Lymph # (Auto) 1.0 L Lymphocytes % Calcium 8.5 L Total Protein 5.8 L Albumin 2.8 L Albumin/Globulin Ratio 0.9 L Urine Occult Blood Urine RBC Vancomycin Trough 8.0 H 03/16/17 03/16/17 03/15/17 04:00 04:00 11:25 RBC 3.19 L Hgb 9.5 L Hct 27.5 L RDW Lymph % (Auto) 12.0 L Eos % (Auto) 7.1 H Lymph # (Auto) 0.7 L Lymphocytes % Calcium 8.5 L Total Protein 5.7 L Albumin 2.6 L Albumin/Globulin Ratio 0.8 L Urine Occult Blood 0.2 A Urine RBC 2 H Vancomycin Trough 03/15/17 03/15/17 03:55 03:55 RBC 3.24 L Hgb 9.6 L Hct 28.1 L RDW 14.7 H Lymph % (Auto) Eos % (Auto) Lymph # (Auto) Lymphocytes % 10 L Calcium 8.3 L Total Protein 5.6 L Albumin 2.9 L Albumin/Globulin Ratio Urine Occult Blood Urine RBC Vancomycin Trough March 16: Chest x-ray: Parenchymal infiltrates are improving. No other changes. March 15: Urinalysis shows pH of 5, negative leukocyte esterase, negative nitrites. Chest x-ray: Continued bilateral pulmonary parenchymal infiltrates, status post extubation. March 14: ABG: On vent at 35%, PEEP of 5: PH 7.47, PCO2 39, PO2 63, bicarb 28, O2 saturation 95% next March 13: Blood cultures: Negative so far March 12: Abdominal x-ray: Large amount of fecal material throughout the colon consistent with constipation, but no signs of bowel obstruction. Sputum culture: Shabnam albicans. March 11: Blood cultures negative so far Meds: Medications Acetaminophen (Tylenol) 650 mg PO Q6HP PRN PRN Reason: PAIN/FEVER > 101 Albuterol/Ipratropium (Duoneb) 3 ml NEB Q4HRT [facility] Last Admin: 03/17/17 07:08 Dose: 3 ml Aspirin (Aspirin) 324 mg CHEWED DAILY [facility] Last Admin: 03/17/17 09:30 Dose: 324 mg Calcium Carbonate/Glycine (Tums) 500 mg CHEWED DAILY [facility] Last Admin: 03/17/17 09:33 Dose: 500 mg Finasteride (Proscar) 5 mg PO QDAY [facility] Last Admin: 03/17/17 09:32 Dose: 5 mg Fluoxetine HCl (Prozac) 80 mg PO HS [facility] Last Admin: 03/16/17 21:20 Dose: 80 mg Furosemide (Lasix) 20 mg IV DAILY [facility] Last Admin: 03/17/17 09:30 Dose: 20 mg Guaifenesin (Robitussin Dm) 5 ml PO Q4HP PRN PRN Reason: Cough Heparin Sodium (Porcine) (Heparin) 5,000 unit SQ Q12 [facility] Last Admin: 03/17/17 09:30 Dose: 5,000 unit Fluconazole (Diflucan) 200 mg in 100 mls @ 100 mls/hr IV Q24H [facility] Heparin Sodium/Sodium Chloride (Heparin/Ns) 500 mls @ 0 mls/hr IV .Q0M [facility]; KVO PRN Reason: Protocol Sodium Chloride (Sodium Chloride 0.9%) 250 mls @ 20 mls/hr IV .[id number] [facility] Last Admin: 03/17/17 03:32 Dose: Not Given Acetaminophen (Ofirmev) 1,000 mg in 100 mls @ 200 mls/hr IV Q6HP PRN PRN Reason: PAIN/FEVER > 101 Piperacillin Sod/Tazobactam (Sod 3.375 gm/ Dextrose) 50 mls @ 100 mls/hr IV Q6H [facility] Last Infusion: 03/17/17 06:32 Dose: Infused Potassium Chloride 20 meq/ (Sodium Chloride) 1,010 mls @ 50 mls/hr IV .[id number] [facility] Last Admin: 03/17/17 05:33 Dose: 50 mls/hr Vancomycin HCl 1,000 mg/ (Sodium Chloride) 250 mls @ 250 mls/hr IV Q24H [facility] Iron Carb/Multivit/Trust Manager/Folic Acid (Multivitamin W/Minerals) 1 tab PO DAILY [facility] Last Admin: 03/17/17 09:31 Dose: 1 tab Latanoprost (Xalatan Ophth Drops) 1 gtt OU QHS [facility] Last Admin: 03/16/17 21:22 Dose: 1 gtt Levothyroxine Sodium (Synthroid) 50 mcg PO ACB [facility] Last Admin: 03/17/17 07:59 Dose: 50 mcg Lorazepam (Ativan) 0 mg IV Q4HP PRN PRN Reason: ANXIETY/SEDATION Magnesium Hydroxide (Milk Of Magnesia) 30 ml PO DAILYP PRN PRN Reason: Constipation Midodrine (Midodrine Hcl) 10 mg PO TID@0800,1200,1700 [facility] Last Admin: 03/17/17 08:00 Dose: 10 mg Naloxone HCl (Narcan) 0.1 mg IV Q2MIN PRN PRN Reason: Opiate Reversal Ondansetron HCl (Zofran) 4 mg IV Q4HP PRN PRN Reason: Nausea And Vomiting Oxycodone/Acetaminophen (Percocet 5-325 Mg) 1 tab PO Q4HP PRN PRN Reason: Pain Pantoprazole Sodium (Protonix) 40 mg IV BIDAC [facility] Last Admin: 03/17/17 07:00 Dose: 40 mg Systane Ultra 1 - 2 dose OU PRN PRN PRN Reason: Dry Eyes Clobetasol Prop 0.05 (% Topical Solution) 1 dose TOPICAL BID [facility] Last Admin: 03/17/17 09:31 Dose: 1 dose Risperidone (Risperdal) 0.5 mg PO BID [facility] Last Admin: 03/17/17 09:32 Dose: 0.5 mg Senna (Senokot) 1 tab PO QDAY [facility] Last Admin: 03/17/17 09:32 Dose: 1 tab Simvastatin (Zocor) 5 mg PO HS [facility] Last Admin: 03/16/17 21:21 Dose: 5 mg Sodium Chloride (Saline Flush) 10 ml IV Q8 [facility] Last Admin: 03/17/17 07:00 Dose: 10 ml Trazodone HCl (Desyrel) 100 mg PO QHS [facility] Last Admin: 03/16/17 21:20 Dose: 100 mg Vancomycin HCl (Vancomycin Per Pharmacy) 1 order IV [facility] Medical - PN: A/P - Time Spent With Patient Total time spent is greater than 50% in coordination of care (as documented) at patient's floor/unit and/or counseling patient: Greater than 35 minutes - Narrative A/P Narrative: A/P #1. Pulmonary. * -Hypoxic respiratory failure secondary to worsening aspiration pneumonia- managed on mechanical ventilation. Extubated 03/14 a.m. * The patient is maintaining oxygen saturation so far, but continues to sound quite congested, and has a productive cough. * * Today, the patient's lungs do sound clearer, and clinically he definitely looks stronger. We are keeping him n.p.o. other than medications, regarding high aspiration risk. * Speech therapy seems to think if they continue to work with him he might be able to safely swallow more kinds of food. The patient and family have decided that he will not have a PEG tube or any type of feeding tube placed. * * IV fluids to maintain hydration for now. * #2. * Septic shock * -off Levophed. Clinically improved. Leukocytosis has resolved. * #3. Cardiac. * -Atrial fibrillation with RVR -converted to sinus . 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 Patient now appears to be in sinus rhythm. * . * -Acute decompensated heart failure secondary to above-clinically resolved with diuresis. * #4. Renal. * CKD: Creat is 1.2- 1.1, stable. * #5. Endocrine. * DM: * Held metformin, SSI insulin for now. Currently controlled. * #6. HLD: oral meds on hold. * #7.DVT-- hep sq * #8. CODE STATUS: Full code, but the patient and his family are now considering a limited code. They do not think they would want him to be intubated again.. * Approximately 40 minutes has been spent so far today, reviewing test results, interviewing and examining the patient, reviewing plan of care with his and son, as well as staff, and writing orders. Medical - PN: Qual - VTE Deep Vein Thrombosis/Pulmonary Embolism Present on Admission: No
[2017-03-17] MEDS: FLUCONAZOLE 200 MG/100 ML BAG IV SCH (10:41)
[2017-03-17] MEDS: VANCOMYCIN 1,000 MG in 0.9 % SODIUM CHLORIDE 250 ML IV SCH ×2 (11:29→20:23)
[2017-03-17] MEDS: FLUoxetine HCL 20 MG CAPSULE PO SCH (20:20)
[2017-03-17] MEDS: traZODone HCL 50 MG TABLET PO SCH (20:21)
[2017-03-17] MEDS: SIMVASTATIN 10 MG TABLET PO SCH (20:21)
[2017-03-17] MEDS: LATANOPROST OPHTH DROPS 2.5ML BOTTLE OU SCH (20:23)
[2017-03-18] MEDS: POTASSIUM CHLORIDE 20 MEQ in 0.45 % SODIUM CHLORIDE 1,000 ML IV SCH (02:30)
[2017-03-18] MEDS: 0.9 % SODIUM CHLORIDE 250 ML IV SCH ×2 (03:36→12:30)
[2017-03-18] MEDS: PIPERACILLIN SODIUM/TAZOBACTAM 3.375 GM in DEXTROSE 5% IN WATER 50 ML IV SCH ×3 (05:41→18:03)
[2017-03-18] MEDS: 0.9 % SODIUM CHLORIDE 10 ML SYRINGE IV SCH ×3 (05:43→22:22)
[2017-03-18 06:02] LABS: Basophils # (Auto) 0 K/mcL (0.0-0.3); Basophils % (Auto) 0.2 % (0.0-2.0); Eosinophils # (Auto) 0.6 K/mcL (0.0-0.7); Eosinophils % (Auto) 7.1 % (0.0-7.0); Granulocytes % (Auto) 74.4 % (38.0-78.0); Lymphocytes # (Auto) 0.9 K/mcL (1.5-4.8); Lymphocytes % (Auto) 11.2 % (15.5-49.0); Mean Cell Volume 86.7 fL (80.0-100.0); Mean Corpuscular HGB Conc 33.9 g/dL (31.0-36.0); Mean Corpuscular Hemoglobin 29.4 pg (26.0-34.0); Monocytes # (Auto) 0.6 K/mcL (0.1-0.9); Monocytes % (Auto) 7.1 % (1.0-12.0); Platelet Count 321 K/mcL (140-440); RBC 3.58 M/mcL (4.50-5.90); Red Cell Distribution Width 14.6 % (11.5-14.5)
[2017-03-18 07:10] LABS: ALT/SGPT 17 U/l (0-40); Albumin 3.1 gm/dL (3.2-5.2); Albumin/Globulin Ratio 0.9 (1.0-2.3); Alkaline Phosphatase 94 U/L (39-117); Bilirubin,Direct < 0.2 mg/dL (0.0-0.3); Blood Urea Nitrogen 15 mg/dl (8-23); Gamma Glutamyl Transpeptidase 55 U/L (8-61); Magnesium 2.1 mg/dL (1.6-2.5); Uric Acid 3.8 mg/dL (2.5-8.0)
[2017-03-18] MEDS: IPRATROPIUM/ALBUTEROL 3 ML AMPUL.NEB NEB SCH ×4 (09:35→23:48)
[2017-03-18] MEDS: PANTOPRAZOLE 40 MG VIAL IV SCH ×2 (09:36→17:52)
[2017-03-18] MEDS: LEVOTHYROXINE 50 MCG TABLET PO SCH (09:37)
[2017-03-18] MEDS: ASPIRIN 81 MG TAB.CHEW CHEWED SCH (09:37)
[2017-03-18] MEDS: SENNOSIDES 1 TABLET PO SCH (09:37)
[2017-03-18] MEDS: FINASTERIDE 5 MG TABLET PO SCH (09:37)
[2017-03-18] MEDS: risperiDONE 0.25 MG TABLET PO SCH (09:37)
[2017-03-18] MEDS: MULTIVIT,THER IRON,CA,FA & MIN 1 TABLET PO SCH (09:37)
[2017-03-18] MEDS: HEPARIN 5,000 UNIT/ML VIAL SQ SCH ×2 (09:38→22:20)
[2017-03-18] MEDS: MIDODRINE 5 MG TABLET PO SCH ×2 (09:38→18:03)
[2017-03-18] MEDS: CALCIUM CARBONATE 500 MG TAB.CHEW CHEWED SCH (09:38)
[2017-03-18] MEDS: FUROSEMIDE 20 MG/2 ML VIAL IV SCH (09:39)
[2017-03-18] MEDS: VANCOMYCIN 1,000 MG in 0.9 % SODIUM CHLORIDE 250 ML IV SCH ×2 (09:39→22:19)
[2017-03-18] MEDS: CLOBETASOL PROP 0.05% TOPICAL SCH ×2 (09:41→22:21)
[2017-03-18] MEDS: FLUCONAZOLE 200 MG/100 ML BAG IV SCH (11:19)
[2017-03-18] MEDS ORDERED: oxyCODONE/APAP 5/325MG TABLET PO PRN (12:13)
[2017-03-18] MEDS ORDERED: ONDANSETRON 4 MG/2 ML VIAL IV PRN (12:13)
[2017-03-18] MEDS ORDERED: VANCOMYCIN PER PHARMACY IV SCH (12:13)
[2017-03-18] MEDS ORDERED: ACETAMINOPHEN 325 MG TABLET PO PRN (12:13)
[2017-03-18] MEDS ORDERED: MAGNESIUM HYDROXIDE 30 ML ORAL.SUSP PO PRN (12:13)
[2017-03-18] MEDS ORDERED: NALOXONE HCL 0.4 MG/ML VIAL IV PRN (12:13)
[2017-03-18] MEDS ORDERED: guaiFENesin/DEXTROMETHORPHAN ORAL SOL PO PRN (12:13)
[2017-03-18] MEDS ORDERED: risperiDONE 0.25 MG TABLET PO PRN (12:13)
[2017-03-18] MEDS ORDERED: SYSTANE ULTRA OU PRN (12:13)
[2017-03-18] MEDS ORDERED: HEPARIN/NS 500 ML IV SCH (12:13)
--- NOTE | 2017-03-18 17:44 | Internal Med Progress Note ---
Medical - PN: Subj Patient information: Note initiated : 03/18/17 at 10:31 am Patient: Gustavo Fuentes 86 y/o M admitted on 03/09/17 for Nausea, Vomiting, Fever , Chills, Shaking/Pneumonia. Interval history: March 09, 2017: History of present illness: Mr. Fuentes is a 86 year old Male with multiple medical issues, living in [place], presented to the ER today with complaints of not feeling well x 1 day. The patient notes he has had some increased frequency of urination x 1 day, he wokeup this AM trying to go the bathroom and his noticed him having shakes, he appeared sick and also had some nausea and vomiting, he vomited x 3-4 times with some brown stuff , no regulo blood. The patient apparenty passed out while vomiting. The patients noted this is the way he was sick in the past when he had his PNA and therefore got him to the hospital for further evaluation. The patient denies any burning or foul smelling urine, the patient denies any cough, chest pain or , palpitations The patient feels he passed out for a few minutes. However, there is no record of any bowel or bladder incontinence or any abnormal jerky movements. in the emergency room, the patient had borderline low blood pressure on presentation, he was afebrile, chest x-ray showed right lung pneumonia, blood work showed elevated white blood cell count at 11.2, hemoglobin of 13.3, platelets of 219. Patient had a sodium of 139, potassium of 3.9, creatinine of 1.4 which is at patient's baseline. The patient had a lactic acid of 2.0,and a negative urine analysis. Given that the patient had low blood pressure and a pneumonia. Patient was admitted to the hospital for further management. 03/10: pt seen examined magdalena well this AM but by afternoon was trying to leave the room and go outside the hospital, has h/o dementia, ativan and haldol given. to keep him in his room. Pt denies any acute complaints. 03/11- remarkable deterioration overnight. worsening respiratory status along with new onset A. fib with RVR started on diltiazem drip. Bilateral worsening infiltrates on chest imaging. Patient made nothing by mouth-actively aspirating. ST eval. Extend antibiotic coverage o include anaerobes in light of aspiration. Continue ICU care. High risk mortality. patient very confused nd delirious. at bedside. melony count at 12.1. 03/12- Pt hypoxic and on 10 L oxymask. Confused. High risk airway compromise in light of mental status change and ongoing aspiration, increased work of breathing, RR at 36-40. ABG 7.53/27/60. Case discussed with patient's and son. Family would like to Initiate aggressive measures including mechanical ventilation. patient intubated and started on mechanical ventilation. Net 2000 cc negative fluid status on lasix. Start @ AC 14 TV 450 pEEP 8. Fent/propofol for sedation. ontinue antibiotic coverage febrile at 102F 03/13-patient on mechanical ventilation. Light ICU sedation on fentanyl drip. White count down from 15.6-11.1. creatinine 1.1. Fluid status even. On 35% FiO2 PEEP 5, 450 tidal volume, ABG 7.45/35/88 on 35% FiO2. interval chest imaging improved infiltrates. trial fibrillation rate control status post digoxin 500 IV load. at bedside. on Levophed to keep map at goal. Discussed treatment plan. Possible extubation in 24 hours if clinically improved. Patient responding to verbal commands. continue bedside physical therapy 03/14-patient did well overnight. n sedation holiday since morning. Responsive andfollowing commands.. Stable hemodynamics. Offvasopressors. Foleys draining clear urine. No fever chills. On PEEP 55 with 35%. ABG 7.47/39/63. patient subsequently extubated to high flow oxygen. Tolerated well. OG/ube feeds discontinued. Keep nothing by mouth until 24 hours. complains of constipation. Attempt enemas today. no signs of respiratory distress post extubation. Patient with be monitoredin ICU 24 hours postextubation. melony count 8.2. creatinine 1.1. interval imaging shows right sided infiltrate worsening since previous day. Continue aggressive diuresis/antibiotic coverage. atient converted to sinus this morning March 15: -Respiratory failure due to aspiration pneumonia. This patient was extubated yesterday, and has been maintaining oxygenation on high flow O2 since then. He reports some ongoing shortness of breath today, better than yesterday, but his history appears unreliable. He is still quite groggy from Ativan he received during the night. -The patient does have underlying dementia, that was diagnosed recently. His notes he has been quite forgetful at home, and sometimes forgets people's names. Patient did become agitated last night, and kept insisting on "going upstairs to bed". He was given 1 mg of Ativan, and slept well after that, but remains fairly sleepy this morning. -Patient had a speech evaluation yesterday, which shows that he aspirates just about everything. The therapist said the only thing he was even moderately safe to swallow was pudding consistency solids, and no liquids at all. The patient denies fever chills, significant pain. He reports occasionally productive cough. He denies abdominal pain. Aviles catheter remains in place. His nurse notes he did have bowel movements after laxatives during the last couple of days. Urine does seem more cloudy today. March 16: Overnight the patient did relatively well. He did not require any Ativan last night for agitation. Physical therapy was able to get him up to a chair today, with only moderate assist. The patient states he is feeling better today. He denies fever or chills, chest pain or shortness of breath or significant cough. He denies any pain. He denies any GI or problems. He continues to receive some medications crushed in applesauce or pudding, but otherwise remains n.p.o. regarding severe aspiration. There is a tentative plan for Dr. León to place a PEG tube tomorrow morning, but today, his tells me that she and her son have discussed this further, and think they do not want to pursue tube feedings. We reviewed that the patient will need to have some kind of nourishment if he is to continue recovering from his pneumonia , but she states that in view of his moderate dementia, she does not want to prolong his life. She did tell me yesterday that prior to admission he was living with her in assisted living, and that up until just recently he was also still driving, and interacting with people socially and had a good quality of life. He was distressed about being diagnosed with dementia recently. March 17: Today, the patient says he is feeling pretty well. He continues to cough intermittently, especially after trying anything such as pudding by mouth. He reportedly did have a little more success when working with the speech therapist today. Today he and his are quite adamant that he does not want a feeding tube of any kind. His says he just does not want to be kept alive to experience the worst parts of dementia. Later this evening I met with the patient as well as his and his son, and they are all in agreement that he should not have a feeding tube. They think that if he gets pneumonia again, they will probably not treated. The patient states he just does not want to put his family through that. Otherwise he denies fever chills, sore throat or cough, chest pain or palpitations. He has mild dyspnea at times. He denies abdominal pain, nausea or vomiting, diarrhea or constipation. March 18: Today, the patient states he is feeling relatively well. He continues to have a somewhat moist cough, but did work with speech therapy yesterday afternoon. She noted he did very well when swallowing with close cueing and his current diet. She seemed to think that he could start eating more foods on this particular diet plan, but we are contacting her for further clarification today. Otherwise, he is a little bit groggy this morning. He did receive a small dose of Ativan yesterday evening apparently, and his notes that he is always much sleepier after getting those. However she also notes that he always had to take a sleeping pill at home to get to sleep. I met with the patient, his and his son last night, and they again reiterated that he does not want a feeding tube. Otherwise, he denies fever chills, chest pain or shortness of breath, abdominal pain or nausea or vomiting. He thinks he has not had a bowel movement for several days. Nursing would like to consider removing his Aviles catheter. Midodrine also does not appear to be required to maintain his blood pressure. - Constitutional Vitals: Vital Signs Temp Pulse Resp BP Pulse Ox 99.4 F H 83 20 144/62 96 03/18/17 08:50 03/18/17 09:49 03/18/17 09:49 03/18/17 08:50 03/18/17 09:49 Period Temp Pulse Resp BP Sys/Patel Pulse Ox Last 24 Hr 98.3 F-99.7 F 59-83 16-22 121-151/62-70 91-99 Intake and Output 09/18/17 09/19/17 09/19/17 21:59 05:59 13:59 Intake Total 300 / 300 1090 / 1090 50 / 50 Output Total 1000 / 1000 1300 / 1300 Balance -700 / -700 -210 / -210 50 / 50 Weight 161 lb 11.2 oz Intake & Output: Intake & Output 03/17/17 03/18/17 03/18/17 21:59 05:59 13:59 Intake Total 300 / 300 1090 / 1090 50 / 50 Output Total 1000 / 1000 1300 / 1300 Balance -700 / -700 -210 / -210 50 / 50 Weight 161 lb 11.2 oz Intake: IV 300 / 300 1060 / 1060 50 / 50 Zosyn 3.375 gm In 50 / 50 50 / 50 50 / 50 Dextrose 5% in Water 50 ml @ 100 mls/hr IV Q6H [facility] Rx#:[id number] Potassium Chloride 20 Meq 1010 / 1010 In Sodium Chloride 0.45% 1,000 ml @ 50 mls/hr IV .[id number] [facility] Rx#: [id number] Vancomycin 1,000 mg In 250 / 250 Sodium Chloride 0.9% 250 ml @ 250 mls/hr IV Q12H [facility] Rx#:[id number] Oral 30 / 30 Output: Urine Catheter Amount 1000 / 1000 1300 / 1300 Other: # Bowel Movements 0 0 The patient is awake and alert. T-max is 99.7. Pressure 98/60. O2 saturation 96% on 2 L. Neck is supple without obvious JVD or lymphadenopathy. Cardiac exam shows regular rate and rhythm. Lungs: Continue to show scattered bilateral rhonchi, without significant wheezing. Abdomen is soft and nontender. Extremities show no edema. Neurologic exam: The patient continues to appear forgetful, but motor exam is grossly nonfocal. He is alert and oriented, calm and cooperative. He answers questions appropriately. Medical - PN: Obj Da - Labs CBC & Chem 7: 03/18/17 03:50 03/18/17 03:50 Labs: Abnormal Lab Results 03/18/17 03/18/17 03/17/17 03:50 03:50 09:15 RBC 3.58 L Hgb 10.5 L Hct 31.0 L RDW 14.6 H Lymph % (Auto) 11.2 L Eos % (Auto) 7.1 H Lymph # (Auto) 0.9 L Calcium Total Protein Albumin 3.1 L Albumin/Globulin Ratio 0.9 L Urine Occult Blood Urine RBC Vancomycin Trough 8.0 H 03/17/17 03/17/17 03/16/17 04:01 04:00 04:00 RBC 3.20 L Hgb 9.5 L Hct 27.5 L RDW 14.6 H Lymph % (Auto) Eos % (Auto) 7.2 H Lymph # (Auto) 1.0 L Calcium 8.5 L 8.5 L Total Protein 5.8 L 5.7 L Albumin 2.8 L 2.6 L Albumin/Globulin Ratio 0.9 L 0.8 L Urine Occult Blood Urine RBC Vancomycin Trough 03/16/17 03/15/17 04:00 11:25 RBC 3.19 L Hgb 9.5 L Hct 27.5 L RDW Lymph % (Auto) 12.0 L Eos % (Auto) 7.1 H Lymph # (Auto) 0.7 L Calcium Total Protein Albumin Albumin/Globulin Ratio Urine Occult Blood 0.2 A Urine RBC 2 H Vancomycin Trough March 16: Chest x-ray: Parenchymal infiltrates are improving. No other changes. March 15: Urinalysis shows pH of 5, negative leukocyte esterase, negative nitrites. Chest x-ray: Continued bilateral pulmonary parenchymal infiltrates, status post extubation. March 14: ABG: On vent at 35%, PEEP of 5: PH 7.47, PCO2 39, PO2 63, bicarb 28, O2 saturation 95% next March 13: Blood cultures: Negative so far March 12: Abdominal x-ray: Large amount of fecal material throughout the colon consistent with constipation, but no signs of bowel obstruction. Sputum culture: Shabnam albicans. March 11: Blood cultures negative so far Meds: Medications Acetaminophen (Tylenol) 650 mg PO Q6HP PRN PRN Reason: PAIN/FEVER > 101 Albuterol/Ipratropium (Duoneb) 3 ml NEB TID [facility] Last Admin: 03/18/17 09:35 Dose: 3 ml Aspirin (Aspirin) 324 mg CHEWED DAILY [facility] Last Admin: 03/18/17 09:37 Dose: 324 mg Calcium Carbonate/Glycine (Tums) 500 mg CHEWED DAILY [facility] Last Admin: 03/18/17 09:38 Dose: 500 mg Finasteride (Proscar) 5 mg PO QDAY [facility] Last Admin: 03/18/17 09:37 Dose: 5 mg Fluoxetine HCl (Prozac) 80 mg PO HS [facility] Last Admin: 03/17/17 20:20 Dose: 80 mg Furosemide (Lasix) 20 mg IV DAILY [facility] Last Admin: 03/18/17 09:39 Dose: 20 mg Guaifenesin (Robitussin Dm) 5 ml PO Q4HP PRN PRN Reason: Cough Heparin Sodium (Porcine) (Heparin) 5,000 unit SQ Q12 [facility] Last Admin: 03/18/17 09:38 Dose: 5,000 unit Fluconazole (Diflucan) 200 mg in 100 mls @ 100 mls/hr IV Q24H [facility] Last Infusion: 03/17/17 11:45 Dose: Infused Heparin Sodium/Sodium Chloride (Heparin/Ns) 500 mls @ 0 mls/hr IV .Q0M [facility]; KVO PRN Reason: Protocol Sodium Chloride (Sodium Chloride 0.9%) 250 mls @ 20 mls/hr IV .[id number] [facility] Last Admin: 03/18/17 03:36 Dose: Not Given Acetaminophen (Ofirmev) 1,000 mg in 100 mls @ 200 mls/hr IV Q6HP PRN PRN Reason: PAIN/FEVER > 101 Piperacillin Sod/Tazobactam (Sod 3.375 gm/ Dextrose) 50 mls @ 100 mls/hr IV Q6H [facility] Last Infusion: 03/18/17 06:59 Dose: Infused Potassium Chloride 20 meq/ (Sodium Chloride) 1,010 mls @ 50 mls/hr IV .[id number] [facility] Last Admin: 03/18/17 02:30 Dose: 50 mls/hr Vancomycin HCl 1,000 mg/ (Sodium Chloride) 250 mls @ 250 mls/hr IV Q12H [facility] Last Admin: 03/18/17 09:39 Dose: 250 mls/hr Iron Carb/Multivit/[place]/Folic Acid (Multivitamin W/Minerals) 1 tab PO DAILY [facility] Last Admin: 03/18/17 09:37 Dose: 1 tab Latanoprost (Xalatan Ophth Drops) 1 gtt OU QHS [facility] Last Admin: 03/17/17 20:23 Dose: 1 gtt Levothyroxine Sodium (Synthroid) 50 mcg PO ACB [facility] Last Admin: 03/18/17 09:37 Dose: 50 mcg Lorazepam (Ativan) 0 mg IV Q4HP PRN PRN Reason: ANXIETY/SEDATION Last Admin: 03/17/17 21:54 Dose: 0.5 mg Magnesium Hydroxide (Milk Of Magnesia) 30 ml PO DAILYP PRN PRN Reason: Constipation Midodrine (Midodrine Hcl) 10 mg PO TID@0800,1200,1700 [facility] Last Admin: 03/18/17 09:38 Dose: Not Given Naloxone HCl (Narcan) 0.1 mg IV Q2MIN PRN PRN Reason: Opiate Reversal Ondansetron HCl (Zofran) 4 mg IV Q4HP PRN PRN Reason: Nausea And Vomiting Oxycodone/Acetaminophen (Percocet 5-325 Mg) 1 tab PO Q4HP PRN PRN Reason: Pain Pantoprazole Sodium (Protonix) 40 mg IV BIDAC [facility] Last Admin: 03/18/17 09:36 Dose: 40 mg Systane Ultra 1 - 2 dose OU PRN PRN PRN Reason: Dry Eyes Clobetasol Prop 0.05 (% Topical Solution) 1 dose TOPICAL BID [facility] Last Admin: 03/18/17 09:41 Dose: 1 dose Risperidone (Risperdal) 0.5 mg PO BID [facility] Last Admin: 03/18/17 09:37 Dose: 0.5 mg Senna (Senokot) 1 tab PO QDAY [facility] Last Admin: 03/18/17 09:37 Dose: 1 tab Simvastatin (Zocor) 5 mg PO HS [facility] Last Admin: 03/17/17 20:21 Dose: 5 mg Sodium Chloride (Saline Flush) 10 ml IV Q8 [facility] Last Admin: 03/18/17 05:43 Dose: 10 ml Trazodone HCl (Desyrel) 100 mg PO QHS [facility] Last Admin: 03/17/17 20:21 Dose: 100 mg Vancomycin HCl (Vancomycin Per Pharmacy) 1 order IV UD [facility] Medical - PN: A/P - Time Spent With Patient Total time spent is greater than 50% in coordination of care (as documented) at patient's floor/unit and/or counseling patient: Greater than 35 minutes - Narrative A/P Narrative: A/P #1. Pulmonary. * -Hypoxic respiratory failure secondary to worsening aspiration pneumonia- managed on mechanical ventilation. Extubated 15 a.m. * The patient is maintaining oxygen saturation so far, but continues to sound quite congested, and has a productive cough. * * Today, the patient's lungs do sound clearer, and overall he is looking a bit stronger. However he is a bit groggy this morning, after receiving Ativan yesterday. I will plan to discontinue the Ativan, as its effects seem to linger on. Physical therapy will continue to work with him to see if they can get him any stronger. * Speech therapy seems to think if they continue to work with him he might be able to safely swallow more kinds of food. The patient and family have decided that he will not have a PEG tube or any type of feeding tube placed. We will touch base with speech therapy again today, to be sure we understand the dietary guidelines. Transfer patient to the floor today, as he no longer needs ICU care. Continue to work with him aggressively on swallow strategies that will help prevent aspiration, as apparently the only nutrition he will accept at this time is oral. * * IV fluids to maintain hydration for now, wean as tolerated.. #2. * Septic shock * -off Levophed. Clinically improved. Leukocytosis has resolved. #3. Cardiac. * -Atrial fibrillation with RVR -converted to sinus . 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 Patient now appears to be in sinus rhythm. * . * -Acute decompensated heart failure secondary to above-clinically resolved with diuresis. #4. Renal. * CKD: Creat is 1.2- 1.1, stable. #5. Endocrine. * DM: * Held metformin, SSI insulin for now. Currently controlled. #6. HLD: oral meds on hold. #7.DVT-- hep sq #8. CODE STATUS: Full code, but the patient and his family are now considering a limited code. They do not think they would want him to be intubated again. We did have a team conference meeting today with the patient's and his son and [id number]. We had an approximately 25 minute conversation about his swallowing difficulties, and all the various treatment options, as well as his diagnosis of dementia and current status of that and prognosis. His son would like to continue fairly aggressive treatment to give his father a chance at regaining most of his previous quality of life. The was a little more reluctant, but is willing to let us continue to work on swallowing strategies so that we could try to improve his nutrition. The network director will also recommend high-calorie supplements that could be thickened to a safe consistency, and physical therapy would like to continue working on strengthening him. There is a [facility] prior to possibly returning [facility]. * Approximately 45 minutes has been spent so far today, reviewing test results, interviewing and examining the patient, reviewing plan of care with his and son, as well as staff, and writing orders. Medical - PN: Qual - VTE Deep Vein Thrombosis/Pulmonary Embolism Present on Admission: No
[2017-03-18] MEDS: traZODone HCL 50 MG TABLET PO SCH (22:20)
[2017-03-18] MEDS: SIMVASTATIN 10 MG TABLET PO SCH (22:20)
[2017-03-18] MEDS: FLUoxetine HCL 20 MG CAPSULE PO SCH (22:21)
[2017-03-18] MEDS: LATANOPROST OPHTH DROPS 2.5ML BOTTLE OU SCH (22:21)
[2017-03-19] MEDS: POTASSIUM CHLORIDE 20 MEQ in 0.45 % SODIUM CHLORIDE 1,000 ML IV SCH ×2 (00:53→18:30)
[2017-03-19] MEDS: PIPERACILLIN SODIUM/TAZOBACTAM 3.375 GM in DEXTROSE 5% IN WATER 50 ML IV SCH ×4 (00:53→17:25)
[2017-03-19] MEDS: 0.9 % SODIUM CHLORIDE 250 ML IV SCH ×3 (05:37→15:39)
[2017-03-19] MEDS: 0.9 % SODIUM CHLORIDE 10 ML SYRINGE IV SCH ×3 (06:02→21:33)
[2017-03-19] MEDS: PANTOPRAZOLE 40 MG VIAL IV SCH ×2 (07:18→17:02)
[2017-03-19] MEDS: LEVOTHYROXINE 50 MCG TABLET PO SCH (07:18)
[2017-03-19] MEDS: IPRATROPIUM/ALBUTEROL 3 ML AMPUL.NEB NEB SCH ×3 (07:40→20:46)
--- NOTE | 2017-03-19 08:04 | XRay Report ---
CLINICAL INFORMATION: Follow pneumonia COMPARISON: 03/16/2017 FINDINGS: Moderate cardiomegaly is unchanged. Pacemaker and leads in stable, satisfactory position. Right IJ central line in stable satisfactory position. Mediastinum and pulmonary vessels are normal. Minimal patchy infiltrates in both mid lungs and right base continue to improve. No significant effusion IMPRESSION: Continued improvement in bilateral infiltrates - minimal patchy residual both mid lungs and right base Interpreted and Authenticated by: Wali Yusuf 03/19/17
[2017-03-19] MEDS: FUROSEMIDE 20 MG/2 ML VIAL IV SCH (08:44)
[2017-03-19] MEDS: HEPARIN 5,000 UNIT/ML VIAL SQ SCH ×2 (08:44→21:34)
[2017-03-19] MEDS: SENNOSIDES 1 TABLET PO SCH (08:45)
[2017-03-19] MEDS: MULTIVIT,THER IRON,CA,FA & MIN 1 TABLET PO SCH (08:45)
[2017-03-19] MEDS: ASPIRIN 81 MG TAB.CHEW CHEWED SCH (08:46)
[2017-03-19] MEDS: CLOBETASOL PROP 0.05% TOPICAL SCH ×2 (08:46→21:34)
[2017-03-19] MEDS: FINASTERIDE 5 MG TABLET PO SCH (08:46)
[2017-03-19] MEDS: CALCIUM CARBONATE 500 MG TAB.CHEW CHEWED SCH (08:46)
[2017-03-19] MEDS: VANCOMYCIN 1,000 MG in 0.9 % SODIUM CHLORIDE 250 ML IV SCH ×2 (09:05→21:34)
[2017-03-19] MEDS: FLUCONAZOLE 200 MG/100 ML BAG IV SCH (10:33)
--- NOTE | 2017-03-19 18:27 | Internal Med Progress Note ---
Medical - PN: Subj Patient information: Note initiated : 03/19/17 at 6:25 pm Service Date, if different from initiated Date: [] Patient: Gustavo Fuentes a 86 y/o M admitted on 03/09/17 for Nausea, Vomiting, Fever , Chills, Shaking/Pneumonia. Chief Complaint: [] Interval history: March 09, 2017: History of present illness: Mr. Fuentes is a 86 year old Male with multiple medical issues, living in [place], presented to the ER today with complaints of not feeling well x 1 day. The patient notes he has had some increased frequency of urination x 1 day, he wokeup this AM trying to go the bathroom and his noticed him having shakes, he appeared sick and also had some nausea and vomiting, he vomited x 3-4 times with some brown stuff , no regulo blood. The patient apparenty passed out while vomiting. The patients noted this is the way he was sick in the past when he had his PNA and therefore got him to the hospital for further evaluation. The patient denies any burning or foul smelling urine, the patient denies any cough, chest pain or , palpitations The patient feels he passed out for a few minutes. However, there is no record of any bowel or bladder incontinence or any abnormal jerky movements. in the emergency room, the patient had borderline low blood pressure on presentation, he was afebrile, chest x-ray showed right lung pneumonia, blood work showed elevated white blood cell count at 11.2, hemoglobin of 13.3, platelets of 219. Patient had a sodium of 139, potassium of 3.9, creatinine of 1.4 which is at patient's baseline. The patient had a lactic acid of 2.0,and a negative urine analysis. Given that the patient had low blood pressure and a pneumonia. Patient was admitted to the hospital for further management. 03/10: pt seen examined diong well this AM but by afternoon was trying to leave the room and go outside the hospital, has h/o dementia, ativan and haldol given. to keep him in his room. Pt denies any acute complaints. 03/11- remarkable deterioration overnight. worsening respiratory status along with new onset A. fib with RVR started on diltiazem drip. Bilateral worsening infiltrates on chest imaging. Patient made nothing by mouth-actively aspirating. ST eval. Extend antibiotic coverage o include anaerobes in light of aspiration. Continue ICU care. High risk mortality. patient very confused nd delirious. at bedside. melony count at 12.1. 03/12- Pt hypoxic and on 10 L oxymask. Confused. High risk airway compromise in light of mental status change and ongoing aspiration, increased work of breathing, RR at 36-40. ABG 7.53/27/60. Case discussed with patient's and son. Family would like to Initiate aggressive measures including mechanical ventilation. patient intubated and started on mechanical ventilation. Net 2000 cc negative fluid status on lasix. Start @ AC 14 TV 450 pEEP 8. Fent/propofol for sedation. ontinue antibiotic coverage febrile at 102F 03/13-patient on mechanical ventilation. Light ICU sedation on fentanyl drip. White count down from 15.6-11.1. creatinine 1.1. Fluid status even. On 35% FiO2 PEEP 5, 450 tidal volume, ABG 7.45/35/88 on 35% FiO2. interval chest imaging improved infiltrates. trial fibrillation rate control status post digoxin 500 IV load. at bedside. on Levophed to keep map at goal. Discussed treatment plan. Possible extubation in 24 hours if clinically improved. Patient responding to verbal commands. continue bedside physical therapy 03/14-patient did well overnight. n sedation holiday since morning. Responsive andfollowing commands.. Stable hemodynamics. Offvasopressors. Foleys draining clear urine. No fever chills. On PEEP 55 with 35%. ABG 7.47/39/63. patient subsequently extubated to high flow oxygen. Tolerated well. OG/ube feeds discontinued. Keep nothing by mouth until 24 hours. complains of constipation. Attempt enemas today. no signs of respiratory distress post extubation. Patient with be monitoredin ICU 24 hours postextubation. melony count 8.2. creatinine 1.1. interval imaging shows right sided infiltrate worsening since previous day. Continue aggressive diuresis/antibiotic coverage. atient converted to sinus this morning March 15: -Respiratory failure due to aspiration pneumonia. This patient was extubated yesterday, and has been maintaining oxygenation on high flow O2 since then. He reports some ongoing shortness of breath today, better than yesterday, but his history appears unreliable. He is still quite groggy from Ativan he received during the night. -The patient does have underlying dementia, that was diagnosed recently. His notes he has been quite forgetful at home, and sometimes forgets people's names. Patient did become agitated last night, and kept insisting on "going upstairs to bed". He was given 1 mg of Ativan, and slept well after that, but remains fairly sleepy this morning. -Patient had a speech evaluation yesterday, which shows that he aspirates just about everything. The therapist said the only thing he was even moderately safe to swallow was pudding consistency solids, and no liquids at all. The patient denies fever chills, significant pain. He reports occasionally productive cough. He denies abdominal pain. Aviles catheter remains in place. His nurse notes he did have bowel movements after laxatives during the last couple of days. Urine does seem more cloudy today. March 16: Overnight the patient did relatively well. He did not require any Ativan last night for agitation. Physical therapy was able to get him up to a chair today, with only moderate assist. The patient states he is feeling better today. He denies fever or chills, chest pain or shortness of breath or significant cough. He denies any pain. He denies any GI or problems. He continues to receive some medications crushed in applesauce or pudding, but otherwise remains n.p.o. regarding severe aspiration. There is a tentative plan for Dr. León to place a PEG tube tomorrow morning, but today, his tells me that she and her son have discussed this further, and think they do not want to pursue tube feedings. We reviewed that the patient will need to have some kind of nourishment if he is to continue recovering from his pneumonia , but she states that in view of his moderate dementia, she does not want to prolong his life. She did tell me yesterday that prior to admission he was living with her in assisted living, and that up until just recently he was also still driving, and interacting with people socially and had a good quality of life. He was distressed about being diagnosed with dementia recently. March 17: Today, the patient says he is feeling pretty well. He continues to cough intermittently, especially after trying anything such as pudding by mouth. He reportedly did have a little more success when working with the speech therapist today. Today he and his are quite adamant that he does not want a feeding tube of any kind. His says he just does not want to be kept alive to experience the worst parts of dementia. Later this evening I met with the patient as well as his and his son, and they are all in agreement that he should not have a feeding tube. They think that if he gets pneumonia again, they will probably not treated. The patient states he just does not want to put his family through that. Otherwise he denies fever chills, sore throat or cough, chest pain or palpitations. He has mild dyspnea at times. He denies abdominal pain, nausea or vomiting, diarrhea or constipation. March 18: Today, the patient states he is feeling relatively well. He continues to have a somewhat moist cough, but did work with speech therapy yesterday afternoon. She noted he did very well when swallowing with close cueing and his current diet. She seemed to think that he could start eating more foods on this particular diet plan, but we are contacting her for further clarification today. Otherwise, he is a little bit groggy this morning. He did receive a small dose of Ativan yesterday evening apparently, and his notes that he is always much sleepier after getting those. However she also notes that he always had to take a sleeping pill at home to get to sleep. I met with the patient, his and his son last night, and they again reiterated that he does not want a feeding tube. Otherwise, he denies fever chills, chest pain or shortness of breath, abdominal pain or nausea or vomiting. He thinks he has not had a bowel movement for several days. Nursing would like to consider removing his Aviles catheter. Midodrine also does not appear to be required to maintain his blood pressure. March 19: Last night, the patient decided to try to climb out of bed on his own, thinking he could make it to the bathroom without help. He was wearing teds hose, and his feet slipped out from under him and he slid down the side of the bed. He says he did not really hurt himself. This morning, he is more alert than yesterday, and is quite willing to work with both speech therapy and physical therapy. He seems very optimistic today. Otherwise, he denies fever or chills, chest pain or palpitations. He continues to have occasional cough. He denies abdominal pain nausea or vomiting or diarrhea. - Constitutional Vitals: Vital Signs Temp Pulse Resp BP Pulse Ox 97.4 F 70 20 120/68 94 03/19/17 16:00 03/19/17 15:06 03/19/17 16:00 03/19/17 16:00 03/19/17 16:00 Period Temp Pulse Resp BP Sys/Patel Pulse Ox Last 24 Hr 97.4 F-98.8 F 69-87 14-20 106-148/63-77 87-96 Intake and Output 03/19/17 03/19/17 03/19/17 05:59 13:59 21:59 Intake Total 300 / 300 100 / 100 480 / 480 Output Total 450 / 450 Balance -150 / -150 100 / 100 480 / 480 Intake & Output: Intake & Output 03/19/17 03/19/17 03/19/17 05:59 13:59 21:59 Intake Total 300 / 300 100 / 100 480 / 480 Output Total 450 / 450 Balance -150 / -150 100 / 100 480 / 480 Intake: IV 300 / 300 100 / 100 Zosyn 3.375 gm In 50 / 50 100 / 100 Dextrose 5% in Water 50 ml @ 100 mls/hr IV Q6H [facility] Rx#:[id number] Vancomycin 1,000 mg In 250 / 250 Sodium Chloride 0.9% 250 ml @ 250 mls/hr IV Q12H [facility] Rx#:[id number] Oral 0 / 0 480 / 480 Output: Urine Catheter Amount 450 / 450 Other: Percent of Meal Consumed Applesauce Feeding Ability Total Assistance The patient is awake and alert. Neck is supple without obvious JVD or lymphadenopathy. Cardiac exam shows regular rate and rhythm. Lungs: Continue to show scattered bilateral crackles, without wheezes or rhonchi. Abdomen is soft and nontender. Extremities show no edema. Neurologic exam: The patient continues to appear forgetful, but motor exam is grossly nonfocal. He is alert and oriented, calm and cooperative. He answers questions appropriately. Medical - PN: Obj Da - Labs CBC & Chem 7: 03/18/17 03:50 03/18/17 03:50 Labs: Abnormal Lab Results 03/18/17 03/18/17 03/17/17 03:50 03:50 09:15 RBC 3.58 L Hgb 10.5 L Hct 31.0 L RDW 14.6 H Lymph % (Auto) 11.2 L Eos % (Auto) 7.1 H Lymph # (Auto) 0.9 L Calcium Total Protein Albumin 3.1 L Albumin/Globulin Ratio 0.9 L Vancomycin Trough 8.0 H 03/17/17 03/17/17 04:01 04:00 RBC 3.20 L Hgb 9.5 L Hct 27.5 L RDW 14.6 H Lymph % (Auto) Eos % (Auto) 7.2 H Lymph # (Auto) 1.0 L Calcium 8.5 L Total Protein 5.8 L Albumin 2.8 L Albumin/Globulin Ratio 0.9 L Vancomycin Trough March 19: Chest x-ray shows continued improvement in bilateral infiltrates with minimal patchy residual in both mid lungs and right base. March 16: Chest x-ray: Parenchymal infiltrates are improving. No other changes. March 15: Urinalysis shows pH of 5, negative leukocyte esterase, negative nitrites. Chest x-ray: Continued bilateral pulmonary parenchymal infiltrates, status post extubation. March 14: ABG: On vent at 35%, PEEP of 5: PH 7.47, PCO2 39, PO2 63, bicarb 28, O2 saturation 95% next March 13: Blood cultures: Negative so far March 12: Abdominal x-ray: Large amount of fecal material throughout the colon consistent with constipation, but no signs of bowel obstruction. Sputum culture: Shabnam albicans. March 11: Blood cultures negative so far Meds: Medications Acetaminophen (Tylenol) 650 mg PO Q6HP PRN PRN Reason: PAIN/FEVER > 101 Albuterol/Ipratropium (Duoneb) 3 ml NEB TID [facility] Last Admin: 03/19/17 15:04 Dose: 3 ml Aspirin (Aspirin) 324 mg CHEWED DAILY [facility] Last Admin: 03/19/17 08:46 Dose: 324 mg Calcium Carbonate/Glycine (Tums) 500 mg CHEWED DAILY [facility] Last Admin: 03/19/17 08:46 Dose: 500 mg Finasteride (Proscar) 5 mg PO QDAY [facility] Last Admin: 03/19/17 08:46 Dose: 5 mg Fluoxetine HCl (Prozac) 80 mg PO HS [facility] Last Admin: 03/18/17 22:21 Dose: 80 mg Furosemide (Lasix) 20 mg IV DAILY [facility] Last Admin: 03/19/17 08:44 Dose: 20 mg Guaifenesin (Robitussin Dm) 5 ml PO Q4HP PRN PRN Reason: Cough Heparin Sodium (Porcine) (Heparin) 5,000 unit SQ Q12 [facility] Last Admin: 03/19/17 08:44 Dose: 5,000 unit Fluconazole (Diflucan) 200 mg in 100 mls @ 100 mls/hr IV Q24H [facility] Last Admin: 03/19/17 10:33 Dose: 100 mls/hr Heparin Sodium/Sodium Chloride (Heparin/Ns) 500 mls @ 0 mls/hr IV .Q0M [facility]; KVO PRN Reason: Protocol Sodium Chloride (Sodium Chloride 0.9%) 250 mls @ 20 mls/hr IV .[id number] [facility] Last Admin: 03/19/17 15:39 Dose: Not Given Piperacillin Sod/Tazobactam (Sod 3.375 gm/ Dextrose) 50 mls @ 100 mls/hr IV Q6H [facility] Last Admin: 03/19/17 17:25 Dose: 100 mls/hr Potassium Chloride 20 meq/ (Sodium Chloride) 1,010 mls @ 50 mls/hr IV .[id number] [facility] Last Admin: 03/19/17 00:53 Dose: Not Given Vancomycin HCl 1,000 mg/ (Sodium Chloride) 250 mls @ 250 mls/hr IV Q12H [facility] Last Admin: 03/19/17 09:05 Dose: 250 mls/hr Iron Carb/Multivit/Funds Development Director/Folic Acid (Multivitamin W/Minerals) 1 tab PO DAILY [facility] Last Admin: 03/19/17 08:45 Dose: 1 tab Latanoprost (Xalatan Ophth Drops) 1 gtt OU QHS [facility] Last Admin: 03/18/17 22:21 Dose: 1 gtt Levothyroxine Sodium (Synthroid) 50 mcg PO ACB [facility] Last Admin: 03/19/17 07:18 Dose: 50 mcg Magnesium Hydroxide (Milk Of Magnesia) 30 ml PO DAILYP PRN PRN Reason: Constipation Last Admin: 03/19/17 17:01 Dose: 30 ml Naloxone HCl (Narcan) 0.1 mg IV Q2MIN PRN PRN Reason: Opiate Reversal Ondansetron HCl (Zofran) 4 mg IV Q4HP PRN PRN Reason: Nausea And Vomiting Oxycodone/Acetaminophen (Percocet 5-325 Mg) 1 tab PO Q4HP PRN PRN Reason: Pain Pantoprazole Sodium (Protonix) 40 mg IV BIDAC [facility] Last Admin: 03/19/17 17:02 Dose: 40 mg Systane Ultra Ophth (Drops) 1 - 2 dose OU PRN PRN PRN Reason: Dry Eyes Clobetasol Prop 0.05 (% Topical Solution) 1 dose TOPICAL BID [facility] Last Admin: 03/19/17 08:46 Dose: 1 dose Risperidone (Risperdal) 0.5 mg PO BID PRN PRN Reason: Agitation Senna (Senokot) 1 tab PO QDAY [facility] Last Admin: 03/19/17 08:45 Dose: 1 tab Simvastatin (Zocor) 5 mg PO HS [facility] Last Admin: 03/18/17 22:20 Dose: 5 mg Sodium Chloride (Saline Flush) 10 ml IV Q8 [facility] Last Admin: 03/19/17 14:30 Dose: 10 ml Trazodone HCl (Desyrel) 100 mg PO QHS [facility] Last Admin: 03/18/17 22:20 Dose: 100 mg Vancomycin HCl (Vancomycin Per Pharmacy) 1 order IV UD [facility] Medical - PN: A/P - Time Spent With Patient Total time spent is greater than 50% in coordination of care (as documented) at patient's floor/unit and/or counseling patient: 25 - 35 minutes - Narrative A/P Narrative: A/P #1. Pulmonary. * -Hypoxic respiratory failure secondary to worsening aspiration pneumonia- managed on mechanical ventilation. Extubated 15 a.m. * He continues to improve on a daily basis. * Today, the patient's lungs do sound clearer, and overall he is looking a bit stronger. I do think he is quite a bit more alert since the Ativan was discontinued. * * Speech therapy seems to think if they continue to work with him he might be able to safely swallow more kinds of food. The patient and family have decided that he will not have a PEG tube or any type of feeding tube placed. * * IV fluids to maintain hydration for now, wean as tolerated.. #2. * Septic shock * Resolved. #3. Cardiac. * -Atrial fibrillation with RVR -converted to sinus . 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 Patient now appears to be in sinus rhythm. * . * -Acute decompensated heart failure secondary to above-clinically resolved with diuresis. #4. Renal. * CKD: Creat is 1.2- 1.1, stable. #5. Endocrine. * DM: * Held metformin, SSI insulin for now. Currently controlled. #6. HLD: oral meds on hold. #7.DVT-- hep sq #8. CODE STATUS: Full code, but the patient and his family are now considering a limited code. They do not think they would want him to be intubated again. We did have a team conference meeting on March 18 with the patient's and his son and [id number]. We had an approximately 25 minute conversation about his swallowing difficulties, and all the various treatment options, as well as his diagnosis of dementia and current status of that and prognosis. His son would like to continue fairly aggressive treatment to give his father a chance at regaining most of his previous quality of life. The was a little more reluctant, but is willing to let us continue to work on swallowing strategies so that we could try to improve his nutrition. The intranet specialist will also recommend high-calorie supplements that could be thickened to a safe consistency, and physical therapy would like to continue working on strengthening him. There is a [facility] prior to possibly returning [facility]. * Approximately 25 minutes has been spent so far today, reviewing test results, interviewing and examining the patient, reviewing plan of care with his , as well as staff, and writing orders. Medical - PN: Qual - VTE Deep Vein Thrombosis/Pulmonary Embolism Present on Admission: No
[2017-03-19] MEDS: SIMVASTATIN 10 MG TABLET PO SCH (21:33)
[2017-03-19] MEDS: LATANOPROST OPHTH DROPS 2.5ML BOTTLE OU SCH (21:33)
[2017-03-19] MEDS: FLUoxetine HCL 20 MG CAPSULE PO SCH (21:34)
[2017-03-19] MEDS: traZODone HCL 50 MG TABLET PO SCH (21:34)
[2017-03-20] MEDS: PIPERACILLIN SODIUM/TAZOBACTAM 3.375 GM in DEXTROSE 5% IN WATER 50 ML IV SCH ×4 (00:10→17:37)
[2017-03-20] MEDS: 0.9 % SODIUM CHLORIDE 250 ML IV SCH (04:17)
[2017-03-20] MEDS: 0.9 % SODIUM CHLORIDE 10 ML SYRINGE IV SCH ×3 (05:09→21:51)
[2017-03-20] MEDS: VANCOMYCIN 1,000 MG in 0.9 % SODIUM CHLORIDE 250 ML IV SCH ×2 (09:00→21:46)
[2017-03-20] MEDS: IPRATROPIUM/ALBUTEROL 3 ML AMPUL.NEB NEB SCH (09:39)
[2017-03-20] MEDS ORDERED: FLUCONAZOLE 200 MG/100 ML BAG IV SCH (10:00)
[2017-03-20] MEDS: POTASSIUM CHLORIDE 20 MEQ in 0.45 % SODIUM CHLORIDE 1,000 ML IV SCH ×2 (10:01→12:43)
[2017-03-20] MEDS: MULTIVIT,THER IRON,CA,FA & MIN 1 TABLET PO SCH (10:06)
[2017-03-20] MEDS: LACTOBACILLUS 1 CAPSULE PO SCH ×2 (10:06→21:53)
[2017-03-20] MEDS: FINASTERIDE 5 MG TABLET PO SCH (10:07)
[2017-03-20] MEDS: ASPIRIN 81 MG TAB.CHEW CHEWED SCH (10:07)
[2017-03-20] MEDS: CALCIUM CARBONATE 500 MG TAB.CHEW CHEWED SCH (10:07)
[2017-03-20] MEDS: LEVOTHYROXINE 50 MCG TABLET PO SCH (10:07)
[2017-03-20] MEDS: PANTOPRAZOLE 40 MG VIAL IV SCH ×2 (10:21→17:37)
[2017-03-20] MEDS: SENNOSIDES 1 TABLET PO SCH (10:22)
[2017-03-20] MEDS: FUROSEMIDE 20 MG/2 ML VIAL IV SCH (10:22)
[2017-03-20] MEDS: HEPARIN 5,000 UNIT/ML VIAL SQ SCH ×2 (10:22→21:52)
[2017-03-20] MEDS: CLOBETASOL PROP 0.05% TOPICAL SCH ×2 (10:38→21:54)
[2017-03-20] MEDS: FLUCONAZOLE 200 MG/100 ML BAG IV SCH (10:39)
[2017-03-20] MEDS ORDERED: IPRATROPIUM/ALBUTEROL 3 ML AMPUL.NEB NEB PRN (10:57)
--- NOTE | 2017-03-20 11:50 | Internal Med Progress Note ---
Medical - PN: Subj Patient information: Note initiated : 03/20/17 at 11:47 am Service Date, if different from initiated Date: [] Patient: Gustavo Fuentes a 86 y/o M admitted on 03/09/17 for Nausea, Vomiting, Fever , Chills, Shaking/Pneumonia. Chief Complaint: [] Interval history: March 09, 2017: History of present illness: Mr. Fuentes is a 86 year old Male with multiple medical issues, living in [place], presented to the ER today with complaints of not feeling well x 1 day. The patient notes he has had some increased frequency of urination x 1 day, he wokeup this AM trying to go the bathroom and his noticed him having shakes, he appeared sick and also had some nausea and vomiting, he vomited x 3-4 times with some brown stuff , no regulo blood. The patient apparenty passed out while vomiting. The patients noted this is the way he was sick in the past when he had his PNA and therefore got him to the hospital for further evaluation. The patient denies any burning or foul smelling urine, the patient denies any cough, chest pain or , palpitations The patient feels he passed out for a few minutes. However, there is no record of any bowel or bladder incontinence or any abnormal jerky movements. in the emergency room, the patient had borderline low blood pressure on presentation, he was afebrile, chest x-ray showed right lung pneumonia, blood work showed elevated white blood cell count at 11.2, hemoglobin of 13.3, platelets of 219. Patient had a sodium of 139, potassium of 3.9, creatinine of 1.4 which is at patient's baseline. The patient had a lactic acid of 2.0,and a negative urine analysis. Given that the patient had low blood pressure and a pneumonia. Patient was admitted to the hospital for further management. 03/10: pt seen examined diong well this AM but by afternoon was trying to leave the room and go outside the hospital, has h/o dementia, ativan and haldol given. to keep him in his room. Pt denies any acute complaints. 03/11- remarkable deterioration overnight. worsening respiratory status along with new onset A. fib with RVR started on diltiazem drip. Bilateral worsening infiltrates on chest imaging. Patient made nothing by mouth-actively aspirating. ST eval. Extend antibiotic coverage o include anaerobes in light of aspiration. Continue ICU care. High risk mortality. patient very confused nd delirious. at bedside. melony count at 12.1. 03/12- Pt hypoxic and on 10 L oxymask. Confused. High risk airway compromise in light of mental status change and ongoing aspiration, increased work of breathing, RR at 36-40. ABG 7.53/27/60. Case discussed with patient's and son. Family would like to Initiate aggressive measures including mechanical ventilation. patient intubated and started on mechanical ventilation. Net 2000 cc negative fluid status on lasix. Start @ AC 14 TV 450 pEEP 8. Fent/propofol for sedation. ontinue antibiotic coverage febrile at 102F 03/13-patient on mechanical ventilation. Light ICU sedation on fentanyl drip. White count down from 15.6-11.1. creatinine 1.1. Fluid status even. On 35% FiO2 PEEP 5, 450 tidal volume, ABG 7.45/35/88 on 35% FiO2. interval chest imaging improved infiltrates. trial fibrillation rate control status post digoxin 500 IV load. at bedside. on Levophed to keep map at goal. Discussed treatment plan. Possible extubation in 24 hours if clinically improved. Patient responding to verbal commands. continue bedside physical therapy 03/14-patient did well overnight. n sedation holiday since morning. Responsive andfollowing commands.. Stable hemodynamics. Offvasopressors. Foleys draining clear urine. No fever chills. On PEEP 55 with 35%. ABG 7.47/39/63. patient subsequently extubated to high flow oxygen. Tolerated well. OG/ube feeds discontinued. Keep nothing by mouth until 24 hours. complains of constipation. Attempt enemas today. no signs of respiratory distress post extubation. Patient with be monitoredin ICU 24 hours postextubation. melony count 8.2. creatinine 1.1. interval imaging shows right sided infiltrate worsening since previous day. Continue aggressive diuresis/antibiotic coverage. atient converted to sinus this morning March 15: -Respiratory failure due to aspiration pneumonia. This patient was extubated yesterday, and has been maintaining oxygenation on high flow O2 since then. He reports some ongoing shortness of breath today, better than yesterday, but his history appears unreliable. He is still quite groggy from Ativan he received during the night. -The patient does have underlying dementia, that was diagnosed recently. His notes he has been quite forgetful at home, and sometimes forgets people's names. Patient did become agitated last night, and kept insisting on "going upstairs to bed". He was given 1 mg of Ativan, and slept well after that, but remains fairly sleepy this morning. -Patient had a speech evaluation yesterday, which shows that he aspirates just about everything. The therapist said the only thing he was even moderately safe to swallow was pudding consistency solids, and no liquids at all. The patient denies fever chills, significant pain. He reports occasionally productive cough. He denies abdominal pain. Aviles catheter remains in place. His nurse notes he did have bowel movements after laxatives during the last couple of days. Urine does seem more cloudy today. March 16: Overnight the patient did relatively well. He did not require any Ativan last night for agitation. Physical therapy was able to get him up to a chair today, with only moderate assist. The patient states he is feeling better today. He denies fever or chills, chest pain or shortness of breath or significant cough. He denies any pain. He denies any GI or problems. He continues to receive some medications crushed in applesauce or pudding, but otherwise remains n.p.o. regarding severe aspiration. There is a tentative plan for Dr. León to place a PEG tube tomorrow morning, but today, his tells me that she and her son have discussed this further, and think they do not want to pursue tube feedings. We reviewed that the patient will need to have some kind of nourishment if he is to continue recovering from his pneumonia , but she states that in view of his moderate dementia, she does not want to prolong his life. She did tell me yesterday that prior to admission he was living with her in assisted living, and that up until just recently he was also still driving, and interacting with people socially and had a good quality of life. He was distressed about being diagnosed with dementia recently. March 17: Today, the patient says he is feeling pretty well. He continues to cough intermittently, especially after trying anything such as pudding by mouth. He reportedly did have a little more success when working with the speech therapist today. Today he and his are quite adamant that he does not want a feeding tube of any kind. His says he just does not want to be kept alive to experience the worst parts of dementia. Later this evening I met with the patient as well as his and his son, and they are all in agreement that he should not have a feeding tube. They think that if he gets pneumonia again, they will probably not treated. The patient states he just does not want to put his family through that. Otherwise he denies fever chills, sore throat or cough, chest pain or palpitations. He has mild dyspnea at times. He denies abdominal pain, nausea or vomiting, diarrhea or constipation. March 18: Today, the patient states he is feeling relatively well. He continues to have a somewhat moist cough, but did work with speech therapy yesterday afternoon. She noted he did very well when swallowing with close cueing and his current diet. She seemed to think that he could start eating more foods on this particular diet plan, but we are contacting her for further clarification today. Otherwise, he is a little bit groggy this morning. He did receive a small dose of Ativan yesterday evening apparently, and his notes that he is always much sleepier after getting those. However she also notes that he always had to take a sleeping pill at home to get to sleep. I met with the patient, his and his son last night, and they again reiterated that he does not want a feeding tube. Otherwise, he denies fever chills, chest pain or shortness of breath, abdominal pain or nausea or vomiting. He thinks he has not had a bowel movement for several days. Nursing would like to consider removing his Aviles catheter. Midodrine also does not appear to be required to maintain his blood pressure. March 19: Last night, the patient decided to try to climb out of bed on his own, thinking he could make it to the bathroom without help. He was wearing teds hose, and his feet slipped out from under him and he slid down the side of the bed. He says he did not really hurt himself. This morning, he is more alert than yesterday, and is quite willing to work with both speech therapy and physical therapy. He seems very optimistic today. Otherwise, he denies fever or chills, chest pain or palpitations. He continues to have occasional cough. He denies abdominal pain nausea or vomiting or diarrhea. March 20: Bertin seen examined, seems better this AM, but does not feel as good as yesterday, mental status seems to be better though and is able to verbalize his needs. The patient still is on a dysphagia 2 diet with thickned fluids. He is still not able to meet his nutritional goals. The patient otherwise denies any acute complaints. Pertinent ROS: Denies headache, dizziness Denies chest pain, palpitations Denies cough or shortness of breath Denies abdominal pain, nausea or vomiting. - Constitutional Vitals: Vital Signs Temp Pulse Resp BP Pulse Ox 97.2 F 70 20 145/70 92 03/20/17 08:00 03/20/17 04:00 03/20/17 08:00 03/20/17 08:00 03/20/17 08:00 Period Temp Pulse Resp BP Sys/Patel Pulse Ox Last 24 Hr 97.2 F-98.4 F 66-75 14-20 108-145/54-76 90-94 Intake and Output 03/19/17 03/20/17 03/20/17 21:59 05:59 13:59 Intake Total 780 / 780 300 / 300 825 / 825 Output Total 505 / 505 Balance 780 / 780 -205 / -205 825 / 825 Weight 160 lb Intake & Output: Intake & Output 03/19/17 03/20/17 03/20/17 21:59 05:59 13:59 Intake Total 780 / 780 300 / 300 825 / 825 Output Total 505 / 505 Balance 780 / 780 -205 / -205 825 / 825 Weight 160 lb Intake: IV 300 / 300 300 / 300 825 / 825 Sodium Chloride 0.9% 250 250 / 250 ml @ 20 mls/hr IV . [id number] [facility] Rx#:[id number] Zosyn 3.375 gm In 50 / 50 50 / 50 50 / 50 Dextrose 5% in Water 50 ml @ 100 mls/hr IV Q6H [facility] Rx#:[id number] Potassium Chloride 20 Meq 775 / 775 In Sodium Chloride 0.45% 1,000 ml @ 50 mls/hr IV .[id number] [facility] Rx#: [id number] Vancomycin 1,000 mg In 250 / 250 Sodium Chloride 0.9% 250 ml @ 250 mls/hr IV Q12H [facility] Rx#:[id number] Oral 480 / 480 0 / 0 Output: Urine Catheter Amount 50 / 50 Void Amount 455 / 455 Uretheral (Aviles) 455 / 455 Other: Meal Dinner Percent of Meal Consumed 2oz aplesa Feeding Ability Needs Supervision # Bowel Movements 1 Exam: Constitutional; Afebrile, cooperative, alert, not in distress. Eyes- No icterus, , No periorbital swelling Ears- Ext ear normal, hearing normal to conversation. Neck- Midline trachea, supple Respiratory system: Air Entry equal on both sides, No crackles or wheezing, no rhonchi. CVS- Rate rhythm regular, S1,S2 heard, no gallop, no rub. Abdomen- Soft nontender abdomen, no organomegaly, no tenderness, no guarding or rigidity, SURVEYOR MINE- AOOx1, moving all extremities, no gross focal deficit noted. Medical - PN: Obj Da - Labs CBC & Chem 7: 03/18/17 03:50 03/18/17 03:50 Labs: Abnormal Lab Results 03/18/17 03/18/17 03:50 03:50 RBC 3.58 L Hgb 10.5 L Hct 31.0 L RDW 14.6 H Lymph % (Auto) 11.2 L Eos % (Auto) 7.1 H Lymph # (Auto) 0.9 L Albumin 3.1 L Albumin/Globulin Ratio 0.9 L Meds: Medications Acetaminophen (Tylenol) 650 mg PO Q6HP PRN PRN Reason: PAIN/FEVER > 101 Last Admin: 03/20/17 10:23 Dose: 650 mg Albuterol/Ipratropium (Duoneb) 3 ml NEB Q4HRT PRN PRN Reason: Shortness Of Breath Or Wheezing Aspirin (Aspirin) 324 mg CHEWED DAILY [facility] Last Admin: 03/20/17 10:07 Dose: 324 mg Calcium Carbonate/Glycine (Tums) 500 mg CHEWED DAILY [facility] Last Admin: 03/20/17 10:07 Dose: 500 mg Finasteride (Proscar) 5 mg PO QDAY [facility] Last Admin: 03/20/17 10:07 Dose: 5 mg Fluoxetine HCl (Prozac) 80 mg PO HS [facility] Last Admin: 03/19/17 21:34 Dose: 80 mg Furosemide (Lasix) 20 mg IV DAILY [facility] Last Admin: 03/20/17 10:22 Dose: 20 mg Guaifenesin (Robitussin Dm) 5 ml PO Q4HP PRN PRN Reason: Cough Heparin Sodium (Porcine) (Heparin) 5,000 unit SQ Q12 [facility] Last Admin: 03/20/17 10:22 Dose: 5,000 unit Heparin Sodium/Sodium Chloride (Heparin/Ns) 500 mls @ 0 mls/hr IV .Q0M [facility]; KVO PRN Reason: Protocol Piperacillin Sod/Tazobactam (Sod 3.375 gm/ Dextrose) 50 mls @ 100 mls/hr IV Q6H [facility] Last Infusion: 03/20/17 06:30 Dose: Infused Potassium Chloride 20 meq/ (Sodium Chloride) 1,010 mls @ 50 mls/hr IV .[id number] [facility] Last Admin: 03/20/17 10:01 Dose: 50 mls/hr Vancomycin HCl 1,000 mg/ (Sodium Chloride) 250 mls @ 250 mls/hr IV Q12H [facility] Last Admin: 03/20/17 09:00 Dose: 250 mls/hr Fluconazole (Diflucan) 200 mg in 100 mls @ 100 mls/hr IV Q24H [facility] Last Admin: 03/20/17 10:38 Dose: 100 mls/hr Iron Carb/Multivit/Ground [employer] Linesman/Folic Acid (Multivitamin W/Minerals) 1 tab PO DAILY [facility] Last Admin: 03/20/17 10:06 Dose: 1 tab Lactobacillus Rhamnosus (Culturelle) 1 cap PO BID [facility] Last Admin: 03/20/17 10:06 Dose: 1 cap Latanoprost (Xalatan Ophth Drops) 1 gtt OU QHS [facility] Last Admin: 03/19/17 21:33 Dose: 1 gtt Levothyroxine Sodium (Synthroid) 50 mcg PO ACB [facility] Last Admin: 03/20/17 10:07 Dose: 50 mcg Magnesium Hydroxide (Milk Of Magnesia) 30 ml PO DAILYP PRN PRN Reason: Constipation Last Admin: 03/19/17 17:01 Dose: 30 ml Naloxone HCl (Narcan) 0.1 mg IV Q2MIN PRN PRN Reason: Opiate Reversal Ondansetron HCl (Zofran) 4 mg IV Q4HP PRN PRN Reason: Nausea And Vomiting Oxycodone/Acetaminophen (Percocet 5-325 Mg) 1 tab PO Q4HP PRN PRN Reason: Pain Pantoprazole Sodium (Protonix) 40 mg IV BIDAC [facility] Last Admin: 03/20/17 10:21 Dose: 40 mg Systane Ultra Ophth (Drops) 1 - 2 dose OU PRN PRN PRN Reason: Dry Eyes Clobetasol Prop 0.05 (% Topical Solution) 1 dose TOPICAL BID [facility] Last Admin: 03/20/17 10:38 Dose: 1 dose Risperidone (Risperdal) 0.5 mg PO BID PRN PRN Reason: Agitation Last Admin: 03/20/17 10:07 Dose: 0.5 mg Senna (Senokot) 1 tab PO QDAY [facility] Last Admin: 03/20/17 10:22 Dose: 1 tab Simvastatin (Zocor) 5 mg PO HS [facility] Last Admin: 03/19/17 21:33 Dose: 5 mg Sodium Chloride (Saline Flush) 10 ml IV Q8 [facility] Last Admin: 03/20/17 05:09 Dose: 10 ml Tamsulosin HCl (Flomax) 0.4 mg PO [facility] Trazodone HCl (Desyrel) 100 mg PO QHS [facility] Last Admin: 03/19/17 21:34 Dose: 100 mg Vancomycin HCl (Vancomycin Per Pharmacy) 1 order IV UD [facility] Medical - PN: A/P - Time Spent With Patient Total time spent is greater than 50% in coordination of care (as documented) at patient's floor/unit and/or counseling patient: - Narrative A/P Narrative: A/P #1. Pulmonary. * -Hypoxic respiratory failure secondary aspiration pneumonia- s/p mechanical ventilation.s/p intubation and Extubated 15 a.m. * He continues to improve on a daily basis. * Today, the patient's lungs do sound clearer, and overall he is looking a bit stronger, no wheezing.. * Speech therapy seems to think if they continue to work with him he might be able to safely swallow more kinds of food. He is on level 2 diet today The patient and family have decided that he will not have a PEG tube or any type of feeding tube placed. * * IV fluids to maintain hydration for now, wean as tolerated * D/c Diflucan vickie in sputum is usually a contaminant, pt is s/p 5-7 days of treatment anyways * Still on Vanco and Zosyn, (blood cx and sputum cx is neg for bacterial growth ) #2. * Septic shock * Resolved. * * #3. Cardiac. * -Atrial fibrillation with RVR -converted to sinus . * * -Status post pacemaker recently. Patient now appears to be in sinus rhythm. * . * -Acute decompensated heart failure secondary to above-clinically resolved with diuresis. #4. Renal. * CKD: Creat is 1.2- 1.1, stable. at baseline #5. Endocrine. * DM: * Held metformin, SSI insulin for now. fasting glucose Currently at goal #6. HLD: oral meds on hold. #7.DVT-- hep sq #8. CODE STATUS: Full code, but the patient and his family are now considering a limited code. They do not think they would want him to be intubated again. Plan for d/c to [place] SNF once medically stable Medical - PN: Qual - VTE Deep Vein Thrombosis/Pulmonary Embolism Present on Admission: No
[2017-03-20] MEDS ORDERED: DEXTROSE 31 GM ORAL.SUSP PO PRN (11:53)
[2017-03-20] MEDS ORDERED: DEXTROSE 50% 50 ML VIAL IV PRN (11:53)
[2017-03-20] MEDS: INSULIN LISPRO 1 UNIT/0.01 ML UNIT SQ SCH ×2 (17:37→21:55)
[2017-03-20] MEDS: TAMSULOSIN 0.4 MG CAPSULE PO SCH (21:53)
[2017-03-20] MEDS: FLUoxetine HCL 20 MG CAPSULE PO SCH (21:53)
[2017-03-20] MEDS: SIMVASTATIN 10 MG TABLET PO SCH (21:53)
[2017-03-20] MEDS: LATANOPROST OPHTH DROPS 2.5ML BOTTLE OU SCH (21:55)
[2017-03-20] MEDS: traZODone HCL 50 MG TABLET PO SCH (22:02)
[2017-03-21] MEDS: PIPERACILLIN SODIUM/TAZOBACTAM 3.375 GM in DEXTROSE 5% IN WATER 50 ML IV SCH ×5 (00:22→23:44)
[2017-03-21] MEDS: 0.9 % SODIUM CHLORIDE 10 ML SYRINGE IV SCH ×3 (06:30→21:28)
[2017-03-21] MEDS: INSULIN LISPRO 1 UNIT/0.01 ML UNIT SQ SCH (06:43)
[2017-03-21] MEDS: PANTOPRAZOLE 40 MG VIAL IV SCH ×2 (08:16→17:30)
[2017-03-21] MEDS: HEPARIN 5,000 UNIT/ML VIAL SQ SCH ×2 (08:17→21:05)
[2017-03-21] MEDS: FUROSEMIDE 20 MG/2 ML VIAL IV SCH (08:17)
[2017-03-21] MEDS: LEVOTHYROXINE 50 MCG TABLET PO SCH (08:22)
[2017-03-21] MEDS: ASPIRIN 81 MG TAB.CHEW CHEWED SCH (08:22)
[2017-03-21] MEDS: CLOBETASOL PROP 0.05% TOPICAL SCH ×2 (08:23→21:06)
[2017-03-21] MEDS: LACTOBACILLUS 1 CAPSULE PO SCH ×2 (08:23→21:06)
[2017-03-21] MEDS: MULTIVIT,THER IRON,CA,FA & MIN 1 TABLET PO SCH (08:23)
[2017-03-21] MEDS: CALCIUM CARBONATE 500 MG TAB.CHEW CHEWED SCH (08:24)
[2017-03-21] MEDS: SENNOSIDES 1 TABLET PO SCH (08:24)
[2017-03-21] MEDS: FINASTERIDE 5 MG TABLET PO SCH (08:24)
[2017-03-21 08:42] LABS: Basophils # (Auto) 0 K/mcL (0.0-0.3); Basophils % (Auto) 0.2 % (0.0-2.0); Eosinophils # (Auto) 0.5 K/mcL (0.0-0.7); Eosinophils % (Auto) 6.8 % (0.0-7.0); Lymphocytes % (Auto) 13.3 % (15.5-49.0); Mean Corpuscular HGB Conc 33.7 g/dL (31.0-36.0); Monocytes # (Auto) 0.7 K/mcL (0.1-0.9); Monocytes % (Auto) 9.7 % (1.0-12.0); Platelet Count 350 K/mcL (140-440); RBC 3.53 M/mcL (4.50-5.90); Red Cell Distribution Width 14.3 % (11.5-14.5)
[2017-03-21 09:07] LABS: ALT/SGPT 17 U/l (0-40); Albumin 2.9 gm/dL (3.2-5.2); Albumin/Globulin Ratio 0.9 (1.0-2.3); Alkaline Phosphatase 69 U/L (39-117); Bilirubin,Direct < 0.2 mg/dL (0.0-0.3); Blood Urea Nitrogen 17 mg/dl (8-23); Gamma Glutamyl Transpeptidase 42 U/L (8-61); Magnesium 2.3 mg/dL (1.6-2.5); Uric Acid 3.8 mg/dL (2.5-8.0)
[2017-03-21] MEDS: VANCOMYCIN 1,000 MG in 0.9 % SODIUM CHLORIDE 250 ML IV SCH (11:46)
--- NOTE | 2017-03-21 11:47 | Internal Med Progress Note ---
Medical - PN: Subj Patient information: Note initiated : 03/21/17 at 11:47 am Patient: Gustavo Fuentes 86 y/o M admitted on 03/09/17 for Nausea, Vomiting, Fever , Chills, Shaking/Pneumonia. Interval history: March 09, 2017: History of present illness: Mr. Fuentes is a 86 year old Male with multiple medical issues, living in [place], presented to the ER today with complaints of not feeling well x 1 day. The patient notes he has had some increased frequency of urination x 1 day, he wokeup this AM trying to go the bathroom and his noticed him having shakes, he appeared sick and also had some nausea and vomiting, he vomited x 3-4 times with some brown stuff , no regulo blood. The patient apparenty passed out while vomiting. The patients noted this is the way he was sick in the past when he had his PNA and therefore got him to the hospital for further evaluation. The patient denies any burning or foul smelling urine, the patient denies any cough, chest pain or , palpitations The patient feels he passed out for a few minutes. However, there is no record of any bowel or bladder incontinence or any abnormal jerky movements. in the emergency room, the patient had borderline low blood pressure on presentation, he was afebrile, chest x-ray showed right lung pneumonia, blood work showed elevated white blood cell count at 11.2, hemoglobin of 13.3, platelets of 219. Patient had a sodium of 139, potassium of 3.9, creatinine of 1.4 which is at patient's baseline. The patient had a lactic acid of 2.0,and a negative urine analysis. Given that the patient had low blood pressure and a pneumonia. Patient was admitted to the hospital for further management. 03/10: pt seen examined magdalena well this AM but by afternoon was trying to leave the room and go outside the hospital, has h/o dementia, ativan and haldol given. to keep him in his room. Pt denies any acute complaints. 03/11- remarkable deterioration overnight. worsening respiratory status along with new onset A. fib with RVR started on diltiazem drip. Bilateral worsening infiltrates on chest imaging. Patient made nothing by mouth-actively aspirating. ST eval. Extend antibiotic coverage o include anaerobes in light of aspiration. Continue ICU care. High risk mortality. patient very confused nd delirious. at bedside. melony count at 12.1. 03/12- Pt hypoxic and on 10 L oxymask. Confused. High risk airway compromise in light of mental status change and ongoing aspiration, increased work of breathing, RR at 36-40. ABG 7.53/27/60. Case discussed with patient's and son. Family would like to Initiate aggressive measures including mechanical ventilation. patient intubated and started on mechanical ventilation. Net 2000 cc negative fluid status on lasix. Start @ AC 14 TV 450 pEEP 8. Fent/propofol for sedation. ontinue antibiotic coverage febrile at 102F 03/13-patient on mechanical ventilation. Light ICU sedation on fentanyl drip. White count down from 15.6-11.1. creatinine 1.1. Fluid status even. On 35% FiO2 PEEP 5, 450 tidal volume, ABG 7.45/35/88 on 35% FiO2. interval chest imaging improved infiltrates. trial fibrillation rate control status post digoxin 500 IV load. at bedside. on Levophed to keep map at goal. Discussed treatment plan. Possible extubation in 24 hours if clinically improved. Patient responding to verbal commands. continue bedside physical therapy 03/14-patient did well overnight. n sedation holiday since morning. Responsive andfollowing commands.. Stable hemodynamics. Offvasopressors. Foleys draining clear urine. No fever chills. On PEEP 55 with 35%. ABG 7.47/39/63. patient subsequently extubated to high flow oxygen. Tolerated well. OG/ube feeds discontinued. Keep nothing by mouth until 24 hours. complains of constipation. Attempt enemas today. no signs of respiratory distress post extubation. Patient with be monitoredin ICU 24 hours postextubation. melony count 8.2. creatinine 1.1. interval imaging shows right sided infiltrate worsening since previous day. Continue aggressive diuresis/antibiotic coverage. atient converted to sinus this morning March 15: -Respiratory failure due to aspiration pneumonia. This patient was extubated yesterday, and has been maintaining oxygenation on high flow O2 since then. He reports some ongoing shortness of breath today, better than yesterday, but his history appears unreliable. He is still quite groggy from Ativan he received during the night. -The patient does have underlying dementia, that was diagnosed recently. His notes he has been quite forgetful at home, and sometimes forgets people's names. Patient did become agitated last night, and kept insisting on "going upstairs to bed". He was given 1 mg of Ativan, and slept well after that, but remains fairly sleepy this morning. -Patient had a speech evaluation yesterday, which shows that he aspirates just about everything. The therapist said the only thing he was even moderately safe to swallow was pudding consistency solids, and no liquids at all. The patient denies fever chills, significant pain. He reports occasionally productive cough. He denies abdominal pain. Aviles catheter remains in place. His nurse notes he did have bowel movements after laxatives during the last couple of days. Urine does seem more cloudy today. March 16: Overnight the patient did relatively well. He did not require any Ativan last night for agitation. Physical therapy was able to get him up to a chair today, with only moderate assist. The patient states he is feeling better today. He denies fever or chills, chest pain or shortness of breath or significant cough. He denies any pain. He denies any GI or problems. He continues to receive some medications crushed in applesauce or pudding, but otherwise remains n.p.o. regarding severe aspiration. There is a tentative plan for Dr. Lenó to place a PEG tube tomorrow morning, but today, his tells me that she and her son have discussed this further, and think they do not want to pursue tube feedings. We reviewed that the patient will need to have some kind of nourishment if he is to continue recovering from his pneumonia , but she states that in view of his moderate dementia, she does not want to prolong his life. She did tell me yesterday that prior to admission he was living with her in assisted living, and that up until just recently he was also still driving, and interacting with people socially and had a good quality of life. He was distressed about being diagnosed with dementia recently. March 17: Today, the patient says he is feeling pretty well. He continues to cough intermittently, especially after trying anything such as pudding by mouth. He reportedly did have a little more success when working with the speech therapist today. Today he and his are quite adamant that he does not want a feeding tube of any kind. His says he just does not want to be kept alive to experience the worst parts of dementia. Later this evening I met with the patient as well as his and his son, and they are all in agreement that he should not have a feeding tube. They think that if he gets pneumonia again, they will probably not treated. The patient states he just does not want to put his family through that. Otherwise he denies fever chills, sore throat or cough, chest pain or palpitations. He has mild dyspnea at times. He denies abdominal pain, nausea or vomiting, diarrhea or constipation. March 18: Today, the patient states he is feeling relatively well. He continues to have a somewhat moist cough, but did work with speech therapy yesterday afternoon. She noted he did very well when swallowing with close cueing and his current diet. She seemed to think that he could start eating more foods on this particular diet plan, but we are contacting her for further clarification today. Otherwise, he is a little bit groggy this morning. He did receive a small dose of Ativan yesterday evening apparently, and his notes that he is always much sleepier after getting those. However she also notes that he always had to take a sleeping pill at home to get to sleep. I met with the patient, his and his son last night, and they again reiterated that he does not want a feeding tube. Otherwise, he denies fever chills, chest pain or shortness of breath, abdominal pain or nausea or vomiting. He thinks he has not had a bowel movement for several days. Nursing would like to consider removing his Aviles catheter. Midodrine also does not appear to be required to maintain his blood pressure. March 19: Last night, the patient decided to try to climb out of bed on his own, thinking he could make it to the bathroom without help. He was wearing teds hose, and his feet slipped out from under him and he slid down the side of the bed. He says he did not really hurt himself. This morning, he is more alert than yesterday, and is quite willing to work with both speech therapy and physical therapy. He seems very optimistic today. Otherwise, he denies fever or chills, chest pain or palpitations. He continues to have occasional cough. He denies abdominal pain nausea or vomiting or diarrhea. March 20: Bertin seen examined, seems better this AM, but does not feel as good as yesterday, mental status seems to be better though and is able to verbalize his needs. The patient still is on a dysphagia 2 diet with thickned fluids. He is still not able to meet his nutritional goals. The patient otherwise denies any acute complaints. March 21: Today, the patient appears to be doing quite well. He is doing a good job swallowing, following speech therapies guidelines. Physical therapy says he has been more mobile, and has been up walking with a walker. His is quite pleased with his progress. His nurses report that he is complaining of a sore tongue, and are wondering about oral nystatin. Otherwise the patient denies subjective fever or chills, sore throat or cough, chest pain or palpitations, shortness of breath, abdominal pain, nausea or vomiting, diarrhea or constipation. He did have his Aviles catheter replaced because of recurrent urinary retention. He has been started on Flomax, and we will do a voiding trial again tomorrow. Dr. Blanco told and I feel that he should probably stay on IV antibiotics at least until tomorrow. At that point we may want to discontinue antibiotics and discontinue his central line, and follow him clinically. - Constitutional Vitals: Vital Signs Temp Pulse Resp BP Pulse Ox 98.1 F 60 18 116/56 93 03/21/17 07:58 03/21/17 04:00 03/21/17 07:58 03/21/17 07:58 03/21/17 07:58 Period Temp Pulse Resp BP Sys/Patel Pulse Ox Last 24 Hr 97.7 F-98.4 F 60-65 14-18 116-129/56-72 90-100 Intake and Output 03/20/17 03/21/17 03/21/17 21:59 05:59 13:59 Intake Total 290 / 290 50 / 50 50 / 50 Output Total 1350 / 1350 1000 / 1000 Balance -1060 / -1060 -950 / -950 50 / 50 Weight 164 lb 8 oz Intake & Output: Intake & Output 03/20/17 03/21/17 03/21/17 21:59 05:59 13:59 Intake Total 290 / 290 50 / 50 50 / 50 Output Total 1350 / 1350 1000 / 1000 Balance -1060 / -1060 -950 / -950 50 / 50 Weight 164 lb 8 oz Intake: IV 50 / 50 50 / 50 50 / 50 Zosyn 3.375 gm In 50 / 50 50 / 50 50 / 50 Dextrose 5% in Water 50 ml @ 100 mls/hr IV Q6H [facility] Rx#:[id number] Oral 240 / 240 Output: Urine Catheter Amount 1350 / 1350 1000 / 1000 Other: Meal Nourishment/Supplement Percent of Meal Consumed 50% Feeding Ability Assist with Tray Set Up The patient is awake and alert, sitting up in a chair. Later today I saw him standing in front of his chair, without assistance. Vital signs have been stable today. O2 saturation is 96% on room air. Neck is supple without obvious JVD. Cardiac exam shows regular rate and rhythm. Lungs show scattered crackles in the lower posterior baird, but otherwise are essentially clear. No wheezing or rhonchi are noted. Abdomen: Is soft and nontender. Extremities show no significant edema. Neurologic exam: The patient continues to be a bit forgetful, but is otherwise pleasant and cooperative. Her exam is grossly nonfocal. Medical - PN: Obj Da - Labs CBC & Chem 7: 03/21/17 08:10 03/21/17 08:10 Labs: Abnormal Lab Results 03/21/17 03/21/17 03/21/17 08:10 08:10 08:10 RBC 3.53 L Hgb 10.2 L Hct 30.3 L MPV 7.3 L Lymph % (Auto) 13.3 L Lymph # (Auto) 1.0 L Creatinine 1.4 H Albumin 2.9 L Albumin/Globulin Ratio 0.9 L Vancomycin Trough 26.0 H* March 21: Chemistry panel: Creatinine bumped to 1.4 today. Albumin remains low at 2.9. March 19: Chest x-ray shows continued improvement in bilateral infiltrates with minimal patchy residual in both mid lungs and right base. March 16: Chest x-ray: Parenchymal infiltrates are improving. No other changes. March 15: Urinalysis shows pH of 5, negative leukocyte esterase, negative nitrites. Chest x-ray: Continued bilateral pulmonary parenchymal infiltrates, status post extubation. March 14: ABG: On vent at 35%, PEEP of 5: PH 7.47, PCO2 39, PO2 63, bicarb 28, O2 saturation 95% next March 13: Blood cultures: Negative so far March 12: Abdominal x-ray: Large amount of fecal material throughout the colon consistent with constipation, but no signs of bowel obstruction. Sputum culture: Shabnam albicans. March 11: Blood cultures negative so far Meds: Medications Acetaminophen (Tylenol) 650 mg PO Q6HP PRN PRN Reason: PAIN/FEVER > 101 Last Admin: 03/20/17 10:23 Dose: 650 mg Albuterol/Ipratropium (Duoneb) 3 ml NEB Q4HRT PRN PRN Reason: Shortness Of Breath Or Wheezing Aspirin (Aspirin) 324 mg CHEWED DAILY [facility] Last Admin: 03/21/17 08:22 Dose: 324 mg Calcium Carbonate/Glycine (Tums) 500 mg CHEWED DAILY [facility] Last Admin: 03/21/17 08:24 Dose: 500 mg Dextrose (Dextrose 50%) 0 ml IV UD PRN PRN Reason: Hypoglycemia Finasteride (Proscar) 5 mg PO QDAY [facility] Last Admin: 03/21/17 08:24 Dose: 5 mg Fluoxetine HCl (Prozac) 80 mg PO HS [facility] Last Admin: 03/20/17 21:53 Dose: 80 mg Furosemide (Lasix) 20 mg IV DAILY [facility] Last Admin: 03/21/17 08:17 Dose: 20 mg Glucose (Insta-Glucose) 15 gm PO PRN PRN PRN Reason: Hypoglycemia Guaifenesin (Robitussin Dm) 5 ml PO Q4HP PRN PRN Reason: Cough Last Admin: 03/20/17 22:11 Dose: 5 ml Heparin Sodium (Porcine) (Heparin) 5,000 unit SQ Q12 [facility] Last Admin: 03/21/17 08:17 Dose: 5,000 unit Heparin Sodium/Sodium Chloride (Heparin/Ns) 500 mls @ 0 mls/hr IV .Q0M [facility]; KVO PRN Reason: Protocol Piperacillin Sod/Tazobactam (Sod 3.375 gm/ Dextrose) 50 mls @ 100 mls/hr IV Q6H [facility] Last Infusion: 03/21/17 06:29 Dose: Infused Potassium Chloride 20 meq/ (Sodium Chloride) 1,010 mls @ 50 mls/hr IV .[id number] [facility] Last Admin: 03/20/17 12:43 Dose: Not Given Iron Carb/Multivit/[place]/Folic Acid (Multivitamin W/Minerals) 1 tab PO DAILY [facility] Last Admin: 03/21/17 08:23 Dose: 1 tab Lactobacillus Rhamnosus (Culturelle) 1 cap PO BID [facility] Last Admin: 03/21/17 08:23 Dose: 1 cap Latanoprost (Xalatan Ophth Drops) 1 gtt OU QHS [facility] Last Admin: 03/20/17 21:55 Dose: 1 gtt Levothyroxine Sodium (Synthroid) 50 mcg PO ACB [facility] Last Admin: 03/21/17 08:22 Dose: 50 mcg Magnesium Hydroxide (Milk Of Magnesia) 30 ml PO DAILYP PRN PRN Reason: Constipation Last Admin: 03/19/17 17:01 Dose: 30 ml Naloxone HCl (Narcan) 0.1 mg IV Q2MIN PRN PRN Reason: Opiate Reversal Ondansetron HCl (Zofran) 4 mg IV Q4HP PRN PRN Reason: Nausea And Vomiting Oxycodone/Acetaminophen (Percocet 5-325 Mg) 1 tab PO Q4HP PRN PRN Reason: Pain Pantoprazole Sodium (Protonix) 40 mg IV BIDAC [facility] Last Admin: 03/21/17 08:16 Dose: 40 mg Systane Ultra Ophth (Drops) 1 - 2 dose OU PRN PRN PRN Reason: Dry Eyes Clobetasol Prop 0.05 (% Topical Solution) 1 dose TOPICAL BID [facility] Last Admin: 03/21/17 08:23 Dose: 1 dose Risperidone (Risperdal) 0.5 mg PO BID PRN PRN Reason: Agitation Last Admin: 03/20/17 10:07 Dose: 0.5 mg Senna (Senokot) 1 tab PO QDAY [facility] Last Admin: 03/21/17 08:24 Dose: 1 tab Simvastatin (Zocor) 5 mg PO [facility] Last Admin: 03/20/17 21:53 Dose: 5 mg Sodium Chloride (Saline Flush) 10 ml IV Q8 [facility] Last Admin: 03/21/17 06:30 Dose: Not Given Tamsulosin HCl (Flomax) 0.4 mg PO HS [facility] Last Admin: 03/20/17 21:53 Dose: 0.4 mg Trazodone HCl (Desyrel) 100 mg PO QHS [facility] Last Admin: 03/20/17 22:02 Dose: 100 mg Vancomycin HCl (Vancomycin Per Pharmacy) 1 order IV UD [facility] Medical - PN: A/P - Time Spent With Patient Total time spent is greater than 50% in coordination of care (as documented) at patient's floor/unit and/or counseling patient: 25 - 35 minutes - Narrative A/P Narrative: A/P #1. Pulmonary/infectious disease.. * -Hypoxic respiratory failure secondary aspiration pneumonia- s/p mechanical ventilation.s/p intubation and Extubated 03/14 a.m. * He continues to improve on a daily basis. * * Today, the patient's lungs do sound clearer, and overall he is looking a bit stronger, no wheezing.. * Speech therapy worked with him today, and he needs to stay on his current level 2 dysphagia diet with honey thick liquids. * The patient and family have decided that he will not have a PEG tube or any type of feeding tube placed. * * IV fluids to maintain hydration for now, wean as tolerated * * -Diflucan was discontinued yesterday, for the Shabnam growing in his sputum. However today, the patient is complaining of a severely sore tongue, and may still have a bit of thrush, related to ongoing IV antibiotic treatment. We will give him a trial of oral nystatin. * * Still on Vanco and Zosyn, (blood cx and sputum cx is neg for bacterial growth ) . Plan on discontinuing IV antibiotics and a central line tomorrow, and then follow him clinically. #2. * Septic shock * Resolved. * * #3. Cardiac. * -Atrial fibrillation with RVR -converted to sinus . * * -Status post pacemaker recently. Patient now appears to be in sinus rhythm. * . * -Acute decompensated heart failure secondary to above-clinically resolved with diuresis. #4. Renal. * CKD: Creatinine bumped a bit today, for uncertain reasons. * Continue low rate IV fluids. Recheck in the morning. #5. Endocrine. * DM: * The patient's is quite insistent that he has never had diabetes. We have stopped Accu-Cheks. * #6. HLD: oral meds on hold. #7.DVT-- hep sq #8. CODE STATUS: Full code, but the patient and his family are now considering a limited code. They do not think they would want him to be intubated again. #9. GI. Speech therapy worked with the patient again today, and he does tolerate level 2 textures and honey thick liquids, but did not tolerate a trial of nectar thick liquids. He is to continue on his current diet. #10. Disposition: Physical therapy and occupational therapies both note the patient has continued poor strength and is at high risk for falls. He is progressing, and should continue with rehab. Plan for d/c to [place] SNF once medically stable Medical - PN: Qual - VTE Deep Vein Thrombosis/Pulmonary Embolism Present on Admission: No
[2017-03-21] MEDS: LATANOPROST OPHTH DROPS 2.5ML BOTTLE OU SCH (21:06)
[2017-03-21] MEDS: NYSTATIN 500,000 UNITS/5 ML ORAL.SUSP SSW SCH (21:06)
[2017-03-21] MEDS: FLUoxetine HCL 20 MG CAPSULE PO SCH (21:07)
[2017-03-21] MEDS: traZODone HCL 50 MG TABLET PO SCH (21:07)
[2017-03-21] MEDS: SIMVASTATIN 10 MG TABLET PO SCH (21:07)
[2017-03-21] MEDS: TAMSULOSIN 0.4 MG CAPSULE PO SCH (21:08)
[2017-03-22] MEDS: PIPERACILLIN SODIUM/TAZOBACTAM 3.375 GM in DEXTROSE 5% IN WATER 50 ML IV SCH ×2 (05:15→11:50)
[2017-03-22] MEDS: 0.9 % SODIUM CHLORIDE 10 ML SYRINGE IV SCH ×4 (05:17→21:25)
[2017-03-22 07:07] LABS: ALT/SGPT 15 U/l (0-40); Albumin 3.2 gm/dL (3.2-5.2); Alkaline Phosphatase 65 U/L (39-117); Bilirubin,Direct < 0.2 mg/dL (0.0-0.3); Blood Urea Nitrogen 22 mg/dl (8-23); Gamma Glutamyl Transpeptidase 38 U/L (8-61); Magnesium 2.2 mg/dL (1.6-2.5); Uric Acid 3.7 mg/dL (2.5-8.0)
[2017-03-22] MEDS: PANTOPRAZOLE 40 MG VIAL IV SCH (07:24)
[2017-03-22] MEDS: LEVOTHYROXINE 50 MCG TABLET PO SCH (07:24)
[2017-03-22] MEDS: POTASSIUM CHLORIDE 20 MEQ in 0.45 % SODIUM CHLORIDE 1,000 ML IV SCH ×2 (08:02→10:09)
[2017-03-22] MEDS: ASPIRIN 81 MG TAB.CHEW CHEWED SCH (09:00)
[2017-03-22] MEDS: CALCIUM CARBONATE 500 MG TAB.CHEW CHEWED SCH (09:20)
[2017-03-22] MEDS: NYSTATIN 500,000 UNITS/5 ML ORAL.SUSP SSW SCH ×3 (09:21→21:23)
[2017-03-22] MEDS: HEPARIN 5,000 UNIT/ML VIAL SQ SCH ×2 (09:21→21:24)
[2017-03-22] MEDS: FUROSEMIDE 20 MG/2 ML VIAL IV SCH (09:21)
[2017-03-22] MEDS: LACTOBACILLUS 1 CAPSULE PO SCH ×2 (09:22→21:24)
[2017-03-22] MEDS: SENNOSIDES 1 TABLET PO SCH (09:22)
[2017-03-22] MEDS: FINASTERIDE 5 MG TABLET PO SCH (09:22)
[2017-03-22] MEDS: MULTIVIT,THER IRON,CA,FA & MIN 1 TABLET PO SCH (09:22)
[2017-03-22] MEDS: CLOBETASOL PROP 0.05% TOPICAL SCH ×2 (09:23→21:24)
[2017-03-22] MEDS ORDERED: VANCOMYCIN 500 MG in 0.9 % SODIUM CHLORIDE 100 ML IV ONE (10:00)
--- NOTE | 2017-03-22 13:23 | Internal Med Progress Note ---
Medical - PN: Subj Patient information: Note initiated : 03/22/17 at 1:22 pm Patient: Gustavo Fuentes 86 y/o M admitted on 03/09/17 for Nausea, Vomiting, Fever , Chills, Shaking/Pneumonia. Interval history: March 09, 2017: History of present illness: Mr. Fuentes is a 86 year old Male with multiple medical issues, living in [place], presented to the ER today with complaints of not feeling well x 1 day. The patient notes he has had some increased frequency of urination x 1 day, he wokeup this AM trying to go the bathroom and his noticed him having shakes, he appeared sick and also had some nausea and vomiting, he vomited x 3-4 times with some brown stuff , no regulo blood. The patient apparenty passed out while vomiting. The patients noted this is the way he was sick in the past when he had his PNA and therefore got him to the hospital for further evaluation. The patient denies any burning or foul smelling urine, the patient denies any cough, chest pain or , palpitations The patient feels he passed out for a few minutes. However, there is no record of any bowel or bladder incontinence or any abnormal jerky movements. in the emergency room, the patient had borderline low blood pressure on presentation, he was afebrile, chest x-ray showed right lung pneumonia, blood work showed elevated white blood cell count at 11.2, hemoglobin of 13.3, platelets of 219. Patient had a sodium of 139, potassium of 3.9, creatinine of 1.4 which is at patient's baseline. The patient had a lactic acid of 2.0,and a negative urine analysis. Given that the patient had low blood pressure and a pneumonia. Patient was admitted to the hospital for further management. 03/10: pt seen examined magdalena well this AM but by afternoon was trying to leave the room and go outside the hospital, has h/o dementia, ativan and haldol given. to keep him in his room. Pt denies any acute complaints. 03/11- remarkable deterioration overnight. worsening respiratory status along with new onset A. fib with RVR started on diltiazem drip. Bilateral worsening infiltrates on chest imaging. Patient made nothing by mouth-actively aspirating. ST eval. Extend antibiotic coverage o include anaerobes in light of aspiration. Continue ICU care. High risk mortality. patient very confused nd delirious. at bedside. melony count at 12.1. 03/12- Pt hypoxic and on 10 L oxymask. Confused. High risk airway compromise in light of mental status change and ongoing aspiration, increased work of breathing, RR at 36-40. ABG 7.53/27/60. Case discussed with patient's and son. Family would like to Initiate aggressive measures including mechanical ventilation. patient intubated and started on mechanical ventilation. Net 2000 cc negative fluid status on lasix. Start @ AC 14 TV 450 pEEP 8. Fent/propofol for sedation. ontinue antibiotic coverage febrile at 102F 03/13-patient on mechanical ventilation. Light ICU sedation on fentanyl drip. White count down from 15.6-11.1. creatinine 1.1. Fluid status even. On 35% FiO2 PEEP 5, 450 tidal volume, ABG 7.45/35/88 on 35% FiO2. interval chest imaging improved infiltrates. trial fibrillation rate control status post digoxin 500 IV load. at bedside. on Levophed to keep map at goal. Discussed treatment plan. Possible extubation in 24 hours if clinically improved. Patient responding to verbal commands. continue bedside physical therapy 03/14-patient did well overnight. n sedation holiday since morning. Responsive andfollowing commands.. Stable hemodynamics. Offvasopressors. Foleys draining clear urine. No fever chills. On PEEP 55 with 35%. ABG 7.47/39/63. patient subsequently extubated to high flow oxygen. Tolerated well. OG/ube feeds discontinued. Keep nothing by mouth until 24 hours. complains of constipation. Attempt enemas today. no signs of respiratory distress post extubation. Patient with be monitoredin ICU 24 hours postextubation. melony count 8.2. creatinine 1.1. interval imaging shows right sided infiltrate worsening since previous day. Continue aggressive diuresis/antibiotic coverage. atient converted to sinus this morning March 15: -Respiratory failure due to aspiration pneumonia. This patient was extubated yesterday, and has been maintaining oxygenation on high flow O2 since then. He reports some ongoing shortness of breath today, better than yesterday, but his history appears unreliable. He is still quite groggy from Ativan he received during the night. -The patient does have underlying dementia, that was diagnosed recently. His notes he has been quite forgetful at home, and sometimes forgets people's names. Patient did become agitated last night, and kept insisting on "going upstairs to bed". He was given 1 mg of Ativan, and slept well after that, but remains fairly sleepy this morning. -Patient had a speech evaluation yesterday, which shows that he aspirates just about everything. The therapist said the only thing he was even moderately safe to swallow was pudding consistency solids, and no liquids at all. The patient denies fever chills, significant pain. He reports occasionally productive cough. He denies abdominal pain. Aviles catheter remains in place. His nurse notes he did have bowel movements after laxatives during the last couple of days. Urine does seem more cloudy today. March 16: Overnight the patient did relatively well. He did not require any Ativan last night for agitation. Physical therapy was able to get him up to a chair today, with only moderate assist. The patient states he is feeling better today. He denies fever or chills, chest pain or shortness of breath or significant cough. He denies any pain. He denies any GI or problems. He continues to receive some medications crushed in applesauce or pudding, but otherwise remains n.p.o. regarding severe aspiration. There is a tentative plan for Dr. León to place a PEG tube tomorrow morning, but today, his tells me that she and her son have discussed this further, and think they do not want to pursue tube feedings. We reviewed that the patient will need to have some kind of nourishment if he is to continue recovering from his pneumonia , but she states that in view of his moderate dementia, she does not want to prolong his life. She did tell me yesterday that prior to admission he was living with her in assisted living, and that up until just recently he was also still driving, and interacting with people socially and had a good quality of life. He was distressed about being diagnosed with dementia recently. March 17: Today, the patient says he is feeling pretty well. He continues to cough intermittently, especially after trying anything such as pudding by mouth. He reportedly did have a little more success when working with the speech therapist today. Today he and his are quite adamant that he does not want a feeding tube of any kind. His says he just does not want to be kept alive to experience the worst parts of dementia. Later this evening I met with the patient as well as his and his son, and they are all in agreement that he should not have a feeding tube. They think that if he gets pneumonia again, they will probably not treated. The patient states he just does not want to put his family through that. Otherwise he denies fever chills, sore throat or cough, chest pain or palpitations. He has mild dyspnea at times. He denies abdominal pain, nausea or vomiting, diarrhea or constipation. March 18: Today, the patient states he is feeling relatively well. He continues to have a somewhat moist cough, but did work with speech therapy yesterday afternoon. She noted he did very well when swallowing with close cueing and his current diet. She seemed to think that he could start eating more foods on this particular diet plan, but we are contacting her for further clarification today. Otherwise, he is a little bit groggy this morning. He did receive a small dose of Ativan yesterday evening apparently, and his notes that he is always much sleepier after getting those. However she also notes that he always had to take a sleeping pill at home to get to sleep. I met with the patient, his and his son last night, and they again reiterated that he does not want a feeding tube. Otherwise, he denies fever chills, chest pain or shortness of breath, abdominal pain or nausea or vomiting. He thinks he has not had a bowel movement for several days. Nursing would like to consider removing his Aviles catheter. Midodrine also does not appear to be required to maintain his blood pressure. March 19: Last night, the patient decided to try to climb out of bed on his own, thinking he could make it to the bathroom without help. He was wearing teds hose, and his feet slipped out from under him and he slid down the side of the bed. He says he did not really hurt himself. This morning, he is more alert than yesterday, and is quite willing to work with both speech therapy and physical therapy. He seems very optimistic today. Otherwise, he denies fever or chills, chest pain or palpitations. He continues to have occasional cough. He denies abdominal pain nausea or vomiting or diarrhea. March 20: Bertin seen examined, seems better this AM, but does not feel as good as yesterday, mental status seems to be better though and is able to verbalize his needs. The patient still is on a dysphagia 2 diet with thickned fluids. He is still not able to meet his nutritional goals. The patient otherwise denies any acute complaints. March 21: Today, the patient appears to be doing quite well. He is doing a good job swallowing, following speech therapies guidelines. Physical therapy says he has been more mobile, and has been up walking with a walker. His is quite pleased with his progress. His nurses report that he is complaining of a sore tongue, and are wondering about oral nystatin. Otherwise the patient denies subjective fever or chills, sore throat or cough, chest pain or palpitations, shortness of breath, abdominal pain, nausea or vomiting, diarrhea or constipation. He did have his Aviles catheter replaced because of recurrent urinary retention. He has been started on Flomax, and we will do a voiding trial again tomorrow. Dr. Blanco told and I feel that he should probably stay on IV antibiotics at least until tomorrow. At that point we may want to discontinue antibiotics and discontinue his central line, and follow him clinically. March 22: Today, the patient really has no complaints. He has been up walking some with his walker. He continues to do a good job with swallowing technique, avoiding aspiration. He has family here visiting from [place] I believe He denies fever chills, chest pain or shortness of breath, GI or symptoms. - Constitutional Vitals: Vital Signs Temp Pulse Resp BP Pulse Ox 97.9 F 64 18 120/65 93 03/22/17 11:33 03/22/17 04:00 03/22/17 11:33 03/22/17 11:33 03/22/17 11:33 Period Temp Pulse Resp BP Sys/Patel Pulse Ox Last 24 Hr 97.1 F-98.9 F 64-69 14-18 108-138/65-81 90-96 Intake and Output 03/21/17 03/22/17 03/22/17 21:59 05:59 13:59 Intake Total 50 / 50 100 / 100 Output Total 950 / 950 950 / 950 775 / 775 Balance -900 / -900 -850 / -850 -775 / -775 Weight 170 lb Intake & Output: Intake & Output 03/21/17 03/22/17 03/22/17 21:59 05:59 13:59 Intake Total 50 / 50 100 / 100 Output Total 950 / 950 950 / 950 775 / 775 Balance -900 / -900 -850 / -850 -775 / -775 Weight 170 lb Intake: IV 50 / 50 100 / 100 Zosyn 3.375 gm In 50 / 50 100 / 100 Dextrose 5% in Water 50 ml @ 100 mls/hr IV Q6H [facility] Rx#:[id number] Output: Urine Catheter Amount 950 / 950 950 / 950 775 / 775 Other: Meal Lunch Percent of Meal Consumed 50% Feeding Ability Independent # Bowel Movements 1 The patient is awake and alert, lying in bed, visiting with family.. Vital signs have been stable today. O2 saturation is 96% on room air. Neck is supple without obvious JVD. Cardiac exam shows regular rate and rhythm. Lungs are essentially clear. No wheezing or rhonchi are noted. Abdomen: Is soft and nontender. Extremities show no significant edema. Neurologic exam: The patient continues to be a bit forgetful, but is otherwise pleasant and cooperative. Her exam is grossly nonfocal. Medical - PN: Obj Da - Labs CBC & Chem 7: 03/21/17 08:10 03/22/17 04:00 Labs: Abnormal Lab Results 03/22/17 03/22/17 03/21/17 04:19 04:00 08:10 RBC Hgb Hct MPV Lymph % (Auto) Lymph # (Auto) Creatinine 1.3 H 1.4 H Albumin 2.9 L Albumin/Globulin Ratio 0.9 L Triglycerides 151 H Vancomycin Trough Random Vancomycin 19.0 H 03/21/17 03/21/17 08:10 08:10 RBC 3.53 L Hgb 10.2 L Hct 30.3 L MPV 7.3 L Lymph % (Auto) 13.3 L Lymph # (Auto) 1.0 L Creatinine Albumin Albumin/Globulin Ratio Triglycerides Vancomycin Trough 26.0 H* Random Vancomycin March 21: Chemistry panel: Creatinine bumped to 1.4 today. Albumin remains low at 2.9. March 19: Chest x-ray shows continued improvement in bilateral infiltrates with minimal patchy residual in both mid lungs and right base. March 16: Chest x-ray: Parenchymal infiltrates are improving. No other changes. March 15: Urinalysis shows pH of 5, negative leukocyte esterase, negative nitrites. Chest x-ray: Continued bilateral pulmonary parenchymal infiltrates, status post extubation. March 14: ABG: On vent at 35%, PEEP of 5: PH 7.47, PCO2 39, PO2 63, bicarb 28, O2 saturation 95% next March 13: Blood cultures: Negative so far March 12: Abdominal x-ray: Large amount of fecal material throughout the colon consistent with constipation, but no signs of bowel obstruction. Sputum culture: Shabnam albicans. March 11: Blood cultures negative so far Meds: Medications Acetaminophen (Tylenol) 650 mg PO Q6HP PRN PRN Reason: PAIN/FEVER > 101 Last Admin: 03/20/17 10:23 Dose: 650 mg Albuterol/Ipratropium (Duoneb) 3 ml NEB Q4HRT PRN PRN Reason: Shortness Of Breath Or Wheezing Aspirin (Aspirin) 324 mg CHEWED DAILY [facility] Last Admin: 03/22/17 09:00 Dose: 324 mg Calcium Carbonate/Glycine (Tums) 500 mg CHEWED DAILY [facility] Last Admin: 03/22/17 09:20 Dose: 500 mg Dextrose (Dextrose 50%) 0 ml IV UD PRN PRN Reason: Hypoglycemia Finasteride (Proscar) 5 mg PO QDAY [facility] Last Admin: 03/22/17 09:22 Dose: 5 mg Fluoxetine HCl (Prozac) 80 mg PO HS [facility] Last Admin: 03/21/17 21:07 Dose: 80 mg Furosemide (Lasix) 20 mg IV DAILY [facility] Last Admin: 03/22/17 09:21 Dose: 20 mg Glucose (Insta-Glucose) 15 gm PO PRN PRN PRN Reason: Hypoglycemia Guaifenesin (Robitussin Dm) 5 ml PO Q4HP PRN PRN Reason: Cough Last Admin: 03/20/17 22:11 Dose: 5 ml Heparin Sodium (Porcine) (Heparin) 5,000 unit SQ Q12 [facility] Last Admin: 03/22/17 09:21 Dose: 5,000 unit Heparin Sodium/Sodium Chloride (Heparin/Ns) 500 mls @ 0 mls/hr IV .Q0M KIRILL; KVO PRN Reason: Protocol Piperacillin Sod/Tazobactam (Sod 3.375 gm/ Dextrose) 50 mls @ 100 mls/hr IV Q6H [facility] Last Admin: 03/22/17 11:50 Dose: 100 mls/hr Potassium Chloride 20 meq/ (Sodium Chloride) 1,010 mls @ 50 mls/hr IV .[id number] [facility] Last Admin: 03/22/17 10:09 Dose: Not Given Iron Carb/Multivit/Briscoe/Folic Acid (Multivitamin W/Minerals) 1 tab PO DAILY [facility] Last Admin: 03/22/17 09:22 Dose: 1 tab Lactobacillus Rhamnosus (Culturelle) 1 cap PO BID [facility] Last Admin: 03/22/17 09:22 Dose: 1 cap Latanoprost (Xalatan Ophth Drops) 1 gtt OU QHS [facility] Last Admin: 03/21/17 21:06 Dose: 1 gtt Levothyroxine Sodium (Synthroid) 50 mcg PO ACB [facility] Last Admin: 03/22/17 07:24 Dose: 50 mcg Magnesium Hydroxide (Milk Of Magnesia) 30 ml PO DAILYP PRN PRN Reason: Constipation Last Admin: 03/19/17 17:01 Dose: 30 ml Naloxone HCl (Narcan) 0.1 mg IV Q2MIN PRN PRN Reason: Opiate Reversal Nystatin (Nystatin) 500,000 units SSW TID [facility] Last Admin: 03/22/17 09:21 Dose: 500,000 units Ondansetron HCl (Zofran) 4 mg IV Q4HP PRN PRN Reason: Nausea And Vomiting Oxycodone/Acetaminophen (Percocet 5-325 Mg) 1 tab PO Q4HP PRN PRN Reason: Pain Pantoprazole Sodium (Protonix) 40 mg IV BIDAC [facility] Last Admin: 03/22/17 07:24 Dose: 40 mg Systane Ultra Ophth (Drops) 1 - 2 dose OU PRN PRN PRN Reason: Dry Eyes Clobetasol Prop 0.05 (% Topical Solution) 1 dose TOPICAL BID [facility] Last Admin: 03/22/17 09:23 Dose: 1 dose Risperidone (Risperdal) 0.5 mg PO BID PRN PRN Reason: Agitation Last Admin: 03/20/17 10:07 Dose: 0.5 mg Senna (Senokot) 1 tab PO QDAY [facility] Last Admin: 03/22/17 09:22 Dose: 1 tab Simvastatin (Zocor) 5 mg PO HS [facility] Last Admin: 03/21/17 21:07 Dose: 5 mg Sodium Chloride (Saline Flush) 10 ml IV Q8 [facility] Last Admin: 03/22/17 05:22 Dose: 10 ml Tamsulosin HCl (Flomax) 0.4 mg PO HS [facility] Last Admin: 03/21/17 21:08 Dose: 0.4 mg Trazodone HCl (Desyrel) 100 mg PO QHS [facility] Last Admin: 03/21/17 21:07 Dose: 100 mg Vancomycin HCl (Vancomycin Per Pharmacy) 1 order IV UD [facility] Medical - PN: A/P - Time Spent With Patient Total time spent is greater than 50% in coordination of care (as documented) at patient's floor/unit and/or counseling patient: 15 - 24 minutes - Narrative A/P Narrative: A/P #1. Pulmonary/infectious disease.. * -Hypoxic respiratory failure secondary aspiration pneumonia- s/p mechanical ventilation.s/p intubation and Extubated 03/14 a.m. * He continues to improve on a daily basis. * * Speech therapy worked with him , and he needs to stay on his current level 2 dysphagia diet with honey thick liquids. * The patient and family have decided that he will not have a PEG tube or any type of feeding tube placed. * * IV fluids to maintain hydration for now, wean as tolerated * * -Diflucan was discontinued , for the Shabnam growing in his sputum. However today, the patient is complaining of a severely sore tongue, and may still have a bit of thrush, related to ongoing IV antibiotic treatment. He was started on oral nystatin. He seems to think his mouth is less sore today. * * Still on Vanco and Zosyn, (blood cx and sputum cx is neg for bacterial growth ) . Today we will discontinue IV antibiotics and a central line ,and then follow him clinically. #2. * Septic shock * Resolved. * * #3. Cardiac. * -Atrial fibrillation with RVR -converted to sinus . * * -Status post pacemaker recently. Patient now appears to be in sinus rhythm. * . * -Acute decompensated heart failure secondary to above-clinically resolved with diuresis. #4. Renal. * CKD: Creatinine bumped a bit today, for uncertain reasons. * IV fluids are discontinued today.. Creatinine is a bit improved today. Continue to encourage increased oral intake of fluids. * #5. Endocrine. * DM: * The patient's is quite insistent that he has never had diabetes. We have stopped Accu-Cheks. * #6. HLD: oral meds on hold. #7.DVT-- hep sq #8. CODE STATUS: Full code, but the patient and his family are now considering a limited code. They do not think they would want him to be intubated again. #9. GI. Speech therapy worked with the patient again and he does tolerate level 2 textures and honey thick liquids, but did not tolerate a trial of nectar thick liquids. He is to continue on his current diet. #10. Disposition: Physical therapy and occupational therapies both note the patient has continued poor strength and is at high risk for falls. He is progressing, and should continue with rehab. Plan for d/c to [place] once medically stable Medical - PN: Qual - VTE Deep Vein Thrombosis/Pulmonary Embolism Present on Admission: No
[2017-03-22] MEDS: SIMVASTATIN 10 MG TABLET PO SCH (21:23)
[2017-03-22] MEDS: traZODone HCL 50 MG TABLET PO SCH (21:23)
[2017-03-22] MEDS: TAMSULOSIN 0.4 MG CAPSULE PO SCH (21:24)
[2017-03-22] MEDS: FLUoxetine HCL 20 MG CAPSULE PO SCH (21:24)
[2017-03-22] MEDS: LATANOPROST OPHTH DROPS 2.5ML BOTTLE OU SCH (21:25)
[2017-03-23] MEDS: 0.9 % SODIUM CHLORIDE 10 ML SYRINGE IV SCH ×2 (06:58→13:14)
[2017-03-23] MEDS: OMEPRAZOLE 20 MG CAPSULE PO SCH (07:18)
[2017-03-23] MEDS: LEVOTHYROXINE 50 MCG TABLET PO SCH (07:18)
[2017-03-23] MEDS: HEPARIN 5,000 UNIT/ML VIAL SQ SCH ×2 (10:47→21:35)
[2017-03-23] MEDS: SENNOSIDES 1 TABLET PO SCH (10:47)
[2017-03-23] MEDS: MULTIVIT,THER IRON,CA,FA & MIN 1 TABLET PO SCH (10:47)
[2017-03-23] MEDS: LACTOBACILLUS 1 CAPSULE PO SCH ×2 (10:47→21:34)
[2017-03-23] MEDS: CALCIUM CARBONATE 500 MG TAB.CHEW CHEWED SCH (10:47)
[2017-03-23] MEDS: ASPIRIN 81 MG TAB.CHEW CHEWED SCH (10:47)
[2017-03-23] MEDS: NYSTATIN 500,000 UNITS/5 ML ORAL.SUSP SSW SCH ×3 (10:47→21:35)
[2017-03-23] MEDS: FINASTERIDE 5 MG TABLET PO SCH (10:48)
[2017-03-23] MEDS: CLOBETASOL PROP 0.05% TOPICAL SCH ×2 (10:48→21:36)
--- NOTE | 2017-03-23 11:56 | Internal Med Progress Note ---
Medical - PN: Subj Patient information: Note initiated : 03/23/17 at 11:56 am Patient: Gustavo Fuentes 86 y/o M admitted on 03/09/17 for Nausea, Vomiting, Fever , Chills, Shaking/Pneumonia. Interval history: March 09, 2017: History of present illness: Mr. Fuentes is a 86 year old Male with multiple medical issues, living in [place], presented to the ER today with complaints of not feeling well x 1 day. The patient notes he has had some increased frequency of urination x 1 day, he wokeup this AM trying to go the bathroom and his noticed him having shakes, he appeared sick and also had some nausea and vomiting, he vomited x 3-4 times with some brown stuff , no regulo blood. The patient apparenty passed out while vomiting. The patients noted this is the way he was sick in the past when he had his PNA and therefore got him to the hospital for further evaluation. The patient denies any burning or foul smelling urine, the patient denies any cough, chest pain or , palpitations The patient feels he passed out for a few minutes. However, there is no record of any bowel or bladder incontinence or any abnormal jerky movements. in the emergency room, the patient had borderline low blood pressure on presentation, he was afebrile, chest x-ray showed right lung pneumonia, blood work showed elevated white blood cell count at 11.2, hemoglobin of 13.3, platelets of 219. Patient had a sodium of 139, potassium of 3.9, creatinine of 1.4 which is at patient's baseline. The patient had a lactic acid of 2.0,and a negative urine analysis. Given that the patient had low blood pressure and a pneumonia. Patient was admitted to the hospital for further management. 03/10: pt seen examined magdalena well this AM but by afternoon was trying to leave the room and go outside the hospital, has h/o dementia, ativan and haldol given. to keep him in his room. Pt denies any acute complaints. 03/11- remarkable deterioration overnight. worsening respiratory status along with new onset A. fib with RVR started on diltiazem drip. Bilateral worsening infiltrates on chest imaging. Patient made nothing by mouth-actively aspirating. ST eval. Extend antibiotic coverage o include anaerobes in light of aspiration. Continue ICU care. High risk mortality. patient very confused nd delirious. at bedside. melony count at 12.1. 03/12- Pt hypoxic and on 10 L oxymask. Confused. High risk airway compromise in light of mental status change and ongoing aspiration, increased work of breathing, RR at 36-40. ABG 7.53/27/60. Case discussed with patient's and son. Family would like to Initiate aggressive measures including mechanical ventilation. patient intubated and started on mechanical ventilation. Net 2000 cc negative fluid status on lasix. Start @ AC 14 TV 450 pEEP 8. Fent/propofol for sedation. ontinue antibiotic coverage febrile at 102F 03/13-patient on mechanical ventilation. Light ICU sedation on fentanyl drip. White count down from 15.6-11.1. creatinine 1.1. Fluid status even. On 35% FiO2 PEEP 5, 450 tidal volume, ABG 7.45/35/88 on 35% FiO2. interval chest imaging improved infiltrates. trial fibrillation rate control status post digoxin 500 IV load. at bedside. on Levophed to keep map at goal. Discussed treatment plan. Possible extubation in 24 hours if clinically improved. Patient responding to verbal commands. continue bedside physical therapy 03/14-patient did well overnight. n sedation holiday since morning. Responsive andfollowing commands.. Stable hemodynamics. Offvasopressors. Foleys draining clear urine. No fever chills. On PEEP 55 with 35%. ABG 7.47/39/63. patient subsequently extubated to high flow oxygen. Tolerated well. OG/ube feeds discontinued. Keep nothing by mouth until 24 hours. complains of constipation. Attempt enemas today. no signs of respiratory distress post extubation. Patient with be monitoredin ICU 24 hours postextubation. melony count 8.2. creatinine 1.1. interval imaging shows right sided infiltrate worsening since previous day. Continue aggressive diuresis/antibiotic coverage. atient converted to sinus this morning March 15: -Respiratory failure due to aspiration pneumonia. This patient was extubated yesterday, and has been maintaining oxygenation on high flow O2 since then. He reports some ongoing shortness of breath today, better than yesterday, but his history appears unreliable. He is still quite groggy from Ativan he received during the night. -The patient does have underlying dementia, that was diagnosed recently. His notes he has been quite forgetful at home, and sometimes forgets people's names. Patient did become agitated last night, and kept insisting on "going upstairs to bed". He was given 1 mg of Ativan, and slept well after that, but remains fairly sleepy this morning. -Patient had a speech evaluation yesterday, which shows that he aspirates just about everything. The therapist said the only thing he was even moderately safe to swallow was pudding consistency solids, and no liquids at all. The patient denies fever chills, significant pain. He reports occasionally productive cough. He denies abdominal pain. Aviles catheter remains in place. His nurse notes he did have bowel movements after laxatives during the last couple of days. Urine does seem more cloudy today. March 16: Overnight the patient did relatively well. He did not require any Ativan last night for agitation. Physical therapy was able to get him up to a chair today, with only moderate assist. The patient states he is feeling better today. He denies fever or chills, chest pain or shortness of breath or significant cough. He denies any pain. He denies any GI or problems. He continues to receive some medications crushed in applesauce or pudding, but otherwise remains n.p.o. regarding severe aspiration. There is a tentative plan for Dr. León to place a PEG tube tomorrow morning, but today, his tells me that she and her son have discussed this further, and think they do not want to pursue tube feedings. We reviewed that the patient will need to have some kind of nourishment if he is to continue recovering from his pneumonia , but she states that in view of his moderate dementia, she does not want to prolong his life. She did tell me yesterday that prior to admission he was living with her in assisted living, and that up until just recently he was also still driving, and interacting with people socially and had a good quality of life. He was distressed about being diagnosed with dementia recently. March 17: Today, the patient says he is feeling pretty well. He continues to cough intermittently, especially after trying anything such as pudding by mouth. He reportedly did have a little more success when working with the speech therapist today. Today he and his are quite adamant that he does not want a feeding tube of any kind. His says he just does not want to be kept alive to experience the worst parts of dementia. Later this evening I met with the patient as well as his and his son, and they are all in agreement that he should not have a feeding tube. They think that if he gets pneumonia again, they will probably not treated. The patient states he just does not want to put his family through that. Otherwise he denies fever chills, sore throat or cough, chest pain or palpitations. He has mild dyspnea at times. He denies abdominal pain, nausea or vomiting, diarrhea or constipation. March 18: Today, the patient states he is feeling relatively well. He continues to have a somewhat moist cough, but did work with speech therapy yesterday afternoon. She noted he did very well when swallowing with close cueing and his current diet. She seemed to think that he could start eating more foods on this particular diet plan, but we are contacting her for further clarification today. Otherwise, he is a little bit groggy this morning. He did receive a small dose of Ativan yesterday evening apparently, and his notes that he is always much sleepier after getting those. However she also notes that he always had to take a sleeping pill at home to get to sleep. I met with the patient, his and his son last night, and they again reiterated that he does not want a feeding tube. Otherwise, he denies fever chills, chest pain or shortness of breath, abdominal pain or nausea or vomiting. He thinks he has not had a bowel movement for several days. Nursing would like to consider removing his Aviles catheter. Midodrine also does not appear to be required to maintain his blood pressure. March 19: Last night, the patient decided to try to climb out of bed on his own, thinking he could make it to the bathroom without help. He was wearing teds hose, and his feet slipped out from under him and he slid down the side of the bed. He says he did not really hurt himself. This morning, he is more alert than yesterday, and is quite willing to work with both speech therapy and physical therapy. He seems very optimistic today. Otherwise, he denies fever or chills, chest pain or palpitations. He continues to have occasional cough. He denies abdominal pain nausea or vomiting or diarrhea. March 20: Bertin seen examined, seems better this AM, but does not feel as good as yesterday, mental status seems to be better though and is able to verbalize his needs. The patient still is on a dysphagia 2 diet with thickned fluids. He is still not able to meet his nutritional goals. The patient otherwise denies any acute complaints. March 21: Today, the patient appears to be doing quite well. He is doing a good job swallowing, following speech therapies guidelines. Physical therapy says he has been more mobile, and has been up walking with a walker. His is quite pleased with his progress. His nurses report that he is complaining of a sore tongue, and are wondering about oral nystatin. Otherwise the patient denies subjective fever or chills, sore throat or cough, chest pain or palpitations, shortness of breath, abdominal pain, nausea or vomiting, diarrhea or constipation. He did have his Aviles catheter replaced because of recurrent urinary retention. He has been started on Flomax, and we will do a voiding trial again tomorrow. Dr. Blanco told and I feel that he should probably stay on IV antibiotics at least until tomorrow. At that point we may want to discontinue antibiotics and discontinue his central line, and follow him clinically. March 22: Today, the patient really has no complaints. He has been up walking some with his walker. He continues to do a good job with swallowing technique, avoiding aspiration. He has family here visiting from [place] I believe He denies fever chills, chest pain or shortness of breath, GI or symptoms. March 23: Today, patient reports he is feeling well. When I enter his room, he is surrounded by family members. They are talking and laughing. The patient says he still feels a bit unsteady on his feet when he walks, but otherwise feels he is doing well. He denies recent fever or chills, significant cough, shortness of breath, chest pain or palpitations, abdominal pain, nausea or vomiting, diarrhea or constipation or dysuria. -Post void residuals showed one near 0, and the other at 240 mL. A follow-up is pending - Constitutional Vitals: Vital Signs Temp Pulse Resp BP Pulse Ox 97.5 F 65 16 116/57 93 03/23/17 11:45 03/23/17 03:45 03/23/17 11:45 03/23/17 11:45 03/23/17 11:45 Period Temp Pulse Resp BP Sys/Patel Pulse Ox Last 24 Hr 97.4 F-98.5 F 60-65 12-16 113-133/57-73 91-94 Intake and Output 03/22/17 03/23/17 03/23/17 21:59 05:59 13:59 Intake Total 240 / 240 Output Total 500 / 500 675 / 675 Balance -500 / -500 -675 / -675 240 / 240 Weight 160 lb 8 oz Intake & Output: Intake & Output 03/22/17 03/23/17 03/23/17 21:59 05:59 13:59 Intake Total 240 / 240 Output Total 500 / 500 675 / 675 Balance -500 / -500 -675 / -675 240 / 240 Weight 160 lb 8 oz Intake: Oral 240 / 240 Output: Urine Catheter Amount 500 / 500 Void Amount 675 / 675 Other: Meal applesauce Breakfast Percent of Meal Consumed 100% 100% Feeding Ability Total Assistance # Voids 1 The patient is awake and alert, lying in bed, visiting with family.. Vital signs have been stable today. O2 saturation is 93 % on room air. Neck is supple without obvious JVD. Cardiac exam shows regular rate and rhythm. Lungs are essentially clear. No wheezing or rhonchi are noted. Abdomen: Is soft and nontender. Extremities show no significant edema. Neurologic exam: The patient continues to be a bit forgetful, but is otherwise pleasant and cooperative. His exam is grossly nonfocal. Medical - PN: Obj Da - Labs CBC & Chem 7: 03/21/17 08:10 03/22/17 04:00 Labs: Abnormal Lab Results 03/23/17 03/22/17 03/22/17 08:03 04:19 04:00 RBC Hgb Hct MPV Lymph % (Auto) Lymph # (Auto) Creatinine 1.3 H Albumin Albumin/Globulin Ratio Triglycerides 151 H Vancomycin Trough 14.0 H Random Vancomycin 19.0 H 03/21/17 03/21/17 03/21/17 08:10 08:10 08:10 RBC 3.53 L Hgb 10.2 L Hct 30.3 L MPV 7.3 L Lymph % (Auto) 13.3 L Lymph # (Auto) 1.0 L Creatinine 1.4 H Albumin 2.9 L Albumin/Globulin Ratio 0.9 L Triglycerides Vancomycin Trough 26.0 H* Random Vancomycin March 21: Chemistry panel: Creatinine bumped to 1.4 today. Albumin remains low at 2.9. March 19: Chest x-ray shows continued improvement in bilateral infiltrates with minimal patchy residual in both mid lungs and right base. March 16: Chest x-ray: Parenchymal infiltrates are improving. No other changes. March 15: Urinalysis shows pH of 5, negative leukocyte esterase, negative nitrites. Chest x-ray: Continued bilateral pulmonary parenchymal infiltrates, status post extubation. March 14: ABG: On vent at 35%, PEEP of 5: PH 7.47, PCO2 39, PO2 63, bicarb 28, O2 saturation 95% next March 13: Blood cultures: Negative so far March 12: Abdominal x-ray: Large amount of fecal material throughout the colon consistent with constipation, but no signs of bowel obstruction. Sputum culture: Shabnam albicans. March 11: Blood cultures negative so far Meds: Medications Acetaminophen (Tylenol) 650 mg PO Q6HP PRN PRN Reason: PAIN/FEVER > 101 Last Admin: 03/20/17 10:23 Dose: 650 mg Albuterol/Ipratropium (Duoneb) 3 ml NEB Q4HRT PRN PRN Reason: Shortness Of Breath Or Wheezing Aspirin (Aspirin) 324 mg CHEWED DAILY [facility] Last Admin: 03/23/17 10:47 Dose: 324 mg Calcium Carbonate/Glycine (Tums) 500 mg CHEWED DAILY [facility] Last Admin: 03/23/17 10:47 Dose: 500 mg Dextrose (Dextrose 50%) 0 ml IV UD PRN PRN Reason: Hypoglycemia Finasteride (Proscar) 5 mg PO QDAY [facility] Last Admin: 03/23/17 10:48 Dose: 5 mg Fluoxetine HCl (Prozac) 80 mg PO HS [facility] Last Admin: 03/22/17 21:24 Dose: 80 mg Glucose (Insta-Glucose) 15 gm PO PRN PRN PRN Reason: Hypoglycemia Guaifenesin (Robitussin Dm) 5 ml PO Q4HP PRN PRN Reason: Cough Last Admin: 03/20/17 22:11 Dose: 5 ml Heparin Sodium (Porcine) (Heparin) 5,000 unit SQ Q12 [facility] Last Admin: 03/23/17 10:47 Dose: 5,000 unit Heparin Sodium/Sodium Chloride (Heparin/Ns) 500 mls @ 0 mls/hr IV .Q0M KIRILL; KVO PRN Reason: Protocol Iron Carb/Multivit/[place]/Folic Acid (Multivitamin W/Minerals) 1 tab PO DAILY [facility] Last Admin: 03/23/17 10:47 Dose: 1 tab Lactobacillus Rhamnosus (Culturelle) 1 cap PO BID [facility] Last Admin: 03/23/17 10:47 Dose: 1 cap Latanoprost (Xalatan Ophth Drops) 1 gtt OU QHS [facility] Last Admin: 03/22/17 21:25 Dose: 1 gtt Levothyroxine Sodium (Synthroid) 50 mcg PO ACB [facility] Last Admin: 03/23/17 07:18 Dose: 50 mcg Magnesium Hydroxide (Milk Of Magnesia) 30 ml PO DAILYP PRN PRN Reason: Constipation Last Admin: 03/19/17 17:01 Dose: 30 ml Naloxone HCl (Narcan) 0.1 mg IV Q2MIN PRN PRN Reason: Opiate Reversal Nystatin (Nystatin) 500,000 units SSW TID [facility] Last Admin: 03/23/17 10:47 Dose: 500,000 units Omeprazole (Prilosec) 20 mg PO ACB [facility] Last Admin: 03/23/17 07:18 Dose: 20 mg Ondansetron HCl (Zofran) 4 mg IV Q4HP PRN PRN Reason: Nausea And Vomiting Oxycodone/Acetaminophen (Percocet 5-325 Mg) 1 tab PO Q4HP PRN PRN Reason: Pain Systane Ultra Ophth (Drops) 1 - 2 dose OU PRN PRN PRN Reason: Dry Eyes Clobetasol Prop 0.05 (% Topical Solution) 1 dose TOPICAL BID [facility] Last Admin: 03/23/17 10:48 Dose: 1 dose Risperidone (Risperdal) 0.5 mg PO BID PRN PRN Reason: Agitation Last Admin: 03/20/17 10:07 Dose: 0.5 mg Senna (Senokot) 1 tab PO QDAY [facility] Last Admin: 03/23/17 10:47 Dose: 1 tab Simvastatin (Zocor) 5 mg PO HS [facility] Last Admin: 03/22/17 21:23 Dose: 5 mg Sodium Chloride (Saline Flush) 10 ml IV Q8 [facility] Last Admin: 03/23/17 06:58 Dose: Not Given Tamsulosin HCl (Flomax) 0.4 mg PO HS [facility] Last Admin: 03/22/17 21:24 Dose: 0.4 mg Trazodone HCl (Desyrel) 100 mg PO QHS [facility] Last Admin: 03/22/17 21:23 Dose: 100 mg Medical - PN: A/P - Time Spent With Patient Total time spent is greater than 50% in coordination of care (as documented) at patient's floor/unit and/or counseling patient: 15 - 24 minutes - Narrative A/P Narrative: A/P #1. Pulmonary/infectious disease.. * -Hypoxic respiratory failure secondary aspiration pneumonia- s/p mechanical ventilation.s/p intubation and Extubated 03/14 a.m. * He continues to improve on a daily basis. * * Speech therapy worked with him , and he needs to stay on his current level 2 dysphagia diet with honey thick liquids. * The patient and family have decided that he will not have a PEG tube or any type of feeding tube placed. * * IV fluids to maintain hydration for now, wean as tolerated * * -Diflucan was discontinued , for the Shabnam growing in his sputum. However, the patient was complaining of a severely sore tongue, and may still have a bit of thrush, related to ongoing IV antibiotic treatment. * He was started on oral nystatin. He seems to think his mouth is less sore now. * * IV antibiotics and central line were discontinued yesterday. #2. * Septic shock * Resolved. * * #3. Cardiac. * -Atrial fibrillation with RVR -converted to sinus . * * -Status post pacemaker recently. Patient now appears to be in sinus rhythm. * . * -Acute decompensated heart failure secondary to above-clinically resolved with diuresis. #4. Renal. * CKD: Creatinine bumped a bit . * IV fluids were discontinued yesterday.. Recheck labs in the morning. * #5. Endocrine. * DM: * The patient's is quite insistent that he has never had diabetes. We have stopped Accu-Cheks. * #6. HLD: oral meds on hold. #7.DVT-- hep sq #8. CODE STATUS: Full code, but the patient and his family are now considering a limited code. They do not think they would want him to be intubated again. #9. GI. Speech therapy worked with the patient again and he does tolerate level 2 textures and honey thick liquids, but did not tolerate a trial of nectar thick liquids. He is to continue on his current diet. #10. Disposition: Physical therapy and occupational therapies both note the patient has continued poor strength and is at high risk for falls. He is progressing, and should continue with rehab. Plan for d/c to [place] SNF once medically stable, probably tomorrow. Medical - PN: Qual - VTE Deep Vein Thrombosis/Pulmonary Embolism Present on Admission: No
[2017-03-23] MEDS: TAMSULOSIN 0.4 MG CAPSULE PO SCH (21:34)
[2017-03-23] MEDS: traZODone HCL 50 MG TABLET PO SCH (21:35)
[2017-03-23] MEDS: FLUoxetine HCL 20 MG CAPSULE PO SCH (21:35)
[2017-03-23] MEDS: SIMVASTATIN 10 MG TABLET PO SCH (21:36)
[2017-03-23] MEDS: LATANOPROST OPHTH DROPS 2.5ML BOTTLE OU SCH (21:36)
[2017-03-24 07:06] LABS: Basophils # (Auto) 0.1 K/mcL (0.0-0.3); Basophils % (Auto) 0.8 % (0.0-2.0); Eosinophils # (Auto) 0.3 K/mcL (0.0-0.7); Eosinophils % (Auto) 4.6 % (0.0-7.0); Granulocytes % (Auto) 63.1 % (38.0-78.0); Lymphocytes # (Auto) 1.5 K/mcL (1.5-4.8); Lymphocytes % (Auto) 20.2 % (15.5-49.0); Mean Cell Volume 86.1 fL (80.0-100.0); Mean Corpuscular HGB Conc 33.9 g/dL (31.0-36.0); Mean Corpuscular Hemoglobin 29.2 pg (26.0-34.0); Monocytes # (Auto) 0.8 K/mcL (0.1-0.9); Monocytes % (Auto) 11.3 % (1.0-12.0); Platelet Count 447 K/mcL (140-440); RBC 3.51 M/mcL (4.50-5.90); Red Cell Distribution Width 14.4 % (11.5-14.5)
[2017-03-24] MEDS: OMEPRAZOLE 20 MG CAPSULE PO SCH (07:23)
[2017-03-24] MEDS: LEVOTHYROXINE 50 MCG TABLET PO SCH (07:23)
[2017-03-24 07:29] LABS: ALT/SGPT 16 U/l (0-40); Albumin 3.1 gm/dL (3.2-5.2); Albumin/Globulin Ratio 0.9 (1.0-2.3); Alkaline Phosphatase 64 U/L (39-117); Bilirubin,Direct < 0.2 mg/dL (0.0-0.3); Blood Urea Nitrogen 28 mg/dl (8-23); Gamma Glutamyl Transpeptidase 37 U/L (8-61); Magnesium 2.3 mg/dL (1.6-2.5); Uric Acid 4.8 mg/dL (2.5-8.0)
[2017-03-24] MEDS: HEPARIN 5,000 UNIT/ML VIAL SQ SCH (09:21)
[2017-03-24] MEDS: ASPIRIN 81 MG TAB.CHEW CHEWED SCH (09:21)
[2017-03-24] MEDS: CALCIUM CARBONATE 500 MG TAB.CHEW CHEWED SCH (09:22)
[2017-03-24] MEDS: SENNOSIDES 1 TABLET PO SCH (09:22)
[2017-03-24] MEDS: MULTIVIT,THER IRON,CA,FA & MIN 1 TABLET PO SCH (09:22)
[2017-03-24] MEDS: LACTOBACILLUS 1 CAPSULE PO SCH (09:22)
[2017-03-24] MEDS: CLOBETASOL PROP 0.05% TOPICAL SCH (09:22)
[2017-03-24] MEDS: NYSTATIN 500,000 UNITS/5 ML ORAL.SUSP SSW SCH (09:22)
[2017-03-24] MEDS: FINASTERIDE 5 MG TABLET PO SCH (09:23)
--- NOTE | 2017-03-24 10:29 | Discharge Summary ---
Medical - DS: Prov Patient information: Note initiated : 03/24/17 at 10:23 am Service Date, if different from initiated Date: [] Patient: Gustavo Fuentes 86 y/o M admitted on 03/09/17 for Nausea, Vomiting, Fever , Chills, Shaking/Pneumonia. Chief Complaint: [] Date of admission: 03/09/17 11:40 Discharge date: 03/24/17 Primary care physician: Raymond Ro Admitting clinician: Thomas Blanco Consults: 03/15/17 14:30 Consult to Physician [CONS] Routine Comment: Consulting Provider: Tamar León Reason For Exam: Physician to Consult Discharging clinician: Thomas Blanco Medical - DS: Meds - Discharge Medications Prescriptions: oxyCODONE/APAP [Percocet 5-325 mg] 1 tab PO Q4HP PRN #20 tablet PRN Reason: Pain Active and Home Medications: Home Medications calcium carbonate 600 mg calcium (1,500 mg) tablet 600 mg PO QDAY tab 12/16/14 [History Confirmed 03/09/17 Last Taken 01/16/17] cholecalciferol (vitamin D3) 1,000 unit capsule 1,000 unit PO QDAY cap [History Confirmed 03/09/17 Last Taken 01/16/17] fluoxetine 40 mg capsule 80 mg PO QAM cap 12/16/14 [History Confirmed 03/09/17 Last Taken 01/16/17] multivitamin tablet 1 tab PO QDAY tab 12/16/14 [History Confirmed 03/09/17 Last Taken 01/16/17] pravastatin 10 mg tablet 10 mg PO QHS tab 12/16/14 [History Confirmed 03/09/17 Last Taken 01/16/17] trazodone 50 mg tablet 100 mg PO QHS tab 12/16/14 [History Confirmed 03/09/17 Last Taken 01/16/17] clobetasol 0.05 % scalp solution 1 applic TOPICAL BID PRN #50 ml 08/15/15 [Rx Confirmed 03/09/17 Last Taken 03/08/16] latanoprost 0.005 % eye drops 1 drp OPHTHALMIC QHS ml 01/25/16 [History Confirmed 03/09/17 Last Taken 01/16/17] levothyroxine 50 mcg tablet 50 mcg PO QDAY #90 tab 09/02/16 [Rx Confirmed Last Taken 01/17/17 06:00] omeprazole 20 mg capsule,delayed release 20 mg PO QDAY #30 cap 12/10/16 [Rx Confirmed 03/09/17 Last Taken 01/17/17 06:00] finasteride 5 mg tablet 5 mg PO QDAY #30 tab 12/11/16 [Rx Confirmed 03/09/17 Last Taken 01/16/17] sennosides 8.6 mg tablet 8.6 mg PO QDAY 01/28/17 [History Confirmed 03/09/17 Last Taken Unknown] Acetaminophen [Tylenol] 650 mg PO Q6HP PRN tablet 03/23/17 [Rx Last Taken Unknown] Aspirin 324 mg CHEWED DAILY 03/23/17 [Rx Last Taken Unknown] Dextrose [Insta-Glucose] 15 gm PO PRN PRN 03/23/17 [Rx Last Taken Unknown] Heparin 5,000 unit SQ Q12 vial 03/23/17 [Rx Last Taken Unknown] Ipratropium/Albuterol [Duoneb] 3 ml NEB Q4HRT PRN 03/23/17 [Rx Last Taken Unknown] Lactobacillus [Culturelle] 1 cap PO BID capsule 03/23/17 [Rx Last Taken Unknown ] Magnesium Hydroxide [Milk of Magnesia] 30 ml PO DAILYP PRN 03/23/17 [Rx Last Taken Unknown] Naloxone HCl [Narcan] 0.1 mg IV Q2MIN PRN vial 03/23/17 [Rx Last Taken Unknown] Nystatin 500,000 units SSW TID 03/23/17 [Rx Last Taken Unknown] Omeprazole [Prilosec] 20 mg PO ACB capsule 03/23/17 [Rx Last Taken Unknown] Ondansetron [Zofran] 4 mg IV Q4HP PRN vial 03/23/17 [Rx Last Taken Unknown] Tamsulosin [Flomax] 0.4 mg PO HS capsule 03/23/17 [Rx Last Taken Unknown] guaiFENesin/DEXTROMETHORPHAN [Robitussin Dm] 5 ml PO Q4HP PRN ml 03/23/17 [Rx Last Taken Unknown] oxyCODONE/APAP [Percocet 5-325 mg] 1 tab PO Q4HP PRN #20 tablet 03/23/17 [Rx Last Taken Unknown] risperiDONE [Risperdal] 0.5 mg PO BID PRN tablet 03/23/17 [Rx Last Taken Unknown] Medical - DS: Hosp Hospital course: Mr. Fuentes is a 86 year old Male with multiple medical issues, living [place], presented to the ER with complaints of not feeling well x 1 day. The patient notes he has had some increased frequency of urination x 1 day, he woke up this AM trying to go the bathroom and his noticed him having shakes, he appeared sick and also had some nausea and vomiting, he vomited x 3-4 times with some brown stuff, no regulo blood. The patient apparently passed out while vomiting. The patients noted this is the way he was sick in the past when he had his PNA and therefore got him to the hospital for further evaluation. The patient denies any burning or foul smelling urine, the patient denies any cough, chest pain or , palpitations The patient feels he passed out for a few minutes. However, there is no record of any bowel or bladder incontinence or any abnormal jerky movements. in the emergency room, the patient had borderline low blood pressure on presentation, he was afebrile, chest x-ray showed right lung pneumonia, blood work showed elevated white blood cell count at 11.2, hemoglobin of 13.3, platelets of 219. Patient had a sodium of 139, potassium of 3.9, creatinine of 1.4 which is at patient's baseline. The patient had a lactic acid of 2.0,and a negative urine analysis. Given that the patient had low blood pressure and a pneumonia. Patient was admitted to the hospital for further management. Pneumonia / Acute respiratory Failure: The patients in the hospital was treated for Pneumonia with broad spectrum antibiotics, total of 10 days, his cultures were negative, his sputum cx was positive for vickie but he also had oral thrush, he was none the less given 7 days of Diflucan. The patient had respiratory status worsened after admission as he needing Mechanical Ventilation and pressor support. His condition improved with supportive management and he was extubated on 03/14/2016 and has show good improvement in his respiratory status since then and at the time of discharge is off oxygen. The patient did have afib with RVR during the hospital stay, but this reverted back to sinus rhythm once his infection subsided. Dysphagia: The patient w as noted to be high risk for aspiration, and its thought that he did have aspiration pneumonia. He was seen by ST therapy and was advised to continue with Dysphagia diet, with honey thickened liquids. He needs to continue to work with ST and needs constant feeding cues. . Feeding tube was considered during family discussions, and it was decided not to go ahead with same in light of his dementia. The patient has some good and some bad days, but overall there has been good progress in his condition. The patient at the time of discharge is ambulatory, tolerating po diet and in good spirits. He will be discharged to [facility] for rehab along with ST therapy. Discharge diagnosis: Pneuimonia, Acute respiratory failure - Time Spent with Patient Total time spent providing and/or coordinating discharge services: Greater than 30 minutes Medical - DS: Exam - Constitutional Vitals: Vital Signs Temp Pulse Pulse Resp BP BP Pulse Ox 03/24/17 09:58 96.9 F L 62 18 115/63 91 03/24/17 07:38 65 92 03/24/17 06:29 96.4 F L 18 120/68 91 03/24/17 03:45 98.1 F 63 12 130/66 93 03/23/17 23:29 97.3 F 80 16 113/66 93 03/23/17 19:29 98.5 F 60 16 123/61 91 03/23/17 16:00 98.1 F 18 118/70 93 03/23/17 11:45 97.5 F 16 116/57 93 Intake and Output 03/23/17 03/24/17 03/24/17 21:59 05:59 13:59 Intake Total 360 / 360 0 / 0 100 / 100 Output Total 325 / 325 475 / 475 250 / 250 Balance 35 / 35 -475 / -475 -150 / -150 Intake: Oral 360 / 360 0 / 0 100 / 100 Output: Void Amount 325 / 325 475 / 475 250 / 250 Other: Meal Dinner Percent of Meal Consumed 75% # Voids 1 1 # Bowel Movements 1 1 Weight 161 lb 8 oz Additional comments: Constitutional; Afebrile, cooperative, alert, not in distress. Eyes- No icterus, , No periorbital swelling Ears- Ext ear normal, hearing normal to conversation. Neck- Midline trachea, supple Respiratory system: Air Entry equal on both sides, No crackles or wheezing, no rhonchi. CVS- Rate rhythm regular, S1,S2 heard, no gallop, no rub. Abdomen- Soft nontender abdomen, no organomegaly, no tenderness, no guarding or rigidity, [employer]ER- AOOx2, moving all extremities, no gross focal deficit noted. Medical - DS: Data Procedures and tests throughout hospitalization: cxr IMPRESSION: 1. Increasing bilateral pulmonary parenchymal infiltrates, right worse in left 2. Findings are significantly worse than on 03/09/2017 and a since 02/07/2017 Labs on day of discharge: Labs from last 24 hours 03/24/17 03/24/17 03:41 03:41 WBC 7.4 RBC 3.51 L Hgb 10.2 L Hct 30.2 L MCV 86.1 MCH 29.2 MCHC 33.9 RDW 14.4 Plt Count 447 H MPV 7.8 Gran % 63.1 Lymph % (Auto) 20.2 [place] % (Auto) 11.3 Eos % (Auto) 4.6 Baso % (Auto) 0.8 Gran # 4.7 Lymph # (Auto) 1.5 [place] # (Auto) 0.8 Eos # (Auto) 0.3 Baso # (Auto) 0.1 Sodium 139 Potassium 4.2 Chloride 101 Carbon Dioxide 27 Anion Gap 11.0 BUN 28 H Creatinine 1.3 H GFR Calculation 49 Glucose 89 Uric Acid 4.8 Calcium 8.9 Phosphorus 3.3 Magnesium 2.3 Total Bilirubin 0.3 Direct Bilirubin < 0.2 GGT 37 AST 16 ALT 16 Alkaline Phosphatase 64 Lactate Dehydrogenase 231 Total Protein 6.6 Albumin 3.1 L Globulin 3.5 Albumin/Globulin Ratio 0.9 L Triglycerides 121 Medical - DS: A/P - Patient/Caregiver Discharge Instructions Activity: as per physical therapy Diet: Cardiac Additional Instructions: 1. Dysphagia. Diet: Dysphagia mechanical altered diet, level 2. Honey thick liquids. Ensure and lives 8 fluid ounces daily, 4 cans daily.. No mixed consistencies. Foods should be well drained. Continue to practice the safe swallow technique taught by speech therapy. Hold your breath during swallowing. Drink liquids after eating. Cough after each swallow. Follow up with PCP in 1-2 weeks after discharge Go to the ER if fever, chest pain, shortness of breath or any other concerning symptom. Prescriptions: oxyCODONE/APAP [Percocet 5-325 mg] 1 tab PO Q4HP PRN #20 tablet PRN Reason: Pain Other Amb Orders: Aspiration Precautions Location: Determined By Patient Fall Risk Location: Determined By Patient OT Discharge Order Location: Determined By Patient Physical Therapy at Discharge - General Location: Determined By Patient ST Discharge Order Location: Determined By Patient XR chest 2V Time Frame: 2 Days, Location: Determined By Patient Basic Metabolic Panel Time Frame: 2 Days, Location: Determined By Patient Complete Blood Count Time Frame: 2 Days, Location: Determined By Patient - Follow up Plan Follow up with: Raymond Ro MD [Primary Care Provider] - Disposition: Xfer SNF Prognosis: Fair Rehab Potential: Fair I certify that the patient requires SNF services: Yes Overall status at discharge: patient is progressing back to baseline Medical - DS: Qual - VTE Deep Vein Thrombosis/Pulmonary Embolism Present on Admission: No
== END 2017-03-24 11:26 | DRG 871 ==
LOC: ED 06:38 → ICU 11:40 → MEDSUR 03-18 12:25
PROVIDERS: ADMIT Internal Medicine; ATTEND Internal Medicine

== ENCOUNTER 2017-06-26 23:21 | Inpatient (IN) ==
[2017-06-26] MEDS ORDERED: ONDANSETRON 4 MG/2 ML VIAL IV ONE (23:26)
--- NOTE | 2017-06-26 23:44 | Emergency Department Note ---
Abdominal Pain HPI - General Chief Complaint: Abdominal Pain Stated Complaint: Abdominal pain Time Seen by Provider: 06/26/17 23:41 Source: patient, family, EMS Mode of arrival: EMS Limitations: no limitations - History of Present Illness HPI Narrative: This 86-year-old gentleman comes to the emergency room after having an onset of abdominal pain and nausea with vomiting multiple times beginning around 10 PM. He arrives around 11:30 PM. He had some retching after clearing his food. He vomited 2-3 times he says but his counts 8-10 times. His pain is all over the abdomen is crampy in the coming and going in nature. He took a donepezil medication for dementia last evening. This was a retrial after he had had a previous trial of this medication which caused him to be nauseated. - Related Data Home Medications Medication Instructions Recorded Confirmed calcium carbonate 600 mg calcium 600 mg PO QDAY tab 12/16/14 06/27/17 (1,500 mg) tablet cholecalciferol (vitamin D3) 1,000 1,000 unit PO QDAY cap 12/16/14 06/27/17 unit capsule fluoxetine 40 mg capsule 80 mg PO QAM cap 12/16/14 06/27/17 multivitamin tablet 1 tab PO QDAY tab 12/16/14 06/27/17 pravastatin 10 mg tablet 10 mg PO QHS tab 12/16/14 06/27/17 trazodone 50 mg tablet 100 mg PO QHS tab 12/16/14 06/27/17 latanoprost 0.005 % eye drops 1 drp OPHTHALMIC QHS ml 01/25/16 06/27/17 aspirin 325 mg tablet 325 mg PO QDAY 04/24/17 06/27/17 midodrine 5 mg tablet 5 mg PO TID 04/24/17 06/27/17 Previous Rx's Medication Instructions Recorded clobetasol 0.05 % scalp solution 1 applic TOPICAL BID PRN #50 ml 08/15/15 levothyroxine 50 mcg tablet 50 mcg PO QDAY #90 tab 09/02/16 finasteride 5 mg tablet 5 mg PO QDAY #30 tab 12/11/16 Omeprazole [Prilosec] 20 mg PO ACB cap 03/23/17 Allergies Allergy/AdvReac Type Severity Reaction Status Date / Time Sulfa (Sulfonamide Allergy Intermediate Rash Verified 06/24/17 09:17 Antibiotics) [SULFA (SULFONAMIDE ANTIBIOTICS)] Review of Systems Review of Systems: General: No fevers no chills but he has had sweats during the time of vomiting. ENT he has had some chronic runny nose. CV: He denies chest pain. Pulmonary: He has had some cough but no shortness of breath or wheezing. He has coughed up some phlegm. His cough is not normal for him and wheezing is not normal for him. GI: See above. He denies constipation or diarrhea or hematochezia. MSK: He denies back pain Neuro: He denies headaches but he has some weakness now. Psych: He denies anxiety but admits to some chronic treatment for depression with fluoxetine. Endocrine: Some fatigue now. Abdominal Pain PMH - Past Medical History Medical history: Reports: atrial fibrillation (paroxysmal), renal disease ( stage 3), other (Anemia, gastritis, renal vascule, dementia, pancreatitis, psoriasis). Denies: cancer, COPD, CVA, hypertension, myocardial infarction Reports: other (pancreatic neoplasm - stable over years.) Surgical history ED: Reports: cholecystectomy Psychiatric history: Reports: depression. Denies: anxiety Family history: Reports: other (mother CVA Father [place]) - Social History Smoking status: Former smoker Alcohol use: Reports: Rarely Drug use: Reports: none Physical Exam Limitations: no limitations General appearance: alert, in distress (intermittently with holding his stomach and wincing with) Head: atraumatic ( spasm-like pain.), normocephalic Eye: Present: EOMI ENT: mucous membranes moist Neck: Present: trachea midline. Absent: lymphadenopathy, thyromegaly Respiratory: Present: normal lung sounds bilaterally, wheezes (Rare occasional expiratory wheeze.). Absent: respiratory distress, stridor, accessory muscle use, prolonged expiratory phase Cardiovascular: Present: regular rate, normal rhythm. Absent: systolic murmur, diastolic murmur Abdominal: Present: soft, tenderness. Absent: distention, guarding, rebound, rigidity, organomegaly, mass Abdominal tenderness: Present: diffuse, moderate Extremities: Absent: pedal edema, pretibial edema, calf tenderness Back: Absent: CVA tenderness (R), CVA tenderness (L) Neurological: Present: alert, oriented X3 Psychiatric: Present: normal affect, normal mood Skin: Present: warm, dry Course Vital Signs Temperature 96.5 F L 06/26/17 23:22 Pulse Rate 60 06/26/17 23:22 Respiratory Rate 20 06/26/17 23:22 Blood Pressure 157/103 06/26/17 23:22 Pulse Oximetry (%) 97 06/26/17 23:22 Temperature 96.5 F L 06/26/17 23:22 Pulse Rate 66 06/27/17 03:16 Respiratory Rate 20 06/26/17 23:22 Blood Pressure 159/84 06/27/17 03:16 Pulse Oximetry (%) 85 L 06/27/17 03:16 Abdominal Pain - MDM Narrative Medical decision making narrative: 11:45 PM Sudden onset rather significant/severe nausea, vomiting and abdominal crampy pain. Suspect small bowel obstruction. Films, then CT --> large bowel obstruction but no mass. Possible volvulus but less likely. Time spent in last 2 hours discussed aspects and assisting with surgeon, hospitalist, etc. Obviously needs to stay in patient. Bed availability made possible. Dr. Rangel's will be consulting surgeon (here reviewing chart); Dr. King will be hospitalist (here reviewed chart). - Lab Data Lab results reviewed: Yes I reviewed the patient's lab results. Result diagrams: 06/26/17 23:50 06/26/17 23:50 Lab Results 06/26/17 06/26/17 06/26/17 Range/Units 23:50 23:50 23:50 WBC 15.3 H (4.5-11.0) K/mcL RBC 4.71 (4.50-5.90) M/mcL Hgb 13.7 (13.5-16.5) g/dL Hct 40.8 L (41.0-55.0) % MCV 86.6 (80.0-100.0) fL MCH 29.1 (26.0-34.0) pg MCHC 33.6 (31.0-36.0) g/dL RDW 13.3 (11.5-14.5) % Plt Count 275 (140-440) K/mcL MPV 8.1 (7.4-10.4) fL Gran % 82.8 H (38.0-78.0) % Lymph % (Auto) 10.2 L (15.5-49.0) % [place] % (Auto) 4.0 (1.0-12.0) % Eos % (Auto) 2.4 (0.0-7.0) % Baso % (Auto) 0.6 (0.0-2.0) % Gran # 12.6 H (1.8-8.0) K/mcL Lymph # (Auto) 1.6 (1.5-4.8) K/mcL [place] # (Auto) 0.6 (0.1-0.9) K/mcL Eos # (Auto) 0.4 (0.0-0.7) K/mcL Baso # (Auto) 0.1 (0.0-0.3) K/mcL VBG Lactic Acid 2.1 (0.5-2.2) mmol/L Sodium 135 (133-145) mmol/L Potassium 3.9 (3.3-5.1) mmol/L Chloride 94 L (96-108) mmol/L Carbon Dioxide 25 (22-30) mmol/L Anion Gap 16.0 (8-16) BUN 21 (8-23) mg/dl Creatinine 1.4 H (0.7-1.2) mg/dl GFR Calculation 45 Glucose 209 H (70-105) mg/dL Calcium 9.5 (8.6-10.4) mg/dl Total Bilirubin 0.4 (0.0-1.0) mg/dL AST 17 (0-37) U/l ALT 17 (0-40) U/l Alkaline Phosphatase 62 (39-117) U/L C-Reactive Protein < 0.3 (0.0-0.8) mg/dl Total Protein 7.6 (5.9-8.4) gm/dL Albumin 4.9 (3.2-5.2) gm/dL Globulin 2.7 (2.2-3.7) gm/dL Albumin/Globulin Ratio 1.8 (1.0-2.3) Lipase 88 H (7-60) U/L - Radiology Data Radiology results reviewed: Yes I reviewed the patient's radiology results. Disposition Pt seen by ASSURANCE SENIOR MANAGER INSURANCE/PA only: No Disposition: Home, Self-Care Condition: Fair Referrals: Raymond Ro MD [Primary Care Provider] -
[2017-06-26] MEDS: HYDROmorphone 2 MG/ML SYRINGE IV PRN (23:54)
[2017-06-27 00:38] LABS: Basophils # (Auto) 0.1 K/mcL (0.0-0.3); Basophils % (Auto) 0.6 % (0.0-2.0); Eosinophils # (Auto) 0.4 K/mcL (0.0-0.7); Eosinophils % (Auto) 2.4 % (0.0-7.0); Granulocytes % (Auto) 82.8 % (38.0-78.0); Lymphocytes # (Auto) 1.6 K/mcL (1.5-4.8); Lymphocytes % (Auto) 10.2 % (15.5-49.0); Mean Cell Volume 86.6 fL (80.0-100.0); Mean Corpuscular HGB Conc 33.6 g/dL (31.0-36.0); Mean Corpuscular Hemoglobin 29.1 pg (26.0-34.0); Monocytes # (Auto) 0.6 K/mcL (0.1-0.9); Platelet Count 275 K/mcL (140-440); RBC 4.71 M/mcL (4.50-5.90); Red Cell Distribution Width 13.3 % (11.5-14.5)
[2017-06-27 00:51] LABS: ALT/SGPT 17 U/l (0-40); Albumin 4.9 gm/dL (3.2-5.2); Albumin/Globulin Ratio 1.8 (1.0-2.3); Alkaline Phosphatase 62 U/L (39-117); Blood Urea Nitrogen 21 mg/dl (8-23); C-Reactive Protein < 0.3 mg/dl (0.0-0.8); Lipase 88 U/L (7-60)
[2017-06-27] MEDS: HYDROmorphone 2 MG/ML SYRINGE IV PRN (01:02)
--- NOTE | 2017-06-27 04:13 | Internal Med History&Physical ---
Medical - H&P: HPI Patient information: Note initiated : 06/27/17 at 4:11 am Service Date, if different from initiated Date: [] Patient: Gustavo Fuentes a 86 y/o M admitted on for Abdominal pain. Chief Complaint: Abdominal Pain History of present illness: Mr. 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 History is obtained in speaking with the family, the patient who is somewhat somnolent and gives limited history, as well as Dr. Whitney and Dr. Lopez. Patient onset of abdominal pain about 10 PM last evening. He had emesis 6. Initially tannish emesis to a yellowish color, no bilious emesis, no hematemesis. He continued to have abdominal pain, he is brought to the ED for further evaluation. Patient is able to give limited history, denies any fevers or chills. Last bowel movement appears to have been morning, the morning prior to the onset of his symptoms. No recent change in bowel habits. Patient's states he's had recent colonoscopy. 2 recent EGDs with findings of gastric ulcer are noted in the chart record, no recent colonoscopy reports are available. Apparently he had precancerous polyps removed at his last colonoscopy. Evaluation the ED with plain film showed air-fluid levels. Subsequent noncontrast CT showed evidence of large bowel obstruction with no definitive transition point. Large bowel from cecum to splenic flexure was dilated up to 10 cm. There were also changes in small bowel mesentery concerning for possible volvulus. Dr. Whitney from surgery was consulted and, after evaluation and discussion of the CT findings with the overnight radiologist, is felt this less likely represented a volvulus in addition to the large bowel obstruction. Initial laboratory evaluation shows a white count of 15,000, lactate at the upper limits of normal at 2.1. Repeat labs show persistent leukocytosis, lactate a reduced to 1.8. After single dose of 1 mg of hydromorphone, the patient longer had any abdominal pain in the ED, and his abdomen was soft on exam. Medicine was consult to to admit to medically manage the patient during his treatment for large bowel obstruction. Treatment options were discussed with the patient, his as well as his son. If surgery were to be required, they would consent to such a procedure. 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) Chronic kidney disease, stage III (moderate) (Chronic) Hypothyroidism (acquired) (Chronic 08/17/14) Hyperlipidemia (Chronic) Macular degeneration (Chronic) Glaucoma (Chronic) Recurrent vomiting (Acute) PVD (peripheral vascular disease) (Chronic) History of Sepsis Paroxysmal atrial fibrillation (Chronic) Pancreatic mass (Chronic), stable on imaging Pancreatitis, resolved Bradycardia (Chronic) Syncope (Acute) Orthostasis (Chronic) Constipation (Chronic) Enlarged prostate (Chronic) Scalp psoriasis (Chronic) Actinic keratosis (Chronic) Bilateral renal cysts (Chronic) Osteoporosis (Chronic) Osteoarthritis (Chronic) Depressive disorder (Chronic) Anxiety disorder (Chronic) Surgical history: History of eye surgery (Resolved) History of ERCP (Resolved) History of colonoscopy (Resolved) History of cholecystectomy (Resolved) History of spinal surgery (Resolved) History of cataract surgery (Resolved) H/O heart artery stent (Resolved), 2008 Abnormal findings on esophagogastroduodenoscopy (EGD) (Chronic) History of pacemaker (Chronic 02/06/17) Pertinent family history: Patient's mother had cerebrovascular accident, his father had a myocardial infarction. Social history: Non smoker, no alcohol use. Medical - H&P: Meds Home Medications Medication Instructions Recorded Confirmed Type calcium carbonate 600 mg calcium 600 mg PO QDAY tab 12/16/14 06/27/17 History (1,500 mg) tablet cholecalciferol (vitamin D3) 1,000 1,000 unit PO QDAY cap 12/16/14 06/27/17 History unit capsule fluoxetine 40 mg capsule 80 mg PO QAM cap 12/16/14 06/27/17 History multivitamin tablet 1 tab PO QDAY tab 12/16/14 06/27/17 History pravastatin 10 mg tablet 10 mg PO QHS tab 12/16/14 06/27/17 History trazodone 50 mg tablet 100 mg PO QHS tab 12/16/14 06/27/17 History clobetasol 0.05 % scalp solution 1 applic TOPICAL BID PRN #50 ml 08/15/15 Rx latanoprost 0.005 % eye drops 1 drp OPHTHALMIC QHS ml 01/25/16 06/27/17 History levothyroxine 50 mcg tablet 50 mcg PO QDAY #90 tab 09/02/16 06/27/17 Rx finasteride 5 mg tablet 5 mg PO QDAY #30 tab 12/11/16 06/27/17 Rx Omeprazole [Prilosec] 20 mg PO ACB cap 03/23/17 06/27/17 Rx aspirin 325 mg tablet 325 mg PO QDAY 04/24/17 06/27/17 History midodrine 5 mg tablet 5 mg PO TID 04/24/17 06/27/17 History Allergies Allergy/AdvReac Type Severity Reaction Status Date / Time Sulfa (Sulfonamide Allergy Intermediate Rash Verified 06/24/17 09:17 Antibiotics) [SULFA (SULFONAMIDE ANTIBIOTICS)] Medical - H&P: Exam - Constitutional Vitals: Temp Pulse Resp BP Pulse Ox 96.5 F L 66 20 159/84 85 L 06/26/17 23:22 06/27/17 03:16 06/26/17 23:22 06/27/17 03:16 06/27/17 03:16 General appearance: average body habitus, cooperative, mild distress - Head Head exam: Present: atraumatic, normal inspection - Eye Eye exam: Present: normal appearance, PERRL. Absent: conjunctival injection, scleral icterus - ENT ENT exam: Present: mucous membranes dry, normal oropharynx - Neck Neck exam: Present: full ROM. Absent: lymphadenopathy, meningismus, thyromegaly - Respiratory Respiratory exam: Present: CTAB. Absent: accessory muscle use, rales, rhonchi, wheezes - Cardiovascular Cardiovascular exam: Present: normal rate and rhythm. Absent: gallop, rubs, systolic murmur - Expanded Cardiovascular Exam Peripheral pulses: 2+: carotid (L), carotid (R) - GI/Abdominal GI/Abdominal exam: Present: soft, distended (mild), hypoactive bowel sounds, tenderness (very mild with deep palpation (s/p Dilaudid)). Absent: rigid - Rectal Rectal exam: Present: deferred (per surgery) - Extremities Exam Extremities exam: Present: full ROM. Absent: calf tenderness, joint swelling, pedal edema - Skin Skin exam: Present: normal color, warm. Absent: diaphoretic, petechiae Medical - H&P: Reslt - Labs CBC & Chem 7: 06/27/17 04:10 06/27/17 04:10 Labs: Short CBC 06/26/17 Range/Units 23:50 WBC 15.3 H (4.5-11.0) K/mcL Hgb 13.7 (13.5-16.5) g/dL Hct 40.8 L (41.0-55.0) % Plt Count 275 (140-440) K/mcL BMP 06/26/17 23:50 Sodium 135 Potassium 3.9 Chloride 94 L Carbon Dioxide 25 BUN 21 Creatinine 1.4 H Glucose 209 H Calcium 9.5 Liver Function 06/26/17 Range/Units 23:50 Total Bilirubin 0.4 (0.0-1.0) mg/dL AST 17 (0-37) U/l ALT 17 (0-40) U/l Alkaline Phosphatase 62 (39-117) U/L Albumin 4.9 (3.2-5.2) gm/dL Repeat lactate 1.8 - EKG Data -: EKG Reviewed by Myself (A-paced at 62, no ST changes) - Impressions CXR-Clear, pacer in place Abd XR-Air fluid levels Abd CT-dilated large bowel from cecum to splenic flexure. No definitive volvulus; surgery discussed w/ radiology at time of evaluation. Images reviewed. Medical - H&P: A/P (1) Large bowel obstruction Current visit: Yes Status: Acute (2) Mild cognitive impairment with memory loss Current visit: Yes Status: Chronic (3) Bradycardia Current visit: Yes Status: Chronic (4) Enlarged prostate Current visit: Yes Status: Chronic (5) Hypothyroidism (acquired) Current visit: Yes Status: Chronic (6) Chronic kidney disease, stage III (moderate) Current visit: Yes Status: Chronic (7) CAD (coronary artery disease) Problem details: stents by Dr. العلي Current visit: Yes Status: Chronic - Narrative A/P Narrative: 86-year-old male with multiple chronic medical problems, presenting with acute onset of nausea vomiting abdominal pain. Found to have evidence of large bowel obstruction and question of possible internal hernia or volvulus. Large bowel obstruction. The time of our evaluation, patient appears comfortable, this is approximately 3-4 hours after dose of Dilaudid. After evaluation and discussion of radiology findings with overnight radiologist, preliminarily will treat expectantly with fluids, bowel rest, nasogastric decompression and serial evaluation. Lactate was high normal, decreased 1.8 on recheck. Plan: 1. Inpatient admission, surgical consultation (already seen) 2. Bowel rest 3. Serial exams, trend labs 4. May need GI evaluation for endoscopic evaluation 5. Hold pain medications for now, to allow examination without analgesia. Chronic kidney disease. Creatinine stable 1.4. Plan: Renal dose medications. Coronary artery disease. Quiescent. Most recent cardiac evaluation at [facility] for rhythm issues. No real evidence of anginal symptoms. Plan: This point no further risk stratification prior to any possible intervention. BPH with lower urinary tract symptoms. On finasteride as an outpatient. Plan: Aviles catheter for careful monitoring of intake and output. Mild cognitive impairment with memory issues. Per family, this is worsened after his bout of pneumonia in February. Currently stable. However at risk for delirium and acute hospitalization. Plan: Supportive care, minimize benzodiazepines. 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 Patient has a mixed paste and 80 beats on monitoring. Plan: Telemetry. Hypotension with orthostatic symptoms. On admitted green as an outpatient. Maintaining adequate blood pressure without intervention currently. Plan: Hold midodrine. Hypothyroid. On oral replacement. Plan: Change to IV replacement at 50% of the oral dose. Prophylaxis: IV famotidine, subcutaneous heparin. CODE STATUS: Discussed with the patient as well as his and son. His CODE STATUS is DO NOT RESUSCITATE.
[2017-06-27] MEDS ORDERED: LACTATED RINGERS 1,000 ML IV ONE (04:16)
[2017-06-27 04:51] LABS: Basophils # (Auto) 0 K/mcL (0.0-0.3); Basophils % (Auto) 0 % (0.0-2.0); Eosinophils # (Auto) 0.1 K/mcL (0.0-0.7); Eosinophils % (Auto) 0.6 % (0.0-7.0); Granulocytes % (Auto) 90.8 % (38.0-78.0); Lymphocytes # (Auto) 0.7 K/mcL (1.5-4.8); Lymphocytes % (Auto) 4.4 % (15.5-49.0); Mean Cell Volume 88.4 fL (80.0-100.0); Mean Corpuscular HGB Conc 33.3 g/dL (31.0-36.0); Mean Corpuscular Hemoglobin 29.4 pg (26.0-34.0); Monocytes # (Auto) 0.7 K/mcL (0.1-0.9); Monocytes % (Auto) 4.2 % (1.0-12.0); Platelet Count 252 K/mcL (140-440); RBC 4.51 M/mcL (4.50-5.90); Red Cell Distribution Width 13.8 % (11.5-14.5)
[2017-06-27] MEDS ORDERED: POLYVINYL ALCOHOL OPHTH DROPS 15ML BOTTLE OU PRN ×2 (05:09→17:18)
[2017-06-27] MEDS ORDERED: ONDANSETRON 4 MG/2 ML VIAL IV PRN ×3 (05:09→17:18)
[2017-06-27 05:10] LABS: ALT/SGPT 15 U/l (0-40); Albumin 4.6 gm/dL (3.2-5.2); Albumin/Globulin Ratio 1.7 (1.0-2.3); Alkaline Phosphatase 58 U/L (39-117); Blood Urea Nitrogen 24 mg/dl (8-23)
[2017-06-27 05:33] LABS: Appearance,Urine CLEAR; Bacteria,Urine 0 /hpf (0); Bilirubin,Urine NEG (NEG); Color,Urine AMBER; Glucose,Urine (UA) NEGATIVE (NEG); Leukocyte Esterase,Urine NEG /uL (NEG); Mucus,Urine MOD /hpf (0); Nitrate,Urine NEG (NEG); Protein,Urine NEG (NEG); Specific Gravity,Urine 1.021 (1.000-1.035); Urine Blood NEG mg/dL (<0.03); Urine Hyaline Cast 29 /lpf (0-2); Urine RBC 3 /hpf (0-1); Urine Squamous Epithelial Cell < 1 /hpf (0-4); Urine WBC < 1 /hpf (0-4)
[2017-06-27] MEDS: LACTATED RINGERS 1,000 ML IV SCH ×3 (05:59→18:08)
--- NOTE | 2017-06-27 07:19 | Consultation ---
DATE OF CONSULTATION: 06/27/2017 CHIEF COMPLAINT: The patient is seen in consultation at the request of __ for large bowel obstruction. HISTORY OF PRESENT ILLNESS: Mr. Fuentes is an 86-year-old man who presented to the Emergency Department this evening because of abdominal pain. History is taken from the patient's , as the patient is not a good historian due to baseline dementia. The patient only was reporting that he had pain this evening and came to the Emergency Department; though, at the time of evaluation, he reports no pain. History given by the patient's was that around 10:00 last evening he reported pain in his abdomen and had a few episodes of vomiting of small amounts of brown oconnor colored clear liquid that then turned clear yellow. She reports no emesis of green bilious output. The patient reported that his stomach was hurting. She thought this might have been related to a new medication that he had recently been started on, but after an hour, when his pain did not resolve, they presented to the Emergency Department for further evaluation. In the Emergency Department, the patient did receive some pain medication which helped his pain resolve and currently he is reporting no pain. Last bowel movement was the morning prior to admission to the ER. Denies any prior episodes of pain, nausea or vomiting. The patient's reports that he had a colonoscopy within the past year, although I do not have reports of this available and cannot find it on the system. He did have an EGD earlier this year here at [facility]. PAST MEDICAL HISTORY: Coronary artery disease with stenting of 2 vessels in 2008. He is not on any chronic anticoagulation therapy. He had a pacemaker placed in October for bradycardia and hypotension. Hyperlipidemia, hypothyroidism, history of constipation, history of chronic kidney disease, glaucoma, cholecystectomy, recent episode of pneumonia requiring ventilatory support earlier this year. ALLERGIES: SULFA. MEDICATIONS: Aspirin. Levothyroxine. Finasteride. Clobetasol scalp solution. Latanoprost eye drops. Multivitamin. Fluoxetine. Vitamin D3. Calcium carbonate. Midodrine. Omeprazole. FAMILY HISTORY: Past medical record shows family history significant for coronary artery disease in his father with CHF and mother with a cerebrovascular accident. SOCIAL HISTORY: The patient is a past smoker. He quit in the 1950s. No history of heavy alcohol use. The patient lives with his at the local assisted living at [place]. REVIEW OF SYSTEMS: Review of systems was attempted to be obtained, but the patient states that his knows what has happened to him. When specifically asked if he is having any abdominal pain, he reports no. PHYSICAL EXAMINATION: VITAL SIGNS: Temperature 96.5, pulse 57 to 67, respirations 20, blood pressure 124/71, O2 saturations 95 to 97 percent on room air. GENERAL APPEARANCE: Mr. Fuentes is an 86-year-old man sitting in a stretcher. An NG tube has just been placed with scant yellow bile output. He does not appear distressed. He appears tired, which may be an effect of not sleeping throughout the evening. The patient is alert and conversant though he admits to needing his to tell most of what is happening. The patient does not appear distressed. HEENT: Head is normocephalic. Sclerae are white. Mucous membranes moist. CHEST: Breath sounds are clear bilaterally. No rales or wheezes heard. CARDIOVASCULAR: Regular rhythm and rate. ABDOMEN: Nondistended and soft on palpation. Palpation in all 4 quadrants reveals no tenderness even with deep palpation. When asked to point to where his abdomen hurts, the patient states that he is not hurting right now and presses on his abdomen to check and again repeats he is not hurting. No hernias palpated. No masses palpated. RECTAL: Visual inspection of the anal region reveals no lesions or excoriation. Digital rectal exam was performed revealing no masses within the distal rectum, but stool present. No gross blood noted, but stool appears weakly guaiac positive. EXTREMITIES: No edema. Distal pulses palpable. LABORATORIES AND STUDIES: CBC on admission shows an elevated white blood cell count of 15.3, hemoglobin is 13.7, hematocrit 40.8, platelets 275. There is a left shift of 82 percent granulocytes. Venous lactic acid is normal at 2.1, serum chemistry shows sodium of 135, potassium 3.9, chloride 94, CO2 25, BUN 21, creatinine 1.4, glucose 209, calcium 9.5, total bilirubin 0.4, AST 17, ALT 17, alkaline phosphatase 62. C-reactive protein is normal at less than 0.3, albumin is 4.9, globulin 2.7. Lipase is mildly elevated at 88. CT scan of the abdomen and pelvis was performed while in the emergency department. I have reviewed the images of this scan as well as the report. I have also spoken with the radiologist directly who read this scan. Impression from the radiologist reading was moderate to severe abnormal distention of a contiguous segment of colon extending from the cecum to the splenic flexure. The colon distal to this point is relatively decompressed. Pattern suggests obstruction in the region of the splenic flexure; however, no obvious masses seen. There is a spiral configuration of mesenteric branch vessels in the right abdomen raises possibility of torsion. Although tortuous, the sigmoid colon and the cecum appear normally positioned making the possibility of volvulus less likely. Increased dilatation of the distal esophagus with increased size of a small hiatal hernia. New distal paraesophageal lymphadenopathy. No obvious obstructing lesion noted; however, nonemergent endoscopic visualization should be considered to exclude mass in this region. I spoke with the radiologist directly regarding findings on CT scan specifically addressing his note of a spiral configuration of mesenteric branch vessels. He states that he has low suspicion for volvulus due to normal location of the sigmoid colon and, although the cecum appears distended, there is no proximal small bowel distention which would be expected in a cecal volvulus. Additionally, the distention of the colon is noted to be up to the splenic flexure which would also not be an expected finding if this were related to volvulus. He did recommend follow up imaging with contrast if this could be done to allow better delineation of the anatomy. ASSESSMENT AND PLAN: Abdominal pain with CT findings suggestive of a large bowel obstruction at the splenic flexure. On examination, the patient appears to have had resolution of his pain. He has no distention and, despite repeated examination during this ER workup, he has had no further complaints of pain. Recommend continued NG tube decompression and bowel rest with repeat labs as it will now have been at least 4 hours since his admit labs were drawn to be sure that there is no sign of worsening of his condition, although clinically he appears well. If there is obstruction of the colon, it seems that this is partial given that the patient has otherwise been passing stool and does have stool in the rectal vault despite relative decompression of the distal bowel. It may be possible to consider limited colonoscopy if a full bowel prep cannot be done in an attempt to evaluate the large bowel to the area of at least where there appears to be obstruction. 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 We discussed the possibility of needing to proceed to surgery for treatment depending on findings and the patient's progression. They are in agreement with this. The patient, however, is otherwise a DNR status. Dr. King from the hospitalist service has been consulted and he will admit the patient to his service with surgery consultation. RC:james Job ID: [id number] Doc ID: [id number] Airam Whitney MD
[2017-06-27] MEDS ORDERED: LEVOTHYROXINE 100 MCG VIAL IV SCH (07:30)
--- NOTE | 2017-06-27 07:52 | General Surgery Progress Note ---
Surgical - Auxillary Note - Subjective Patient Information: Note initiated : 06/27/17 at 7:49 am Service Date, if different from initiated Date: [] Patient: Gustavo Fuentes 86 y/o M admitted on 06/27/17 for Abdominal pain. Chief Complaint: [] Patient sleeping in bed. Nursing reports sleeping since getting to his room. No complaints. Patient easily awakened at this visit. Denies abdominal pain. NGT with scant yellow clear bile in tube. Abdomen remains flat and non tender to palpation in all quadrants. Patient repositioned himself in bed easily after trying to get up and no guarding of movements. A/P: Abdominal pain and findings on imaging suggestive of large bowel obstruction. Continue bowel rest and NGT decompression. Consider GI consult for possible endoscopy if even only for distal part if can do prep.
--- NOTE | 2017-06-27 08:23 | XRay Report ---
HISTORY: Reason for Exam:abdominal pain - severe, diffuse FINDINGS: The lungs are clear. The heart size is normal. There is a dual-chamber pacemaker with the power pack in the left pectoral region. No congestive heart failure or pleural effusion are present. The patient had prior cervical fusion at C6-7 using a metal plate. Tiny granuloma is seen laterally at the right lung base. There is a moderate size calcified lymph node in the mediastinum overlying the origin of the right mainstem bronchus. No free intra-abdominal air is present. There are old healed fractures anterolaterally in the left fifth and sixth rib. IMPRESSION: Old granulomatous disease and no acute abnormality Interpreted and Authenticated by: Azeem Mix 06/27/17
--- NOTE | 2017-06-27 08:56 | Cat Scan Report ---
ORIGINAL REPORT CLINICAL INFORMATION: Reason for Exam:vomiting, abnormal xray (AF levels) COMPARISON: None. TECHNIQUE: The abdomen was imaged without oral or IV contrast, scanning from the diaphragm to the symphysis pubis. Sagittal and coronal reformats were created. FINDINGS: Evaluation without oral or IV contrast is limited. There is a calcified granuloma laterally in the right lung base. A moderate size hiatus hernia is present. A pacemaker is located in the right side of the heart. No pleural effusion is present. The liver is normal in size. There is air within the left lobe intrahepatic bile ducts. This is probably related to the prior cholecystectomy and bile duct surgery. There is lobulation the liver capsule adjacent to the diaphragm. This appears to be a developmental variant and is less likely due to cirrhosis. The spleen is normal in size and homogeneous. The milo hepatis is obscured by edema in this region which extends into the epigastrium and omentum. In the head neck and proximal body of the pancreas there are ill-defined low-attenuation cystic-like lesions which measure up to 2 cm. The mid body and tail are relatively atrophic. There are no calcifications in the pancreas there is no inflammation surrounding the pancreas. The adrenals are normal. There are couple cysts in the kidneys. The largest is located posteriorly in the left kidney measures 3.5 cm. There is no kidney stone or hydronephrosis. Stomach is mostly decompressed. There are multiple fluid-filled loops of small bowel. There is fecalization of the ileum. The mid colon is abnormally dilated and contains air-fluid levels. It Measures up to 10 cm in greatest dimension. There is a very elongated sigmoid colon which extends up to the epigastrium. There appears to be a large internal hernia resulting in a large bowel obstruction. There is swirling of the mesenteric vessels slightly superiorly and to the right side of the umbilicus. There appears to be a transition point in the colon just above the level of the umbilicus. The descending colon is decompressed. There is edema in the mesentery throughout the mid and upper abdomen. No ascites is seen in the pelvis. The rectum is distended with large amount of fecal material. No free intraperitoneal air is present. There is no evidence of an abscess. IMPRESSION: Large bowel obstruction in the mid abdomen. This is probably an internal hernia is less likely a volvulus ADDENDUM #1 Cystic lesions in the head and neck of the pancreas which may be due to chronic pancreatitis or cystic neoplasm. Interpreted and Authenticated by: Azeem Mix 06/27/17
--- NOTE | 2017-06-27 08:58 | XRay Report ---
History: Abdominal pain and distention The colon is abnormally dilated in the mid and upper abdomen, measuring up to 13.3 cm. The descending colon is decompressed. There is a large amount stool in the distal colon. A few air-fluid levels are present and small intestine. There is no free intra-abdominal air. Impression: Large bowel obstruction in the general location of the mid colon. Interpreted and Authenticated by: Azeem Mix 06/27/17
--- NOTE | 2017-06-27 08:59 | XRay Report ---
HISTORY: Reason for Exam:NG tube verification. FINDINGS: Nasogastric tube has been inserted into the antrum of the stomach. The stomach is decompressed. There are still multiple loops of dilated colon in the mid abdomen and left upper quadrant which contain air-fluid levels. Small bowel contains a few air-fluid levels but is nondilated. There are clips in the gallbladder fossa. The dilatation large intestine has not changed from the preceding exam. IMPRESSION: Persistent large bowel obstruction Interpreted and Authenticated by: Azeem Mix 06/27/17
[2017-06-27] MEDS ORDERED: FAMOTIDINE/PF 20 MG/2 ML VIAL IV SCH (09:00)
[2017-06-27] MEDS ORDERED: HEPARIN 5,000 UNIT/ML VIAL SQ SCH (09:00)
[2017-06-27] MEDS ORDERED: PIPERACILLIN SODIUM/TAZOBACTAM 3.375 GM in DEXTROSE 5% IN WATER 50 ML IV ONE (11:15)
--- NOTE | 2017-06-27 11:20 | General Surgery Progress Note ---
Surgical - Auxillary Note - Subjective Patient Information: Note initiated : 06/27/17 at 11:15 am Service Date, if different from initiated Date: [] Patient: Gustavo Fuentes 86 y/o M admitted on 06/27/17 for Abdominal pain. Chief Complaint: Patient woke up after sleeping reporting abdominal pain. On exam abdomen is soft but reports tenderness on both sides of abdomen and in upper abdomen. CT scan re-reviewed with our day time radiologist who is here in house. Findings not classic for volvulus but has concern for possible this or internal hernia. Discussed findings with patient and patient's son (by phone) Given concern for volvulus or internal hernia recommend exploratory laparotomy with possible bowel resection, possible ostomy creation. Risks of surgery reviewed.
[2017-06-27] MEDS ORDERED: DEXAMETHASONE 10 MG/ML VIAL IV ONE (12:05)
[2017-06-27] MEDS ORDERED: ONDANSETRON 4 MG/2 ML VIAL IV ONE (12:05)
[2017-06-27] MEDS ORDERED: NEOSTIGMINE 1 MG/ML VIAL IV ONE (12:05)
[2017-06-27] MEDS ORDERED: GLYCOPYRROLATE 0.2 MG/ML VIAL IV ONE (12:05)
[2017-06-27] MEDS ORDERED: fentaNYL 100 MCG/2 ML VIAL IV ONE (12:05)
[2017-06-27] MEDS ORDERED: KETAMINE 100 MG/ML ML IV ONE (12:05)
[2017-06-27] MEDS ORDERED: ROCURONIUM 10 MG/ML ML IV ONE (12:05)
[2017-06-27] MEDS ORDERED: LIDOCAINE HCL/PF 100 MG/5 ML SYRINGE IV ONE (12:05)
[2017-06-27] MEDS ORDERED: HETASTARCH 6% 500 ML BAG IV ONE (12:05)
[2017-06-27] MEDS ORDERED: EPINEPHrine 1 MG/ML AMPUL IV ONE (12:05)
[2017-06-27] MEDS ORDERED: PHENYLEPHRINE 10 MG/ML VIAL IV ONE (12:05)
[2017-06-27] MEDS ORDERED: HYDROmorphone 2 MG/ML SYRINGE IV ONE (12:05)
[2017-06-27] MEDS ORDERED: PROPOFOL 200 MG/20 ML VIAL IV ONE (12:05)
[2017-06-27] MEDS ORDERED: SUCCINYLCHOLINE 20 MG/ML ML IV ONE (12:05)
[2017-06-27] MEDS ORDERED: MIDAZOLAM 2 MG/2 ML VIAL IV ONE (12:05)
--- NOTE | 2017-06-27 14:03 | Procedure Note ---
Procedures - Central Line Placement Right IJ Consent obtained: written consent Time out performed: Yes Patient placed on monitor/pulse ox: Yes prep: mask, sterile gown, sterile gloves, cap Central line prep: 2% Chlorhexidine scrub, large sterile drapes applied, proper hand hygiene Central line lumen inserted: quad Post procedure: sutured in place, good blood return, all ports aspirated, flushed, capped, sterile dressing applied Post procedure x-ray: other (Right IJ placed in OR after induction of anesthesia. No complications noted. Post-op chest XRAY ordered.) Patient tolerated procedure: well Complications: none
[2017-06-27] MEDS ORDERED: MEPERIDINE 25 MG/ML SYRINGE IV PRN (14:58)
[2017-06-27] MEDS ORDERED: fentaNYL 100 MCG/2 ML VIAL IV PRN (14:58)
[2017-06-27] MEDS ORDERED: NALOXONE HCL 0.4 MG/ML VIAL IV PRN (14:58)
[2017-06-27] MEDS ORDERED: LACTATED RINGERS 250 ML IV PRN (14:58)
[2017-06-27] MEDS ORDERED: ACETAMINOPHEN 1,000 MG/100 ML BOTTLE IV ONE (14:58)
[2017-06-27] MEDS ORDERED: IPRATROPIUM/ALBUTEROL 3 ML AMPUL.NEB NEB PRN (14:58)
[2017-06-27] MEDS ORDERED: PROMETHAZINE 25 MG/ML VIAL IV PRN (14:58)
[2017-06-27] MEDS ORDERED: 0.9 % SODIUM CHLORIDE 10 ML SYRINGE IV PRN (15:00)
[2017-06-27] MEDS ORDERED: BUPIVACAINE 0.25% 50 ML VIAL IJ ONE (15:00)
[2017-06-27] MEDS ORDERED: LACTATED RINGERS 1,000 ML IV SCH (15:00)
--- NOTE | 2017-06-27 15:56 | XRay Report ---
HISTORY: Reason for Exam:Central Line Placement FINDINGS: A right internal jugular catheter is been inserted. The tip is in the region of the superior vena cava at the level of the azygos arch. No pneumothorax is present and there is no widening of the mediastinum. A band of discoid atelectasis is developed above the right diaphragm and there is a subtle hazy infiltrate developing in the left lower lobe, above the diaphragm. The heart appears larger on today's exam than on 06/26/17. The pulmonary vessels are normal caliber. There is nasogastric tube positioned with the tip in the cardia of the stomach. Pacemaker remains well-positioned. IMPRESSION: No complication following insertion of an internal jugular catheter Mild bibasilar infiltrates which may be a combination of atelectasis and pneumonia Increasing heart size Interpreted and Authenticated by: Azeem Mix 06/27/17
[2017-06-27] MEDS: FLUMAZENIL 0.1 MG/ML ML IV PRN ×2 (15:59→16:05)
--- NOTE | 2017-06-27 16:04 | Brief Operative Note ---
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 Surgeon: Airam Whitney Estimated blood loss (cc): 75 Specimens Removed/Pathology: other (cecum and attached appendix) Condition: stable Disposition: PACU
[2017-06-27] MEDS: PIPERACILLIN SODIUM/TAZOBACTAM 3.375 GM in DEXTROSE 5% IN WATER 50 ML IV SCH (19:23)
[2017-06-27] MEDS ORDERED: LATANOPROST OPHTH DROPS 2.5ML BOTTLE OU SCH (21:00)
[2017-06-27] MEDS ORDERED: 0.9 % SODIUM CHLORIDE 10 ML SYRINGE IV SCH (21:00)
[2017-06-27] MEDS: ACETAMINOPHEN 650 MG/65 ML BOTTLE IV PRN (21:30)
[2017-06-27] MEDS: HEPARIN 5,000 UNIT/ML VIAL SQ SCH (22:44)
[2017-06-27] MEDS: FAMOTIDINE/PF 20 MG/2 ML VIAL IV SCH (22:44)
[2017-06-27] MEDS: LATANOPROST OPHTH DROPS 2.5ML BOTTLE OU SCH (22:45)
[2017-06-28] MEDS: LACTATED RINGERS 1,000 ML IV SCH ×3 (00:49→10:23)
[2017-06-28] MEDS: PIPERACILLIN SODIUM/TAZOBACTAM 3.375 GM in DEXTROSE 5% IN WATER 50 ML IV SCH ×4 (02:54→21:55)
[2017-06-28] MEDS: ACETAMINOPHEN 650 MG/65 ML BOTTLE IV PRN ×3 (04:41→21:35)
[2017-06-28 05:34] LABS: Mean Corpuscular HGB Conc 33.6 g/dL (31.0-36.0); Mean Corpuscular Hemoglobin 29.6 pg (26.0-34.0); Platelet Count 184 K/mcL (140-440); RBC 3.56 M/mcL (4.50-5.90); Red Cell Distribution Width 13.7 % (11.5-14.5)
[2017-06-28 05:38] LABS: ALT/SGPT 12 U/l (0-40); Albumin 3.1 gm/dL (3.2-5.2); Albumin/Globulin Ratio 1.5 (1.0-2.3); Alkaline Phosphatase 33 U/L (39-117); Bilirubin,Direct < 0.2 mg/dL (0.0-0.3); Blood Urea Nitrogen 25 mg/dl (8-23); Gamma Glutamyl Transpeptidase 12 U/L (8-61); Magnesium 1.6 mg/dL (1.6-2.5); Uric Acid 4.6 mg/dL (2.5-8.0)
[2017-06-28 06:12] LABS: Band Neutrophils % 17 % (0-10); Eosinophils % (Manual) 1 % (0-7); Lymphocytes % 9 % (15-49); Monocytes % (Manual) 9 % (1-12); Platelet Estimate NORMAL (NORMAL); RBC Morphology NORMAL (NORMAL); Segmented Neutrophils % 58 % (38-78)
--- NOTE | 2017-06-28 07:17 | General Surgery Progress Note ---
Surgical - Auxillary Note - Subjective Patient Information: Note initiated : 06/28/17 at 7:11 am Service Date, if different from initiated Date: [] Patient: Gustavo Fuentes 86 y/o M admitted on 06/27/17 for Abdominal pain. Chief Complaint: [] Patient was sitting up in chair this morning. Very talkative. Alert and interactive. Confused about which hospital he is in but easily redirected. Knows that he had an operation Reports lower abdominal pain. Says his current pain is different than when he came into the hospital Vital Signs Temp Pulse Resp BP Pulse Ox 100 F H 70 18 114/96 94 06/28/17 04:00 06/28/17 05:05 06/28/17 06:11 06/28/17 06:11 06/28/17 05:05 Period Temp Pulse Resp BP Sys/Patel Pulse Ox Last 24 Hr 98.1 F-100 F 59-87 8-30 98-162/45-96 92-100 Intake and Output 06/27/17 06/28/17 06/28/17 21:59 05:59 13:59 Intake Total 2600 / 2600 925 / 925 Output Total 650 / 650 302 / 302 30 / 30 Balance 1950 / 1950 623 / 623 -30 / -30 Weight 162 lb 11.2 oz PE: No distress. Chest: clear bilaterally CV: regular rate and rhythm. ABD: flat, soft, incisional tenderness. Serosanguineous drainage from lower part of incision. No palpable hernia along this area. bowel tones hypoactive. EXT: no edema. CBC and Chem 7 06/28/17 03:45 06/28/17 03:45 A/P: s/p Cecal resection and adhesiolyis with relief of internal hernia clinically stable post op. Febrile. continue to work on deep breathing. PT consult for stregthening and mobility.
[2017-06-28] MEDS: LEVOTHYROXINE 100 MCG VIAL IV SCH (08:15)
[2017-06-28] MEDS: HEPARIN 5,000 UNIT/ML VIAL SQ SCH ×2 (09:57→21:20)
[2017-06-28] MEDS: FAMOTIDINE/PF 20 MG/2 ML VIAL IV SCH ×2 (10:07→21:20)
[2017-06-28 11:15] LABS: Basophils # (Auto) 0 K/mcL (0.0-0.3); Basophils % (Auto) 0.3 % (0.0-2.0); Eosinophils # (Auto) 0 K/mcL (0.0-0.7); Eosinophils % (Auto) 0 % (0.0-7.0); Granulocytes % (Auto) 82.2 % (38.0-78.0); Lymphocytes % (Auto) 11.4 % (15.5-49.0); Mean Corpuscular HGB Conc 34.2 g/dL (31.0-36.0); Mean Corpuscular Hemoglobin 29.8 pg (26.0-34.0); Monocytes # (Auto) 0.5 K/mcL (0.1-0.9); Monocytes % (Auto) 6.1 % (1.0-12.0); Platelet Count 171 K/mcL (140-440); RBC 3.36 M/mcL (4.50-5.90); Red Cell Distribution Width 13.8 % (11.5-14.5)
--- NOTE | 2017-06-28 11:37 | General Surgery Progress Note ---
Surgical - Auxillary Note - Subjective Patient Information: Note initiated : 06/28/17 at 11:30 am Service Date, if different from initiated Date: [] Patient: Gustavo Fuentes 86 y/o M admitted on 06/27/17 for Abdominal pain. Chief Complaint: Patient still with drainage from inferior aspect of wound. On exam drainage is more sanguineous than earlier this morning. Denies any increased abdominal pain. repeat CBC done shows Hgb stable. Wound opened at bedside in area of where blood was coming from. Done under sterile technique. 4 roly removed and clot seen within subcutaneous space. Bleeding from skin edge on right side noted from a small artery. This was controlled by placement of a figure 8 skin suture full thickness to include this area after instilling lidocaine 1% to the area. Wound watched after stitch placement and bleeding appeared to stop. Remainder of the wound closed with simple nylon sutures. Patient tolerated procedure well.
[2017-06-28] MEDS: DEXTROSE 5%-1/2NS W/10MEQ KCL 1,000 ML IV SCH ×2 (13:06→23:44)
[2017-06-28] MEDS ORDERED: LORazepam 2 MG/ML VIAL ONE (13:32)
[2017-06-28] MEDS: 0.9 % SODIUM CHLORIDE 10 ML SYRINGE IV SCH ×2 (13:36→21:21)
[2017-06-28] MEDS: LORazepam 2 MG/ML VIAL IV PRN ×3 (16:30→22:34)
--- NOTE | 2017-06-28 16:31 | Internal Med Progress Note ---
Medical - PN: Subj Patient information: Note initiated : 06/28/17 at 4:27 pm Service Date, if different from initiated Date: [] Patient: Gustavo Fuentes 86 y/o M admitted on 06/27/17 for Abdominal pain. Chief Complaint: f/u volvulus Interval history: June 27 Patient onset of abdominal pain about 10 PM last evening. He had emesis 6. Initially tannish emesis to a yellowish color, no bilious emesis, no hematemesis. He continued to have abdominal pain, he is brought to the ED for further evaluation. Patient is able to give limited history, denies any fevers or chills. Last bowel movement appears to have been morning, the morning prior to the onset of his symptoms. No recent change in bowel habits. After senior geologist admission, pain medication given at 1 AM in the ED wore off , patient was complaining of abdominal pain, more on the left side. Dr. Whitney re-reviewed CT scan of the abdomen with Dr. Mix in radiology, who is concerned this did indeed represent a volvulus or an internal hernia. Repeat lactate was normal, repeat CBC revealed persistent leukocytosis. Given the above, Dr. 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 Right hemicolectomy was performed. June 28 This morning the patient's awake, alert, thinks he is in a different hospital but is easily redirectable. Had some oozing of serosanguineous fluid from the inferior aspects of the surgical wound, a small bleeder was ligated by Dr. Whitney. Subsequently the patient became more agitated, pulled out his nasogastric tube, is more difficult to redirect. He has responded to low dose lorazepam. He was having some abdominal pain this morning, seems to be more associated with the surgical wound, different than pain at presentation yesterday. - Constitutional Vitals: Vital Signs Temp Pulse Resp BP Pulse Ox 99 F 70 20 110/58 96 06/28/17 14:34 06/28/17 05:05 06/28/17 14:34 06/28/17 11:44 06/28/17 14:34 Period Temp Pulse Resp BP Sys/Patel Pulse Ox Last 24 Hr 98.1 F-100 F 62-87 05-29 98-150/51-96 92-100 Intake and Output 06/28/17 06/28/17 06/28/17 05:59 13:59 21:59 Intake Total 925 / 925 1115 / 1115 Output Total 302 / 302 440 / 440 100 / 100 Balance 623 / 623 675 / 675 -100 / -100 Intake & Output: Intake & Output 06/28/17 06/28/17 06/28/17 05:59 13:59 21:59 Intake Total 925 / 925 1115 / 1115 Output Total 302 / 302 440 / 440 100 / 100 Balance 623 / 623 675 / 675 -100 / -100 Intake: IV 925 / 925 1115 / 1115 Lactated Ringers 1,000 ml @ 100 745 / 745 1000 / 1000 mls/hr IV .Q10H [facility] Rx#: [id number] Zosyn 3.375 gm In Dextrose 5% 50 / 50 50 / 50 in Water 50 ml @ 100 mls/hr IV Q8H [facility] Rx#:[id number] Output: Urine Catheter Amount 302 / 302 440 / 440 100 / 100 Exam: General: Elderly male in bed in no acute distress Chest: Clear, mildly diminished at bases Cardiovascular: Regular, no edema Abdomen: Flat, soft, some drainage from inferior area of surgical wound, dressings in place. Otherwise intact. Neuro: Alert, oriented to self, disoriented to place though easily reoriented initially. Knows he had had surgery. Medical - PN: Obj Da - Labs CBC & Chem 7: 06/28/17 10:51 06/28/17 03:45 Labs: Abnormal Lab Results 06/28/17 06/28/17 06/28/17 10:51 10:51 03:45 WBC RBC 3.36 L Hgb 10.0 L Hct 29.2 L Gran % 82.2 H Lymph % (Auto) 11.4 L Gran # Lymph # (Auto) 1.0 L Band Neutrophils % Lymphocytes % Reactive Lymphocytes PT 17.9 H INR 1.4 H Chloride BUN 25 H Creatinine Glucose 129 H Calcium 8.2 L Alkaline Phosphatase 33 L Total Protein 5.2 L Albumin 3.1 L Globulin 2.1 L Lipase Urine Ketones Urine Urobilinogen Urine RBC Hyaline Casts 06/28/17 06/27/17 06/27/17 03:45 04:50 04:10 WBC RBC 3.56 L Hgb 10.5 L Hct 31.4 L Gran % Lymph % (Auto) Gran # Lymph # (Auto) Band Neutrophils % 17 H Lymphocytes % 9 L Reactive Lymphocytes 6 H PT INR Chloride BUN 24 H Creatinine 1.4 H Glucose 170 H Calcium Alkaline Phosphatase Total Protein Albumin Globulin Lipase Urine Ketones 5/tr A Urine Urobilinogen 2.0 A Urine RBC 3 H Hyaline Casts 29 H 06/27/17 06/26/17 06/26/17 04:10 23:50 23:50 WBC 15.6 H 15.3 H RBC Hgb 13.3 L Hct 39.8 L 40.8 L Gran % 90.8 H 82.8 H Lymph % (Auto) 4.4 L 10.2 L Gran # 14.2 H 12.6 H Lymph # (Auto) 0.7 L Band Neutrophils % Lymphocytes % Reactive Lymphocytes PT INR Chloride 94 L BUN Creatinine 1.4 H Glucose 209 H Calcium Alkaline Phosphatase Total Protein Albumin Globulin Lipase 88 H Urine Ketones Urine Urobilinogen Urine RBC Hyaline Casts Meds: Medications Artificial Tears (Artificial Tears Ophth Drops) 1 gtt OU Q1HP PRN PRN Reason: Dry Eye(s) Famotidine (Pepcid) [address] [facility] Last Admin: 06/28/17 10:07 Dose: 20 mg Heparin Sodium (Porcine) (Heparin) 5,[address] [facility] Last Admin: 06/28/17 09:57 Dose: Not Given Piperacillin Sod/Tazobactam (Sod 3.375 gm/ Dextrose) 50 mls @ 100 mls/hr IV Q8H [facility] Last Admin: 06/28/17 15:23 Dose: 100 mls/hr Acetaminophen (Ofirmev) 650 mg in 65 mls @ 130 mls/hr IV Q6HP PRN PRN Reason: PAIN/FEVER > 101 Last Infusion: 06/28/17 13:36 Dose: Infused Potassium Chloride/Dextrose/Sod Cl (Dextrose 5%-1/2ns W/10meq Kcl) 1,000 mls @ 100 mls/hr IV .Q10H [facility] Last Admin: 06/28/17 13:06 Dose: 100 mls/hr Latanoprost (Xalatan Ophth Drops) 1 gtt OU QHS [facility] Last Admin: 06/27/17 22:45 Dose: 1 gtt Levothyroxine Sodium (Synthroid) [address] [facility] Last Admin: 06/28/17 08:15 Dose: 25 mcg Lorazepam (Ativan) 0.5 mg IV Q2HP PRN PRN Reason: Agitation Morphine Sulfate (Morphine) 0 mg IV Q4HP PRN PRN Reason: PAIN LEVEL > 5 Last Admin: 06/28/17 15:24 Dose: 0.5 mg Ondansetron HCl (Zofran) 4 mg IV Q4HP PRN PRN Reason: Nausea And Vomiting Sodium Chloride (Saline Flush) [address] 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 Status: Acute Current Visit: Yes (2) Mild cognitive impairment with memory loss Status: Chronic Current Visit: Yes (3) Bradycardia Status: Chronic Current Visit: Yes (4) Enlarged prostate Status: Chronic Current Visit: Yes (5) Hypothyroidism (acquired) Status: Chronic Current Visit: Yes (6) Chronic kidney disease, stage III (moderate) Status: Chronic Current Visit: Yes (7) CAD (coronary artery disease) Problem details: stents by Dr. العلي Status: Chronic Current Visit: Yes - Narrative A/P Narrative: 86-year-old male with multiple chronic medical problems, presenting with acute onset of nausea vomiting abdominal pain. Found to have large bowel obstruction due to internal hernia and syncopal volvulus. Large bowel obstruction/internal hernia/cecal volvulus. Postop day #1 status post exploratory laparotomy and right hemicolectomy. Plan: Continue NPO, bowel rest, pain control, supportive care. Low-grade fever. No apparent source. White count is normal. Lungs are clear. Urinalysis yesterday was negative. Culture of ascitic fluid obtained intraoperatively is without growth. Plan: Continue to monitor, culture if spikes and begin antibiotic coverage. Chronic kidney disease. Creatinine improved to 1.1 on Sat. Plan: Renal dose medications. Coronary artery disease. Quiescent. Most recent cardiac evaluation at been for rhythm issues. No real evidence of anginal symptoms. Plan: Monitor. BPH with lower urinary tract symptoms. On finasteride as an outpatient. Plan: Aviles catheter for careful monitoring of intake and output. Mild cognitive impairment with memory issues. At risk for delirium and acute hospitalization. Becoming more agitated Sat afternoon, harder to redirect. Plan: Supportive care, low dose lorazepan (has responded will in the past) but overall try to minimize benzodiazepines. 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 Patient has a mixed paced and qagan tayagungin beats on monitoring. Plan: Telemetry. Hypotension with orthostatic symptoms. On midodrine as an outpatient. Maintaining adequate blood pressure without intervention currently. Plan: Hold midodrine. Hypothyroid. On oral replacement. Plan: Change to IV replacement at 50% of the oral dose. Prophylaxis: IV famotidine, subcutaneous heparin. Medical - PN: Qual - VTE Deep Vein Thrombosis/Pulmonary Embolism Present on Admission: Yes
[2017-06-28] MEDS: LATANOPROST OPHTH DROPS 2.5ML BOTTLE OU SCH (21:20)
[2017-06-29] MEDS: PIPERACILLIN SODIUM/TAZOBACTAM 3.375 GM in DEXTROSE 5% IN WATER 50 ML IV SCH (05:25)
[2017-06-29] MEDS: ACETAMINOPHEN 650 MG/65 ML BOTTLE IV PRN ×2 (05:26→14:51)
[2017-06-29 06:09] LABS: Mean Cell Volume 88.6 fL (80.0-100.0); Mean Corpuscular HGB Conc 33.5 g/dL (31.0-36.0); Mean Corpuscular Hemoglobin 29.7 pg (26.0-34.0); Platelet Count 152 K/mcL (140-440); RBC 3.37 M/mcL (4.50-5.90); Red Cell Distribution Width 14.3 % (11.5-14.5)
[2017-06-29 06:37] LABS: ALT/SGPT 11 U/l (0-40); Albumin/Globulin Ratio 1.3 (1.0-2.3); Alkaline Phosphatase 52 U/L (39-117); Bilirubin,Direct < 0.2 mg/dL (0.0-0.3); Blood Urea Nitrogen 21 mg/dl (8-23); Gamma Glutamyl Transpeptidase 11 U/L (8-61); Magnesium 1.7 mg/dL (1.6-2.5); Uric Acid 3.6 mg/dL (2.5-8.0)
[2017-06-29 06:45] LABS: Band Neutrophils % 6 % (0-10); Eosinophils % (Manual) 1 % (0-7); Lymphocytes % 13 % (15-49); Monocytes % (Manual) 1 % (1-12); Platelet Estimate NORMAL (NORMAL); RBC Morphology NORMAL (NORMAL); Segmented Neutrophils % 79 % (38-78)
[2017-06-29] MEDS ORDERED: METOPROLOL TARTRATE 5 MG/5 ML VIAL IV ONE ×2 (07:48→08:03)
--- NOTE | 2017-06-29 08:05 | General Surgery Progress Note ---
Surgical - Auxillary Note - Subjective Patient Information: Note initiated : 06/29/17 at 7:58 am Service Date, if different from initiated Date: [] Patient: Gustavo Fuentes 86 y/o M admitted on 06/27/17 for Abdominal pain. Chief Complaint: [] Patient restless with some agitation throughout yesterday and evening. Nursing reports this is how he was at prior hospitalizations. Started on Ativan intermittently prn which has helped. He pulled out his NGT yesterday. Remains febrile. This morning awakens to verbal stimuli. Denies pain. Says he is sleepy. CV rhythm sinus with normal rate overnight but just changed to afib with rapid rate. Vital Signs Temp Pulse Resp BP Pulse Ox 100.5 F H 73 20 127/63 94 06/29/17 07:00 06/29/17 07:00 06/29/17 07:00 06/29/17 07:00 06/29/17 07:00 Period Temp Pulse Resp BP Sys/Patel Pulse Ox Last 24 Hr 98 F-102.9 F 61-89 12-33 108-139/53-87 88-98 Intake and Output 06/28/17 06/29/17 06/29/17 21:59 05:59 13:59 Intake Total 50 / 50 1115 / 1115 Output Total 1425 / 1425 920 / 920 220 / 220 Balance -1375 / -1375 195 / 195 -220 / -220 Weight 163 lb 8 oz PE: Chest: some expiratory ronchi. No rales. Diminished at bases. CV: irregularly irregular rhythm, tachy ABD: soft, non tender. Dressing clean and dry. EXT: warm, no edema CBC and Chem 7 06/29/17 04:00 06/29/17 04:00 A/P s/p laparotomy with Cecal resection for volvulus and internal hernia. Febrile post op: On Zosyn. WBCs normal. CXR and blood cultures ordered. Will change to carbapenem for broader coverage New onset Afib with rapid rate: EKG and troponin level ordered. Patient is about 1900 fluid positive since admission. Will give low dose lasix. Mg and phosphorous levels low. Will replace. Spoke with pharmacist and hospital only has Kphos for replacement; no NaPhos available.
[2017-06-29] MEDS ORDERED: MAGNESIUM SULFATE 2 GM/50 ML BAG IV ONE (08:14)
[2017-06-29] MEDS ORDERED: FUROSEMIDE 20 MG/2 ML VIAL IV ONE (08:20)
[2017-06-29] MEDS: 0.9 % SODIUM CHLORIDE 10 ML SYRINGE IV SCH ×2 (08:36→22:23)
[2017-06-29] MEDS: LEVOTHYROXINE 100 MCG VIAL IV SCH (08:52)
[2017-06-29] MEDS: HEPARIN 5,000 UNIT/ML VIAL SQ SCH ×2 (08:52→21:26)
[2017-06-29] MEDS: FAMOTIDINE/PF 20 MG/2 ML VIAL IV SCH ×2 (08:53→21:26)
[2017-06-29] MEDS: 0.9 % SODIUM CHLORIDE 10 ML SYRINGE IV PRN ×3 (08:53→14:12)
[2017-06-29] MEDS ORDERED: POTASSIUM PHOSPHATE IV ONE (09:00)
[2017-06-29] MEDS ORDERED: SODIUM PHOSPHATE 15 MMOL in 0.9 % SODIUM CHLORIDE 250 ML IV SCH (09:00)
[2017-06-29] MEDS ORDERED: SODIUM CHLORIDE 0.9% IV ONE (09:00)
[2017-06-29] MEDS: ERTAPENEM 1 GM in 0.9 % SODIUM CHLORIDE 50 ML IV SCH (09:10)
[2017-06-29] MEDS ORDERED: VANCOMYCIN PER PHARMACY IV SCH (09:58)
--- NOTE | 2017-06-29 10:12 | XRay Report ---
HISTORY: Reason for Exam:fever abdominal pain following recent bowel surgery Small amount of free intra-abdominal air is present beneath the right diaphragm due to the recent colon resection. No pleural effusion or pneumothorax are present. There is a subtle alveolar infiltrate in the left lower lobe and left hilum and extending behind the heart border. This is become more apparent since 06/27/17. The discoid atelectasis seen above the right diaphragm the prior exam has improved. The upper lung baird are clear. The heart is borderline enlarged but magnified by portable technique. Right internal jugular catheter is well-positioned and the nasogastric tube has been removed. Pacemaker remains well-positioned. IMPRESSION: Mild pneumonia or atelectasis evolving in the left lower lobe Normal amount of free intraperitoneal air following recent bowel surgery Interpreted and Authenticated by: Azeem Mix 06/29/17
[2017-06-29] MEDS: VANCOMYCIN 1,000 MG in 0.9 % SODIUM CHLORIDE 250 ML IV SCH (10:32)
[2017-06-29] MEDS ORDERED: DILTIAZEM 125 MG in DEXTROSE 5% IN WATER 100 ML IV SCH (13:15)
[2017-06-29] MEDS ORDERED: DILTIAZEM 25 MG/5 ML VIAL IV SCH (14:00)
[2017-06-29] MEDS ORDERED: CLOBETASOL PROP 0.05% TOPICAL PRN (14:41)
--- NOTE | 2017-06-29 15:14 | General Surgery Progress Note ---
Surgical - Auxillary Note - Subjective Patient Information: Note initiated : 06/29/17 at 3:09 pm Service Date, if different from initiated Date: [] Patient: Gustavo Fuentes 86 y/o M admitted on 06/27/17 for Abdominal pain. Chief Complaint: [] Patient remains febrile. Sleeping most of the day. Windows open in room to cool patient. Awakens to verbal stimuli. When asked how he is doing her reports he is cold and pulls sheets up over him. When asked if he is hurting he says no. Still in afib with rates in 90s-100s and occasional into 120 Occasionally coughing up some phlegm. UO has been good even prior to lasix dose earlier. Abdomen: soft and incision clean dry and intact. no drainage. Patient not wincing or reporting pain to palpation. A/P Persistent fever Lactic acid normal. CT of chest abdomen and pelvis done and results reviewed with radiologist shows LLL infiltrate and some RML also. No free fluid in abdomen and small amount of residual free air in abdomen which is expected post op. On broad spectrum IV Abx.
[2017-06-29] MEDS ORDERED: IOPAMIDOL 100 ML BOTTLE IJ ONE (15:41)
[2017-06-29] MEDS ORDERED: OLANZapine 10 MG VIAL IM SCH (19:30)
[2017-06-29] MEDS ORDERED: OLANZapine 10 MG VIAL IM ONE (19:43)
[2017-06-29] MEDS ORDERED: DEXTROSE 5%-LR 1,000 ML IV SCH (20:00)
--- NOTE | 2017-06-29 20:09 | Cat Scan Report ---
History: Rising fever following recent colon surgery Findings: The patient was imaged following intravenous but no oral contrast scanning from the thoracic inlet to the symphysis pubis. Five minute delayed images of the upper abdomen were acquired in sagittal and coronal reformats were created. Chest: There are bilateral alveolar infiltrates. The greatest consolidation is in the left lower lobe. There is mild to moderate involvement anteriorly in left upper lobe and superior segment of lingula. There is also mild involvement in the posterior basal segment of the right lower lobe. Small bilateral layering pleural effusions are present. The heart is mildly enlarged. Central pulmonary arteries are normal without evidence of pulmonary emboli. There is a pacemaker and right side of the heart. Abdomen and pelvis The liver and spleen are normal in size and homogeneous. The gallbladder is absent. There are stable cysts in the head and neck of the pancreas. The adrenals are normal. There are cysts in both kidneys which are also stable finding. There are small amount of free intraperitoneal air is present following the recent surgery. Is also some air in the subcutaneous tissues at the incision site. No ascites or abscess are present within the abdomen or pelvis. There are several fluid-filled loops of nondilated large and small intestine. Several air-fluid levels are present in the small intestine. There is a moderate amount stool in the descending colon. The cecum has been resected. There is a row of anastomotic sutures in the mid descending colon. The bowel obstruction seen on the preoperative CT scan has been surgically corrected. Urinary bladder is decompressed by Aviles catheter. Impression: Pulmonary infiltrates with the greatest involvement in the left lower lobe. This may be a combination of pneumonia and atelectasis. Resolved bowel obstruction with residual mild postoperative ileus No evidence of an abscess or abnormal fluid collection within the abdomen or pelvis Dr. Whitney was called with the results Interpreted and Authenticated by: Azeem Mix 06/29/17
[2017-06-29] MEDS ORDERED: CLOBETASOL PROP OINT 0.05% TUBE 15GM TOPICAL PRN (21:00)
[2017-06-29] MEDS ORDERED: OLANZapine 10 MG VIAL IM PRN (21:22)
[2017-06-29] MEDS: LATANOPROST OPHTH DROPS 2.5ML BOTTLE OU SCH (22:23)
--- NOTE | 2017-06-29 23:10 | Internal Med Progress Note ---
Medical - PN: Subj Patient information: Note initiated : 06/29/17 at 11:10 pm Service Date, if different from initiated Date: [] Patient: Gustavo Fuentes 86 y/o M admitted on 06/27/17 for Abdominal pain. Chief Complaint: f/u volvulus Interval history: June 27 Patient onset of abdominal pain about 10 PM last evening. He had emesis 6. Initially tannish emesis to a yellowish color, no bilious emesis, no hematemesis. He continued to have abdominal pain, he is brought to the ED for further evaluation. Patient is able to give limited history, denies any fevers or chills. Last bowel movement appears to have been morning, the morning prior to the onset of his symptoms. No recent change in bowel habits. 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 Dr. Whitney re-reviewed CT scan of the abdomen with Dr. Mix in radiology, who is concerned this did indeed represent a volvulus or an internal hernia. Repeat lactate was normal, repeat CBC revealed persistent leukocytosis. Given the above, Dr. 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 Right hemicolectomy was performed. June 28 This morning the patient's awake, alert, thinks he is in a different hospital but is easily redirectable. Had some oozing of serosanguineous fluid from the inferior aspects of the surgical wound, a small bleeder was ligated by Dr. Whitney. Subsequently the patient became more agitated, pulled out his nasogastric tube, is more difficult to redirect. He has responded to low dose lorazepam. He was having some abdominal pain this morning, seems to be more associated with the surgical wound, different than pain at presentation yesterday. June 29 Low-grade fever continued, worsened, had temperature to 102 overnight the to the . Intermittent confusion and agitation. Also went into atrial fibrillation overnight between the and , spontaneously cardioverted afternoon of the . Repeat CT scan obtained, showing generally expected postop findings, but pulmonary infiltrates. Antibiotics changed from Zosyn to vancomycin and ertapenem. - Constitutional Vitals: Vital Signs Temp Pulse Resp BP Pulse Ox 99.4 F H 80 22 105/60 94 12/31/17 20:01 06/29/17 19:19 06/29/17 22:27 06/29/17 22:01 06/29/17 19:19 Period Temp Pulse Resp BP Sys/Patel Pulse Ox Last 24 Hr 99.3 F-101.1 F 61-105 14-28 101-144/48-96 89-97 Intake and Output 06/29/17 06/29/17 06/30/17 13:59 21:59 05:59 Intake Total 1567 / 1567 65 / 65 Output Total 1999 630 / 630 140 / 140 Balance -433 / -433 -565 / -565 -140 / -140 Weight 163 lb 8 oz 158 lb Patient Weight 06/30/17 05:59 Weight 158 lb Intake & Output: Intake & Output 06/29/17 06/29/17 06/30/17 13:59 21:59 05:59 Intake Total 1567 / 1567 65 / 65 Output Total 1999 630 / 630 140 / 140 Balance -433 / -433 -565 / -565 -140 / -140 Weight 163 lb 8 oz 158 lb Intake: IV 1567 / 1567 65 / 65 INVanz 1 GM In Sodium Chloride 50 / 50 0.9% 50 ml @ 100 mls/hr IV DAILY [facility] Rx#:[id number] Zosyn 3.375 gm In Dextrose 5% 50 / 50 in Water 50 ml @ 100 mls/hr IV Q8H [facility] Rx#:[id number] Vancomycin 1,000 mg In Sodium 250 / 250 Chloride 0.9% 250 ml @ 250 mls/ hr IV DAILY [facility] Rx#:[id number] Output: Urine Catheter Amount 1999 630 / 630 140 / 140 Exam: General: Laying in bed, awake, disoriented Chest: Few basal crackles, improved with repeated respirations. No wheezes or rhonchi. Respirations are unlabored. Cardiovascular: Irregularly irregular, no murmur, rate controlled Abdomen: Soft when patient relaxed, rare bowel sounds Neuro: Moves all extremities, agitated at times, difficult to reorient. Oriented to self. Medical - PN: Obj Da - Labs CBC & Chem 7: 06/29/17 04:00 06/29/17 04:00 Labs: Abnormal Lab Results 06/29/17 06/29/17 06/28/17 04:00 04:00 10:51 WBC RBC 3.37 L Hgb 10.0 L Hct 29.9 L Gran % Lymph % (Auto) Gran # Lymph # (Auto) Seg Neutrophils % 79 H Band Neutrophils % Lymphocytes % 13 L Reactive Lymphocytes PT 17.9 H INR 1.4 H Chloride BUN Creatinine Glucose Calcium 8.1 L Phosphorus 2.4 L Alkaline Phosphatase Total Protein 5.4 L Albumin 3.0 L Globulin Lipase Urine Ketones Urine Urobilinogen Urine RBC Hyaline Casts 06/28/17 06/28/17 06/28/17 10:51 03:45 03:45 WBC RBC 3.36 L 3.56 L Hgb 10.0 L 10.5 L Hct 29.2 L 31.4 L Gran % 82.2 H Lymph % (Auto) 11.4 L Gran # Lymph # (Auto) 1.0 L Seg Neutrophils % Band Neutrophils % 17 H Lymphocytes % 9 L Reactive Lymphocytes 6 H PT INR Chloride BUN 25 H Creatinine Glucose 129 H Calcium 8.2 L Phosphorus Alkaline Phosphatase 33 L Total Protein 5.2 L Albumin 3.1 L Globulin 2.1 L Lipase Urine Ketones Urine Urobilinogen Urine RBC Hyaline Casts 06/27/17 06/27/17 06/27/17 04:50 04:10 04:10 WBC 15.6 H RBC Hgb 13.3 L Hct 39.8 L Gran % 90.8 H Lymph % (Auto) 4.4 L Gran # 14.2 H Lymph # (Auto) 0.7 L Seg Neutrophils % Band Neutrophils % Lymphocytes % Reactive Lymphocytes PT INR Chloride BUN 24 H Creatinine 1.4 H Glucose 170 H Calcium Phosphorus Alkaline Phosphatase Total Protein Albumin Globulin Lipase Urine Ketones 5/tr A Urine Urobilinogen 2.0 A Urine RBC 3 H Hyaline Casts 29 H 06/26/17 06/26/17 23:50 23:50 WBC 15.3 H RBC Hgb Hct 40.8 L Gran % 82.8 H Lymph % (Auto) 10.2 L Gran # 12.6 H Lymph # (Auto) Seg Neutrophils % Band Neutrophils % Lymphocytes % Reactive Lymphocytes PT INR Chloride 94 L BUN Creatinine 1.4 H Glucose 209 H Calcium Phosphorus Alkaline Phosphatase Total Protein Albumin Globulin Lipase 88 H Urine Ketones Urine Urobilinogen Urine RBC Hyaline Casts Microbiology 06/27/17 12:54 Peritoneal Fluid Gram Stain - Final 06/27/17 12:54 Peritoneal Fluid Gram Stain - Final 06/27/17 12:54 Peritoneal Fluid Anaerobic Culture - Preliminaryno growth 06/27/17 12:54 Peritoneal Fluid Gram Stain - Final 06/27/17 12:54 Peritoneal Fluid Body Fluid Culture - Preliminaryno growth 06/26/17 04:50 Urine - [facility] Urine Culture - Final Meds: Medications Artificial Tears (Artificial Tears Ophth Drops) 1 gtt OU Q1HP PRN PRN Reason: Dry Eye(s) Last Admin: 06/28/17 21:19 Dose: 1 gtt Famotidine (Pepcid) 20 mg IV Q12 [facility] Last Admin: 06/29/17 21:26 Dose: 20 mg Heparin Sodium (Porcine) (Heparin) 5,000 unit SQ Q12 [facility] Last Admin: 06/29/17 21:26 Dose: 5,000 unit Acetaminophen (Ofirmev) 650 mg in 65 mls @ 130 mls/hr IV Q6HP PRN PRN Reason: PAIN/FEVER > 101 Last Infusion: 06/29/17 15:21 Dose: Infused Ertapenem 1 gm/ Sodium (Chloride) 50 mls @ 100 mls/hr IV DAILY [facility] Last Infusion: 06/29/17 09:40 Dose: Infused Vancomycin HCl 1,000 mg/ (Sodium Chloride) 250 mls @ 250 mls/hr IV DAILY [facility] Last Infusion: 06/29/17 11:32 Dose: Infused Dextrose/Lactated Ringer's (Dextrose 5%-Lactated Ringers) 1,000 mls @ 50 mls/ hr IV .Q20H [facility] Last Admin: 06/29/17 21:27 Dose: 50 mls/hr Latanoprost (Xalatan Ophth Drops) 1 gtt OU QHS [facility] Last Admin: 06/29/17 22:23 Dose: Not Given Levothyroxine Sodium (Synthroid) 25 mcg IV QAMAC [facility] Last Admin: 06/29/17 08:52 Dose: 25 mcg Lorazepam (Ativan) 0.5 mg IV Q2HP PRN PRN Reason: Agitation Last Admin: 06/28/17 22:34 Dose: 0.5 mg Morphine Sulfate (Morphine) 0 mg IV Q4HP PRN PRN Reason: PAIN LEVEL > 5 Last Admin: 06/29/17 00:05 Dose: 0.5 mg Olanzapine (Olanzapine) 5 mg IM Q8HP PRN PRN Reason: for agitation Ondansetron HCl (Zofran) 4 mg IV Q4HP PRN PRN Reason: Nausea And Vomiting Clobetasol Prop Topical Solution 0. 05% 1 dose TOPICAL BIDP PRN PRN Reason: ITCHING AND RASH Sodium Chloride (Saline Flush) 10 ml IV Q12 [facility] Last Admin: 06/29/17 22:23 Dose: 10 ml Sodium Chloride (Saline Flush) 10 ml IV UD PRN PRN Reason: FLUSH Last Admin: 06/29/17 14:12 Dose: 10 ml Vancomycin HCl (Vancomycin Per Pharmacy) 1 order IV UD [facility] - Impressions CT chest/abd/pelvis Impression: Pulmonary infiltrates with the greatest involvement in the left lower lobe. This may be a combination of pneumonia and atelectasis. 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 Status: Acute Current Visit: Yes (2) Mild cognitive impairment with memory loss Status: Chronic Current Visit: Yes (3) Bradycardia Status: Chronic Current Visit: Yes (4) Enlarged prostate Status: Chronic Current Visit: Yes (5) Hypothyroidism (acquired) Status: Chronic Current Visit: Yes (6) Chronic kidney disease, stage III (moderate) Status: Chronic Current Visit: Yes (7) CAD (coronary artery disease) Problem details: stents by Dr. العلي Status: Chronic Current Visit: Yes - Narrative A/P Narrative: 86-year-old male with multiple chronic medical problems, presenting with acute onset of nausea vomiting abdominal pain. Found to have large bowel obstruction due to internal hernia and syncopal volvulus. Large bowel obstruction/internal hernia/cecal volvulus. Postop day #2 status post exploratory laparotomy and right hemicolectomy. Plan: Continue NPO, bowel rest, pain control, supportive care. Fever. No apparent source at first. Lactate normal. White count remains normal. Antibiotics changed to vancomycin and ertapenem. Subsequent scan of the abdomen without evidence of intraperitoneal abscess, however chest CT does show infiltrate versus atelectasis. This may be the source of his fever. Possible healthcare acquired pneumonia. Plan: Follow-up cultures, continue vancomycin and ertapenem, follow fever curve Atrial fibrillation. Spontaneously cardioverted. Likely secondary to stress from postoperative state, as well as pulmonary infection. Plan: Continue with telemetry monitoring. Rate controlling agents if needed for recurrence. Chronic kidney disease. Creatinine improved. Plan: Renal dose medications. Coronary artery disease. Quiescent. Most recent cardiac evaluation at been for rhythm issues. No real evidence of anginal symptoms. Plan: Monitor. BPH with lower urinary tract symptoms. On finasteride as an outpatient. Plan: Aviles catheter for careful monitoring of intake and output. Mild cognitive impairment with memory issues. At risk for delirium and acute hospitalization. Becoming more agitated Sat afternoon, harder to redirect. Plan: Supportive care, low dose lorazepan (has responded will in the past) but overall try to minimize benzodiazepines. 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 Patient went into A. fib early Friday, then cardioverted, maintains pain standing 80 beats Plan: Telemetry. Hypotension with orthostatic symptoms. On midodrine as an outpatient. Maintaining adequate blood pressure without intervention currently. Plan: Hold midodrine. Hypothyroid. On oral replacement. Plan: Change to IV replacement at 50% of the oral dose. Prophylaxis: IV famotidine, subcutaneous heparin. Medical - PN: Qual - VTE Deep Vein Thrombosis/Pulmonary Embolism Present on Admission: Yes
[2017-06-30] MEDS: ACETAMINOPHEN 650 MG/65 ML BOTTLE IV PRN ×3 (00:02→22:03)
[2017-06-30 05:47] LABS: Mean Cell Volume 87.7 fL (80.0-100.0); Mean Corpuscular HGB Conc 33.9 g/dL (31.0-36.0); Mean Corpuscular Hemoglobin 29.7 pg (26.0-34.0); Platelet Count 200 K/mcL (140-440); RBC 3.73 M/mcL (4.50-5.90)
[2017-06-30 06:41] LABS: ALT/SGPT 11 U/l (0-40); Albumin 3.6 gm/dL (3.2-5.2); Albumin/Globulin Ratio 1.4 (1.0-2.3); Alkaline Phosphatase 64 U/L (39-117); Bilirubin,Direct < 0.2 mg/dL (0.0-0.3); Blood Urea Nitrogen 18 mg/dl (8-23); Gamma Glutamyl Transpeptidase 14 U/L (8-61); Magnesium 2.2 mg/dL (1.6-2.5); Uric Acid 4.7 mg/dL (2.5-8.0)
[2017-06-30 07:39] LABS: Band Neutrophils % 2 % (0-10); Basophils % (Manual) 1 % (0-2); Eosinophils % (Manual) 4 % (0-7); Lymphocytes % 13 % (15-49); Monocytes % (Manual) 5 % (1-12); Platelet Estimate NORMAL (NORMAL); RBC Morphology NORMAL (NORMAL); Segmented Neutrophils % 75 % (38-78)
[2017-06-30] MEDS: LEVOTHYROXINE 100 MCG VIAL IV SCH (08:17)
[2017-06-30] MEDS: 0.9 % SODIUM CHLORIDE 10 ML SYRINGE IV PRN ×3 (08:17→09:51)
--- NOTE | 2017-06-30 09:06 | General Surgery Progress Note ---
Surgical - Auxillary Note - Subjective Patient Information: Note initiated : 06/30/17 at 9:04 am Service Date, if different from initiated Date: [] Patient: Gustavo Fuentes 86 y/o M admitted on 06/27/17 for Abdominal pain. Chief Complaint: [] Patient resting in bed. Still febrile but Temp lower than yesterday. Awake and alert. Baseline dementia changes but easily redirected and recalls basic circumstances of his situation. Back in sinus rhythm as of yesterday evening. Vital Signs Temp Pulse Resp BP Pulse Ox 99.5 F H 68 18 123/57 96 06/30/17 07:01 06/30/17 00:07 06/30/17 08:01 06/30/17 08:01 06/30/17 08:01 Period Temp Pulse Resp BP Sys/Patel Pulse Ox Last 24 Hr 98.1 F-101.1 F 68-105 15-25 95-168/48-99 91-97 Intake and Output 06/29/17 06/30/17 06/30/17 21:59 05:59 13:59 Intake Total 65 / 65 Output Total 630 / 630 1164 / 1164 510 / 510 Balance -565 / -565 -1164 / -1164 -510 / -510 Weight 158 lb PE: General: no distress Neuro: alert and cooperative. At baseline dementia changes with short term memory loss but easily redirected and less agitated than before. Chest: clear in upper [place]. Diminished at bases with some lower left sided rales. CV: Regular rate and rhythm. ABD: Soft, mild distention. Non tender. Incsion clean, dry, and intact. No erythema. CBC and Chem 7 06/30/17 04:00 06/30/17 04:00 A/P: s/p cecal resection for volvulus and relief of internal hernia. Await return of bowel function. Patient's reports his bowel regimen includes a daily laxative. Will likely need to return to this. Will start with a suppository tomorrow morning. Will order speech eval for tomorrow in anticipation of feeding to know safe options prior to starting p.o. Febrile post op; imaging shows pnuemonia. On broad spectrum abx. Encourage deep breathing and coughing. PT for ambulation as tolerated. Afib resolved
[2017-06-30] MEDS ORDERED: DEXTROSE 5%-1/2NS W/20MEQ KCL 1,000 ML IV SCH (09:15)
[2017-06-30] MEDS: FAMOTIDINE/PF 20 MG/2 ML VIAL IV SCH ×2 (09:49→21:48)
[2017-06-30] MEDS: HEPARIN 5,000 UNIT/ML VIAL SQ SCH ×2 (09:49→21:30)
[2017-06-30] MEDS: 0.9 % SODIUM CHLORIDE 10 ML SYRINGE IV SCH ×2 (09:50→22:21)
[2017-06-30] MEDS: VANCOMYCIN 1,000 MG in 0.9 % SODIUM CHLORIDE 250 ML IV SCH (09:50)
[2017-06-30] MEDS: ERTAPENEM 1 GM in 0.9 % SODIUM CHLORIDE 50 ML IV SCH (09:51)
[2017-06-30] MEDS ORDERED: VANCOMYCIN PER PHARMACY IV SCH (12:08)
[2017-06-30] MEDS ORDERED: ONDANSETRON 4 MG/2 ML VIAL IV PRN (12:08)
[2017-06-30] MEDS ORDERED: 0.9 % SODIUM CHLORIDE 10 ML SYRINGE IV PRN (12:08)
[2017-06-30] MEDS ORDERED: POLYVINYL ALCOHOL OPHTH DROPS 15ML BOTTLE OU PRN (12:08)
[2017-06-30] MEDS ORDERED: OLANZapine 10 MG VIAL IM PRN (12:08)
[2017-06-30] MEDS: DEXTROSE 5%-1/2NS W/20MEQ KCL 1,000 ML IV SCH ×2 (12:12→18:40)
--- NOTE | 2017-06-30 15:29 | Internal Med Progress Note ---
Medical - PN: Subj Patient information: Note initiated : 06/30/17 at 3:26 pm Service Date, if different from initiated Date: [] Patient: Gustavo Fuentes 86 y/o M admitted on 06/27/17 for Abdominal pain. Chief Complaint: f/u volvulus Interval history: June 27 Patient onset of abdominal pain about 10 PM last evening. He had emesis 6. Initially tannish emesis to a yellowish color, no bilious emesis, no hematemesis. He continued to have abdominal pain, he is brought to the ED for further evaluation. Patient is able to give limited history, denies any fevers or chills. Last bowel movement appears to have been morning, the morning prior to the onset of his symptoms. No recent change in bowel habits. 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 Dr. Whitney re-reviewed CT scan of the abdomen with Dr. Mix in radiology, who is concerned this did indeed represent a volvulus or an internal hernia. Repeat lactate was normal, repeat CBC revealed persistent leukocytosis. Given the above, Dr. 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 Right hemicolectomy was performed. June 28 This morning the patient's awake, alert, thinks he is in a different hospital but is easily redirectable. Had some oozing of serosanguineous fluid from the inferior aspects of the surgical wound, a small bleeder was ligated by Dr. Whitney. Subsequently the patient became more agitated, pulled out his nasogastric tube, is more difficult to redirect. He has responded to low dose lorazepam. He was having some abdominal pain this morning, seems to be more associated with the surgical wound, different than pain at presentation yesterday. June 29 Low-grade fever continued, worsened, had temperature to 102 overnight the to the . Intermittent confusion and agitation. Also went into atrial fibrillation overnight between the and , spontaneously cardioverted afternoon of the . Repeat CT scan obtained, showing generally expected postop findings, but pulmonary infiltrates. Antibiotics changed from Zosyn to vancomycin and ertapenem. Jun 30 Received IM Zyprexa last evening, one further dose about midnight. Much clearer this morning, underlying dementia, easily redirectable, but not agitated and pulling at lines. Able to work with pulmonary toilet, able to get up to the chair. He remains in normal sinus rhythm. Still with low-grade fever , but less than 100. - Constitutional Vitals: Vital Signs Temp Pulse Resp BP Pulse Ox 99.3 F H 68 20 142/72 94 06/30/17 12:02 06/30/17 00:07 06/30/17 10:23 06/30/17 12:02 06/30/17 12:02 Period Temp Pulse Resp BP Sys/Patel Pulse Ox Last 24 Hr 98.1 F-99.7 F 68-90 15-25 95-168/48-99 93-97 Intake and Output 06/30/17 06/30/17 06/30/17 05:59 13:59 21:59 Intake Total 65 / 65 920 / 920 65 / 65 Output Total 1164 / 1164 845 / 845 Balance -1099 / -1099 75 / 75 65 / 65 Intake & Output: Intake & Output 06/30/17 06/30/17 06/30/17 05:59 13:59 21:59 Intake Total 65 / 65 920 / 920 65 / 65 Output Total 1164 / 1164 845 / 845 Balance -1099 / -1099 75 / 75 65 / 65 Intake: IV 65 / 65 920 / 920 65 / 65 Dextrose 5%-Lactated Ringers 1, 620 / 620 000 ml @ 50 mls/hr IV .Q20H [facility] Rx#:[id number] INVanz 1 GM In Sodium Chloride 50 / 50 0.9% 50 ml @ 100 mls/hr IV DAILY [facility] Rx#:[id number] Vancomycin 1,000 mg In Sodium 250 / 250 Chloride 0.9% 250 ml @ 250 mls/ hr IV DAILY [facility] Rx#:[id number] Output: Urine Catheter Amount 1064 / 1064 845 / 845 Void Amount 100 / 100 Exam: General: Laying in bed, awake, talkative, interactive during interview and exam Chest: Left basilar rales, no wheezes, unlabored Cardiovascular: Regular, no edema Abdomen: Soft, incisional tenderness appropriate for situation, rare bowel sounds. Neuro: Moves all extremities equally, awake, alert, oriented to self, knows he is ill and has had surgery. Medical - PN: Obj Da - Labs CBC & Chem 7: 06/30/17 04:00 06/30/17 04:00 Labs: Abnormal Lab Results 06/30/17 06/30/17 06/29/17 04:00 04:00 04:00 RBC 3.73 L Hgb 11.1 L Hct 32.7 L Gran % Lymph % (Auto) Lymph # (Auto) Seg Neutrophils % Band Neutrophils % Lymphocytes % 13 L Reactive Lymphocytes PT INR BUN Glucose Calcium 8.1 L Phosphorus 2.4 L Alkaline Phosphatase Lactate Dehydrogenase 254 H Total Protein 5.4 L Albumin 3.0 L Globulin 06/29/17 06/28/17 06/28/17 04:00 10:51 10:51 RBC 3.37 L 3.36 L Hgb 10.0 L 10.0 L Hct 29.9 L 29.2 L Gran % 82.2 H Lymph % (Auto) 11.4 L Lymph # (Auto) 1.0 L Seg Neutrophils % 79 H Band Neutrophils % Lymphocytes % 13 L Reactive Lymphocytes PT 17.9 H INR 1.4 H BUN Glucose Calcium Phosphorus Alkaline Phosphatase Lactate Dehydrogenase Total Protein Albumin Globulin 06/28/17 06/28/17 03:45 03:45 RBC 3.56 L Hgb 10.5 L Hct 31.4 L Gran % Lymph % (Auto) Lymph # (Auto) Seg Neutrophils % Band Neutrophils % 17 H Lymphocytes % 9 L Reactive Lymphocytes 6 H PT INR BUN 25 H Glucose 129 H Calcium 8.2 L Phosphorus Alkaline Phosphatase 33 L Lactate Dehydrogenase Total Protein 5.2 L Albumin 3.1 L Globulin 2.1 L Microbiology 06/27/17 12:54 Peritoneal Fluid Gram Stain - Final 06/27/17 12:54 Peritoneal Fluid Gram Stain - Final 06/27/17 12:54 Peritoneal Fluid Anaerobic Culture - Preliminary 06/27/17 12:54 Peritoneal Fluid Gram Stain - Final 06/27/17 12:54 Peritoneal Fluid Body Fluid Culture - Final 06/29/17 10:33 Urine - [facility] Urine Culture - Preliminary 06/29/17 06:00 Blood Blood Culture - Preliminary 06/29/17 06:25 Blood Blood Culture - Preliminary 06/26/17 04:50 Urine - [facility] Urine Culture - Final 06/27/17 05:10 Nose MRSA (PCR) - Final Meds: Medications Artificial Tears (Artificial Tears Ophth Drops) 1 gtt OU Q1HP PRN PRN Reason: Dry Eye(s) Bisacodyl (Dulcolax) 10 mg SD ONCE ONE Stop: 07/01/17 10:01 Famotidine (Pepcid) 20 mg IV Q12 [facility] Heparin Sodium (Porcine) (Heparin) 5,000 unit SQ Q12 [facility] Potassium Chloride/Dextrose/Sod Cl (Dextrose 5%-1/2ns W/20meq Kcl) 1,000 mls @ 60 mls/hr IV .[id number] [facility] Last Admin: 06/30/17 12:12 Dose: Not Given Ertapenem 1 gm/ Sodium (Chloride) 50 mls @ 100 mls/hr IV DAILY [facility] Acetaminophen (Ofirmev) 650 mg in 65 mls @ 130 mls/hr IV Q6HP PRN PRN Reason: PAIN/FEVER > 101 Last Infusion: 06/30/17 14:31 Dose: Infused Vancomycin HCl 1,000 mg/ (Sodium Chloride) 250 mls @ 250 mls/hr IV DAILY [facility] Latanoprost (Xalatan Ophth Drops) 1 gtt OU QHS [facility] Levothyroxine Sodium (Synthroid) 25 mcg IV QAMAC [facility] Morphine Sulfate (Morphine) 0 mg IV Q4HP PRN PRN Reason: PAIN LEVEL > 5 Olanzapine (Olanzapine) 5 mg IM Q8HP PRN PRN Reason: for agitation Ondansetron HCl (Zofran) 4 mg IV Q4HP PRN PRN Reason: Nausea And Vomiting Clobetasol Prop Topical Solution 0. 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 Status: Acute Current Visit: Yes (2) Mild cognitive impairment with memory loss Status: Chronic Current Visit: Yes (3) Bradycardia Status: Chronic Current Visit: Yes (4) Enlarged prostate Status: Chronic Current Visit: Yes (5) Hypothyroidism (acquired) Status: Chronic Current Visit: Yes (6) Chronic kidney disease, stage III (moderate) Status: Chronic Current Visit: Yes (7) CAD (coronary artery disease) Problem details: stents by Dr. العلي Status: Chronic Current Visit: Yes - Narrative A/P Narrative: 86-year-old male with multiple chronic medical problems, presenting with acute onset of nausea vomiting abdominal pain. Found to have large bowel obstruction due to internal hernia and syncopal volvulus. Large bowel obstruction/internal hernia/cecal volvulus. Postop day #3 status post exploratory laparotomy and cecal resection. Plan: Bowel care/diet per surgery, pain control, supportive care. Fever. Infiltrates fevers trending down after antibiotics changed from Zosyn to vancomycin plus ertapenem. Cultures remain negative. Treating healthcare acquired pneumonia. Plan: Follow-up cultures, continue vancomycin and ertapenem, follow fever curve Atrial fibrillation. Spontaneously cardioverted, remains in NSR on Friday. Likely secondary to stress from postoperative state, as well as pulmonary infection. Plan: Continue with telemetry monitoring. Rate controlling agents if needed for recurrence. Chronic kidney disease. Creatinine improved and stable at 1.1. Plan: Renal dose medications. Coronary artery disease. Quiescent. Most recent cardiac evaluation at been for rhythm issues. No real evidence of anginal symptoms. Plan: Monitor. BPH with lower urinary tract symptoms. On finasteride as an outpatient. Plan: Aviles catheter for careful monitoring of intake and output. Mild cognitive impairment with memory issues. At risk for delirium and acute hospitalization. Agitation controlled with IM Zyprexa. 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 Patient went into A. fib early Friday, then cardioverted, maintains paced and [place] beats Plan: Telemetry. Hypotension with orthostatic symptoms. On midodrine as an outpatient. Maintaining adequate blood pressure without intervention currently. Plan: Hold midodrine. Hypothyroid. On oral replacement. Plan: Change to IV replacement at 50% of the oral dose. Prophylaxis: IV famotidine, subcutaneous heparin. Medical - PN: Qual - VTE Deep Vein Thrombosis/Pulmonary Embolism Present on Admission: Yes
[2017-06-30] MEDS ORDERED: DILTIAZEM 25 MG/5 ML VIAL IV ONE ×2 (16:56→17:08)
--- NOTE | 2017-06-30 18:00 | General Surgery Progress Note ---
Surgical - Auxillary Note - Subjective Patient Information: Note initiated : 06/30/17 at 5:54 pm Service Date, if different from initiated Date: [] Patient: Gustavo Fuentes 86 y/o M admitted on 06/27/17 for Abdominal pain. Chief Complaint: [] Walked in for evening rounds and nursing reports patient had a fall. Did not hit his head. He was found holding onto door handle and not fully on the floor. patient awakens to verbal stimuli and appropriate at his baseline level. PERRLA Upper and lower extremity strength intact, and equal. CV: irregularly irregular and tachy. Rt. IJ pulled out during fall. Neck with pressure dressing in place. No sign of bleeding or hematoma. No bruising noted on head, torso, or extremities. Abdomen: soft, and non tender. incision intact. A/P: s/p fall clincally stable except back in afib. Cardizem restarted. Close monitoring Continue other therapies as previously ordered.
[2017-06-30] MEDS ORDERED: METOPROLOL TARTRATE 5 MG/5 ML VIAL IV ONE ×2 (20:29→20:41)
[2017-06-30] MEDS ORDERED: 0.9 % SODIUM CHLORIDE 10 ML SYRINGE IV SCH (21:00)
--- NOTE | 2017-06-30 21:25 | Internal Med Progress Note ---
Medical - Auxillary Note - Subjective Patient Information: Note initiated : 06/30/17 at 9:21 pm Service Date, if different from initiated Date: [] Patient: Gustavo Fuentes 86 y/o M admitted on 06/27/17 for Abdominal pain. Chief Complaint: Agitation. Int Hx: Patient became agitated this evening. Did not respond to redirection and behavioral interventions. Vitals w/o significant change, other than recurrent AF from the late afternoon now with RVR. No complaints or indications of pain. Received dose of IM Zyprexa, but still a danger to self, pulling at dressings and lines. Restraints ordered for patient and staff safety. Patient personally seen and evaluated. Vital Signs Temp Pulse Resp BP Pulse Ox 100.2 F H 115 H 20 144/87 96 06/30/17 20:30 06/30/17 18:50 06/30/17 20:30 06/30/17 20:30 06/30/17 20:30 Period Temp Pulse Resp BP Sys/Patel Pulse Ox Last 24 Hr 98.1 F-100.2 F 64-115 15-24 95-168/52-99 93-97 Intake and Output 06/30/17 06/30/17 06/30/17 05:59 13:59 21:59 Intake Total 65 / 65 920 / 920 65 / 65 Output Total 1164 / 1164 845 / 845 555 / 555 Balance -1099 / -1099 75 / 75 -490 / -490 Weight 144 lb 6.4 oz Patient Weight 07/01/17 05:59 Weight 144 lb 6.4 oz Medications Artificial Tears (Artificial Tears Ophth Drops) 1 gtt OU Q1HP PRN PRN Reason: Dry Eye(s) Bisacodyl (Dulcolax) 10 mg [place] ONCE ONE Stop: 07/01/17 10:01 Diltiazem HCl (Cardizem) 10 mg IV ONCE ONE Stop: 06/30/17 16:57 Last Admin: 06/30/17 18:28 Dose: Not Given Famotidine (Pepcid) 20 mg IV Q12 [facility] Heparin Sodium (Porcine) (Heparin) 5,000 unit SQ Q12 [facility] Potassium Chloride/Dextrose/Sod Cl (Dextrose 5%-1/2ns W/20meq Kcl) 1,000 mls @ 60 mls/hr IV .[id number] [facility] Last Admin: 06/30/17 18:40 Dose: 60 mls/hr Ertapenem 1 gm/ Sodium (Chloride) 50 mls @ 100 mls/hr IV DAILY [facility] Acetaminophen (Ofirmev) 650 mg in 65 mls @ 130 mls/hr IV Q6HP PRN PRN Reason: PAIN/FEVER > 101 Last Infusion: 06/30/17 14:31 Dose: Infused Vancomycin HCl 1,000 mg/ (Sodium Chloride) 250 mls @ 250 mls/hr IV DAILY [facility] Latanoprost (Xalatan Ophth Drops) 1 gtt OU QHS [facility] Levothyroxine Sodium (Synthroid) 25 mcg IV QAMAC [facility] Metoprolol Tartrate (Lopressor) 5 mg IV ONCE ONE Stop: 06/30/17 20:30 Morphine Sulfate (Morphine) 0 mg IV Q4HP PRN PRN Reason: PAIN LEVEL > 5 Olanzapine (Olanzapine) 5 mg IM Q8HP PRN PRN Reason: for agitation Last Admin: 06/30/17 19:09 Dose: 5 mg Ondansetron HCl (Zofran) 4 mg IV Q4HP PRN PRN Reason: Nausea And Vomiting Clobetasol Prop Topical Solution 0. 05% 1 dose TOPICAL BIDP PRN PRN Reason: ITCHING AND RASH Sodium Chloride (Saline Flush) 10 ml IV UD PRN PRN Reason: FLUSH Sodium Chloride (Saline Flush) 10 ml IV Q8 [facility] Vancomycin HCl (Vancomycin Per Pharmacy) 1 order IV UD [facility]
[2017-06-30] MEDS: LATANOPROST OPHTH DROPS 2.5ML BOTTLE OU SCH (22:20)
[2017-07-01] MEDS ORDERED: OLANZapine 10 MG VIAL IM ONE (01:06)
[2017-07-01 06:26] LABS: Mean Cell Volume 87.5 fL (80.0-100.0); Mean Corpuscular HGB Conc 34.2 g/dL (31.0-36.0); Mean Corpuscular Hemoglobin 29.9 pg (26.0-34.0); Platelet Count 215 K/mcL (140-440); RBC 3.78 M/mcL (4.50-5.90); Red Cell Distribution Width 13.9 % (11.5-14.5)
[2017-07-01 06:54] LABS: ALT/SGPT 10 U/l (0-40); Albumin 3.4 gm/dL (3.2-5.2); Albumin/Globulin Ratio 1.3 (1.0-2.3); Alkaline Phosphatase 64 U/L (39-117); Bilirubin,Direct < 0.2 mg/dL (0.0-0.3); Blood Urea Nitrogen 18 mg/dl (8-23); Gamma Glutamyl Transpeptidase 15 U/L (8-61); Uric Acid 6.1 mg/dL (2.5-8.0)
[2017-07-01 07:02] LABS: Band Neutrophils % 3 % (0-10); Eosinophils % (Manual) 9 % (0-7); Lymphocytes % 19 % (15-49); Monocytes % (Manual) 4 % (1-12); Platelet Estimate NORMAL (NORMAL); RBC Morphology NORMAL (NORMAL); Segmented Neutrophils % 65 % (38-78)
--- NOTE | 2017-07-01 08:08 | General Surgery Progress Note ---
Surgical - Auxillary Note - Subjective Patient Information: Note initiated : 07/01/17 at 8:01 am Service Date, if different from initiated Date: [] Patient: Gustavo Fuentes 86 y/o M admitted on 06/27/17 for Abdominal pain. Chief Complaint: [] Patient in bed. At baseline with confusion from dementia. Converted to sinus rhythm last evening. Vital Signs Temp Pulse Resp BP Pulse Ox 98.6 F 115 H 24 H 131/75 99 07/01/17 03:30 06/30/17 18:50 07/01/17 03:30 07/01/17 03:30 07/01/17 03:30 Period Temp Pulse Resp BP Sys/Patel Pulse Ox Last 24 Hr 98.6 F-100.2 F 64-115 16-24 125-144/62-87 94-99 Intake and Output 06/30/17 07/01/17 07/01/17 21:59 05:59 13:59 Intake Total 65 / 65 65 / 65 Output Total 555 / 555 525 / 525 Balance -490 / -490 -460 / -460 Weight 144 lb 6.4 oz PE: Neuro: Pupils reactive. Extremity strength and ROM normal for patient in all four. Chest: clear in upper baird. Left lower rales--less than yesterday CV: regular rhythm ABD: soft, non tender. No distention. Incision intact without erythema or drainage. Bowels sounds present. CBC and Chem 7 07/01/17 03:56 07/01/17 03:56 A/P: s/p cecal resection for volvulus and reduction/repair of internal hernia. Await return of bowel function. Patient regularly on laxitive daily, will likely need again post op. Speech eval ordered; patient has history of aspiration and better to know current status before starting p.o. intake which expected to be soon. Pneumonia: WBCs normal. Still intermittently febrile. Broadly covered with antibiotics. Dementia: intermittent dosing with zyprexa per hospitalist. Does better when is present. when bowel function returns can restart his baseline p.o. meds. Afib: converted back to sinus rhythm again.
[2017-07-01] MEDS: LEVOTHYROXINE 100 MCG VIAL IV SCH (08:10)
[2017-07-01] MEDS: HEPARIN 5,000 UNIT/ML VIAL SQ SCH ×2 (08:11→19:58)
[2017-07-01] MEDS: ERTAPENEM 1 GM in 0.9 % SODIUM CHLORIDE 50 ML IV SCH (08:11)
[2017-07-01] MEDS: FAMOTIDINE/PF 20 MG/2 ML VIAL IV SCH ×2 (08:11→19:44)
[2017-07-01] MEDS: CLOBETASOL PROP 0.05% TOPICAL PRN ×2 (08:12→19:53)
[2017-07-01] MEDS: 0.9 % SODIUM CHLORIDE 10 ML SYRINGE IV SCH ×4 (08:20→22:00)
--- NOTE | 2017-07-01 08:48 | Operative Note ---
DATE OF OPERATION: 06/27/2017 PREOPERATIVE DIAGNOSIS: Bowel obstruction with suspected volvulus or internal hernia. POSTOPERATIVE DIAGNOSES: 1. Cecal volvulus. 2. Internal hernia containing portion of transverse colon. PROCEDURE PERFORMED: 1. Exploratory laparotomy with extensive adhesiolysis totaling 2 hours of the procedure. 2. Cecal resection. SURGEON: Airam Whitney M.D. ANESTHETIC: General endotracheal anesthesia. INDICATIONS FOR PROCEDURE: The patient is an 86-year-old man who presented to the emergency department last evening with complaints of abdominal pain. He had sudden onset of abdominal pain and nausea and emesis. His emesis was nonbilious. He was managed in the ER, and CT imaging was performed suggesting a large bowel obstruction around the level of the splenic flexure with no obvious mass seen. Although the patient complained of significant pain on admission, by the time he was seen in the emergency department, he had medicated and had no pain on exam. Imaging results were reviewed with the radiologist who read the results by teleradiology and findings were reported as discussed. Several hours later, the patient awoke from sleeping with reports of abdominal pain. During this period of time he had not received any further medication other than what he had received while he was in the emergency department. On examination, though his abdomen was not distended, he was clearly tender in all quadrants. Repeat review of CT scan with our day radiologist was performed with a reported concern for possible internal hernia or possible atypical looking volvulus. The patient was brought to the operating room for exploratory laparotomy given these concerns and risks of consequences if these were missed. DESCRIPTION OF PROCEDURE: After obtaining informed consent from the patient's family, he was taken to the operating room where a time-out was taken to confirm that he was here for the above-stated procedure. He was given antibiotics preoperatively and SCDs were placed for DVT prophylaxis. He was placed in the supine position on the operating table and general endotracheal anesthesia was induced. A central venous catheter was inserted by the anesthesia nurse which is dictated in a separate port. The abdomen was then prepped and draped in a sterile manner. The abdomen was entered via a vertical midline incision. Upon entering the abdomen, loops of normal caliber small bowel were encountered with a very distended cecum noted to be rotated on its axis and extending into the upper abdomen consistent with a volvulus. The cecum and small bowel were pulled through the abdominal incision which had to be enlarged in order to do so due to the amount of distention of the cecum which was quite distended. There was no sign of perforation. Once the cecum was pulled into the incision and derotated, it initially had changes consistent with decreased blood flow, but it immediately improved in color. The remainder of the abdomen was explored and another area of abnormal bowel configuration was noted in the upper mid abdomen. There was an area where the transverse colon could not be followed across and with further exploration appeared to be diving through the mesentery resulting in a point of what appeared to be a transition from dilated proximal large bowel to normal caliber distal large bowel as could be seen at the descending colon. Multiple adhesions were found in the upper abdomen with some adhesions of the omentum to the mesentery and of the mesentery to itself creating a space within the mesentery through which the transverse colon was eventually found to pass through. This resulted in the effect of an internal hernia, although there was no true hernia defect within the mesentery. The adhesions in the abdomen were lysed to allow complete visualization of the large intestine along its course as the anatomy as seen on imaging was uncertain and there was question of obstruction. Once the entire large bowel was freed from adhesions obscuring it and it could be fully visualized, it was inspected in its entirety. Beginning at the cecum, the cecum was viable but was extremely large and distended and boggy and at risk of rotation again into a volvulus state. The ascending colon was normal as was the transverse colon. The splenic flexure and descending colon also appeared normal. The sigmoid colon was very long, approximately 2 feet in length, but no abnormalities were seen, including no diverticula. The sigmoid colon was visualized up to the peritoneal reflection where it entered the pelvis and transitioned into the proximal rectum. No abnormalities were seen or palpated. The small bowel was run in its entirety, and no abnormalities were seen of the small bowel except for a jejunal diverticulum with no sign of inflammation or perforation. The stomach was also inspected, and its anterior surface revealed no abnormalities, no sign of inflammation or irritation along its body, pylorus, or extending into the duodenum which also appeared normal. Palpation of the stomach revealed the NG tube in proper position. After exploration was complete, it was decided that cecectomy would be performed due to the large size of the cecum and its initial state of volvulus and risk of returning to such postoperatively if left. A point at the terminal ileum was identified along the mesentery and a window made in the mesentery here. The terminal ileum was transected with a JAUN stapler. Another point of the mesentery was identified along the right colon and a window made in the mesentery there. The right colon was transected with a JAUN stapler. Mesentery between the two points of transection was then taken down between clamps and ligated with Vicryl ties, utilizing suture ligatures for areas of larger vessels. The cecum and its attached appendix were removed from the field and sent as specimen. Inspection of the mesentery that had been ligated showed no evidence of bleeding. The ascending colon and distal small bowel were then anastomosed in a [id number] fashion using a JAUN stapler. Reinforcing layers of interrupted sutures were placed on the front and back rows of the anastomotic line. All of the staple lines were oversewn with Ethibond sutures. Palpation upon completion of the anastomosis revealed a large enterocolostomy at the anastomosis. The mesenteric defect between the two areas of bowel was then closed with interrupted Ethibond sutures. The bowel was then returned to the abdomen, leaving the anastomosis in the right lower quadrant. The small bowel was returned to the mid-section of the abdomen and the sigmoid colon was left on the left side of the abdomen laid in two rows given its length. The abdomen was then irrigated with copious amounts of saline until clear. It should be noted that upon initially entering the abdomen slightly turbid fluid was encountered, and for this reason full exploration was performed revealing no sign of perforation or inflammation. Cultures, however, were taken of this fluid. Once irrigation was complete, the abdomen was closed with interrupted Prolene sutures at the fascial level. The wound was irrigated and suctioned of the irrigant. The subcutaneous tissues were injected with 0.25% plain Marcaine for a total of 20 mL to help with postoperative pain control. Skin was then approximated with skin roly. Sponge and instrument counts were correct at the end of the case. The patient was extubated in the operating room and transferred to PACU for recovery. ESTIMATED BLOOD LOSS: 75 mL. IV FLUIDS: 2500 of crystalloid, 500 of Hespan. URINE OUTPUT: 300 mL. RC:amelia Job ID: [id number] Doc ID: [id number] Airam CARNEY
--- NOTE | 2017-07-01 09:42 | Internal Med Progress Note ---
Medical - PN: Subj Patient information: Note initiated : 07/01/17 at 9:39 am Service Date, if different from initiated Date: [] Patient: Gustavo Fuentes 86 y/o M admitted on 06/27/17 for Abdominal pain. Chief Complaint: follow-up volvulus Interval history: June 27 Patient onset of abdominal pain about 10 PM last evening. He had emesis 6. Initially tannish emesis to a yellowish color, no bilious emesis, no hematemesis. He continued to have abdominal pain, he is brought to the ED for further evaluation. Patient is able to give limited history, denies any fevers or chills. Last bowel movement appears to have been morning, the morning prior to the onset of his symptoms. No recent change in bowel habits. 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 Dr. Whitney re-reviewed CT scan of the abdomen with Dr. Mix in radiology, who is concerned this did indeed represent a volvulus or an internal hernia. Repeat lactate was normal, repeat CBC revealed persistent leukocytosis. Given the above, Dr. 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 Right hemicolectomy was performed. June 28 This morning the patient's awake, alert, thinks he is in a different hospital but is easily redirectable. Had some oozing of serosanguineous fluid from the inferior aspects of the surgical wound, a small bleeder was ligated by Dr. Whitney. Subsequently the patient became more agitated, pulled out his nasogastric tube, is more difficult to redirect. He has responded to low dose lorazepam. He was having some abdominal pain this morning, seems to be more associated with the surgical wound, different than pain at presentation yesterday. June 29 Low-grade fever continued, worsened, had temperature to 102 overnight the to the . Intermittent confusion and agitation. Also went into atrial fibrillation overnight between the and , spontaneously cardioverted afternoon of the . Repeat CT scan obtained, showing generally expected postop findings, but pulmonary infiltrates. Antibiotics changed from Zosyn to vancomycin and ertapenem. Jun 30 Received IM Zyprexa last evening, one further dose about midnight. Much clearer this morning, underlying dementia, easily redirectable, but not agitated and pulling at lines. Able to work with pulmonary toilet, able to get up to the chair. He remains in normal sinus rhythm. Still with low-grade fever , but less than 100. Elie 2 Became agitated and less re-directable last night consistent with ing in the setting of dementia and hospitalization. Required restraints overnight. Went back into atrial fibrillation after a fall, when he attempts to get out of bed late yesterday afternoon. IJ central line was accidentally discontinued/ pulled out at that time. Overnights spontaneously reconverted back to sinus rhythm. This morning in bed, does not recognize me, generally redirectable. Denies any abdominal pain. Becoming more agitated with the arms and noises in the intensive care unit, attempting to provide a calmer environment. - Constitutional Vitals: Vital Signs Temp Pulse Resp BP Pulse Ox 98.6 F 115 H 24 H 131/75 99 07/01/17 03:30 06/30/17 18:50 07/01/17 03:30 07/01/17 03:30 07/01/17 03:30 Period Temp Pulse Resp BP Sys/Patel Pulse Ox Last 24 Hr 98.6 F-100.2 F 64-115 16-24 125-144/62-87 94-99 Intake and Output 06/30/17 07/01/17 07/01/17 21:59 05:59 13:59 Intake Total 65 / 65 65 / 65 Output Total 555 / 555 525 / 525 Balance -490 / -490 -460 / -460 Weight 144 lb 6.4 oz Intake & Output: Intake & Output 06/30/17 07/01/17 07/01/17 21:59 05:59 13:59 Intake Total 65 / 65 65 / 65 Output Total 555 / 555 525 / 525 Balance -490 / -490 -460 / -460 Weight 144 lb 6.4 oz Intake: IV 65 / 65 65 / 65 Output: Urine Catheter Amount 555 / 555 525 / 525 Exam: General: Sitting in bed, looks comfortable, does not recognize me Chest: Left basal rales, otherwise clear Cardiovascular: Regular rate and rhythm this morning, no edema Abdomen: Soft, no apparent tenderness to palpation, incision clean and dry and intact. Active bowel sounds are present Neuro: Alert, oriented to self, does not recognize me, thinks there is someone else any in the chair next to him, though it is empty. Generally able to redirect. Moves all extremities. Medical - PN: Obj Da - Labs CBC & Chem 7: 07/01/17 03:56 07/01/17 03:56 Labs: Abnormal Lab Results 07/01/17 06/30/17 06/30/17 03:56 04:00 04:00 RBC 3.78 L 3.73 L Hgb 11.3 L 11.1 L Hct 33.0 L 32.7 L Gran % Lymph % (Auto) Lymph # (Auto) Seg Neutrophils % Lymphocytes % 13 L Eosinophils % (Manual) 9 H PT INR Calcium Phosphorus Lactate Dehydrogenase 254 H Total Protein Albumin 06/29/17 06/29/17 06/28/17 04:00 04:00 10:51 RBC 3.37 L Hgb 10.0 L Hct 29.9 L Gran % Lymph % (Auto) Lymph # (Auto) Seg Neutrophils % 79 H Lymphocytes % 13 L Eosinophils % (Manual) PT 17.9 H INR 1.4 H Calcium 8.1 L Phosphorus 2.4 L Lactate Dehydrogenase Total Protein 5.4 L Albumin 3.0 L 06/28/17 10:51 RBC 3.36 L Hgb 10.0 L Hct 29.2 L Gran % 82.2 H Lymph % (Auto) 11.4 L Lymph # (Auto) 1.0 L Seg Neutrophils % Lymphocytes % Eosinophils % (Manual) PT INR Calcium Phosphorus Lactate Dehydrogenase Total Protein Albumin Meds: Medications Artificial Tears (Artificial Tears Ophth Drops) 1 gtt OU Q1HP PRN PRN Reason: Dry Eye(s) Bisacodyl (Dulcolax) 10 mg [place] ONCE ONE Stop: 07/01/17 10:01 Famotidine (Pepcid) 20 mg IV Q12 [facility] Last Admin: 07/01/17 08:11 Dose: 20 mg Heparin Sodium (Porcine) (Heparin) 5,000 unit SQ Q12 [facility] Last Admin: 07/01/17 08:11 Dose: 5,000 unit Potassium Chloride/Dextrose/Sod Cl (Dextrose 5%-1/2ns W/20meq Kcl) 1,000 mls @ 60 mls/hr IV .[id number] [facility] Last Admin: 06/30/17 18:40 Dose: 60 mls/hr Ertapenem 1 gm/ Sodium (Chloride) 50 mls @ 100 mls/hr IV DAILY [facility] Last Admin: 07/01/17 08:11 Dose: 100 mls/hr Acetaminophen (Ofirmev) 650 mg in 65 mls @ 130 mls/hr IV Q6HP PRN PRN Reason: PAIN/FEVER > 101 Last Infusion: 06/30/17 22:35 Dose: Infused Vancomycin HCl 1,000 mg/ (Sodium Chloride) 250 mls @ 250 mls/hr IV DAILY [facility] Latanoprost (Xalatan Ophth Drops) 1 gtt OU QHS [facility] Last Admin: 06/30/17 22:20 Dose: 1 gtt Levothyroxine Sodium (Synthroid) 25 mcg IV QAMAC [facility] Last Admin: 07/01/17 08:10 Dose: 25 mcg Morphine Sulfate (Morphine) 0 mg IV Q4HP PRN PRN Reason: PAIN LEVEL > 5 Last Admin: 07/01/17 09:32 Dose: 1 mg Olanzapine (Olanzapine) 5 mg IM Q6H PRN PRN Reason: for agitation Ondansetron HCl (Zofran) 4 mg IV Q4HP PRN PRN Reason: Nausea And Vomiting Clobetasol Prop Topical Solution 0. 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 Status: Acute Current Visit: Yes (2) Mild cognitive impairment with memory loss Status: Chronic Current Visit: Yes (3) Bradycardia Status: Chronic Current Visit: Yes (4) Enlarged prostate Status: Chronic Current Visit: Yes (5) Hypothyroidism (acquired) Status: Chronic Current Visit: Yes (6) Chronic kidney disease, stage III (moderate) Status: Chronic Current Visit: Yes (7) CAD (coronary artery disease) Problem details: stents by Dr. العلي Status: Chronic Current Visit: Yes - Narrative A/P Narrative: 86-year-old male with multiple chronic medical problems, presenting with acute onset of nausea vomiting abdominal pain. Found to have large bowel obstruction due to internal hernia and cecal volvulus. Large bowel obstruction/internal hernia/cecal volvulus. Postop day #4 status post exploratory laparotomy and cecal resection. Bowel sounds present Tues. Plan: Bowel care/diet per surgery, pain control, supportive care. Fever. Infiltrates fevers trending down after antibiotics changed from Zosyn to vancomycin plus ertapenem. Cultures remain negative. Treating healthcare acquired pneumonia. Plan: Follow-up cultures, continue vancomycin and ertapenem, follow fever curve Atrial fibrillation. Spontaneously cardioverted again after recurrent AF Friday afternoon. Now 2 bouts of paroxysmal AF.. Likely secondary to stress from postoperative state, as well as pulmonary infection. Plan: Continue with telemetry monitoring. Rate controlling agents if needed for recurrence. Mild cognitive impairment with memory issues. Experiencing ing/ delirium. Worse Friday evening. IM doses of Zyprexa not always controlling symptoms. Plan: Supportive care, redirection, PRN Zyprexa IM. Will change to PO when taking meds. Try to avoid BZD. Chronic kidney disease. Creatinine improved and stable at 1.1. Plan: Renal dose medications. Coronary artery disease. Quiescent. Most recent cardiac evaluation at been for rhythm issues. No real evidence of anginal symptoms. Plan: Monitor. BPH with lower urinary tract symptoms. On finasteride as an outpatient. Plan: Aviles catheter for careful monitoring of intake and output. 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 Patient went into A. fib early Friday, then cardioverted, again Friday with spontaneous cardioversion. When in sinus, maintains paced and [place] beats Plan: Telemetry. Hypotension with orthostatic symptoms. On midodrine as an outpatient. Maintaining adequate blood pressure without intervention currently. Plan: Hold midodrine. Hypothyroid. On oral replacement. Plan: Change to IV replacement at 50% of the oral dose. Prophylaxis: IV famotidine, subcutaneous heparin. Medical - PN: Qual - VTE Deep Vein Thrombosis/Pulmonary Embolism Present on Admission: Yes
[2017-07-01] MEDS: OLANZapine 10 MG VIAL IM PRN ×2 (09:50→18:47)
[2017-07-01] MEDS: VANCOMYCIN 1,000 MG in 0.9 % SODIUM CHLORIDE 250 ML IV SCH (09:57)
[2017-07-01] MEDS ORDERED: BISACODYL 10 MG SUPP.RECT PR ONE ×2 (10:00)
[2017-07-01] MEDS: DEXTROSE 5%-1/2NS W/20MEQ KCL 1,000 ML IV SCH (10:04)
[2017-07-01] MEDS: ACETAMINOPHEN 650 MG/65 ML BOTTLE IV PRN (11:40)
--- NOTE | 2017-07-01 13:25 | Surgical Pathology Report ---
HISTOLOGY SPECIMEN MICROSCOPIC DIAGNOSIS ASCENDING COLON, TERMINAL ILEUM AND APPENDIX, SEGMENTAL RESECTION: -- COLON: - HEMORRHAGIC COLONIC MUCOSA, CONSISTENT WITH EARLY ISCHEMIA. - DISTAL MARGIN VIABLE. -- TERMINAL ILEUM: - NO DIAGNOSTIC ALTERATIONS. - PROXIMAL MARGIN VIABLE. -- APPENDIX: - FIBROUS ABLATION OF THE APPENDICEAL LUMEN. -- LYMPH NODES, MESENTERIC: - MULTIPLE LYMPH NODES WITH REACTIVE LYMPHOID HYPERPLASIA. (DMT:sln) CLINICAL HISTORY Large bowel obstruction. GROSS DESCRIPTION The specimen is received as cecum with appendix and consists of a dilated segment of colon with a small amount of attached adipose tissue and appendix. The terminal ileum has a 3.5 cm staple line and measures up to 1.5 cm. The ascending colon staple line measures 6.0 cm in length. The portion of colon measures 15.0 cm in length and has a maximum diameter of 10.0 cm. The appendix measures 8.0 cm and ranges in diameter from 0.5 to 0.8 cm. The colon is opened revealing a moderate amount of bloody, dark brown, fecal material. The colon wall ranges in thickness from 0.8 x 0.4 cm. The mucosa has diffuse areas of hemorrhage, that involves nearly the entire cecal mucosa and ileocecal valve. There is minimal red discoloration of the terminal ileal mucosa. No mass lesions or perforations are identified. A few possible lymph nodes are identified within the attached adipose tissue, ranging in size from 0.2 to 1 cm. Adjunct Spanish Instructor sections are submitted as follows: A1 - proximal and distal margin; A2 - appendix; A3 - ileocecal valve; A4-A5 - sections of bowel wall, including area of hemorrhage and ulceration; A6 - less hemorrhagic and normal appearing mucosal wall; A7 - automobile sales representative ileal mucosa; A8 - three possible lymph nodes (largest bisected). (ACP:nasim) Electronically Signed by: Al Orantes M.D.
[2017-07-01] MEDS: LATANOPROST OPHTH DROPS 2.5ML BOTTLE OU SCH (19:44)
[2017-07-02] MEDS: ACETAMINOPHEN 650 MG/65 ML BOTTLE IV PRN ×2 (00:58→11:55)
[2017-07-02] MEDS: DEXTROSE 5%-1/2NS W/20MEQ KCL 1,000 ML IV SCH ×2 (03:20→22:17)
[2017-07-02 06:49] LABS: Mean Cell Volume 87.9 fL (80.0-100.0); Mean Corpuscular HGB Conc 33.9 g/dL (31.0-36.0); Mean Corpuscular Hemoglobin 29.8 pg (26.0-34.0); Platelet Count 200 K/mcL (140-440); RBC 3.54 M/mcL (4.50-5.90); Red Cell Distribution Width 13.6 % (11.5-14.5)
[2017-07-02 07:17] LABS: ALT/SGPT 8 U/l (0-40); Albumin 2.8 gm/dL (3.2-5.2); Albumin/Globulin Ratio 1.1 (1.0-2.3); Alkaline Phosphatase 51 U/L (39-117); Bilirubin,Direct < 0.2 mg/dL (0.0-0.3); Blood Urea Nitrogen 18 mg/dl (8-23); Gamma Glutamyl Transpeptidase 15 U/L (8-61); Magnesium 1.9 mg/dL (1.6-2.5); Uric Acid 6.4 mg/dL (2.5-8.0)
[2017-07-02 07:46] LABS: Band Neutrophils % 2 % (0-10); Eosinophils % (Manual) 12 % (0-7); Lymphocytes % 17 % (15-49); Monocytes % (Manual) 13 % (1-12); Platelet Estimate NORMAL (NORMAL); RBC Morphology NORMAL (NORMAL); Segmented Neutrophils % 56 % (38-78)
[2017-07-02] MEDS: LEVOTHYROXINE 100 MCG VIAL IV SCH (08:10)
[2017-07-02] MEDS: 0.9 % SODIUM CHLORIDE 10 ML SYRINGE IV SCH ×3 (08:13→22:17)
[2017-07-02] MEDS: ERTAPENEM 1 GM in 0.9 % SODIUM CHLORIDE 50 ML IV SCH (08:35)
[2017-07-02] MEDS: VANCOMYCIN 1,000 MG in 0.9 % SODIUM CHLORIDE 250 ML IV SCH (09:33)
[2017-07-02] MEDS: HEPARIN 5,000 UNIT/ML VIAL SQ SCH ×2 (09:35→21:43)
[2017-07-02] MEDS: FAMOTIDINE/PF 20 MG/2 ML VIAL IV SCH ×2 (09:37→21:42)
--- NOTE | 2017-07-02 11:31 | Internal Med Progress Note ---
Medical - PN: Subj Patient information: Note initiated : 07/02/17 at 11:29 am Service Date, if different from initiated Date: [] Patient: Gustavo Fuentes 86 y/o M admitted on 06/27/17 for Abdominal Pain/Large Bowel Obstruction. Chief Complaint: f/u volvulus Interval history: June 27 Patient onset of abdominal pain about 10 PM last evening. He had emesis 6. Initially tannish emesis to a yellowish color, no bilious emesis, no hematemesis. He continued to have abdominal pain, he is brought to the ED for further evaluation. Patient is able to give limited history, denies any fevers or chills. Last bowel movement appears to have been morning, the morning prior to the onset of his symptoms. No recent change in bowel habits. After weather clerk admission, pain medication given at 1 AM in the ED wore off , patient was complaining of abdominal pain, more on the left side. Dr. Whitney re-reviewed CT scan of the abdomen with Dr. Mix in radiology, who is concerned this did indeed represent a volvulus or an internal hernia. Repeat lactate was normal, repeat CBC revealed persistent leukocytosis. Given the above, Dr. 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 Right hemicolectomy was performed. June 28 This morning the patient's awake, alert, thinks he is in a different hospital but is easily redirectable. Had some oozing of serosanguineous fluid from the inferior aspects of the surgical wound, a small bleeder was ligated by Dr. Whitney. Subsequently the patient became more agitated, pulled out his nasogastric tube, is more difficult to redirect. He has responded to low dose lorazepam. He was having some abdominal pain this morning, seems to be more associated with the surgical wound, different than pain at presentation yesterday. June 29 Low-grade fever continued, worsened, had temperature to 102 overnight the to the . Intermittent confusion and agitation. Also went into atrial fibrillation overnight between the and , spontaneously cardioverted afternoon of the . Repeat CT scan obtained, showing generally expected postop findings, but pulmonary infiltrates. Antibiotics changed from Zosyn to vancomycin and ertapenem. Jun 30 Received IM Zyprexa last evening, one further dose about midnight. Much clearer this morning, underlying dementia, easily redirectable, but not agitated and pulling at lines. Able to work with pulmonary toilet, able to get up to the chair. He remains in normal sinus rhythm. Still with low-grade fever , but less than 100. Jun 2 Became agitated and less re-directable last night consistent with sundowning in the setting of dementia and hospitalization. Required restraints overnight. Went back into atrial fibrillation after a fall, when he attempts to get out of bed late yesterday afternoon. IJ central line was accidentally discontinued/ pulled out at that time. Overnights spontaneously reconverted back to sinus rhythm. This morning in bed, does not recognize me, generally redirectable. Denies any abdominal pain. Becoming more agitated with the arms and noises in the intensive care unit, attempting to provide a calmer environment. Jul 02 Yesterday afternoon, though did not appear to be painful and denied pain, trial of morphine was undertaken, patient became much more comfortable, slept for a few hours and was much clearer afterward. Part of his daytime agitation may have been unrecognized pain. I suspect he also has a component of sundowning, as tends to worsen the evening. This morning, he is awake, is alert, he is talkative. Had bowel movements yesterday, ambulated around the nurse's station. Seen by speech who made recommendations. Dr. Whitney cleared him to have his diet advanced per speech his recommendations. Continues to have bowel sounds. This morning is also complaining of a bit of abdominal pain, is a little tender around his incision as would be expected. - Constitutional Vitals: Vital Signs Temp Pulse Resp BP Pulse Ox 98.6 F 66 20 173/73 94 07/02/17 07:40 07/02/17 07:42 07/02/17 07:40 07/02/17 07:40 07/02/17 07:40 Period Temp Pulse Resp BP Sys/Patel Pulse Ox Last 24 Hr 97.4 F-99.7 F 64-71 16-20 119-173/61-74 91-97 Intake and Output 07/01/17 07/02/17 07/02/17 21:59 05:59 13:59 Intake Total 1065 / 1065 410 / 410 Output Total 300 / 300 375 / 375 Balance -300 / -300 690 / 690 410 / 410 Weight 151 lb 8 oz Intake & Output: Intake & Output 07/01/17 07/02/17 07/02/17 21:59 05:59 13:59 Intake Total 1065 / 1065 410 / 410 Output Total 300 / 300 375 / 375 Balance -300 / -300 690 / 690 410 / 410 Weight 151 lb 8 oz Intake: IV 1065 / 1065 50 / 50 Dextrose 5%-1/2Ns W/20Meq KCl 1 1000 / 1000 ,000 ml @ 60 mls/hr IV .[id number] [facility] Rx#:[id number] INVanz 1 GM In Sodium Chloride 50 / 50 0.9% 50 ml @ 100 mls/hr IV DAILY [facility] Rx#:[id number] Oral 360 / 360 Output: Urine Catheter Amount 300 / 300 375 / 375 Other: Meal Breakfast Percent of Meal Consumed 75% # Bowel Movements 1 Exam: General: Laying in bed, pleasant, appears comfortable Chest: Few left basal rales, otherwise clear to auscultation Cardiovascular: Regular rate and rhythm, no murmur, sinus rhythm on telemetry Abdomen: Soft, active bowel sounds, incision is clean and dry. Neuro: Alert, appropriate and interactive. Generally weak. Medical - PN: Obj Da - Labs CBC & Chem 7: 07/02/17 03:47 07/02/17 03:47 Labs: Abnormal Lab Results 07/02/17 07/02/17 07/01/17 03:47 03:47 03:56 RBC 3.54 L 3.78 L Hgb 10.6 L 11.3 L Hct 31.1 L 33.0 L Lymphocytes % Monocytes % (Manual) 13 H Eosinophils % (Manual) 12 H 9 H Carbon Dioxide 21 L Calcium 8.2 L Lactate Dehydrogenase Total Protein 5.4 L Albumin 2.8 L 06/30/17 06/30/17 04:00 04:00 RBC 3.73 L Hgb 11.1 L Hct 32.7 L Lymphocytes % 13 L Monocytes % (Manual) Eosinophils % (Manual) Carbon Dioxide Calcium Lactate Dehydrogenase 254 H Total Protein Albumin Meds: Medications Artificial Tears (Artificial Tears Ophth Drops) 1 gtt OU Q1HP PRN PRN Reason: Dry Eye(s) Famotidine (Pepcid) 20 mg IV Q12 [facility] Last Admin: 07/02/17 09:37 Dose: 20 mg Heparin Sodium (Porcine) (Heparin) 5,000 unit SQ Q12 [facility] Last Admin: 07/02/17 09:35 Dose: 5,000 unit Potassium Chloride/Dextrose/Sod Cl (Dextrose 5%-1/2ns W/20meq Kcl) 1,000 mls @ 60 mls/hr IV .[id number] [facility] Last Admin: 07/02/17 03:20 Dose: 60 mls/hr Ertapenem 1 gm/ Sodium (Chloride) 50 mls @ 100 mls/hr IV DAILY [facility] Last Infusion: 07/02/17 09:34 Dose: Infused Acetaminophen (Ofirmev) 650 mg in 65 mls @ 130 mls/hr IV Q6HP PRN PRN Reason: PAIN/FEVER > 101 Last Infusion: 07/02/17 01:30 Dose: Infused Vancomycin HCl 1,000 mg/ (Sodium Chloride) 250 mls @ 250 mls/hr IV DAILY [facility] Last Admin: 07/02/17 09:33 Dose: 250 mls/hr Latanoprost (Xalatan Ophth Drops) 1 gtt OU QHS [facility] Last Admin: 07/01/17 19:44 Dose: 1 gtt Levothyroxine Sodium (Synthroid) 25 mcg IV QAMAC [facility] Last Admin: 07/02/17 08:10 Dose: 25 mcg Morphine Sulfate (Morphine) 0 mg IV Q4HP PRN PRN Reason: PAIN LEVEL > 5 Last Admin: 07/01/17 18:40 Dose: 0.5 mg Olanzapine (Olanzapine) 5 mg IM Q6H PRN PRN Reason: for agitation Last Admin: 07/01/17 18:47 Dose: 5 mg Ondansetron HCl (Zofran) 4 mg IV Q4HP PRN PRN Reason: Nausea And Vomiting Clobetasol Prop Topical Solution 0. 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 Status: Acute Current Visit: Yes (2) Mild cognitive impairment with memory loss Status: Chronic Current Visit: Yes (3) Bradycardia Status: Chronic Current Visit: Yes (4) Enlarged prostate Status: Chronic Current Visit: Yes (5) Hypothyroidism (acquired) Status: Chronic Current Visit: Yes (6) Chronic kidney disease, stage III (moderate) Status: Chronic Current Visit: Yes (7) CAD (coronary artery disease) Problem details: stents by Dr. العلي Status: Chronic Current Visit: Yes - Narrative A/P Narrative: 86-year-old male with multiple chronic medical problems, presenting with acute onset of nausea vomiting abdominal pain. Found to have large bowel obstruction due to internal hernia and cecal volvulus. Large bowel obstruction/internal hernia/cecal volvulus. Postop day #5 status post exploratory laparotomy and cecal resection. Bowel sounds present and stooling on Tues. Plan: Bowel care/diet per surgery (starting PO today); pain control, supportive care. Fever. Infiltrates fevers trending down after antibiotics changed from Zosyn to vancomycin plus ertapenem. Cultures remain negative. Treating healthcare acquired pneumonia. Rales in left lung mostly resolved on 07/02 Plan: Follow-up cultures, continue vancomycin and ertapenem, follow fever curve Atrial fibrillation. Spontaneously cardioverted again after recurrent AF Friday afternoon. Now 2 bouts of paroxysmal AF.. Likely secondary to stress from postoperative state, as well as pulmonary infection. Plan: Continue with telemetry monitoring. Rate controlling agents if needed for recurrence. Mild cognitive impairment with memory issues. Experiencing owning/ delirium. Worse Friday evening. IM doses of Zyprexa not always controlling symptoms. Now some of datime agitation likely due to pain, but still tends to worsen at night even with pain med. Plan: Supportive care, redirection; will add PO Seroquel now that can take PO. PRN Zyprexa IM if cannot take PO. Try to avoid BZD. Chronic kidney disease. Creatinine improved and stable at 1.1. Plan: Renal dose medications. Coronary artery disease. Quiescent. Most recent cardiac evaluation at been for rhythm issues. No real evidence of anginal symptoms. Plan: Monitor. BPH with lower urinary tract symptoms. On finasteride as an outpatient. Plan: Aviles catheter for careful monitoring of intake and output. 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 Patient went into A. fib early Friday, then cardioverted, again Friday with spontaneous cardioversion. When in sinus, maintains paced and [place] beats Plan: Telemetry. Hypotension with orthostatic symptoms. On midodrine as an outpatient. Maintaining adequate blood pressure without intervention currently. Plan: Hold midodrine. Hypothyroid. On oral replacement. Plan: Change to IV replacement at 50% of the oral dose. Prophylaxis: IV famotidine, subcutaneous heparin. Medical - PN: Qual - VTE Deep Vein Thrombosis/Pulmonary Embolism Present on Admission: Yes
--- NOTE | 2017-07-02 13:49 | General Surgery Progress Note ---
Subjective Patient reports: feels better, pain is less, tolerating a regular diet, flatus, bowel movement, afebrile Narrative: Note initiated : 07/02/17 at 1:47 pm Service Date, if different from initiated Date: [] Patient: Gustavo Fuentes 86 y/o M admitted on 06/27/17 for Abdominal Pain/Large Bowel Obstruction. Chief Complaint: [Mr. Fuentes is doing very well. He is on a pured diet and is tolerating it without difficulty. He has had multiple bowel movements and passed flatus. He does not have any respiratory difficulty. He has intermittent atrial arrhythmias but is presently and sinus rhythm with a rate of about 90.] Objective Temp Pulse Resp BP Pulse Ox 99.5 F H 66 18 110/61 94 07/02/17 11:55 07/02/17 11:44 07/02/17 11:44 07/02/17 11:44 07/02/17 11:44 - Additional Data Intake & Output - Last 24 hours: Intake & Output 06/30/17 07/01/17 07/02/17 07/03/17 05:59 05:59 05:59 05:59 Intake Total 1697 / 1697 1050 / 1050 2354 / 2354 410 / 410 Output Total 3794 / 3794 1925 / 1925 755 / 755 Balance -2097 / -2097 -875 / -875 1599 / 1599 410 / 410 Weight 158 lb 144 lb 6.4 oz 151 lb 8 oz - General physical appearance no distress, no pain - Eyes PERRL - ENT no congestion - Neck no masses - Respiratory normal expansion, normal respiratory effort, clear to auscultation - Cardiovascular Cardiovascular exam: Present: irregular rhythm, +S1, +S2, tachycardia. Absent: JVD - Abdomen soft, tender (Mild tenderness but without distention; good active bowel sounds incision looks good) - Integumentary no rash, no growths, no abnormal pigmentation - Neurologic normal coordination, normal sensation - Musculoskeletal normal posture - Psychiatric oriented to person, oriented to place, other (Mild dementia) - Labs 07/02/17 03:47 07/02/17 03:47 Diabetes panel 07/02/17 Range/Units 03:47 Sodium 139 (133-145) mmol/L Potassium 3.8 (3.3-5.1) mmol/L Chloride 105 (96-108) mmol/L Carbon Dioxide 21 L (22-30) mmol/L BUN 18 (8-23) mg/dl Creatinine 1.0 (0.7-1.2) mg/dl Glucose 101 (70-105) mg/dL Calcium 8.2 L (8.6-10.4) mg/dl AST 9 (0-37) U/l ALT 8 (0-40) U/l Alkaline Phosphatase 51 (39-117) U/L Total Protein 5.4 L (5.9-8.4) gm/dL Albumin 2.8 L (3.2-5.2) gm/dL Triglycerides 147 (<150) mg/dl Calcium panel 07/02/17 Range/Units 03:47 Calcium 8.2 L (8.6-10.4) mg/dl Phosphorus 3.3 (2.7-4.5) mg/dL Albumin 2.8 L (3.2-5.2) gm/dL Pituitary panel 07/02/17 Range/Units 03:47 Sodium 139 (133-145) mmol/L Potassium 3.8 (3.3-5.1) mmol/L Chloride 105 (96-108) mmol/L Carbon Dioxide 21 L (22-30) mmol/L BUN 18 (8-23) mg/dl Creatinine 1.0 (0.7-1.2) mg/dl Glucose 101 (70-105) mg/dL Calcium 8.2 L (8.6-10.4) mg/dl Adrenal panel 07/02/17 Range/Units 03:47 Sodium 139 (133-145) mmol/L Potassium 3.8 (3.3-5.1) mmol/L Chloride 105 (96-108) mmol/L Carbon Dioxide 21 L (22-30) mmol/L BUN 18 (8-23) mg/dl Creatinine 1.0 (0.7-1.2) mg/dl Glucose 101 (70-105) mg/dL Calcium 8.2 L (8.6-10.4) mg/dl Total Bilirubin 0.4 (0.0-1.0) mg/dL AST 9 (0-37) U/l ALT 8 (0-40) U/l Alkaline Phosphatase 51 (39-117) U/L Total Protein 5.4 L (5.9-8.4) gm/dL Albumin 2.8 L (3.2-5.2) gm/dL Assessment and Plan (1) Cecal volvulus Status: Acute Assessment and plan: We will continue present diet Current Visit: Yes (2) Obstructed internal hernia Status: Resolved Current Visit: Yes (3) Right lower lobe pneumonia Status: Acute Current Visit: No (4) Paroxysmal atrial fibrillation Problem details: Captured on [employer] Status: Chronic Current Visit: No (5) Chronic kidney disease, stage III (moderate) Status: Chronic Current Visit: Yes - Time Spent With Patient Total time spent is greater than 50% in coordination of care (as documented) at patient's floor/unit and/or counseling patient:
[2017-07-02] MEDS: QUEtiapine 25 MG TABLET PO SCH (21:43)
[2017-07-02] MEDS: LATANOPROST OPHTH DROPS 2.5ML BOTTLE OU SCH (21:45)
[2017-07-03] MEDS: OLANZapine 10 MG VIAL IM PRN ×2 (01:37→22:41)
[2017-07-03 06:28] LABS: Basophils # (Auto) 0 K/mcL (0.0-0.3); Basophils % (Auto) 0.1 % (0.0-2.0); Eosinophils # (Auto) 0.5 K/mcL (0.0-0.7); Eosinophils % (Auto) 7.7 % (0.0-7.0); Granulocytes % (Auto) 66.3 % (38.0-78.0); Lymphocytes % (Auto) 16.6 % (15.5-49.0); Mean Corpuscular HGB Conc 33.9 g/dL (31.0-36.0); Mean Corpuscular Hemoglobin 29.5 pg (26.0-34.0); Monocytes # (Auto) 0.6 K/mcL (0.1-0.9); Monocytes % (Auto) 9.3 % (1.0-12.0); Platelet Count 223 K/mcL (140-440); RBC 3.65 M/mcL (4.50-5.90); Red Cell Distribution Width 13.3 % (11.5-14.5)
[2017-07-03 06:44] LABS: ALT/SGPT 11 U/l (0-40); Albumin 3.1 gm/dL (3.2-5.2); Albumin/Globulin Ratio 1.3 (1.0-2.3); Alkaline Phosphatase 54 U/L (39-117); Bilirubin,Direct < 0.2 mg/dL (0.0-0.3); Blood Urea Nitrogen 15 mg/dl (8-23); Gamma Glutamyl Transpeptidase 17 U/L (8-61); Magnesium 1.9 mg/dL (1.6-2.5); Uric Acid 6.2 mg/dL (2.5-8.0)
[2017-07-03] MEDS ORDERED: POTASSIUM CHLORIDE 40 MEQ in 0.9 % SODIUM CHLORIDE 500 ML IV ONE (07:31)
[2017-07-03] MEDS: DEXTROSE 5%-1/2NS W/20MEQ KCL 1,000 ML IV SCH ×2 (07:38→21:29)
[2017-07-03] MEDS: 0.9 % SODIUM CHLORIDE 10 ML SYRINGE IV SCH ×2 (07:38→12:45)
[2017-07-03] MEDS: LEVOTHYROXINE 100 MCG VIAL IV SCH (07:52)
[2017-07-03] MEDS: HEPARIN 5,000 UNIT/ML VIAL SQ SCH ×2 (07:53→20:15)
[2017-07-03] MEDS: FAMOTIDINE/PF 20 MG/2 ML VIAL IV SCH ×2 (07:53→20:14)
[2017-07-03] MEDS: ERTAPENEM 1 GM in 0.9 % SODIUM CHLORIDE 50 ML IV SCH (09:00)
[2017-07-03] MEDS: VANCOMYCIN 1,000 MG in 0.9 % SODIUM CHLORIDE 250 ML IV SCH (09:00)
[2017-07-03] MEDS: CALCIUM (OYSTER SHELL) 500 MG TABLET PO SCH (09:55)
[2017-07-03] MEDS: ASPIRIN 325 MG ENTERIC COATED TABLET PO SCH (09:55)
[2017-07-03] MEDS: MULTIVIT,THER IRON,CA,FA & MIN 1 TABLET PO SCH (09:55)
[2017-07-03] MEDS: FLUoxetine HCL 20 MG CAPSULE PO SCH (09:55)
[2017-07-03] MEDS: LEVOTHYROXINE 50 MCG TABLET PO SCH (09:56)
[2017-07-03] MEDS: OMEPRAZOLE 20 MG CAPSULE PO SCH (09:56)
[2017-07-03] MEDS: FINASTERIDE 5 MG TABLET PO SCH (09:59)
[2017-07-03] MEDS: VITAMIN D3 1,000 UNIT TABLET PO SCH (09:59)
--- NOTE | 2017-07-03 11:46 | Internal Med Progress Note ---
Medical - PN: Subj Patient information: Note initiated : 07/03/17 at 11:44 am Service Date, if different from initiated Date: [] Patient: Gustavo Fuentes 86 y/o M admitted on 06/27/17 for Abdominal Pain/Large Bowel Obstruction. Chief Complaint: [] Interval history: June 27 Patient onset of abdominal pain about 10 PM last evening. He had emesis 6. Initially tannish emesis to a yellowish color, no bilious emesis, no hematemesis. He continued to have abdominal pain, he is brought to the ED for further evaluation. Patient is able to give limited history, denies any fevers or chills. Last bowel movement appears to have been morning, the morning prior to the onset of his symptoms. No recent change in bowel habits. After datapower consultant admission, pain medication given at 1 AM in the ED wore off , patient was complaining of abdominal pain, more on the left side. Dr. Whitney re-reviewed CT scan of the abdomen with Dr. Mix in radiology, who is concerned this did indeed represent a volvulus or an internal hernia. Repeat lactate was normal, repeat CBC revealed persistent leukocytosis. Given the above, Dr. 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 Right hemicolectomy was performed. June 28 This morning the patient's awake, alert, thinks he is in a different hospital but is easily redirectable. Had some oozing of serosanguineous fluid from the inferior aspects of the surgical wound, a small bleeder was ligated by Dr. Whitney. Subsequently the patient became more agitated, pulled out his nasogastric tube, is more difficult to redirect. He has responded to low dose lorazepam. He was having some abdominal pain this morning, seems to be more associated with the surgical wound, different than pain at presentation yesterday. June 29 Low-grade fever continued, worsened, had temperature to 102 overnight the to the . Intermittent confusion and agitation. Also went into atrial fibrillation overnight between the and , spontaneously cardioverted afternoon of the . Repeat CT scan obtained, showing generally expected postop findings, but pulmonary infiltrates. Antibiotics changed from Zosyn to vancomycin and ertapenem. Jun 30 Received IM Zyprexa last evening, one further dose about midnight. Much clearer this morning, underlying dementia, easily redirectable, but not agitated and pulling at lines. Able to work with pulmonary toilet, able to get up to the chair. He remains in normal sinus rhythm. Still with low-grade fever , but less than 100. Jul 01 Became agitated and less re-directable last night consistent with sundowning in the setting of dementia and hospitalization. Required restraints overnight. Went back into atrial fibrillation after a fall, when he attempts to get out of bed late yesterday afternoon. IJ central line was accidentally discontinued/ pulled out at that time. Overnights spontaneously reconverted back to sinus rhythm. This morning in bed, does not recognize me, generally redirectable. Denies any abdominal pain. Becoming more agitated with the arms and noises in the intensive care unit, attempting to provide a calmer environment. Jul 02 Yesterday afternoon, though did not appear to be painful and denied pain, trial of morphine was undertaken, patient became much more comfortable, slept for a few hours and was much clearer afterward. Part of his daytime agitation may have been unrecognized pain. I suspect he also has a component of sundowning, as tends to worsen the evening. This morning, he is awake, is alert, he is talkative. Had bowel movements yesterday, ambulated around the nurse's station. Seen by speech who made recommendations. Dr. Whitney cleared him to have his diet advanced per speech his recommendations. Continues to have bowel sounds. This morning is also complaining of a bit of abdominal pain, is a little tender around his incision as would be expected. Jul 03 patient seen examined, in cheer [facility] mood today, denies any complaints, no cp no sob, no abdminal pain, able to tolerate po well he is having frequent BM which can be expected after a arley colectemy. Pertinent ROS: Denies headache, dizziness Denies chest pain, palpitations Denies cough or shortness of breath Denies abdominal pain, nausea or vomiting. - Constitutional Vitals: Vital Signs Temp Pulse Resp BP Pulse Ox 98.9 F 65 17 132/73 94 07/03/17 09:03 07/03/17 03:52 07/03/17 09:03 07/03/17 09:03 07/03/17 09:03 Period Temp Pulse Resp BP Sys/Patel Pulse Ox Last 24 Hr 98.9 F-100.8 F 52-76 17-18 113-135/64-75 94-96 Intake and Output 07/02/17 07/03/17 07/03/17 21:59 05:59 13:59 Intake Total 1100 / 1100 490 / 490 Output Total 300 / 300 750 / 750 Balance 800 / 800 -750 / -750 490 / 490 Weight 158 lb Intake & Output: Intake & Output 07/02/17 07/03/17 07/03/17 21:59 05:59 13:59 Intake Total 1100 / 1100 490 / 490 Output Total 300 / 300 750 / 750 Balance 800 / 800 -750 / -750 490 / 490 Weight 158 lb Intake: IV 1000 / 1000 Dextrose 5%-1/2Ns W/20Meq KCl 1 1000 / 1000 ,000 ml @ 60 mls/hr IV .[id number] [facility] Rx#:[id number] Oral 100 / 100 490 / 490 Output: Urine Catheter Amount 300 / 300 750 / 750 Other: Meal Breakfast Percent of Meal Consumed 75% Feeding Ability Assist with Tray Set Up # Bowel Movements 1 1 1 Exam: Constitutional; Afebrile, cooperative, alert, not in distress. Eyes- No icterus, , No periorbital swelling Ears- Ext ear normal, Neck- Midline trachea, supple Respiratory system: Air Entry equal on both sides, No crackles or wheezing, no rhonchi. CVS- Rate rhythm regular, S1,S2 heard, no gallop, no rub. 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 Medical - PN: Obj Da - Labs CBC & Chem 7: 07/03/17 04:12 07/03/17 04:12 Labs: Abnormal Lab Results 07/03/17 07/03/17 07/02/17 04:12 04:12 03:47 RBC 3.65 L Hgb 10.8 L Hct 31.7 L Eos % (Auto) 7.7 H Lymph # (Auto) 1.0 L Monocytes % (Manual) Eosinophils % (Manual) Carbon Dioxide 21 L Calcium 8.2 L 8.2 L Total Protein 5.5 L 5.4 L Albumin 3.1 L 2.8 L Triglycerides 164 H 07/02/17 07/01/17 03:47 03:56 RBC 3.54 L 3.78 L Hgb 10.6 L 11.3 L Hct 31.1 L 33.0 L Eos % (Auto) Lymph # (Auto) Monocytes % (Manual) 13 H Eosinophils % (Manual) 12 H 9 H Carbon Dioxide Calcium Total Protein Albumin Triglycerides Meds: Medications Artificial Tears (Artificial Tears Ophth Drops) 1 gtt OU Q1HP PRN PRN Reason: Dry Eye(s) Aspirin (Ecotrin) 325 mg PO DAILY [facility] Last Admin: 07/03/17 09:55 Dose: 325 mg Calcium Carbonate/Glycine (Oscal) 500 mg PO DAILY [facility] Last Admin: 07/03/17 09:55 Dose: 500 mg Famotidine (Pepcid) 20 mg IV Q12 [facility] Last Admin: 07/03/17 07:53 Dose: 20 mg Finasteride (Proscar) 5 mg PO QDAY [facility] Last Admin: 07/03/17 09:59 Dose: 5 mg Fluoxetine HCl (Prozac) 80 mg PO DAILY [facility] Last Admin: 07/03/17 09:55 Dose: 80 mg Heparin Sodium (Porcine) (Heparin) 5,000 unit SQ Q12 [facility] Last Admin: 07/03/17 07:53 Dose: 5,000 unit Potassium Chloride/Dextrose/Sod Cl (Dextrose 5%-1/2ns W/20meq Kcl) 1,000 mls @ 60 mls/hr IV .[id number] [facility] Last Admin: 07/03/17 07:38 Dose: Not Given Ertapenem 1 gm/ Sodium (Chloride) 50 mls @ 100 mls/hr IV DAILY [facility] Last Admin: 07/03/17 09:00 Dose: 100 mls/hr Acetaminophen (Ofirmev) 650 mg in 65 mls @ 130 mls/hr IV Q6HP PRN PRN Reason: PAIN/FEVER > 101 Last Infusion: 07/02/17 13:10 Dose: Infused Vancomycin HCl 1,000 mg/ (Sodium Chloride) 250 mls @ 250 mls/hr IV DAILY [facility] Last Admin: 07/03/17 09:00 Dose: 250 mls/hr Iron Carb/Multivit/[place]/Folic Acid (Multivitamin W/Minerals) 1 tab PO DAILY [facility] Last Admin: 07/03/17 09:55 Dose: 1 tab Latanoprost (Xalatan Ophth Drops) 1 gtt OU QHS [facility] Last Admin: 07/02/17 21:45 Dose: 1 gtt Levothyroxine Sodium (Synthroid) 50 mcg PO QAMAC [facility] Last Admin: 07/03/17 09:56 Dose: Not Given Morphine Sulfate (Morphine) 0 mg IV Q4HP PRN PRN Reason: PAIN LEVEL > 5 Last Admin: 07/03/17 07:53 Dose: 0.5 mg Olanzapine (Olanzapine) 5 mg IM Q6H PRN PRN Reason: for agitation Last Admin: 07/03/17 01:37 Dose: 5 mg Omeprazole (Prilosec) 20 mg PO ACB [facility] Last Admin: 07/03/17 09:56 Dose: Not Given Ondansetron HCl (Zofran) 4 mg IV Q4HP PRN PRN Reason: Nausea And Vomiting Clobetasol Prop Topical Solution 0. 05% 1 dose TOPICAL BIDP PRN PRN Reason: ITCHING AND RASH Last Admin: 07/01/17 19:53 Dose: 1 dose Quetiapine Fumarate (Seroquel) 12.5 mg PO HS [facility] Last Admin: 07/02/17 21:43 Dose: 12.5 mg Simvastatin (Zocor) 5 mg PO HS [facility] Sodium Chloride (Saline Flush) 10 ml IV UD PRN PRN Reason: FLUSH Sodium Chloride (Saline Flush) 10 ml IV Q8 [facility] Last Admin: 07/03/17 07:38 Dose: Not Given Trazodone HCl (Desyrel) 100 mg PO QHS [facility] Vancomycin HCl (Vancomycin Per Pharmacy) 1 order IV UD [facility] Vitamin D (Vitamin D3) 1,000 unit PO DAILY [facility] Last Admin: 07/03/17 09:59 Dose: 1,000 unit Medical - PN: A/P - Time Spent With Patient Total time spent is greater than 50% in coordination of care (as documented) at patient's floor/unit and/or counseling patient: - Narrative A/P Narrative: 86-year-old male with multiple chronic medical problems, presenting with acute onset of nausea vomiting abdominal pain. Found to have large bowel obstruction due to internal hernia and cecal volvulus. Large bowel obstruction/internal hernia/cecal volvulus. Postop day #6 status post exploratory laparotomy and cecal resection. Bowel sounds present and stooling on Tues. Plan: Bowel care/diet per surgery tolerating po well; pain control, supportive care. Fever. Infiltrates fevers trending down after antibiotics changed from Zosyn to vancomycin plus ertapenem. Cultures remain negative. Treating healthcare acquired pneumonia. Rales in left lung mostly resolved on 07/02 Plan: Follow-up cultures, continue vancomycin and ertapenem, follow fever curve , anticipate total of 5-7 days of antibiotics. Atrial fibrillation. Spontaneously cardioverted again after recurrent AF Friday afternoon. Now 2 bouts of paroxysmal AF.. Likely secondary to stress from postoperative state, as well as pulmonary infection. Plan: Continue with telemetry monitoring. Rate controlling agents if needed for recurrence. remains in sinus, frequent PAC noted. Mild cognitive impairment with memory issues. Experiencing ing/ delirium. Worse Friday evening. IM doses of Zyprexa not always controlling symptoms. Now some of datime agitation likely due to pain, but still tends to worsen at night even with pain med. Plan: Supportive care, redirection; On PO Seroquel now that can take PO. PRN Zyprexa IM if cannot take PO. Try to avoid BZD. Chronic kidney disease. Creatinine improved and stable at 1.1. Plan: Renal dose medications. Coronary artery disease. Quiescent. Most recent cardiac evaluation at been for rhythm issues. No real evidence of anginal symptoms. Plan: Monitor. BPH with lower urinary tract symptoms. On finasteride as an outpatient. Plan: [place] catheter can be discontinued now. 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 Patient went into A. fib early Friday, then cardioverted, again Friday with spontaneous cardioversion. When in sinus, maintains paced and levelock beats Plan: Telemetry for now. Hypotension with orthostatic symptoms. On midodrine as an outpatient. Maintaining adequate blood pressure without intervention currently. Plan: Hold midodrine. Hypothyroid. On oral replacement. Plan: resume oral home dose. Prophylaxis: IV famotidine, subcutaneous heparin. Medical - PN: Qual - VTE Deep Vein Thrombosis/Pulmonary Embolism Present on Admission: Yes
[2017-07-03] MEDS ORDERED: OLANZapine 10 MG VIAL IM STA (15:28)
--- NOTE | 2017-07-03 19:20 | General Surgery Progress Note ---
Subjective Patient reports: pain is less, tolerating a regular diet, flatus, bowel movement , afebrile Narrative: Note initiated : 07/03/17 at 7:20 pm Service Date, if different from initiated Date: [] Patient: Gustavo Fuentes 86 y/o M admitted on 06/27/17 for Abdominal Pain/Large Bowel Obstruction. Chief Complaint: [Patient is stable. He is having good bowel movements and passing flatus. He is tolerating the diet. His main problem has been confusion and irritability. He has been somewhat hostile towards the nursing staff.] Objective Temp Pulse Resp BP Pulse Ox 98.1 F 87 18 122/66 95 07/03/17 15:52 07/03/17 12:04 07/03/17 15:52 07/03/17 15:52 07/03/17 15:52 - Additional Data Intake & Output - Last 24 hours: Intake & Output 07/01/17 07/02/17 07/03/17 07/04/17 05:59 05:59 05:59 05:59 Intake Total 1050 / 1050 2354 / 2354 1825 / 1825 1730 / 1730 Output Total 1925 / 1925 755 / 755 1050 / 1050 675 / 675 Balance -875 / -875 1599 / 1599 775 / 775 1055 / 1055 Weight 144 lb 6.4 oz 151 lb 8 oz 158 lb - General physical appearance no distress, chronically ill - ENT no congestion - Neck no venous distension - Respiratory normal respiratory effort, clear to auscultation - Cardiovascular Cardiovascular exam: Present: irregular rhythm, +S1, +S2, tachycardia. Absent: JVD - Abdomen non tender, distended (Abdomen is soft and nondistended with good active bowel sounds) - Integumentary no rash, no growths, no abnormal pigmentation - Neurologic disoriented, combative, confused, memory loss, other - Musculoskeletal other (Able to ambulate with standby assistance and frontwheel walker) - Psychiatric other (Only intermittently oriented to place and time) - Labs 07/07/17 03:55 07/07/17 03:55 Diabetes panel 07/03/17 Range/Units 04:12 Sodium 142 (133-145) mmol/L Potassium 3.7 (3.3-5.1) mmol/L Chloride 107 (96-108) mmol/L Carbon Dioxide 24 (22-30) mmol/L BUN 15 (8-23) mg/dl Creatinine 1.0 (0.7-1.2) mg/dl Glucose 95 (70-105) mg/dL Calcium 8.2 L (8.6-10.4) mg/dl AST 13 (0-37) U/l ALT 11 (0-40) U/l Alkaline Phosphatase 54 (39-117) U/L Total Protein 5.5 L (5.9-8.4) gm/dL Albumin 3.1 L (3.2-5.2) gm/dL Triglycerides 164 H (<150) mg/dl Calcium panel 07/03/17 Range/Units 04:12 Calcium 8.2 L (8.6-10.4) mg/dl Phosphorus 3.1 (2.7-4.5) mg/dL Albumin 3.1 L (3.2-5.2) gm/dL Pituitary panel 07/03/17 Range/Units 04:12 Sodium 142 (133-145) mmol/L Potassium 3.7 (3.3-5.1) mmol/L Chloride 107 (96-108) mmol/L Carbon Dioxide 24 (22-30) mmol/L BUN 15 (8-23) mg/dl Creatinine 1.0 (0.7-1.2) mg/dl Glucose 95 (70-105) mg/dL Calcium 8.2 L (8.6-10.4) mg/dl Adrenal panel 07/03/17 Range/Units 04:12 Sodium 142 (133-145) mmol/L Potassium 3.7 (3.3-5.1) mmol/L Chloride 107 (96-108) mmol/L Carbon Dioxide 24 (22-30) mmol/L BUN 15 (8-23) mg/dl Creatinine 1.0 (0.7-1.2) mg/dl Glucose 95 (70-105) mg/dL Calcium 8.2 L (8.6-10.4) mg/dl Total Bilirubin 0.3 (0.0-1.0) mg/dL AST 13 (0-37) U/l ALT 11 (0-40) U/l Alkaline Phosphatase 54 (39-117) U/L Total Protein 5.5 L (5.9-8.4) gm/dL Albumin 3.1 L (3.2-5.2) gm/dL Assessment and Plan (1) Cecal volvulus Status: Resolved Assessment and plan: We will continue present diet (2) Obstructed internal hernia Status: Resolved (3) Right lower lobe pneumonia Status: Acute (4) Paroxysmal atrial fibrillation Problem details: Captured on [place] Status: Chronic (5) Chronic kidney disease, stage III (moderate) Status: Chronic - Time Spent With Patient Total time spent is greater than 50% in coordination of care (as documented) at patient's floor/unit and/or counseling patient:
[2017-07-03] MEDS: QUEtiapine 25 MG TABLET PO SCH (20:14)
[2017-07-03] MEDS ORDERED: traZODone HCL 50 MG TABLET PO SCH (21:00)
[2017-07-03] MEDS ORDERED: PRAVASTATIN SODIUM 10 MG PO SCH (21:00)
[2017-07-03] MEDS ORDERED: SIMVASTATIN 10 MG TABLET PO SCH (21:00)
[2017-07-03] MEDS: LATANOPROST OPHTH DROPS 2.5ML BOTTLE OU SCH (21:35)
[2017-07-04] MEDS: 0.9 % SODIUM CHLORIDE 10 ML SYRINGE IV SCH ×4 (00:46→21:06)
[2017-07-04 06:49] LABS: Basophils # (Auto) 0 K/mcL (0.0-0.3); Basophils % (Auto) 0.4 % (0.0-2.0); Eosinophils # (Auto) 0.5 K/mcL (0.0-0.7); Eosinophils % (Auto) 8.4 % (0.0-7.0); Granulocytes % (Auto) 63.5 % (38.0-78.0); Lymphocytes # (Auto) 0.9 K/mcL (1.5-4.8); Lymphocytes % (Auto) 15.5 % (15.5-49.0); Mean Cell Volume 87.7 fL (80.0-100.0); Mean Corpuscular HGB Conc 33.7 g/dL (31.0-36.0); Mean Corpuscular Hemoglobin 29.6 pg (26.0-34.0); Monocytes # (Auto) 0.7 K/mcL (0.1-0.9); Monocytes % (Auto) 12.2 % (1.0-12.0); Platelet Count 251 K/mcL (140-440); RBC 3.47 M/mcL (4.50-5.90); Red Cell Distribution Width 13.4 % (11.5-14.5)
[2017-07-04 07:19] LABS: ALT/SGPT 11 U/l (0-40); Albumin 2.9 gm/dL (3.2-5.2); Albumin/Globulin Ratio 1.2 (1.0-2.3); Alkaline Phosphatase 61 U/L (39-117); Bilirubin,Direct < 0.2 mg/dL (0.0-0.3); Blood Urea Nitrogen 12 mg/dl (8-23); Gamma Glutamyl Transpeptidase 15 U/L (8-61); Magnesium 1.9 mg/dL (1.6-2.5); Uric Acid 6.4 mg/dL (2.5-8.0)
[2017-07-04] MEDS: HEPARIN 5,000 UNIT/ML VIAL SQ SCH ×2 (08:12→20:52)
[2017-07-04] MEDS: FAMOTIDINE/PF 20 MG/2 ML VIAL IV SCH ×2 (08:12→20:51)
[2017-07-04] MEDS ORDERED: QUEtiapine 25 MG TABLET PO SCH (09:00)
[2017-07-04] MEDS: ERTAPENEM 1 GM in 0.9 % SODIUM CHLORIDE 50 ML IV SCH (09:00)
[2017-07-04] MEDS ORDERED: OLANZapine 5 MG TABLET PO SCH (09:00)
[2017-07-04] MEDS: CALCIUM (OYSTER SHELL) 500 MG TABLET PO SCH (09:49)
[2017-07-04] MEDS: FLUoxetine HCL 20 MG CAPSULE PO SCH (09:49)
[2017-07-04] MEDS: MULTIVIT,THER IRON,CA,FA & MIN 1 TABLET PO SCH (09:49)
[2017-07-04] MEDS: ASPIRIN 325 MG ENTERIC COATED TABLET PO SCH (09:49)
[2017-07-04] MEDS: OMEPRAZOLE 20 MG CAPSULE PO SCH (09:53)
[2017-07-04] MEDS: OLANZapine 10 MG VIAL IM PRN (09:53)
[2017-07-04] MEDS: LEVOTHYROXINE 50 MCG TABLET PO SCH (09:54)
[2017-07-04] MEDS: VITAMIN D3 1,000 UNIT TABLET PO SCH (09:54)
[2017-07-04] MEDS: FINASTERIDE 5 MG TABLET PO SCH (09:54)
[2017-07-04] MEDS ORDERED: VANCOMYCIN 1,000 MG in 0.9 % SODIUM CHLORIDE 250 ML IV SCH (10:00)
--- NOTE | 2017-07-04 10:17 | General Surgery Progress Note ---
Subjective Patient reports: feels better, pain is less, tolerating a regular diet, flatus, bowel movement, afebrile Narrative: Note initiated : 07/04/17 at 10:15 am Service Date, if different from initiated Date: [] Patient: Gustavo Fuentes 86 y/o M admitted on 06/27/17 for Abdominal Pain/Large Bowel Obstruction. Chief Complaint: [Patient is much improved except for his mental status. He was very agitated up until about 4 AM. He has been sleeping off and on since 4 AM and is more oriented. He is no longer in restraints. He continues to tolerate diet. He has no problems referable to his surgery. White blood count is 6.1 and hemoglobin is 10.3. Electrolytes are unremarkable.] Objective Temp Pulse Resp BP Pulse Ox 98.4 F 62 15 129/71 95 07/04/17 04:08 07/04/17 07:25 07/04/17 07:25 07/04/17 03:03 07/04/17 07:25 - Additional Data Intake & Output - Last 24 hours: Intake & Output 07/02/17 07/03/17 07/04/17 07/05/17 05:59 05:59 05:59 05:59 Intake Total 2354 / 2354 1825 / 1825 2730 / 2730 Output Total 755 / 755 1050 / 1050 1425 / 1425 Balance 1599 / 1599 775 / 775 1305 / 1305 Weight 151 lb 8 oz 158 lb 159 lb 1.6 oz - General physical appearance no distress, no pain, chronically ill - Eyes PERRL - ENT no congestion - Neck no venous distension - Respiratory normal expansion, normal respiratory effort, clear to auscultation - Cardiovascular Cardiovascular exam: Present: irregular rhythm, +S1, +S2. Absent: JVD, tachycardia - Abdomen non tender, bowel sounds (Abdomen is benign. He has good active bowel sounds. His incision looks good.) - Integumentary no rash, no growths, no abnormal pigmentation - Neurologic normal coordination, normal sensation, confused, other (Mental confusion continues but is significantly improved) - Psychiatric oriented to time, oriented to person, oriented to place, speech is normal, memory intact - Labs 07/04/17 03:35 07/04/17 03:35 Diabetes panel 07/04/17 Range/Units 03:35 Sodium 144 (133-145) mmol/L Potassium 4.0 (3.3-5.1) mmol/L Chloride 110 H (96-108) mmol/L Carbon Dioxide 21 L (22-30) mmol/L BUN 12 (8-23) mg/dl Creatinine 1.2 (0.7-1.2) mg/dl Glucose 117 H (70-105) mg/dL Calcium 8.1 L (8.6-10.4) mg/dl AST 12 (0-37) U/l ALT 11 (0-40) U/l Alkaline Phosphatase 61 (39-117) U/L Total Protein 5.4 L (5.9-8.4) gm/dL Albumin 2.9 L (3.2-5.2) gm/dL Triglycerides 183 H (<150) mg/dl Calcium panel 07/04/17 Range/Units 03:35 Calcium 8.1 L (8.6-10.4) mg/dl Phosphorus 3.6 (2.7-4.5) mg/dL Albumin 2.9 L (3.2-5.2) gm/dL Pituitary panel 07/04/17 Range/Units 03:35 Sodium 144 (133-145) mmol/L Potassium 4.0 (3.3-5.1) mmol/L Chloride 110 H (96-108) mmol/L Carbon Dioxide 21 L (22-30) mmol/L BUN 12 (8-23) mg/dl Creatinine 1.2 (0.7-1.2) mg/dl Glucose 117 H (70-105) mg/dL Calcium 8.1 L (8.6-10.4) mg/dl Adrenal panel 07/04/17 Range/Units 03:35 Sodium 144 (133-145) mmol/L Potassium 4.0 (3.3-5.1) mmol/L Chloride 110 H (96-108) mmol/L Carbon Dioxide 21 L (22-30) mmol/L BUN 12 (8-23) mg/dl Creatinine 1.2 (0.7-1.2) mg/dl Glucose 117 H (70-105) mg/dL Calcium 8.1 L (8.6-10.4) mg/dl Total Bilirubin 0.2 (0.0-1.0) mg/dL AST 12 (0-37) U/l ALT 11 (0-40) U/l Alkaline Phosphatase 61 (39-117) U/L Total Protein 5.4 L (5.9-8.4) gm/dL Albumin 2.9 L (3.2-5.2) gm/dL Assessment and Plan (1) Cecal volvulus Status: Acute Assessment and plan: We will continue present diet. stable from a surgical standpoint Current Visit: Yes (2) Obstructed internal hernia Status: Resolved Current Visit: Yes (3) Right lower lobe pneumonia Status: Acute Current Visit: No (4) Paroxysmal atrial fibrillation Problem details: Captured on Cycle Status: Chronic Current Visit: No (5) Chronic kidney disease, stage III (moderate) Status: Chronic Current Visit: Yes - Time Spent With Patient Total time spent is greater than 50% in coordination of care (as documented) at patient's floor/unit and/or counseling patient:
--- NOTE | 2017-07-04 10:27 | Internal Med Progress Note ---
Medical - PN: Subj Patient information: Note initiated : 07/04/17 at 10:22 am Service Date, if different from initiated Date: [] Patient: Gustavo Fuentes 86 y/o M admitted on 06/27/17 for Abdominal Pain/Large Bowel Obstruction. Chief Complaint: [] Interval history: June 27 Patient onset of abdominal pain about 10 PM last evening. He had emesis 6. Initially tannish emesis to a yellowish color, no bilious emesis, no hematemesis. He continued to have abdominal pain, he is brought to the ED for further evaluation. Patient is able to give limited history, denies any fevers or chills. Last bowel movement appears to have been morning, the morning prior to the onset of his symptoms. No recent change in bowel habits. After ehr trainer admission, pain medication given at 1 AM in the ED wore off , patient was complaining of abdominal pain, more on the left side. Dr. Whitney re-reviewed CT scan of the abdomen with Dr. Mix in radiology, who is concerned this did indeed represent a volvulus or an internal hernia. Repeat lactate was normal, repeat CBC revealed persistent leukocytosis. Given the above, Dr. 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 Right hemicolectomy was performed. June 28 This morning the patient's awake, alert, thinks he is in a different hospital but is easily redirectable. Had some oozing of serosanguineous fluid from the inferior aspects of the surgical wound, a small bleeder was ligated by Dr. Whitney. Subsequently the patient became more agitated, pulled out his nasogastric tube, is more difficult to redirect. He has responded to low dose lorazepam. He was having some abdominal pain this morning, seems to be more associated with the surgical wound, different than pain at presentation yesterday. June 29 Low-grade fever continued, worsened, had temperature to 102 overnight the to the . Intermittent confusion and agitation. Also went into atrial fibrillation overnight between the and , spontaneously cardioverted afternoon of the . Repeat CT scan obtained, showing generally expected postop findings, but pulmonary infiltrates. Antibiotics changed from Zosyn to vancomycin and ertapenem. Jun 30 Received IM Zyprexa last evening, one further dose about midnight. Much clearer this morning, underlying dementia, easily redirectable, but not agitated and pulling at lines. Able to work with pulmonary toilet, able to get up to the chair. He remains in normal sinus rhythm. Still with low-grade fever , but less than 100. Jun 2 Became agitated and less re-directable last night consistent with sundowning in the setting of dementia and hospitalization. Required restraints overnight. Went back into atrial fibrillation after a fall, when he attempts to get out of bed late yesterday afternoon. IJ central line was accidentally discontinued/ pulled out at that time. Overnights spontaneously reconverted back to sinus rhythm. This morning in bed, does not recognize me, generally redirectable. Denies any abdominal pain. Becoming more agitated with the arms and noises in the intensive care unit, attempting to provide a calmer environment. Jul 02 Yesterday afternoon, though did not appear to be painful and denied pain, trial of morphine was undertaken, patient became much more comfortable, slept for a few hours and was much clearer afterward. Part of his daytime agitation may have been unrecognized pain. I suspect he also has a component of sundowning, as tends to worsen the evening. This morning, he is awake, is alert, he is talkative. Had bowel movements yesterday, ambulated around the nurse's station. Seen by speech who made recommendations. Dr. Whitney cleared him to have his diet advanced per speech his recommendations. Continues to have bowel sounds. This morning is also complaining of a bit of abdominal pain, is a little tender around his incision as would be expected. Jul 03 patient seen examined, in cheer [facility] mood today, denies any complaints, no cp no sob, no abdminal pain, able to tolerate po well he is having frequent BM which can be expected after a arley colectemy. Jul 04 patient seen examined, was drowsy this AM, no complaints, the patient yesterday , as the day progressed became more agitated and delirious, needing IM zyprexa and soft restrains to keep him in bed, his condition improved overnight and he has been off restraints He was dementia, and in the past admissions to he was delirious, the patient took a while to settle down will incrase his dose of seroquel from 12.5 qhs to 25mg bid, continue prn zyprexa, continue morphine, for pain management. ok to xfer to med surg, Pertinent ROS: sleepy today, denies any complaints. - Constitutional Vitals: Vital Signs Temp Pulse Resp BP Pulse Ox 98.4 F 62 15 129/71 95 07/04/17 04:08 07/04/17 07:25 07/04/17 07:25 07/04/17 03:03 07/04/17 07:25 Period Temp Pulse Resp BP Sys/Patel Pulse Ox Last 24 Hr 98.1 F-98.4 F 62-87 14-18 110-130/64-71 94-99 Intake and Output 07/03/17 07/04/17 07/04/17 21:59 05:59 13:59 Intake Total 1300 / 1300 Output Total 475 / 475 450 / 450 Balance 825 / 825 -450 / -450 Weight 159 lb 1.6 oz Intake & Output: Intake & Output 07/03/17 07/04/17 07/04/17 21:59 05:59 13:59 Intake Total 1300 / 1300 Output Total 475 / 475 450 / 450 Balance 825 / 825 -450 / -450 Weight 159 lb 1.6 oz Intake: IV 1000 / 1000 Dextrose 5%-1/2Ns W/20Meq KCl 1 1000 / 1000 ,000 ml @ 60 mls/hr IV .[id number] [facility] Rx#:[id number] Oral 300 / 300 Output: Urine Catheter Amount 175 / 175 Void Amount 300 / 300 450 / 450 Exam: Constitutional; Afebrile, cooperative, alert, not in distress. Eyes- No icterus, , No periorbital swelling Ears- Ext ear normal, Neck- Midline trachea, supple Respiratory system: Air Entry equal on both sides, No crackles or wheezing, no rhonchi. CVS- Rate rhythm regular, S1,S2 heard, no gallop, no rub. Abdomen- Soft nontender abdomen, no organomegaly, no tenderness, no guarding or rigidity, [employer]ENDANT- AOOx1, moving all extremities, no gross focal deficit noted. Medical - PN: Obj Da - Labs CBC & Chem 7: 07/04/17 03:35 07/04/17 03:35 Labs: Abnormal Lab Results 07/04/17 07/04/17 07/03/17 03:35 03:35 04:12 RBC 3.47 L Hgb 10.3 L Hct 30.5 L [place] % (Auto) 12.2 H Eos % (Auto) 8.4 H Lymph # (Auto) 0.9 L Monocytes % (Manual) Eosinophils % (Manual) Chloride 110 H Carbon Dioxide 21 L Glucose 117 H Calcium 8.1 L 8.2 L Total Protein 5.4 L 5.5 L Albumin 2.9 L 3.1 L Triglycerides 183 H 164 H 07/03/17 07/02/17 07/02/17 04:12 03:47 03:47 RBC 3.65 L 3.54 L Hgb 10.8 L 10.6 L Hct 31.7 L 31.1 L [place] % (Auto) Eos % (Auto) 7.7 H Lymph # (Auto) 1.0 L Monocytes % (Manual) 13 H Eosinophils % (Manual) 12 H Chloride Carbon Dioxide 21 L Glucose Calcium 8.2 L Total Protein 5.4 L Albumin 2.8 L Triglycerides Meds: Medications Artificial Tears (Artificial Tears Ophth Drops) 1 gtt OU Q1HP PRN PRN Reason: Dry Eye(s) Last Admin: 07/03/17 20:16 Dose: 1 gtt Aspirin (Ecotrin) 325 mg PO DAILY [facility] Last Admin: 07/04/17 09:49 Dose: 325 mg Calcium Carbonate/Glycine (Oscal) 500 mg PO DAILY [facility] Last Admin: 07/04/17 09:49 Dose: 500 mg Famotidine (Pepcid) 20 mg IV Q12 [facility] Last Admin: 07/04/17 08:12 Dose: 20 mg Finasteride (Proscar) 5 mg PO QDAY [facility] Last Admin: 07/04/17 09:54 Dose: 5 mg Fluoxetine HCl (Prozac) 80 mg PO DAILY [facility] Last Admin: 07/04/17 09:49 Dose: 80 mg Heparin Sodium (Porcine) (Heparin) 5,000 unit SQ Q12 [facility] Last Admin: 07/04/17 08:12 Dose: 5,000 unit Potassium Chloride/Dextrose/Sod Cl (Dextrose 5%-1/2ns W/20meq Kcl) 1,000 mls @ 60 mls/hr IV .[id number] [facility] Last Admin: 07/03/17 21:29 Dose: 60 mls/hr Ertapenem 1 gm/ Sodium (Chloride) 50 mls @ 100 mls/hr IV DAILY [facility] Last Admin: 07/04/17 09:00 Dose: 100 mls/hr Acetaminophen (Ofirmev) 650 mg in 65 mls @ 130 mls/hr IV Q6HP PRN PRN Reason: PAIN/FEVER > 101 Last Infusion: 07/02/17 13:10 Dose: Infused Vancomycin HCl 1,000 mg/ (Sodium Chloride) 250 mls @ 250 mls/hr IV DAILY@1000 [facility] Last Admin: 07/04/17 09:48 Dose: 250 mls/hr Iron Carb/Multivit/[facility]/Folic Acid (Multivitamin W/Minerals) 1 tab PO DAILY [facility] Last Admin: 07/04/17 09:49 Dose: 1 tab Latanoprost (Xalatan Ophth Drops) 1 gtt OU QHS [facility] Last Admin: 07/03/17 21:35 Dose: Not Given Levothyroxine Sodium (Synthroid) 50 mcg PO QAMAC [facility] Last Admin: 07/04/17 09:54 Dose: 50 mcg Morphine Sulfate (Morphine) 2 mg IV Q2HP PRN PRN Reason: PAIN LEVEL > 6 Last Admin: 07/04/17 08:12 Dose: 2 mg Olanzapine (Olanzapine) 5 mg IM Q6H PRN PRN Reason: for agitation Last Admin: 07/04/17 09:53 Dose: 5 mg Omeprazole (Prilosec) 20 mg PO ACB [facility] Last Admin: 07/04/17 09:53 Dose: 20 mg Ondansetron HCl (Zofran) 4 mg IV Q4HP PRN PRN Reason: Nausea And Vomiting Clobetasol Prop Topical Solution 0. 05% 1 dose TOPICAL BIDP PRN PRN Reason: ITCHING AND RASH Last Admin: 07/01/17 19:53 Dose: 1 dose Quetiapine Fumarate (Seroquel) 25 mg PO BID [facility] Last Admin: 07/04/17 09:54 Dose: 25 mg Simvastatin (Zocor) 5 mg PO HS [facility] Last Admin: 07/03/17 20:13 Dose: 5 mg Sodium Chloride (Saline Flush) 10 ml IV UD PRN PRN Reason: FLUSH Sodium Chloride (Saline Flush) 10 ml IV Q8 [facility] Last Admin: 07/04/17 06:00 Dose: 10 ml Trazodone HCl (Desyrel) 100 mg PO QHS [facility] Last Admin: 07/03/17 20:14 Dose: 100 mg Vancomycin HCl (Vancomycin Per Pharmacy) 1 order IV UD [place] Vitamin D (Vitamin D3) 1,000 unit PO DAILY [facility] Last Admin: 07/04/17 09:54 Dose: 1,000 unit Medical - PN: A/P - Time Spent With Patient Total time spent is greater than 50% in coordination of care (as documented) at patient's floor/unit and/or counseling patient: - Narrative A/P Narrative: 86-year-old male with multiple chronic medical problems, presenting with acute onset of nausea vomiting abdominal pain. Found to have large bowel obstruction due to internal hernia and cecal volvulus. Large bowel obstruction/internal hernia/cecal volvulus. Postop day #7 status post exploratory laparotomy and cecal resection. Plan: Bowel care/diet per surgery tolerating po well; pain control, supportive care. Ok to D/c from the surgical stand pint. Fever/ Pneumonia, : health care associated PNA, cultures neg, labs stable, on vanco and ertapenum, total of 5-7 days of abx. 07/01/17 (start date for ertapenum ) Atrial fibrillation. Spontaneously cardioverted again after recurrent AF Friday afternoon. Now 2 bouts of paroxysmal AF.. Likely secondary to stress from postoperative state, as well as pulmonary infection. Plan: d/c telemetery, get ekg if becomes tachcyardic again. Mild cognitive impairment with memory issues/ Dementia with behavoria issues Vs Delirum, worse yesterday needing restraints, . IM doses of Zyprexa not always controlling symptoms. Increase dose of seroquel to 25mg bid and mointor, morphine for pain. Now some of datime agitation likely due to pain, but still tends to worsen at night even with pain med. close monitoring, avoid benzo. Chronic kidney disease. Creatinine improved and stable at 1.1. Plan: Renal dose medications. Coronary artery disease. Quiescent. Most recent cardiac evaluation at been for rhythm issues. No real evidence of anginal symptoms. Plan: Monitor. BPH with lower urinary tract symptoms. On finasteride as an outpatient. Plan: able to void by self. Hypotension with orthostatic symptoms. On midodrine as an outpatient. Maintaining adequate blood pressure without intervention currently. Plan: Hold midodrine. Hypothyroid. On oral replacement. Plan: resume oral home dose. Prophylaxis: IV famotidine, subcutaneous heparin. Medical - PN: Qual - VTE Deep Vein Thrombosis/Pulmonary Embolism Present on Admission: Yes
[2017-07-04] MEDS ORDERED: VANCOMYCIN PER PHARMACY IV SCH (12:20)
[2017-07-04] MEDS ORDERED: POLYVINYL ALCOHOL OPHTH DROPS 15ML BOTTLE OU PRN (12:20)
[2017-07-04] MEDS ORDERED: 0.9 % SODIUM CHLORIDE 10 ML SYRINGE IV PRN (12:20)
[2017-07-04] MEDS ORDERED: CLOBETASOL PROP 0.05% TOPICAL PRN (12:20)
[2017-07-04] MEDS ORDERED: OLANZapine 10 MG VIAL IM PRN (12:20)
[2017-07-04] MEDS ORDERED: ONDANSETRON 4 MG/2 ML VIAL IV PRN (12:20)
[2017-07-04] MEDS ORDERED: ACETAMINOPHEN 650 MG/65 ML BOTTLE IV PRN (12:20)
[2017-07-04] MEDS: SIMVASTATIN 10 MG TABLET PO SCH (20:50)
[2017-07-04] MEDS: traZODone HCL 50 MG TABLET PO SCH (20:51)
[2017-07-04] MEDS: QUEtiapine 25 MG TABLET PO SCH (20:51)
[2017-07-04] MEDS: LATANOPROST OPHTH DROPS 2.5ML BOTTLE OU SCH (20:52)
[2017-07-05] MEDS: 0.9 % SODIUM CHLORIDE 10 ML SYRINGE IV SCH ×3 (06:05→21:48)
[2017-07-05 06:06] LABS: Basophils # (Auto) 0 K/mcL (0.0-0.3); Basophils % (Auto) 0.4 % (0.0-2.0); Eosinophils # (Auto) 0.5 K/mcL (0.0-0.7); Eosinophils % (Auto) 8.1 % (0.0-7.0); Lymphocytes # (Auto) 1.1 K/mcL (1.5-4.8); Lymphocytes % (Auto) 17.6 % (15.5-49.0); Mean Cell Volume 87.3 fL (80.0-100.0); Mean Corpuscular HGB Conc 33.8 g/dL (31.0-36.0); Mean Corpuscular Hemoglobin 29.5 pg (26.0-34.0); Monocytes # (Auto) 0.6 K/mcL (0.1-0.9); Monocytes % (Auto) 9.9 % (1.0-12.0); Platelet Count 254 K/mcL (140-440); Red Cell Distribution Width 13.9 % (11.5-14.5)
[2017-07-05 06:21] LABS: ALT/SGPT 10 U/l (0-40); Albumin/Globulin Ratio 1.2 (1.0-2.3); Alkaline Phosphatase 60 U/L (39-117); Bilirubin,Direct < 0.2 mg/dL (0.0-0.3); Blood Urea Nitrogen 13 mg/dl (8-23); Gamma Glutamyl Transpeptidase 16 U/L (8-61); Magnesium 1.9 mg/dL (1.6-2.5); Uric Acid 6.9 mg/dL (2.5-8.0)
[2017-07-05] MEDS: ERTAPENEM 1 GM in 0.9 % SODIUM CHLORIDE 50 ML IV SCH (10:00)
[2017-07-05] MEDS: VANCOMYCIN 1,000 MG in 0.9 % SODIUM CHLORIDE 250 ML IV SCH (10:00)
[2017-07-05] MEDS: HEPARIN 5,000 UNIT/ML VIAL SQ SCH (10:27)
[2017-07-05] MEDS: FINASTERIDE 5 MG TABLET PO SCH (10:28)
[2017-07-05] MEDS: FAMOTIDINE/PF 20 MG/2 ML VIAL IV SCH (10:28)
[2017-07-05] MEDS: LEVOTHYROXINE 50 MCG TABLET PO SCH (10:29)
[2017-07-05] MEDS: ASPIRIN 325 MG ENTERIC COATED TABLET PO SCH (10:29)
[2017-07-05] MEDS: OMEPRAZOLE 20 MG CAPSULE PO SCH (10:29)
[2017-07-05] MEDS: QUEtiapine 25 MG TABLET PO SCH (10:29)
[2017-07-05] MEDS: FLUoxetine HCL 20 MG CAPSULE PO SCH (10:29)
[2017-07-05] MEDS: MULTIVIT,THER IRON,CA,FA & MIN 1 TABLET PO SCH (10:29)
[2017-07-05] MEDS: CALCIUM (OYSTER SHELL) 500 MG TABLET PO SCH (10:30)
[2017-07-05] MEDS: VITAMIN D3 1,000 UNIT TABLET PO SCH (10:30)
--- NOTE | 2017-07-05 12:27 | Internal Med Progress Note ---
Medical - PN: Subj Patient information: Note initiated : 07/05/17 at 12:25 pm Service Date, if different from initiated Date: [] Patient: Gustavo Fuentes 86 y/o M admitted on 06/27/17 for Abdominal Pain/Large Bowel Obstruction. Chief Complaint: [] Interval history: June 27 Patient onset of abdominal pain about 10 PM last evening. He had emesis 6. Initially tannish emesis to a yellowish color, no bilious emesis, no hematemesis. He continued to have abdominal pain, he is brought to the ED for further evaluation. Patient is able to give limited history, denies any fevers or chills. Last bowel movement appears to have been morning, the morning prior to the onset of his symptoms. No recent change in bowel habits. After speech therapist early intervention admission, pain medication given at 1 AM in the ED wore off , patient was complaining of abdominal pain, more on the left side. Dr. Whitney re-reviewed CT scan of the abdomen with Dr. Mix in radiology, who is concerned this did indeed represent a volvulus or an internal hernia. Repeat lactate was normal, repeat CBC revealed persistent leukocytosis. Given the above, Dr. 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 Right hemicolectomy was performed. June 28 This morning the patient's awake, alert, thinks he is in a different hospital but is easily redirectable. Had some oozing of serosanguineous fluid from the inferior aspects of the surgical wound, a small bleeder was ligated by Dr. Whitney. Subsequently the patient became more agitated, pulled out his nasogastric tube, is more difficult to redirect. He has responded to low dose lorazepam. He was having some abdominal pain this morning, seems to be more associated with the surgical wound, different than pain at presentation yesterday. June 29 Low-grade fever continued, worsened, had temperature to 102 overnight the to the . Intermittent confusion and agitation. Also went into atrial fibrillation overnight between the and , spontaneously cardioverted afternoon of the . Repeat CT scan obtained, showing generally expected postop findings, but pulmonary infiltrates. Antibiotics changed from Zosyn to vancomycin and ertapenem. Jun 30 Received IM Zyprexa last evening, one further dose about midnight. Much clearer this morning, underlying dementia, easily redirectable, but not agitated and pulling at lines. Able to work with pulmonary toilet, able to get up to the chair. He remains in normal sinus rhythm. Still with low-grade fever , but less than 100. Jun 2 Became agitated and less re-directable last night consistent with sundowning in the setting of dementia and hospitalization. Required restraints overnight. Went back into atrial fibrillation after a fall, when he attempts to get out of bed late yesterday afternoon. IJ central line was accidentally discontinued/ pulled out at that time. Overnights spontaneously reconverted back to sinus rhythm. This morning in bed, does not recognize me, generally redirectable. Denies any abdominal pain. Becoming more agitated with the arms and noises in the intensive care unit, attempting to provide a calmer environment. Jul 02 Yesterday afternoon, though did not appear to be painful and denied pain, trial of morphine was undertaken, patient became much more comfortable, slept for a few hours and was much clearer afterward. Part of his daytime agitation may have been unrecognized pain. I suspect he also has a component of sundowning, as tends to worsen the evening. This morning, he is awake, is alert, he is talkative. Had bowel movements yesterday, ambulated around the nurse's station. Seen by speech who made recommendations. Dr. Whitney cleared him to have his diet advanced per speech his recommendations. Continues to have bowel sounds. This morning is also complaining of a bit of abdominal pain, is a little tender around his incision as would be expected. Jul 03 patient seen examined, in cheer [facility] mood today, denies any complaints, no cp no sob, no abdminal pain, able to tolerate po well he is having frequent BM which can be expected after a arley colectemy. Jul 04 patient seen examined, was drowsy this AM, no complaints, the patient yesterday , as the day progressed became more agitated and delirious, needing IM zyprexa and soft restrains to keep him in bed, his condition improved overnight and he has been off restraints He was dementia, and in the past admissions to he was delirious, the patient took a while to settle down will incrase his dose of seroquel from 12.5 qhs to 25mg bid, continue prn zyprexa, continue morphine, for pain management. ok to xfer to med surg, jul 05 Patient seen examined, overnight was cnofused again, needing constant attention but otherwise no issues, on seroquel 25mg bid, increase to 50mg bid, continue onlanzapine pt wondering if he could go back to assisted living, patient denies any complaints, but is plesantly confused this AM. electrolytes are stable. Pertinent ROS: Denies headache, dizziness Denies chest pain, palpitations Denies cough or shortness of breath Denies abdominal pain, nausea or vomiting. but confusion limits reliability of history - Constitutional Vitals: Vital Signs Temp Pulse Resp BP Pulse Ox 97.8 F 83 16 102/60 90 07/05/17 11:25 07/05/17 04:00 07/05/17 11:25 07/05/17 11:25 07/05/17 11:25 Period Temp Pulse Resp BP Sys/Patel Pulse Ox Last 24 Hr 97.1 F-99.0 F 60-83 12-20 96-136/55-70 90-97 Intake and Output 07/04/17 07/05/17 07/05/17 21:59 05:59 13:59 Intake Total 360 / 360 480 / 480 250 / 250 Output Total 475 / 475 Balance -115 / -115 480 / 480 250 / 250 Weight 160 lb 9.6 oz Intake & Output: Intake & Output 07/04/17 07/05/17 07/05/17 21:59 05:59 13:59 Intake Total 360 / 360 480 / 480 250 / 250 Output Total 475 / 475 Balance -115 / -115 480 / 480 250 / 250 Weight 160 lb 9.6 oz Intake: IV 250 / 250 Vancomycin 1,000 mg In Sodium 250 / 250 Chloride 0.9% 250 ml @ 250 mls/ hr IV DAILY@1000 [facility] Rx#: [id number] Oral 360 / 360 480 / 480 Output: Void Amount 475 / 475 Other: Meal Dinner Percent of Meal Consumed 50% Feeding Ability Needs Supervision # Voids 1 Exam: Constitutional; Afebrile, cooperative, alert, not in distress. Eyes- No icterus, , No periorbital swelling Ears- Ext ear normal, hearing normal to conversation. Neck- Midline trachea, supple Respiratory system: Air Entry equal on both sides, No crackles or wheezing, no rhonchi. CVS- Rate rhythm regular, S1,S2 heard, no gallop, no rub. Abdomen- Soft nontender abdomen, no organomegaly, no tenderness, no guarding or rigidity, [employer]- AOOx2, moving all extremities, no gross focal deficit noted. Medical - PN: Obj Da - Labs CBC & Chem 7: 07/05/17 03:46 07/05/17 03:46 Labs: Abnormal Lab Results 07/05/17 07/05/17 07/04/17 03:46 03:46 03:35 RBC 3.40 L Hgb 10.0 L Hct 29.7 L [place] % (Auto) Eos % (Auto) 8.1 H Lymph # (Auto) 1.1 L Chloride 110 H Carbon Dioxide 21 L Glucose 117 H Calcium 8.3 L 8.1 L Total Protein 5.5 L 5.4 L Albumin 3.0 L 2.9 L Triglycerides 173 H 183 H 07/04/17 07/03/17 07/03/17 03:35 04:12 04:12 RBC 3.47 L 3.65 L Hgb 10.3 L 10.8 L Hct 30.5 L 31.7 L [place] % (Auto) 12.2 H Eos % (Auto) 8.4 H 7.7 H Lymph # (Auto) 0.9 L 1.0 L Chloride Carbon Dioxide Glucose Calcium 8.2 L Total Protein 5.5 L Albumin 3.1 L Triglycerides 164 H Meds: Medications Artificial Tears (Artificial Tears Ophth Drops) 1 gtt OU Q1HP PRN PRN Reason: Dry Eye(s) Aspirin (Ecotrin) 325 mg PO DAILY [facility] Last Admin: 07/05/17 10:29 Dose: 325 mg Calcium Carbonate/Glycine (Oscal) 500 mg PO DAILY [facility] Last Admin: 07/05/17 10:30 Dose: 500 mg Famotidine (Pepcid) 20 mg IV Q12 [facility] Last Admin: 07/05/17 10:28 Dose: 20 mg Finasteride (Proscar) 5 mg PO QDAY [facility] Last Admin: 07/05/17 10:28 Dose: 5 mg Fluoxetine HCl (Prozac) 80 mg PO DAILY [facility] Last Admin: 07/05/17 10:29 Dose: 80 mg Heparin Sodium (Porcine) (Heparin) 5,000 unit SQ Q12 [facility] Last Admin: 07/05/17 10:27 Dose: 5,000 unit Ertapenem 1 gm/ Sodium (Chloride) 50 mls @ 100 mls/hr IV DAILY [facility] Last Admin: 07/05/17 10:00 Dose: 100 mls/hr Acetaminophen (Ofirmev) 650 mg in 65 mls @ 130 mls/hr IV Q6HP PRN PRN Reason: PAIN/FEVER > 101 Vancomycin HCl 1,000 mg/ (Sodium Chloride) 250 mls @ 250 mls/hr IV DAILY@1000 [facility] Last Infusion: 07/05/17 12:08 Dose: Infused Iron Carb/Multivit/[place]/Folic Acid (Multivitamin W/Minerals) 1 tab PO DAILY [facility] Last Admin: 07/05/17 10:29 Dose: 1 tab Latanoprost (Xalatan Ophth Drops) 1 gtt OU QHS [facility] Last Admin: 07/04/17 20:52 Dose: 1 gtt Levothyroxine Sodium (Synthroid) 50 mcg PO QAMAC [facility] Last Admin: 07/05/17 10:29 Dose: 50 mcg Morphine Sulfate (Morphine) 2 mg IV Q2HP PRN PRN Reason: PAIN LEVEL > 6 Last Admin: 07/05/17 10:28 Dose: 2 mg Olanzapine (Olanzapine) 5 mg IM Q6HP PRN PRN Reason: for agitation Omeprazole (Prilosec) 20 mg PO ACB [facility] Last Admin: 07/05/17 10:29 Dose: 20 mg Ondansetron HCl (Zofran) 4 mg IV Q4HP PRN PRN Reason: Nausea And Vomiting Clobetasol Prop Topical Solution 0. 05% 1 dose TOPICAL BIDP PRN PRN Reason: ITCHING AND RASH Simvastatin (Zocor) 5 mg PO HS [facility] Last Admin: 07/04/17 20:50 Dose: 5 mg Sodium Chloride (Saline Flush) 10 ml IV UD PRN PRN Reason: FLUSH Sodium Chloride (Saline Flush) 10 ml IV Q8 [facility] Last Admin: 07/05/17 06:05 Dose: 10 ml Trazodone HCl (Desyrel) 100 mg PO QHS [facility] Last Admin: 07/04/17 20:51 Dose: 100 mg Vancomycin HCl (Vancomycin Per Pharmacy) 1 order IV UD [facility] Vitamin D (Vitamin D3) 1,000 unit PO DAILY [facility] Last Admin: 07/05/17 10:30 Dose: 1,000 unit Medical - PN: A/P - Time Spent With Patient Total time spent is greater than 50% in coordination of care (as documented) at patient's floor/unit and/or counseling patient: - Narrative A/P Narrative: 86-year-old male with multiple chronic medical problems, presenting with acute onset of nausea vomiting abdominal pain. Found to have large bowel obstruction due to internal hernia and cecal volvulus. Large bowel obstruction/internal hernia/cecal volvulus. Postop day #8 status post exploratory laparotomy and cecal resection. Plan: Bowel care/diet per surgery tolerating po well; pain control, supportive care. Ok to D/c from the surgical stand pint. Fever/ Pneumonia, : health care associated PNA, cultures neg, labs stable, on vanco and ertapenum, total of 5-7 days of abx, anticiipate last day tomorrow, Atrial fibrillation. Spontaneously cardioverted again after recurrent AF Friday afternoon. Now 2 bouts of paroxysmal AF.. Likely secondary to stress from postoperative state, as well as pulmonary infection. Plan: d/c telemetery, get ekg if becomes tachcyardic again. Mild cognitive impairment with memory issues/ Dementia with behavoria issues Vs Delirum, worse yesterday needing restraints, . IM doses of Zyprexa not always controlling symptoms. Increase dose of seroquel to 50mg bid and mointor, morphine for pain. close monitoring, avoid benzo. Chronic kidney disease. Creatinine improved and stable at 1.1. Plan: Renal dose medications. Coronary artery disease. Quiescent. Most recent cardiac evaluation at been for rhythm issues. No real evidence of anginal symptoms. Plan: Monitor. BPH with lower urinary tract symptoms. On finasteride as an outpatient. Plan: able to void by self. Hypotension with orthostatic symptoms. On midodrine as an outpatient. Maintaining adequate blood pressure without intervention currently. Plan: Hold midodrine. Hypothyroid. On oral replacement. Plan: resume oral home dose. Prophylaxis: IV famotidine, subcutaneous heparin. Medical - PN: Qual - VTE Deep Vein Thrombosis/Pulmonary Embolism Present on Admission: Yes
--- NOTE | 2017-07-05 13:09 | General Surgery Progress Note ---
Subjective Patient reports: feels better, pain is less, tolerating a regular diet, voiding w/o difficulty, flatus, bowel movement, afebrile Narrative: Note initiated : 07/05/17 at 1:07 pm Service Date, if different from initiated Date: [] Patient: Gustavo Fuentes 86 y/o M admitted on 06/27/17 for Abdominal Pain/Large Bowel Obstruction. Chief Complaint: patient is doing well from a surgical standpoint. He remains pleasantly confused but this is his baseline. He is stable for discharge home when cleared by hospitalist.] Objective Temp Pulse Resp BP Pulse Ox 97.8 F 83 16 102/60 90 07/05/17 11:25 07/05/17 04:00 07/05/17 11:25 07/05/17 11:25 07/05/17 11:25 - Additional Data Intake & Output - Last 24 hours: Intake & Output 07/03/17 07/04/17 07/05/17 07/06/17 05:59 05:59 05:59 05:59 Intake Total 1825 / 1825 2730 / 2730 1500 / 1500 250 / 250 Output Total 1050 / 1050 1425 / 1425 726 / 726 Balance 775 / 775 1305 / 1305 774 / 774 250 / 250 Weight 158 lb 159 lb 1.6 oz 160 lb 9.6 oz - General physical appearance no distress, no pain - Eyes PERRL - ENT no congestion - Neck no venous distension - Respiratory normal respiratory effort, clear to auscultation - Cardiovascular Cardiovascular exam: Present: normal rate and rhythm, +S1, +S2, tachycardia. Absent: JVD - Abdomen soft, non tender, wound (Incision is healing without difficulty; he has good active bowel sounds) - Genitourinary normal penis with no external lesions, testicles present, testicles non-tender - Integumentary no rash, no growths, no abnormal pigmentation - Neurologic confused, memory loss - Musculoskeletal other (He has poor gait and stance and needs release 1+ assistance) - Labs 07/05/17 03:46 07/05/17 03:46 Diabetes panel 07/05/17 Range/Units 03:46 Sodium 142 (133-145) mmol/L Potassium 3.9 (3.3-5.1) mmol/L Chloride 108 (96-108) mmol/L Carbon Dioxide 23 (22-30) mmol/L BUN 13 (8-23) mg/dl Creatinine 1.2 (0.7-1.2) mg/dl Glucose 100 (70-105) mg/dL Calcium 8.3 L (8.6-10.4) mg/dl AST 11 (0-37) U/l ALT 10 (0-40) U/l Alkaline Phosphatase 60 (39-117) U/L Total Protein 5.5 L (5.9-8.4) gm/dL Albumin 3.0 L (3.2-5.2) gm/dL Triglycerides 173 H (<150) mg/dl Calcium panel 07/05/17 Range/Units 03:46 Calcium 8.3 L (8.6-10.4) mg/dl Phosphorus 3.1 (2.7-4.5) mg/dL Albumin 3.0 L (3.2-5.2) gm/dL Pituitary panel 07/05/17 Range/Units 03:46 Sodium 142 (133-145) mmol/L Potassium 3.9 (3.3-5.1) mmol/L Chloride 108 (96-108) mmol/L Carbon Dioxide 23 (22-30) mmol/L BUN 13 (8-23) mg/dl Creatinine 1.2 (0.7-1.2) mg/dl Glucose 100 (70-105) mg/dL Calcium 8.3 L (8.6-10.4) mg/dl Adrenal panel 07/05/17 Range/Units 03:46 Sodium 142 (133-145) mmol/L Potassium 3.9 (3.3-5.1) mmol/L Chloride 108 (96-108) mmol/L Carbon Dioxide 23 (22-30) mmol/L BUN 13 (8-23) mg/dl Creatinine 1.2 (0.7-1.2) mg/dl Glucose 100 (70-105) mg/dL Calcium 8.3 L (8.6-10.4) mg/dl Total Bilirubin 0.3 (0.0-1.0) mg/dL AST 11 (0-37) U/l ALT 10 (0-40) U/l Alkaline Phosphatase 60 (39-117) U/L Total Protein 5.5 L (5.9-8.4) gm/dL Albumin 3.0 L (3.2-5.2) gm/dL Assessment and Plan (1) Cecal volvulus Status: Acute Assessment and plan: We will continue present diet. stable from a surgical standpoint Current Visit: Yes (2) Obstructed internal hernia Status: Resolved Current Visit: Yes (3) Right lower lobe pneumonia Status: Acute Current Visit: No (4) Paroxysmal atrial fibrillation Problem details: Captured on [employer] Status: Chronic Current Visit: No (5) Chronic kidney disease, stage III (moderate) Status: Chronic Current Visit: Yes - Time Spent With Patient Total time spent is greater than 50% in coordination of care (as documented) at patient's floor/unit and/or counseling patient:
--- NOTE | 2017-07-05 19:48 | XRay Report ---
CLINICAL INFORMATION: Trauma COMPARISON: None. FINDINGS: Sacroiliac and hip joints are normal in width and alignment without arthritic change. There is no fracture or osseous abnormality. Soft tissues are unremarkable. IMPRESSION: Normal exam. Interpreted and Authenticated by: Wali Yusuf 07/05/17
[2017-07-06] MEDS: traZODone HCL 50 MG TABLET PO SCH ×2 (00:38→20:21)
[2017-07-06] MEDS: HEPARIN 5,000 UNIT/ML VIAL SQ SCH ×3 (00:38→20:21)
[2017-07-06] MEDS: QUEtiapine 25 MG TABLET PO SCH ×2 (00:38→10:47)
[2017-07-06] MEDS: FAMOTIDINE/PF 20 MG/2 ML VIAL IV SCH ×3 (00:38→20:21)
[2017-07-06] MEDS: LATANOPROST OPHTH DROPS 2.5ML BOTTLE OU SCH ×2 (00:39→20:22)
[2017-07-06] MEDS: SIMVASTATIN 10 MG TABLET PO SCH ×2 (00:39→20:20)
[2017-07-06 05:27] LABS: Basophils # (Auto) 0 K/mcL (0.0-0.3); Basophils % (Auto) 0.3 % (0.0-2.0); Eosinophils # (Auto) 0.4 K/mcL (0.0-0.7); Eosinophils % (Auto) 7.2 % (0.0-7.0); Granulocytes % (Auto) 71.3 % (38.0-78.0); Lymphocytes # (Auto) 0.8 K/mcL (1.5-4.8); Lymphocytes % (Auto) 12.2 % (15.5-49.0); Mean Cell Volume 86.7 fL (80.0-100.0); Mean Corpuscular HGB Conc 33.8 g/dL (31.0-36.0); Mean Corpuscular Hemoglobin 29.3 pg (26.0-34.0); Monocytes # (Auto) 0.6 K/mcL (0.1-0.9); Platelet Count 326 K/mcL (140-440); RBC 3.54 M/mcL (4.50-5.90); Red Cell Distribution Width 13.4 % (11.5-14.5)
[2017-07-06 05:56] LABS: ALT/SGPT 9 U/l (0-40); Albumin 3.1 gm/dL (3.2-5.2); Albumin/Globulin Ratio 1.3 (1.0-2.3); Alkaline Phosphatase 63 U/L (39-117); Bilirubin,Direct < 0.2 mg/dL (0.0-0.3); Blood Urea Nitrogen 13 mg/dl (8-23); Gamma Glutamyl Transpeptidase 15 U/L (8-61); Uric Acid 7.7 mg/dL (2.5-8.0)
[2017-07-06] MEDS: 0.9 % SODIUM CHLORIDE 10 ML SYRINGE IV SCH ×3 (06:01→20:21)
[2017-07-06] MEDS ORDERED: 0.9 % SODIUM CHLORIDE 500 ML IV ONE (07:40)
[2017-07-06] MEDS: ERTAPENEM 1 GM in 0.9 % SODIUM CHLORIDE 50 ML IV SCH (09:00)
[2017-07-06] MEDS: VANCOMYCIN 1,000 MG in 0.9 % SODIUM CHLORIDE 250 ML IV SCH (10:00)
[2017-07-06] MEDS: OMEPRAZOLE 20 MG CAPSULE PO SCH (10:46)
[2017-07-06] MEDS: LEVOTHYROXINE 50 MCG TABLET PO SCH (10:46)
[2017-07-06] MEDS: ASPIRIN 325 MG ENTERIC COATED TABLET PO SCH (10:46)
[2017-07-06] MEDS: FINASTERIDE 5 MG TABLET PO SCH (10:46)
[2017-07-06] MEDS: VITAMIN D3 1,000 UNIT TABLET PO SCH (10:47)
[2017-07-06] MEDS: FLUoxetine HCL 20 MG CAPSULE PO SCH (10:47)
[2017-07-06] MEDS: CALCIUM (OYSTER SHELL) 500 MG TABLET PO SCH (10:47)
[2017-07-06] MEDS: MULTIVIT,THER IRON,CA,FA & MIN 1 TABLET PO SCH (10:47)
--- NOTE | 2017-07-06 10:54 | Internal Med Progress Note ---
Medical - PN: Subj Patient information: Note initiated : 07/06/17 at 10:49 am Service Date, if different from initiated Date: [] Patient: Gustavo Fuentes 86 y/o M admitted on 06/27/17 for Abdominal Pain/Large Bowel Obstruction. Chief Complaint: [] Interval history: June 27 Patient onset of abdominal pain about 10 PM last evening. He had emesis 6. Initially tannish emesis to a yellowish color, no bilious emesis, no hematemesis. He continued to have abdominal pain, he is brought to the ED for further evaluation. Patient is able to give limited history, denies any fevers or chills. Last bowel movement appears to have been morning, the morning prior to the onset of his symptoms. No recent change in bowel habits. 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 Dr. Whitney re-reviewed CT scan of the abdomen with Dr. Mix in radiology, who is concerned this did indeed represent a volvulus or an internal hernia. Repeat lactate was normal, repeat CBC revealed persistent leukocytosis. Given the above, Dr. 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 Right hemicolectomy was performed. June 28 This morning the patient's awake, alert, thinks he is in a different hospital but is easily redirectable. Had some oozing of serosanguineous fluid from the inferior aspects of the surgical wound, a small bleeder was ligated by Dr. Whitney. Subsequently the patient became more agitated, pulled out his nasogastric tube, is more difficult to redirect. He has responded to low dose lorazepam. He was having some abdominal pain this morning, seems to be more associated with the surgical wound, different than pain at presentation yesterday. June 29 Low-grade fever continued, worsened, had temperature to 102 overnight the to the . Intermittent confusion and agitation. Also went into atrial fibrillation overnight between the and , spontaneously cardioverted afternoon of the . Repeat CT scan obtained, showing generally expected postop findings, but pulmonary infiltrates. Antibiotics changed from Zosyn to vancomycin and ertapenem. Jun 30 Received IM Zyprexa last evening, one further dose about midnight. Much clearer this morning, underlying dementia, easily redirectable, but not agitated and pulling at lines. Able to work with pulmonary toilet, able to get up to the chair. He remains in normal sinus rhythm. Still with low-grade fever , but less than 100. Jun 2 Became agitated and less re-directable last night consistent with sundowning in the setting of dementia and hospitalization. Required restraints overnight. Went back into atrial fibrillation after a fall, when he attempts to get out of bed late yesterday afternoon. IJ central line was accidentally discontinued/ pulled out at that time. Overnights spontaneously reconverted back to sinus rhythm. This morning in bed, does not recognize me, generally redirectable. Denies any abdominal pain. Becoming more agitated with the arms and noises in the intensive care unit, attempting to provide a calmer environment. Jul 02 Yesterday afternoon, though did not appear to be painful and denied pain, trial of morphine was undertaken, patient became much more comfortable, slept for a few hours and was much clearer afterward. Part of his daytime agitation may have been unrecognized pain. I suspect he also has a component of sundowning, as tends to worsen the evening. This morning, he is awake, is alert, he is talkative. Had bowel movements yesterday, ambulated around the nurse's station. Seen by speech who made recommendations. Dr. Whitney cleared him to have his diet advanced per speech his recommendations. Continues to have bowel sounds. This morning is also complaining of a bit of abdominal pain, is a little tender around his incision as would be expected. Jul 03 patient seen examined, in [facility] mood today, denies any complaints, no cp no sob, no abdminal pain, able to tolerate po well he is having frequent BM which can be expected after a arley colectemy. Jul 04 patient seen examined, was drowsy this AM, no complaints, the patient yesterday , as the day progressed became more agitated and delirious, needing IM zyprexa and soft restrains to keep him in bed, his condition improved overnight and he has been off restraints He was dementia, and in the past admissions to he was delirious, the patient took a while to settle down will increase his dose of seroquel from 12.5 qhs to 25mg bid, continue prn zyprexa, continue morphine, for pain management. ok to xfer to med surg, jul 05 Patient seen examined, overnight was cnofused again, needing constant attention but otherwise no issues, on seroquel 25mg bid, increase to 50mg bid, continue onlanzapine pt wondering if he could go back to assisted living, patient denies any complaints, but is plesantly confused this AM. electrolytes are stable. Jul 06 Patient seen examined, no acute complaints, in bed still confused, but no agitated Still quite weak and is working with physical therapy last day of antibiotic tomorrow, can be d/c to snf if able to plan to stop seroquel and stat on depakote sprinkles , as anti psychotics make it difficult to plac in SNF Pertinent ROS: Denies headache, dizziness Denies chest pain, palpitations Denies cough or shortness of breath Denies abdominal pain, nausea or vomiting. - Constitutional Vitals: Vital Signs Temp Pulse Resp BP Pulse Ox 98.8 F 71 16 117/69 97 07/06/17 07:12 07/06/17 03:46 07/06/17 08:00 07/06/17 07:12 07/06/17 08:00 Period Temp Pulse Resp BP Sys/Patel Pulse Ox Last 24 Hr 97.6 F-99.0 F 65-71 12-18 102-138/56-78 90-97 Intake and Output 07/05/17 07/06/17 07/06/17 21:59 05:59 13:59 Intake Total 360 / 360 0 / 0 Output Total 300 / 300 350 / 350 275 / 275 Balance 60 / 60 -350 / -350 -275 / -275 Weight 160 lb 9.6 oz Intake & Output: Intake & Output 07/05/17 07/06/17 07/06/17 21:59 05:59 13:59 Intake Total 360 / 360 0 / 0 Output Total 300 / 300 350 / 350 275 / 275 Balance 60 / 60 -350 / -350 -275 / -275 Weight 160 lb 9.6 oz Intake: Oral 360 / 360 0 / 0 Output: Void Amount 300 / 300 350 / 350 275 / 275 Exam: Constitutional; Afebrile, cooperative, alert, not in distress. Eyes- No icterus, , No periorbital swelling Ears- Ext ear normal, hearing normal to conversation. Neck- Midline trachea, supple Respiratory system: Air Entry equal on both sides, No crackles or wheezing, no rhonchi. CVS- Rate rhythm regular, S1,S2 heard, no gallop, no rub. 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 Medical - PN: Obj Da - Labs CBC & Chem 7: 07/06/17 04:00 07/06/17 04:00 Labs: Abnormal Lab Results 07/06/17 07/06/17 07/05/17 04:00 04:00 03:46 RBC 3.54 L Hgb 10.4 L Hct 30.6 L Lymph % (Auto) 12.2 L Forrest % (Auto) Eos % (Auto) 7.2 H Lymph # (Auto) 0.8 L Chloride Carbon Dioxide Creatinine 1.3 H Glucose Calcium 8.3 L 8.3 L Total Protein 5.5 L 5.5 L Albumin 3.1 L 3.0 L Triglycerides 160 H 173 H 07/05/17 07/04/17 07/04/17 03:46 03:35 03:35 RBC 3.40 L 3.47 L Hgb 10.0 L 10.3 L Hct 29.7 L 30.5 L Lymph % (Auto) Forrest % (Auto) 12.2 H Eos % (Auto) 8.1 H 8.4 H Lymph # (Auto) 1.1 L 0.9 L Chloride 110 H Carbon Dioxide 21 L Creatinine Glucose 117 H Calcium 8.1 L Total Protein 5.4 L Albumin 2.9 L Triglycerides 183 H Meds: Medications Artificial Tears (Artificial Tears Ophth Drops) 1 gtt OU Q1HP PRN PRN Reason: Dry Eye(s) Aspirin (Ecotrin) 325 mg PO DAILY [facility] Last Admin: 07/06/17 10:46 Dose: 325 mg Calcium Carbonate/Glycine (Oscal) 500 mg PO DAILY [facility] Last Admin: 07/06/17 10:47 Dose: 500 mg Famotidine (Pepcid) 20 mg IV Q12 [facility] Last Admin: 07/06/17 10:45 Dose: 20 mg Finasteride (Proscar) 5 mg PO QDAY [facility] Last Admin: 07/06/17 10:46 Dose: 5 mg Fluoxetine HCl (Prozac) 80 mg PO DAILY [facility] Last Admin: 07/06/17 10:47 Dose: 80 mg Heparin Sodium (Porcine) (Heparin) 5,000 unit SQ Q12 [facility] Last Admin: 07/06/17 10:46 Dose: 5,000 unit Ertapenem 1 gm/ Sodium (Chloride) 50 mls @ 100 mls/hr IV DAILY [facility] Last Infusion: 07/05/17 11:00 Dose: Infused Acetaminophen (Ofirmev) 650 mg in 65 mls @ 130 mls/hr IV Q6HP PRN PRN Reason: PAIN/FEVER > 101 Vancomycin HCl 1,000 mg/ (Sodium Chloride) 250 mls @ 250 mls/hr IV DAILY@1000 [facility] Last Infusion: 07/05/17 12:08 Dose: Infused Iron Carb/Multivit/Shampoo Assistant/Folic Acid (Multivitamin W/Minerals) 1 tab PO DAILY [facility] Last Admin: 07/06/17 10:47 Dose: 1 tab Latanoprost (Xalatan Ophth Drops) 1 gtt OU QHS [facility] Last Admin: 07/06/17 00:39 Dose: Not Given Levothyroxine Sodium (Synthroid) 50 mcg PO QAMAC [facility] Last Admin: 07/06/17 10:46 Dose: 50 mcg Morphine Sulfate (Morphine) 2 mg IV Q2HP PRN PRN Reason: PAIN LEVEL > 6 Last Admin: 07/05/17 10:28 Dose: 2 mg Olanzapine (Olanzapine) 5 mg IM Q6HP PRN PRN Reason: for agitation Omeprazole (Prilosec) 20 mg PO ACB [facility] Last Admin: 07/06/17 10:46 Dose: 20 mg Ondansetron HCl (Zofran) 4 mg IV Q4HP PRN PRN Reason: Nausea And Vomiting Clobetasol Prop Topical Solution 0. 05% 1 dose TOPICAL BIDP PRN PRN Reason: ITCHING AND RASH Quetiapine Fumarate (Seroquel) 50 mg PO BID [facility] Last Admin: 07/06/17 10:47 Dose: 50 mg Simvastatin (Zocor) 5 mg PO HS [facility] Last Admin: 07/06/17 00:39 Dose: Not Given Sodium Chloride (Saline Flush) 10 ml IV UD PRN PRN Reason: FLUSH Sodium Chloride (Saline Flush) 10 ml IV Q8 [facility] Last Admin: 07/06/17 06:01 Dose: 10 ml Trazodone HCl (Desyrel) 100 mg PO QHS [facility] Last Admin: 07/06/17 00:38 Dose: Not Given Vancomycin HCl (Vancomycin Per Pharmacy) 1 order IV UD [facility] Vitamin D (Vitamin D3) 1,000 unit PO DAILY [facility] Last Admin: 07/06/17 10:47 Dose: 1,000 unit Medical - PN: A/P - Time Spent With Patient Total time spent is greater than 50% in coordination of care (as documented) at patient's floor/unit and/or counseling patient: - Narrative A/P Narrative: 86-year-old male with multiple chronic medical problems, presenting with acute onset of nausea vomiting abdominal pain. Found to have large bowel obstruction due to internal hernia and cecal volvulus. Large bowel obstruction/internal hernia/cecal volvulus. Postop day #8 status post exploratory laparotomy and cecal resection. Plan: Bowel care/diet per surgery tolerating po well; pain control, supportive care. Ok to D/c from the surgical stand pint. Fever/ Pneumonia, : health care associated PNA, cultures neg, labs stable, on vanco and ertapenum, last day today. Atrial fibrillation. Spontaneously cardioverted again after recurrent AF Friday afternoon. Now 2 bouts of paroxysmal AF.. Likely secondary to stress from postoperative state, as well as pulmonary infection. Plan: d/c telemetery, get ekg if becomes tachcyardic again. 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 IM doses of Zyprexa not always controlling symptoms. will start on depakote today, as using anti psychotics can lead to placement issues. Chronic kidney disease. Creatinine slightly worse at 1.3, give some fluids today, Plan: Renal dose medications. Coronary artery disease. Quiescent. Most recent cardiac evaluation at been for rhythm issues. No real evidence of anginal symptoms. Plan: Monitor. BPH with lower urinary tract symptoms. On finasteride as an outpatient. Plan: able to void by self. Hypotension with orthostatic symptoms. On midodrine as an outpatient. Maintaining adequate blood pressure without intervention currently. Plan: Hold midodrine. Hypothyroid. On oral replacement. Plan: resume oral home dose. Prophylaxis: IV famotidine, subcutaneous heparin. Medical - PN: Qual - VTE Deep Vein Thrombosis/Pulmonary Embolism Present on Admission: Yes
[2017-07-06] MEDS: DIVALPROEX 125 MG CAP.SPRINK PO SCH ×2 (11:04→20:20)
--- NOTE | 2017-07-06 12:33 | General Surgery Progress Note ---
Subjective Patient reports: feels better, pain is less, tolerating a regular diet, flatus, bowel movement, afebrile Narrative: Note initiated : 07/06/17 at 12:31 pm Service Date, if different from initiated Date: [] Patient: Gustavo Fuentes 86 y/o M admitted on 06/27/17 for Abdominal Pain/Large Bowel Obstruction. Chief Complaint: [Patient is doing well without complaints and is stable for transfer to rehab or SNF when released by hospitalisT.] Objective Temp Pulse Resp BP Pulse Ox 97.6 F 71 18 114/59 98 07/06/17 11:23 07/06/17 03:46 07/06/17 11:23 07/06/17 11:23 07/06/17 11:23 - Additional Data Intake & Output - Last 24 hours: Intake & Output 07/04/17 07/05/17 07/06/17 07/07/17 05:59 05:59 05:59 05:59 Intake Total 2730 / 2730 1500 / 1500 660 / 660 500 / 500 Output Total 1425 / 1425 726 / 726 650 / 650 475 / 475 Balance 1305 / 1305 774 / 774 25 25 Weight 159 lb 1.6 oz 160 lb 9.6 oz 160 lb 9.6 oz - Labs 07/06/17 04:00 07/06/17 04:00 Diabetes panel 07/06/17 Range/Units 04:00 Sodium 141 (133-145) mmol/L Potassium 4.1 (3.3-5.1) mmol/L Chloride 106 (96-108) mmol/L Carbon Dioxide 23 (22-30) mmol/L BUN 13 (8-23) mg/dl Creatinine 1.3 H (0.7-1.2) mg/dl Glucose 92 (70-105) mg/dL Calcium 8.3 L (8.6-10.4) mg/dl AST 11 (0-37) U/l ALT 9 (0-40) U/l Alkaline Phosphatase 63 (39-117) U/L Total Protein 5.5 L (5.9-8.4) gm/dL Albumin 3.1 L (3.2-5.2) gm/dL Triglycerides 160 H (<150) mg/dl Calcium panel 07/06/17 Range/Units 04:00 Calcium 8.3 L (8.6-10.4) mg/dl Phosphorus 3.8 (2.7-4.5) mg/dL Albumin 3.1 L (3.2-5.2) gm/dL Pituitary panel 07/06/17 Range/Units 04:00 Sodium 141 (133-145) mmol/L Potassium 4.1 (3.3-5.1) mmol/L Chloride 106 (96-108) mmol/L Carbon Dioxide 23 (22-30) mmol/L BUN 13 (8-23) mg/dl Creatinine 1.3 H (0.7-1.2) mg/dl Glucose 92 (70-105) mg/dL Calcium 8.3 L (8.6-10.4) mg/dl Adrenal panel 07/06/17 Range/Units 04:00 Sodium 141 (133-145) mmol/L Potassium 4.1 (3.3-5.1) mmol/L Chloride 106 (96-108) mmol/L Carbon Dioxide 23 (22-30) mmol/L BUN 13 (8-23) mg/dl Creatinine 1.3 H (0.7-1.2) mg/dl Glucose 92 (70-105) mg/dL Calcium 8.3 L (8.6-10.4) mg/dl Total Bilirubin 0.3 (0.0-1.0) mg/dL AST 11 (0-37) U/l ALT 9 (0-40) U/l Alkaline Phosphatase 63 (39-117) U/L Total Protein 5.5 L (5.9-8.4) gm/dL Albumin 3.1 L (3.2-5.2) gm/dL Assessment and Plan (1) Cecal volvulus Status: Acute Assessment and plan: We will continue present diet. stable from a surgical standpoint Current Visit: Yes (2) Obstructed internal hernia Status: Resolved Current Visit: Yes (3) Right lower lobe pneumonia Status: Acute Current Visit: No (4) Paroxysmal atrial fibrillation Problem details: Captured on [employer] Status: Chronic Current Visit: No (5) Chronic kidney disease, stage III (moderate) Status: Chronic Current Visit: Yes - Time Spent With Patient Total time spent is greater than 50% in coordination of care (as documented) at patient's floor/unit and/or counseling patient:
[2017-07-07 05:24] LABS: Basophils # (Auto) 0 K/mcL (0.0-0.3); Basophils % (Auto) 0.2 % (0.0-2.0); Eosinophils # (Auto) 0.3 K/mcL (0.0-0.7); Eosinophils % (Auto) 5.7 % (0.0-7.0); Granulocytes % (Auto) 70.1 % (38.0-78.0); Lymphocytes # (Auto) 0.8 K/mcL (1.5-4.8); Lymphocytes % (Auto) 13.7 % (15.5-49.0); Mean Cell Volume 86.1 fL (80.0-100.0); Mean Corpuscular HGB Conc 34.1 g/dL (31.0-36.0); Mean Corpuscular Hemoglobin 29.4 pg (26.0-34.0); Monocytes # (Auto) 0.6 K/mcL (0.1-0.9); Monocytes % (Auto) 10.3 % (1.0-12.0); Platelet Count 292 K/mcL (140-440); RBC 3.44 M/mcL (4.50-5.90); Red Cell Distribution Width 13.4 % (11.5-14.5)
[2017-07-07 05:54] LABS: ALT/SGPT 12 U/l (0-40); Albumin 2.9 gm/dL (3.2-5.2); Albumin/Globulin Ratio 1.1 (1.0-2.3); Alkaline Phosphatase 57 U/L (39-117); Bilirubin,Direct < 0.2 mg/dL (0.0-0.3); Blood Urea Nitrogen 15 mg/dl (8-23); Gamma Glutamyl Transpeptidase 14 U/L (8-61); Uric Acid 7.5 mg/dL (2.5-8.0)
[2017-07-07] MEDS: 0.9 % SODIUM CHLORIDE 10 ML SYRINGE IV SCH ×2 (05:56→12:26)
[2017-07-07] MEDS: ERTAPENEM 1 GM in 0.9 % SODIUM CHLORIDE 50 ML IV SCH (09:00)
[2017-07-07] MEDS: VANCOMYCIN 1,000 MG in 0.9 % SODIUM CHLORIDE 250 ML IV SCH (10:00)
[2017-07-07] MEDS: FAMOTIDINE/PF 20 MG/2 ML VIAL IV SCH (10:39)
[2017-07-07] MEDS: LEVOTHYROXINE 50 MCG TABLET PO SCH (10:40)
[2017-07-07] MEDS: HEPARIN 5,000 UNIT/ML VIAL SQ SCH (10:40)
[2017-07-07] MEDS: FLUoxetine HCL 20 MG CAPSULE PO SCH (10:40)
[2017-07-07] MEDS: DIVALPROEX 125 MG CAP.SPRINK PO SCH (10:40)
[2017-07-07] MEDS: FINASTERIDE 5 MG TABLET PO SCH (10:40)
[2017-07-07] MEDS: VITAMIN D3 1,000 UNIT TABLET PO SCH (10:40)
[2017-07-07] MEDS: MULTIVIT,THER IRON,CA,FA & MIN 1 TABLET PO SCH (10:40)
[2017-07-07] MEDS: OMEPRAZOLE 20 MG CAPSULE PO SCH (10:41)
[2017-07-07] MEDS: ASPIRIN 325 MG ENTERIC COATED TABLET PO SCH (10:41)
[2017-07-07] MEDS: CALCIUM (OYSTER SHELL) 500 MG TABLET PO SCH (10:41)
--- NOTE | 2017-07-07 10:58 | Discharge Summary ---
Medical - DS: Prov Patient information: Note initiated : 07/07/17 at 10:51 am Service Date, if different from initiated Date: [] Patient: Gustavo Fuentes 86 y/o M admitted on 06/27/17 for Abdominal Pain/Large Bowel Obstruction. Chief Complaint: [] Date of admission: 06/27/17 04:58 Discharge date: 07/07/17 Primary care physician: Raymond Ro Admitting clinician: Earnestine Katz Consults: 07/02/17 11:39 Consult to Physician [CONS] Routine Comment: Consulting Provider: Tamar León Reason For Exam: Physician to Consult 06/27/17 02:33 Consult to Physician [CONS] Stat Comment: Consulting Provider: Airam Whitney Reason For Exam: Physician to Consult 06/27/17 03:55 Consult to Physician [CONS] Stat Comment: Consulting Provider: Earnestine Katz Reason For Exam: Physician to Consult Discharging clinician: Thomas Blanco Medical - DS: Meds - Discharge Medications Prescriptions: Divalproex [Depakote Sprinkles] 250 mg PO BID #60 cap.sprink Midodrine HCl 2.5 mg PO TID #90 tab Active and Home Medications: Home Medications calcium carbonate 600 mg calcium (1,500 mg) tablet 600 mg PO QDAY tab 12/16/14 [History Confirmed 06/27/17 Last Taken 01/16/17] cholecalciferol (vitamin D3) 1,000 unit capsule 1,000 unit PO QDAY cap [History Confirmed 06/27/17 Last Taken 01/16/17] fluoxetine 40 mg capsule 80 mg PO QAM cap 12/16/14 [History Confirmed 06/27/17 Last Taken 01/16/17] multivitamin tablet 1 tab PO QDAY tab 12/16/14 [History Confirmed 06/27/17 Last Taken 01/16/17] pravastatin 10 mg tablet 10 mg PO QHS tab 12/16/14 [History Confirmed 06/27/17 Last Taken 01/16/17] trazodone 50 mg tablet 100 mg PO QHS tab 12/16/14 [History Confirmed 06/27/17 Last Taken 01/16/17] clobetasol 0.05 % scalp solution 1 applic TOPICAL BID PRN #50 ml 08/15/15 [Rx Confirmed 06/27/17 Last Taken 03/08/16] latanoprost 0.005 % eye drops 1 drp OPHTHALMIC QHS ml 01/25/16 [History Confirmed 06/27/17 Last Taken 01/16/17] levothyroxine 50 mcg tablet 50 mcg PO QDAY #90 tab 09/02/16 [Rx Confirmed Last Taken 01/17/17 06:00] finasteride 5 mg tablet 5 mg PO QDAY #30 tab 12/11/16 [Rx Confirmed 06/27/17 Last Taken 01/16/17] Omeprazole [Prilosec] 20 mg PO ACB cap 03/23/17 [Rx Confirmed 06/27/17 Last Taken Unknown] aspirin 325 mg tablet 325 mg PO QDAY 04/24/17 [History Confirmed 06/27/17 Last Taken Unknown] midodrine 5 mg tablet 5 mg PO TID 04/24/17 [History Confirmed 06/27/17 Last Taken Unknown] Medical - DS: Hosp Hospital course: Mr Alfredo Chen is an 89 yr male who presented to the ER with patient onset of abdominal pain about 10 PM the night before admission. He had emesis 6. Initially tannish emesis to a yellowish color, no bilious emesis, no hematemesis. He continued to have abdominal pain, he is brought to the ED for further evaluation. Patient is able to give limited history, denies any fevers or chills. Last bowel movement appears to have been morning, the morning prior to the onset of his symptoms. No recent change in bowel habits. The CT of the abdomen showed possible volvulus or internal hernia. The patient was taken to the OR by Dr Whitney and a right hemicolectomey performed. Patient post surgery did well from the surgical stand point, but did develop Health care associated pneumonia, which was treated for 7 days iw IV antibiotocs. 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 He denies any pain therefore will not send any narcotic prescription Dementia with behavioral issues/ Delirum: During the hospital stay patient was more confused and agitated, needing increased doses of anti psychotics, like olanzapine and seroquel, this helped the patient initially, this was later switched to depakote, the patient seems mandi aoox2-3 at baseline and is quite cheerful, pt still is struggling with some sleep issues, so his dose of trazodone was increased from 100 to 150 qhs. The patient was on midodrine before presentation for low bp and dizziness, during the hospital stay his bp was stable and he did not need the medication, but the patients bp remains on the lower end of normal. I have cut back his dose of midodrine from 5mg tid to 2.5mg tid The rest of the stay in the hospital was uneventful, no changes to his home meds done except as mentioned above, he is weak after surgery and needs rehab to help him get back to his previous level of ambulation. He also needs to work with ST for his dysphagia. He will be discharged to SNF at [place] for further rehab. , with follow up with PCP and Surgery. Discharge diagnosis: cecal volvulus, Pneumonia - Time Spent with Patient Total time spent providing and/or coordinating discharge services: Greater than 30 minutes Medical - DS: Exam - Constitutional Vitals: Vital Signs Temp Pulse Resp BP BP Pulse Ox 07/07/17 08:00 19 96 07/07/17 07:06 97.8 F 18 96/60 96 07/07/17 04:00 98.6 F 60 12 118/56 98 07/07/17 00:00 97.9 F 69 16 116/59 97 07/06/17 20:05 114/59 07/06/17 20:00 98.3 F 66 16 87/54 95 07/06/17 15:23 98.1 F 18 119/58 97 07/06/17 11:23 97.6 F 18 114/59 98 Intake and Output 07/06/17 07/07/17 07/07/17 21:59 05:59 13:59 Intake Total 360 / 360 200 / 200 Output Total 550 / 550 500 / 500 550 / 550 Balance -190 / -190 -300 / -300 -550 / -550 Intake: Oral 360 / 360 200 / 200 Output: Void Amount 550 / 550 500 / 500 550 / 550 Other: # Voids 1 # Bowel Movements 1 Weight 160 lb 9.6 oz Additional comments: Constitutional; Afebrile, cooperative, alert, not in distress. Eyes- No icterus, , No periorbital swelling Ears- Ext ear normal, Neck- Midline trachea, supple Respiratory system: Air Entry equal on both sides, No crackles or wheezing, no rhonchi. CVS- Rate rhythm regular, S1,S2 heard, no gallop, no rub. Abdomen- Soft nontender abdomen, no organomegaly, no tenderness, no guarding or rigidity, [employer]- AOOx2, moving all extremities, no gross focal deficit noted. Medical - DS: Data Labs on day of discharge: Labs from last 24 hours 07/07/17 07/07/17 03:55 03:55 WBC 6.1 RBC 3.44 L Hgb 10.1 L Hct 29.6 L MCV 86.1 MCH 29.4 MCHC 34.1 RDW 13.4 Plt Count 292 MPV 8.1 Gran % 70.1 Lymph % (Auto) 13.7 L [place] % (Auto) 10.3 Eos % (Auto) 5.7 Baso % (Auto) 0.2 Gran # 4.3 Lymph # (Auto) 0.8 L [place] # (Auto) 0.6 Eos # (Auto) 0.3 Baso # (Auto) 0 Sodium 141 Potassium 4.0 Chloride 104 Carbon Dioxide 23 Anion Gap 14.0 BUN 15 Creatinine 1.3 H GFR Calculation 49 Glucose 86 Uric Acid 7.5 Calcium 7.9 L Phosphorus 3.1 Magnesium 2.0 Total Bilirubin 0.3 Direct Bilirubin < 0.2 GGT 14 AST 21 ALT 12 Alkaline Phosphatase 57 Lactate Dehydrogenase 195 Total Protein 5.5 L Albumin 2.9 L Globulin 2.6 Albumin/Globulin Ratio 1.1 Triglycerides 147 Medical - DS: A/P - Patient/Caregiver Discharge Instructions Activity: as per physical therapy, increase activity as tolerated Diet: Dysphagia Pureed (level 1 diet, with enlive 8oz twice daily) Additional Instructions: Please follow up with PCP in 2 weeks Follow up with Dr León/ Surgery in 1 week for post op follow up Work with OT/ PT/ ST at [facility] to help with rehab Go to the ER if worsening symptoms, abdominal pain, fever or any other acute concerns. You have been started on depakote to help with your mood and agitation, make sure you have your liver functions checked in 3-4 weeks, this can be done by your PCP. Prescriptions: Divalproex [Depakote Sprinkles] 250 mg PO BID #60 cap.sprink Midodrine HCl 2.5 mg PO TID #90 tab - Follow up Plan Follow up with: Raymond Ro MD [Primary Care Provider] - Tamar León MD [Physician] - 07/10/17 9:45 am (if you need to reschedule for a better time. please call) Disposition: Xfer SNF Prognosis: Fair Rehab Potential: Fair I certify that the patient requires SNF services: Yes Overall status at discharge: patient is progressing back to baseline Medical - DS: Qual - VTE Deep Vein Thrombosis/Pulmonary Embolism Present on Admission: Yes
[2017-07-07] MEDS ORDERED: traZODone HCL 50 MG TABLET PO SCH (21:00)
== END 2017-07-07 13:00 | DRG 329 ==
LOC: ED 23:21 → ICU 06-27 04:58 → MEDSUR 07-04 14:45
PROVIDERS: ADMIT Internal Medicine; ATTEND Internal Medicine